=== PATIENT | female | born 1970 | race Two or more races ===

== ENCOUNTER 2017-01-06 02:47 | Emergency (ER) | payer SELFPAY ==
[2017-01-06] MEDS ORDERED: NORMAL SALINE 1000 ML 1,000 ML IV PRN (03:38)
[2017-01-06] MEDS ORDERED: GABAPENTIN 300 MG CAPSULE PO ONE (03:44)
[2017-01-06] MEDS ORDERED: MORPHINE SULFATE 10 MG/ML INJ IV ONE (04:17)
[2017-01-06 04:22] LABS: ABSOLUTE BASOPHILS # (AUTO) 0.1 10^3/uL (0.0-0.2); ABSOLUTE LYMPHOCYTES (AUTO) 2.4 10^3/uL (0.5-4.7); ABSOLUTE MONOCYTES (AUTO) 0.6 10^3/uL (0.1-1.4); ABSOLUTE NEUT (AUTO) 6.8 10^3/uL (1.7-8.2); BASOPHILS % (AUTO) 0.5 % (0-2); EOSINOPHILS % (AUTO) 0.4 % (0-6); HEMOGLOBIN 10.6 g/dL (12.0-15.5); HGB HCT DIFFERENCE -1.2; LYMPHOCYTES % (AUTO) 24.3 % (13-45); MEAN CORPUSCULAR HEMOGLOBIN 22.1 pg (27.0-33.4); MEAN CORPUSCULAR HGB CONC 32.2 g/dL (32.0-36.0); MEAN CORPUSCULAR VOLUME 69 fl (80-97); MONOCYTES % (AUTO) 6.1 % (3-13); RED BLOOD COUNT 4.81 10^6/uL (3.72-5.28); RED CELL DISTRIBUTION WIDTH 22.8 % (11.5-14.0); SEGMENTED NEUTROPHILS % (AUTO) 68.7 % (42-78); VENOUS BLOOD BASE EXCESS 1.2 mmol/L; VENOUS BLOOD PCO2 36.4 mmHg (35-63); VENOUS BLOOD PH 7.45 (7.30-7.42); WHITE BLOOD COUNT 9.9 10^3/uL (4.0-10.5)
[2017-01-06 04:36] LABS: ALANINE AMINOTRANSFERASE 29 U/L (9-52); ALBUMIN 3.1 g/dL (3.5-5.0); ALKALINE PHOSPHATASE 180 U/L (38-126); ANION GAP 9 (5-19); ASPARTATE AMINO TRANSFERASE 19 U/L (14-36); BILIRUBIN,DIRECT 0.5 mg/dL (0.0-0.4); BLOOD UREA NITROGEN 7 mg/dL (7-20); CARBON DIOXIDE 26 mmol/L (22-30); CHLORIDE 96 mmol/L (98-107); CREATININE RESULT 0.52 mg/dL (0.52-1.25); POTASSIUM 3.9 mmol/L (3.6-5.0); SODIUM 130.5 mmol/L (137-145); TOTAL PROTEIN 6.8 g/dL (6.3-8.2)
[2017-01-06 04:43] LABS: GLUCOSE 487 mg/dL (75-110)
--- NOTE | 2017-01-06 04:56 | ER Document Report ---
ED Blood Sugar Problem - General Chief Complaint: High Blood Sugar Stated Complaint: BLOOD SUGAR PROBLEM Time Seen by Provider: 01/06/17 03:38 Mode of Arrival: Ambulatory TRAVEL OUTSIDE OF THE [place] IN LAST 30 DAYS: No - HPI Patient complains to provider of: Bilateral leg pain, elevated blood sugar Onset: This afternoon Onset/Duration: Gradual Quality of pain: Achy Severity: Moderate Pain Level: 4 Similar symptoms previously: Yes Recently seen / treated by doctor: No Notes: Patient is a 46-year-old female presenting to the emergency room today complaining of elevated blood sugar and bilateral lower extremity pain consistent with diabetic neuropathy which she has experienced before, she denies any injury or trauma, no fever or chills, no increased urination or thirst, no vision changes, no chest pain or shortness of breath, patient reports that 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, and most recently when going through [employer] her medications were not and labeled bottles and were confiscated including her insulin and her gabapentin - Related Data Allergies/Adverse Reactions: Bee Allergy (Uncoded 01/06/17 03:18) bees Allergy (Uncoded 01/06/17 03:18) Past Medical History - General Information source: Patient - Social History Smoking Status: Never Smoker Family History: DM, Reviewed & Not Pertinent - Past Medical History Cardiac Medical History: Reports: Hx Hypertension Neurological Medical History: Denies: Hx Seizures Endocrine Medical History: Reports: Hx Diabetes Mellitus Type 2 Renal/ Medical History: Denies: Hx Peritoneal Dialysis GI Medical History: Reports: Hx Gastroesophageal Reflux Disease Musculoskeltal Medical History: Reports Hx Arthritis - gout Psychiatric Medical History: Reports: Hx Depression Past Surgical History: Reports: Hx Abdominal Surgery - Laproscopic Gastric Bypass, Hx Section - x 3. Denies: Hx Hysterectomy - Immunizations Hx Diphtheria, Pertussis, Tetanus Vaccination: No Review of Systems - Review of Systems Constitutional: No symptoms reported EENT: No symptoms reported Cardiovascular: No symptoms reported Respiratory: No symptoms reported Gastrointestinal: No symptoms reported Genitourinary: No symptoms reported Female Genitourinary: No symptoms reported Musculoskeletal: See HPI Skin: No symptoms reported Hematologic/Lymphatic: No symptoms reported Neurological/Psychological: No symptoms reported -: Yes All other systems reviewed and negative Physical Exam - Vital signs Vitals: Temp Pulse Resp BP Pulse Ox 98.6 F 109 H 18 139/89 H 94 01/06/17 03:13 01/06/17 03:13 01/06/17 03:13 01/06/17 03:13 01/06/17 03:13 Interpretation: Tachycardic - General General appearance: Alert Notes: Patient appears to be in pain, rocking on the bed and occasionally tapping or punching her legs - HEENT Head: Normocephalic, Atraumatic Eyes: Normal Pupils: PERRL - Respiratory Respiratory status: No respiratory distress Chest status: Nontender Breath sounds: Normal Chest palpation: Normal - Cardiovascular Rhythm: Regular Heart sounds: Normal auscultation Murmur: No - Abdominal Inspection: Normal Distension: No distension Bowel sounds: Normal Tenderness: Nontender Organomegaly: No organomegaly - Back Back: Normal, Nontender - Extremities General upper extremity: Normal inspection, Nontender, Normal color, Normal ROM , Normal temperature General lower extremity: Normal inspection, Nontender, Normal color, Normal ROM , Normal temperature, Normal weight bearing. No: Julia's sign - Neurological Neuro grossly intact: Yes Cognition: Normal Orientation: AAOx4 [place] Coma Scale Eye Opening: Spontaneous [place] Coma Scale Verbal: Oriented [place] Coma Scale Motor: Obeys Commands [place] Coma Scale Total: 15 Speech: Normal Motor strength normal: LUE, RUE, LLE, RLE Sensory: Normal - Psychological Associated symptoms: Normal affect, Normal mood - Skin Skin Temperature: Warm Skin Moisture: Dry Skin Color: Normal Course - Re-evaluation Re-evalutation: 01/06/17 05:14 Patient resting comfortably on the stretcher, reports feeling much better, symptoms are resolved, she was informed of her lab findings are consistent with hyperglycemia, symptoms are consistent with diabetic neuropathy, she was given a prescription for Levemir and gabapentin and advised to follow-up with her primary care provider in 2-3 days or return if symptoms worsen, patient acknowledges understanding and agreement with this plan - Vital Signs Vital signs: Temp Pulse Resp BP Pulse Ox 98.6 F 109 H 18 139/89 H 94 01/06/17 03:13 01/06/17 03:13 01/06/17 03:13 01/06/17 03:13 01/06/17 03:13 - Laboratory Result Diagrams: 01/06/17 04:13 01/06/17 04:13 Laboratory results interpreted by me: 01/06/17 01/06/1717 04:13 04:13 04:13 Hgb 10.6 L Hct 33.0 L MCV 69 L MCH 22.1 L RDW 22.8 H VBG pH 7.45 H Sodium 130.5 L Chloride 96 L Glucose 487 H* Direct Bilirubin 0.5 H Alkaline Phosphatase 180 H Albumin 3.1 L Discharge - Discharge Clinical Impression: Hyperglycemia Diabetic neuropathy Qualifiers: Diabetes mellitus type: type 2 Diabetes mellitus complication detail: diabetic polyneuropathy Qualified Code(s): E11.42 - Type 2 diabetes mellitus with diabetic polyneuropathy Condition: Stable Disposition: HOME, SELF-CARE Instructions: Hyperglycemia ([facility]), Neuropathy ([facility]) Additional Instructions: Follow up with your primary care provider in one to 2 days. Return to the emergency room immediately if symptoms worsen or any additional concerns. Prescriptions: Insulin Detemir [Levemir Insulin 300 Units/3 ml Insuln.pen] 1 unit SUBCUT QHS # 10 ml Gabapentin 600 mg PO TID #90 tablet
[2017-01-06 05:32] VITALS: BP 130/81
== END 2017-01-06 05:30 | disposition home or self-care (01) ==
LOC: EDBD 02:47 → ER 02:47
DX: E11.65 Type 2 diabetes mellitus with hyperglycemia (principal); E11.42 Type 2 diabetes mellitus with diabetic polyneuropathy; M79.604 Pain in right leg; M79.605 Pain in left leg
CPT/HCPCS: 99285; 96361; 96374; 36415; 82962; 83930; 85025; 80053; 82803; J2270; J7030

== ENCOUNTER 2017-02-09 08:32 | Emergency (ER) | payer SELFPAY ==
[2017-02-09 09:30] LABS: ABSOLUTE LYMPHOCYTES (AUTO) 1.6 10^3/uL (0.5-4.7); ABSOLUTE MONOCYTES (AUTO) 0.8 10^3/uL (0.1-1.4); BASOPHILS % (AUTO) 0.4 % (0-2); EOSINOPHILS % (AUTO) 0.1 % (0-6); HEMATOCRIT 32.3 % (36.0-47.0); HEMOGLOBIN 10.5 g/dL (12.0-15.5); HGB HCT DIFFERENCE -0.8; LYMPHOCYTES % (AUTO) 15.1 % (13-45); MEAN CORPUSCULAR HEMOGLOBIN 23.5 pg (27.0-33.4); MEAN CORPUSCULAR HGB CONC 32.6 g/dL (32.0-36.0); MEAN CORPUSCULAR VOLUME 72 fl (80-97); MONOCYTES % (AUTO) 7.6 % (3-13); RED BLOOD COUNT 4.49 10^6/uL (3.72-5.28); RED CELL DISTRIBUTION WIDTH 21.9 % (11.5-14.0); SEGMENTED NEUTROPHILS % (AUTO) 76.8 % (42-78); WHITE BLOOD COUNT 10.4 10^3/uL (4.0-10.5)
[2017-02-09 09:34] LABS: PROTHROMBIN TIME 13.8 SEC (11.4-15.4)
[2017-02-09 09:35] LABS: PARTIAL THROMBOPLASTIN TIME 28.2 SEC (23.5-35.8)
[2017-02-09 09:37] LABS: APPEARANCE,URINE SLIGHTLY-CLOUDY; BILIRUBIN,URINE NEGATIVE (NEGATIVE); GLUCOSE, URINE >=500 mg/dL (NEGATIVE); KETONES,URINE 80 mg/dL (NEGATIVE); LEUKOCYTE ESTERASE,URINE NEGATIVE (NEGATIVE); NITRITE,URINE NEGATIVE (NEGATIVE); PROTEIN,URINE 30 mg/dL (NEGATIVE); URINE SPECIFIC GRAVITY 1.023
[2017-02-09] MEDS ORDERED: ONDANSETRON HCL INJ/PF 4 MG/2 ML SDV IV ONE ×3 (09:38→14:13)
[2017-02-09] MEDS ORDERED: MORPHINE SULFATE 10 MG/ML INJ IV ONE ×3 (09:38→14:14)
--- NOTE | 2017-02-09 09:50 | ER Document Report ---
ED General - General Chief Complaint: Abdominal Pain Stated Complaint: ABDOMINAL PAIN Time Seen by Provider: 02/09/17 08:47 Mode of Arrival: Ambulatory Information source: Patient Notes: Patient presents to the emergency department with complaints of abdominal pain, nausea/vomiting and leg pain for the past week. Patient reports that she has had nausea and vomiting since Saturday she took an [id number] medication seemed to get better but then the vomiting returned. Patient reports her legs feel like she has needlesticks into them. Patient is constantly hitting her legs. History of diabetes gastric bypass pancreatitis. Denies diarrhea. Reports she has a boil on her buttocks that she would want looked at. Reports she has been soaking in Epsom salts for that. Denies fever. TRAVEL OUTSIDE OF THE [place] IN LAST 30 DAYS: No - HPI Onset: Other Onset/Duration: Persistent Quality of pain: Achy Severity: Severe Pain Level: 5 Associated symptoms: Nausea, Vomiting Exacerbated by: Denies Relieved by: Denies Similar symptoms previously: No Recently seen / treated by doctor: No - Related Data Allergies/Adverse Reactions: Bee Allergy (Uncoded 02/09/17 08:36) bees Allergy (Uncoded 02/09/17 08:36) Past Medical History - General Information source: Patient - Social History Smoking Status: Current Every Day Smoker Cigarette use (# per day): Yes - 1/2 ppd Frequency of alcohol use: None Drug Abuse: None Lives with: Family - [place] Family History: DM, Reviewed & Not Pertinent Patient has suicidal ideation: No Patient has homicidal ideation: No - Past Medical History Cardiac Medical History: Reports: Hx Hypertension Neurological Medical History: Denies: Hx Seizures Endocrine Medical History: Reports: Hx Diabetes Mellitus Type 2 Renal/ Medical History: Denies: Hx Peritoneal Dialysis GI Medical History: Reports: Hx Gastroesophageal Reflux Disease Musculoskeltal Medical History: Reports Hx Arthritis - gout Psychiatric Medical History: Reports: Hx Depression Past Surgical History: Reports: Hx Abdominal Surgery - Laproscopic Gastric Bypass, Hx Section - x 3, Hx Gastric Bypass Surgery. Denies: Hx Hysterectomy - Immunizations Hx Diphtheria, Pertussis, Tetanus Vaccination: No Review of Systems - Review of Systems Notes: Review HPI for review of systems., All other systems negative Physical Exam - Vital signs Vitals: Temp Pulse Resp BP Pulse Ox 98.8 F 126 H 20 137/83 H 100 02/09/17 08:36 10/21/17 08:36 02/09/17 08:36 02/09/17 08:36 02/09/17 08:36 - Notes Notes: PHYSICAL EXAMINATION: GENERAL: upset, punching herself in the legs HEAD: Atraumatic, normocephalic. EYES: Pupils equal round and reactive to light, extraocular movements intact, sclera anicteric, conjunctiva are normal. ENT: nares patent, oropharynx clear without exudates. Moist mucous membranes. NECK: Normal range of motion, supple without lymphadenopathy LUNGS: CTAB and equal. No wheezes rales or rhonchi. HEART: Regular rate and rhythm without murmurs ABDOMEN: Soft, reports generalized tenderness BACK: Reports bilateral CVA ttp EXTREMITIES: Normal range of motion, no pitting edema. No cyanosis. NEUROLOGICAL: Cranial nerves grossly intact. Normal sensory/motor exams. PSYCH: Normal mood, normal affect. SKIN: Warm, Dry, normal turgor, no rashes or lesions noted - Skin Skin Temperature: Warm Skin Moisture: Dry Skin Color: Normal Location of irregularity: Other - left buttock Irregularity with: Other - 1 cm opening covered by a bandaid, removed, no discharge, no induration, no warmth Course - Re-evaluation Re-evalutation: 02/09/17 12:42 pt reports pain is decreased, but will not allow me to palpate her abdomen due to pain. US with possible gallstones, CT ordered for further evaluation. Lipase 325 02/09/17 14:15 c/o pain, unable to palpate her abdomen without c/o pain, medication ordered, attempted to contact dr park surgeon who is surgeon admission discharge rn, no answer, I believe he is in surgery, will attempt later 02/09/17 15:13 ct extended gallbladder, sludge, dr park called, will be over to see patient 02/09/17 15:58 Dr. Park in to evaluate patient reports patient does not need surgery at this time Labs in determinant patient to be discharged home with antinausea medicine. Instructed on stool softener and importance of follow-up with primary care and surgical consult. Patient instructed on plan of care. Patient also instructed on Bactroban keeping her wound to her left buttocks clean with antibacterial soap and apply topical antibiotic. Patient verbalized understanding tall instructions. Pt was instructed on narcotics and constipation. She was requesting pain med to go, toradol ordered. 02/09/17 16:25 HR -- ST, pt reports history of ST, possibly due to weight, denies chest pain, no SOB, pt smiling no distress, verbalized understanding to all instructions. - Vital Signs Vital signs: Temp Pulse Resp BP Pulse Ox 98.8 F 130 H 18 139/95 H 97 02/09/17 16:18 02/09/17 16:18 02/09/17 16:18 02/09/17 16:18 02/09/17 16:18 - Laboratory Result Diagrams: 02/09/17 09:05 02/09/17 09:05 Laboratory results interpreted by me: 02/09/17 02/09/17 02/09/17 09:05 09:05 09:25 Hgb 10.5 L Hct 32.3 L MCV 72 L MCH 23.5 L RDW 21.9 H Sodium 134.6 L Chloride 95 L BUN 6 L Creatinine 0.45 L Glucose 388 H Total Bilirubin 1.4 H Direct Bilirubin 0.7 H AST 48 H Alkaline Phosphatase 225 H Total Protein 8.3 H Lipase 329.5 H Urine Protein 30 H Urine Glucose (UA) >=500 H Urine Ketones 80 H Urine Urobilinogen 2.0 H - Diagnostic Test Radiology reviewed: Image reviewed, Reports reviewed - EXAM DESCRIPTION: U/S ABDOMEN LIMITED W/O DOP COMPLETED DATE/TIME: 02/09/2017 11:27 am REASON FOR STUDY: ABD PAIN, N/V COMPARISON: Abdominal CT scan dated July 2006 TECHNIQUE: Dynamic and static grayscale images acquired of the abdomen and recorded on PACS. Additional selected color Doppler and spectral images recorded. LIMITATIONS: Study is limited due to overlying bowel gas and the patient's body habitus. FINDINGS: PANCREAS: The pancreas could not be visualized overlying bowel gas. LIVER: No masses. There is increased echogenicity in the liver consistent with fatty infiltration. LIVER VASCULATURE : Normal blood flow is identified in the portal vein. GALLBLADDER: There is some increased echogenicity within the gallbladder lumen most consistent with biliary sludge. No definite echogenic foci with shadowing to suggest gallstones are identified. Normal wall thickness. No pericholecystic fluid. ULTRASOUND- DETECTED OLIVEIRA'S SIGN: Negative. INTRAHEPATIC DUCTS AND COMMON DUCT: CBD and intrahepatic ducts normal caliber. No filling defects. INFERIOR VENA CAVA: Not visualized AORTA: Not visualize RIGHT KIDNEY: Normal size. Normal echogenicity. No solid or suspicious masses. No hydronephrosis. No calcifications. PERITONEAL AND RIGHT PLEURAL SPACE: No ascites or effusions. OTHER: No other significant findings. IMPRESSION: Limited study as noted above. There is some increased echogenicity in the gallbladder lumen most consistent biliary sludge. No definite gallstones are identified. Other findings as noted above - Consults dr park Time consulted: 15:12 Reason for consultation: 02/09/17 15:12 called for intractable abd pain Consulted provider: will come to ER Discharge - Discharge Clinical Impression: Leg pain, bilateral Abdominal pain Qualifiers: Abdominal location: generalized Qualified Code(s): R10.84 - Generalized abdominal pain Condition: Stable Disposition: HOME, SELF-CARE Instructions: Abdominal Pain ([facility]), Antinausea Medication ([facility]), Gallbladder Disease ([facility]), Gastroenterology, Intravenous (IV) Fluids ([facility]), Low-Fat Diet ( [facility]), Stool Softener ([facility]), Surgeon Additional Instructions: *You have been evaluated for abdominal pain, nausea *Take medication as prescribed *Take a stool softener *Follow up with a primary care provider within 3 days *Follow up with a culturist *Follow up with a surgeon within one week to evaluate your gallbladder *Return to ED for worsening condition, changes, needs *Return to ED if not better in 24 hours Prescriptions: Ondansetron [Zofran Odt 4 mg Tablet] 1 - 2 tab PO Q4H #10 tab.tri
[2017-02-09 09:53] LABS: ALANINE AMINOTRANSFERASE 26 U/L (9-52); ALBUMIN 3.7 g/dL (3.5-5.0); ALKALINE PHOSPHATASE 225 U/L (38-126); ANION GAP 14 (5-19); ASPARTATE AMINO TRANSFERASE 48 U/L (14-36); BILIRUBIN,DIRECT 0.7 mg/dL (0.0-0.4); BILIRUBIN,TOTAL 1.4 mg/dL (0.2-1.3); BLOOD UREA NITROGEN 6 mg/dL (7-20); CALCIUM 8.7 mg/dL (8.4-10.2); CARBON DIOXIDE 26 mmol/L (22-30); CHLORIDE 95 mmol/L (98-107); CREATININE RESULT 0.45 mg/dL (0.52-1.25); GLUCOSE 388 mg/dL (75-110); LIPASE 329.5 U/L (23-300); POTASSIUM 4.4 mmol/L (3.6-5.0); SODIUM 134.6 mmol/L (137-145); TOTAL PROTEIN 8.3 g/dL (6.3-8.2)
[2017-02-09 09:53] LABS: URINE BARBITURATES SCREEN NEGATIVE; URINE METHADONE SCREEN NEGATIVE; URINE OPIATES LOW NEGATIVE; URINE PHENCYCLIDINE SCREEN NEGATIVE
[2017-02-09 09:54] LABS: ALCOHOL < 10 mg/dL (NONE DETECTED)
[2017-02-09] MEDS ORDERED: NORMAL SALINE 1000 ML 1,000 ML IV ONE (10:16)
[2017-02-09] MEDS ORDERED: MUPIROCIN CALCIUM 2% CREAM 15 GM TP ONE (10:39)
--- NOTE | 2017-02-09 12:18 | RADIOLOGY REPORT (SQ) ---
EXAM DESCRIPTION: U/S ABDOMEN LIMITED W/O DOP COMPLETED DATE/TIME: 02/09/2017 11:27 am REASON FOR STUDY: ABD PAIN, N/V COMPARISON: Abdominal CT scan dated July 2006 TECHNIQUE: Dynamic and static grayscale images acquired of the abdomen and recorded on PACS. Additio nal selected color Doppler and spectral images recorded. LIMITATIONS: Study is limited due to overlying bowel gas and the patient's body habitus. FINDINGS: PANCREAS: The pancreas could not be visualized overlying bowel gas. LIVER: No masses. There is increased echogenicity in the liver consistent with fatty infiltration. LIVER VASCULATURE: Normal blood flow is identified in the portal vein. GALLBLADDER: There is some increased echogenicity within the gallbladder lumen most consistent with b iliary sludge. No definite echogenic foci with shadowing to suggest gallstones are identified. Sherry l wall thickness. No pericholecystic fluid. ULTRASOUND-DETECTED OLIVEIRA'S SIGN: Negative. INTRAHEPATIC DUCTS AND COMMON DUCT: CBD and intrahepatic ducts normal caliber. No filling defects. INFERIOR VENA CAVA: Not visualized AORTA: Not visualize RIGHT KIDNEY: Normal size. Normal echogenicity. No solid or suspicious masses. No hydronephrosis. No calcifications. PERITONEAL AND RIGHT PLEURAL SPACE: No ascites or effusions. OTHER: No other significant findings. IMPRESSION: Limited study as noted above. There is some increased echogenicity in the gallbladder l umen most consistent biliary sludge. No definite gallstones are identified. Other findings as noted above TECHNICAL DOCUMENTATION: JOB ID: [id number]- All Rights Reserved
--- NOTE | 2017-02-09 14:19 | RADIOLOGY REPORT (SQ) ---
EXAM DESCRIPTION: CT ABD/PELVIS NO ORAL OR IV COMPLETED DATE/TIME: 02/09/2017 12:55 pm REASON FOR STUDY: abd pain COMPARISON: July 2016 TECHNIQUE: CT scan of the abdomen and pelvis performed without intravenous or oral contrast. Images reviewed with lung, soft tissue, and bone windows. Reconstructed coronal and sagittal MPR images revi ewed. All images stored on PACS. All CT scanners at this facility use dose modulation, iterative reconstruction, and/or weight based d osing when appropriate to reduce radiation dose to as low as reasonably achievable (ALARA). [facility]: Dose Right [facility]: CareDose [facility]: Dose Right [facility]: Teradose 4D [facility]: Smart [employer] RADIATION DOSE: Up-to-date CT equipment and radiation dose reduction techniques were employed. CTDIv ol: 18.9 mGy. DLP: 982 mGy-cm.mGy. LIMITATIONS: None. FINDINGS: LOWER CHEST: No significant findings. No nodules or infiltrates. NON-CONTRASTED LIVER, SPLEEN, ADRENALS: Evaluation limited by lack of IV contrast. No identified sign ificant masses. There is diffuse heterogeneous density in the liver which may only represent areas o f fatty infiltration and fatty sparing however the possibility of an infiltrative process cannot be e xcluded. These changes are more extensive as compared to the previous study. PANCREAS: No masses. There is some minimal peripancreatic soft tissue stranding such that I cannot e xclude a component of pancreatitis. GALLBLADDER: The gallbladder appears distended and there is relative increased density within the gal lbladder lumen which may represent biliary sludge. Ultrasound may be of value for further evaluation RIGHT KIDNEY AND URETER: No suspicious masses. Assessment limited by lack of IV contrast. No signif icant calcifications. No hydronephrosis or hydroureter. LEFT KIDNEY AND URETER: No suspicious masses. Assessment limited by lack of IV contrast. No signifi cant calcifications. No hydronephrosis or hydroureter. AORTA AND RETROPERITONEUM: No aneurysm. No retroperitoneal masses or adenopathy. BOWEL AND PERITONEAL CAVITY: Postsurgical changes are identified in the left upper quadrant presumabl y related to a gastric bypass procedure. APPENDIX: Normal. PELVIS, BLADDER, AND ABDOMINAL WALL:No abnormal masses. No free fluid. Bladder normal. BONES: No significant findings. OTHER: No other significant finding. IMPRESSION: Diffuse heterogeneous density in the liver is noted above which may only be related to a reas of fatty infiltration and fatty sparing however the possibility of an infiltrative process canno t be excluded. The gallbladder appears distended and there is relative increased density within the gallbladder lumen which may represent biliary sludge. Ultrasound may be of value for further evaluat ion. There is some minimal peripancreatic soft tissue stranding such that I cannot exclude a compone nt of pancreatitis. Other findings as noted above COMMENT: Quality ID # [id number]: Final reports with documentation of one or more dose reduction techniques (e.g., Automated exposure control, adjustment of the mA and/or kV according to patient size, use of iterative reconstruction technique) TECHNICAL DOCUMENTATION: JOB ID: [id number] [employer]- All Rights Reserved
[2017-02-09] MEDS ORDERED: INSULIN REG, HUMAN 100 UNIT/ML 3 ML VIAL (PYX) IV ONE (14:41)
[2017-02-09] MEDS ORDERED: KETOROLAC TROMETHAMINE 60 MG/2 ML SDV IM ONE (16:18)
--- NOTE | 2017-02-09 16:18 | PDOC CONSULTATION ---
Consultation Consult Date: 02/09/17 Attending physician:: NENITA CHAPMAN Consult reason:: Abdominal pain for 1 week. History of Present Illness Admission Date/PCP: Consultation requested from Nenita Chapman History of Present Illness: BILL FERRER is a 46 year old female with a one-week history of nausea vomiting and abdominal pain. She states that she is intermittently able to eat and keep things down. Progress so that she sought attention in the emergency department today. She states she had a normal bowel movement yesterday. Prior to that she states she had diarrhea for the last several days. Past Medical History Cardiac Medical History: Reports: Hypertension Neurological Medical History: Denies: Seizures Endocrine Medical History: Reports: Diabetes Mellitus Type 2 GI Medical History: Reports: Gastroesophageal Reflux Disease Musculoskeltal Medical History: Reports: Arthritis - gout Psychiatric Medical History: Reports: Depression Past Surgical History Past Surgical History: Reports: Section - x 3, Gastric Bypass Surgery Denies: Hysterectomy Social History Lives with: Family - [place] Smoking Status: Current Every Day Smoker Frequency of Alcohol Use: Social Hx Recreational Drug Use: No Drugs: None Hx Prescription Drug Abuse: No Family History Family History: DM, Reviewed & Not Pertinent Parental Family History Reviewed: No Children Family History Reviewed: No Sibling(s) Family History Reviewed.: No Medication/Allergy Home Medications: Cefuroxime Axetil [Ceftin 250 mg Tablet] 1 tab PO BID #8 tablet 08/27/15 Lisinopril [Prinivil 10 mg Tablet] 10 mg PO Q12 #60 tablet 08/27/15 Metformin HCl 500 mg PO DAILY #30 tablet 08/27/15 Metoprolol Tartrate [Lopressor 25 mg Tablet] 25 mg PO Q12 #60 tablet 08/27/15 Gabapentin 300 mg PO TID #90 capsule 01/19/16 Hydrocodone/Acetaminophen [[place] 5-325 mg Tablet] 1 tab PO Q4HP PRN #7 tablet Promethazine HCl [Phenergan 25 mg Tablet] 1 tab PO Q4HP PRN #10 tablet 07/29/16 Ranitidine HCl [Zantac 150 mg Tablet] 150 mg PO BID #20 tablet 07/29/16 Cyclobenzaprine HCl [Flexeril 10 mg Tablet] 10 mg PO TIDP PRN #15 tab 10/25/16 Insulin Regular, Human [Humulin R (Reg) Insulin 100 unit/mL] 0 unit SUBCUT .SLD SCALE #10 ml 10/25/16 Gabapentin 600 mg PO TID #90 tablet 01/06/17 Insulin Detemir [Levemir Insulin 300 Units/3 ml Insuln.pen] 1 unit SUBCUT QHS # 10 ml 01/06/17 Ondansetron [Zofran Odt 4 mg Tablet] 1 - 2 tab PO Q4H #10 tab.rapdis 02/09/17 Allergies/Adverse Reactions: Bee Allergy (Uncoded 02/09/17 08:36) bees Allergy (Uncoded 02/09/17 08:36) Review of Systems Gastrointestinal: PRESENT: as per HPI Physical Exam Vital Signs: Temp Pulse Resp BP Pulse Ox 98.7 F 112 H 20 131/67 H 93 02/09/17 13:21 02/09/17 13:21 02/09/17 08:36 02/09/17 13:21 02/09/17 13:21 Intake & Output 02/08/17 02/09/17 02/10/17 06:59 06:59 06:59 Weight 95.708 kg General appearance: PRESENT: mild distress Head exam: PRESENT: atraumatic, normocephalic Eye exam: PRESENT: EOMI, PERRLA. ABSENT: scleral icterus Ear exam: PRESENT: normal external ear exam Mouth exam: PRESENT: moist Neck exam: PRESENT: full ROM Respiratory exam: PRESENT: clear to auscultation candice. ABSENT: rales, rhonchi, wheezes Cardiovascular exam: PRESENT: RRR Pulses: PRESENT: normal radial pulses GI/Abdominal exam: PRESENT: other - Placement of the stethoscope on the abdomen caused the patient to complain of pain. Bowel sounds were normal. Examination of the abdomen is limited due to the patient's complaint of pain. She does not appear to have peritonitis or peritoneal signs. I cannot detect rebound tenderness. Rectal exam: PRESENT: deferred Extremities exam: PRESENT: full ROM Musculoskeletal exam: PRESENT: full ROM Neurological exam: PRESENT: awake, oriented to person, oriented to place, oriented to time, oriented to situation Skin exam: PRESENT: normal color Results Laboratory Results: 02/09/17 09:05 02/09/17 09:05 02/09/17 02/09/17 02/09/17 09:05 09:05 09:05 WBC 10.4 RBC 4.49 Hgb 10.5 L Hct 32.3 L MCV 72 L MCH 23.5 L MCHC 32.6 RDW 21.9 H Plt Count 203 Seg Neutrophils % 76.8 Lymphocytes % 15.1 Monocytes % 7.6 Eosinophils % 0.1 Basophils % 0.4 Absolute Neutrophils 8.0 Absolute Lymphocytes 1.6 Absolute Monocytes 0.8 Absolute Eosinophils 0.0 Absolute Basophils 0.0 Sodium 134.6 L Potassium 4.4 Chloride 95 L Carbon Dioxide 26 Anion Gap 14 BUN 6 L Creatinine 0.45 L Est GFR ( Amer) > 60 Est GFR (Non-Af Amer) > 60 Glucose 388 H Calcium 8.7 Total Bilirubin 1.4 H AST 48 H ALT 26 Alkaline Phosphatase 225 H Total Protein 8.3 H Albumin 3.7 Lipase 329.5 H Serum HCG, Qual NEGATIVE Urine Color Urine Appearance Urine pH Ur Specific [place] Urine Protein Urine Glucose (UA) Urine Ketones Urine Blood Urine Nitrite Ur Leukocyte Esterase Urine WBC (Auto) Urine RBC (Auto) 02/09/17 09:25 WBC RBC Hgb Hct MCV MCH MCHC RDW Plt Count Seg Neutrophils % Lymphocytes % Monocytes % Eosinophils % Basophils % Absolute Neutrophils Absolute Lymphocytes Absolute Monocytes Absolute Eosinophils Absolute Basophils Sodium Potassium Chloride Carbon Dioxide Anion Gap BUN Creatinine Est GFR ( Amer) Est GFR (Non-Af Amer) Glucose Calcium Total Bilirubin AST ALT Alkaline Phosphatase Total Protein Albumin Lipase Serum HCG, Qual Urine Color YELLOW Urine Appearance SLIGHTLY-CLOUDY Urine pH 6.0 Ur Specific [place] 1.023 Urine Protein 30 H Urine Glucose (UA) >=500 H Urine Ketones 80 H Urine Blood NEGATIVE Urine Nitrite NEGATIVE Ur Leukocyte Esterase NEGATIVE Urine WBC (Auto) 3 Urine RBC (Auto) 1 Impressions: Abdomen Ultrasound 02/09/17 10:13 IMPRESSION: Limited study as noted above. There is some increased echogenicity in the gallbladder lumen most consistent biliary sludge. No definite gallstones are identified. Other findings as noted above Abdomen/Pelvis CT 02/09/17 12:34 IMPRESSION: Diffuse heterogeneous density in the liver is noted above which may only be related to areas of fatty infiltration and fatty sparing however the possibility of an infiltrative process cannot be excluded. The gallbladder appears distended and there is relative increased density within the gallbladder lumen which may represent biliary sludge. Ultrasound may be of value for further evaluation. There is some minimal peripancreatic soft tissue stranding such that I cannot exclude a component of pancreatitis. Other findings as noted above Status: Image reviewed by me - I reviewed the ultrasound of the abdomen and the CT scan of the abdomen. I agree with the radiology interpretation of both. On the CT scan of the abdomen there is stool throughout the entire colon. No evidence of small bowel obstruction or gastric outlet obstruction. Pancreas appears normal. Assessment & Plan - Diagnosis (1) Abdominal pain Qualifiers: Abdominal location: generalized Qualified Code(s): R10.84 - Generalized abdominal pain Is this a current diagnosis for this admission?: Yes - Plan Summary Plan Summary: I do not feel that this patient has a surgical abdomen. She has a large fatty liver. Her gallbladder is distended due to her as a vomiting over the past week. Is no evidence of gallstones on the ultrasound or the CT scan. The pancreas is normal. There is very slight stranding in the soft tissues around the pancreas. Stool throughout the colon indicating obstipation and possible colonic impaction. This patient's pain multifactorial. She has a very large liver with fatty infiltration which can be painful. She also has colonic dysfunction which can contribute to her pain. I would recommend pain control and a GI regimen.
[2017-02-09 16:23] VITALS: BP 139/95
== END 2017-02-09 16:34 | disposition home or self-care (01) ==
LOC: ER 08:32
DX: M79.604 Pain in right leg (principal); M79.605 Pain in left leg; R10.84 Generalized abdominal pain; R11.2 Nausea with vomiting, unspecified; L02.31 Cutaneous abscess of buttock; E11.9 Type 2 diabetes mellitus without complications; Z98.84 Bariatric surgery status; F17.210 Nicotine dependence, cigarettes, uncomplicated
CPT/HCPCS: 96376; 99285; 96372; 96361; 96374; 96375; 36415; 82962; 80307 ×2; 83690; 84703; 85025; 85610; 85730; 80053; 81001; 76705; 74176; J3490; J1885; J2270; J1815; J2405; J7030

== ENCOUNTER 2017-07-01 21:55 | Inpatient (IN) | payer SELFPAY ==
[2017-07-01] MEDS ORDERED: FENTANYL CITRATE INJ/PF 100 MCG/2 ML AMPUL IV ONE (22:16)
--- NOTE | 2017-07-01 22:26 | ER Document Report ---
ED General - General Chief Complaint: Breathing Difficulty Stated Complaint: DIFFICULTY BREATHING Cannot obtain history due to: Unstable vital signs Notes: Patient is a 46-year-old female who presents in moderate to severe respiratory distress with complaints of associated chest pain as well as upper abdominal pain. History is very limited secondary to the patient's condition at time of presentation. Patient reports that her symptoms started approximately 5 days ago and have been getting progressively worse since that time. Nothing has seemed to improve or worsen her symptoms. She denies any history of similar symptoms in the past. She denies any history of DVT or pulmonary embolus. No history of cardiac issues in the past. She does have a history of recurrent alcoholic pancreatitis but denies any alcohol use today. TRAVEL OUTSIDE OF THE [place] IN LAST 30 DAYS: No - Related Data Allergies/Adverse Reactions: Bee Allergy (Uncoded 02/23/17 21:02) bees Allergy (Uncoded 02/23/17 21:02) Past Medical History - General Information source: Patient - Social History Smoking Status: Never Smoker Frequency of alcohol use: Occasional Drug Abuse: None Lives with: Spouse/Significant other Family History: DM - Past Medical History Cardiac Medical History: Reports: Hx Hypertension Neurological Medical History: Denies: Hx Seizures Endocrine Medical History: Reports: Hx Diabetes Mellitus Type 2 Renal/ Medical History: Denies: Hx Peritoneal Dialysis GI Medical History: Reports: Hx Gastroesophageal Reflux Disease Musculoskeltal Medical History: Reports Hx Arthritis - gout Psychiatric Medical History: Reports: Hx Depression Past Surgical History: Reports: Hx Abdominal Surgery - Laproscopic Gastric Bypass, Hx Section - x 3, Hx Gastric Bypass Surgery. Denies: Hx Hysterectomy - Immunizations Hx Diphtheria, Pertussis, Tetanus Vaccination: No Review of Systems - Review of Systems Notes: Constitutional: Negative for fever. HENT: Negative for sore throat. Eyes: Negative for visual changes. Cardiovascular: Positive for chest pain. Respiratory: Positive for shortness of breath. Gastrointestinal: Positive for abdominal pain Genitourinary: Negative for dysuria. Musculoskeletal: Negative for back pain. Skin: Negative for rash. Neurological: Negative for headaches, weakness or numbness. 10 point ROS negative except as marked above and in HPI. Physical Exam - Vital signs Vitals: Resp Pulse Ox 50 H 92 07/01/17 22:12 07/01/17 22:12 Interpretation: Hypertensive, Tachycardic, Hypoxic, Tachypneic Notes: PHYSICAL EXAMINATION: GENERAL: Patient appears extremely unwell, uncomfortable, and in moderate respiratory distress HEAD: Atraumatic, normocephalic. EYES: Pupils equal round and reactive to light, extraocular movements intact, sclera anicteric, conjunctiva are normal. ENT: nares patent, oropharynx clear without exudates. Moderately dry mucous membranes. NECK: Normal range of motion, supple without lymphadenopathy LUNGS: Breath signs are diminished at the bases bilaterally more so on the right versus left. Patient is in moderate to severe respiratory distress with tachypnea initial respiratory rate between 45 and 50, retractions and inability to speak in a clear sentence HEART: Regular tachycardia without murmurs ABDOMEN: Soft, focal tenderness to the epigastrium, left upper quadrant and right upper quadrant. No lower abdominal tenderness. Normoactive bowel sounds. No guarding, no rebound. No masses appreciated. EXTREMITIES: Trace edema in the bilateral lower extremities. No cyanosis. NEUROLOGICAL: No focal neurological deficits. Moves all extremities spontaneously and on command. PSYCH: Anxious SKIN: Warm, Dry, normal turgor, no rashes or lesions noted. Course - Re-evaluation Re-evalutation: 07/01/17 22:26 Patient presents with with respiratory distress, hypoxia with initial saturation of 68% on room air, and a persistent tachycardia. Patient is extraordinarily anxious but does appear appropriate to the situation and she is profoundly ill at time of presentation. She has no history of similar symptoms in the past. She is somewhat of a poor historian secondary to her distress and anxiety. However, my primary concern based on the clinical history at time of presentation is either an acute pulmonary embolus, less likely to be an acute pneumothorax given bilateral breath sounds, possible new onset CHF. Bedside echocardiogram does not demonstrate any evidence of pericardial effusion or regional wall motion abnormality. Nothing to suggest an acute cardiac tamponade or pericardial effusion. Her EKG does not show signs of an IA and likewise this would be atypical given her clinical history. An acute pulmonary embolus is extremely worrisome given her tachycardia and the relatively acute onset of shortness of breath. She does have some trace bilateral lower extremity edema although she does not have rales or additional clinical history to suggest large volume pulmonary edema with new onset CHF and likewise her echocardiogram does not appear to suggest profound CHF. Patient is also complaining of generalized abdominal pain. Her abdominal exam shows most focal tenderness to her epigastrium and she does report a history of pancreatitis in the past. Will also send lipase to further evaluate. An additional diagnostic consideration could be ARDS in the setting of an acute pancreatitis. Will proceed immediately with a CTA of the chest, labs, venous blood gas, maintain the patient on continuous telemetry, provide for pain control as patient does report some associated generalized abdominal pain, and reassess. 07/01/17 23:01 Patient's blood pressure has become increasingly markedly elevated into the 220 systolic. Will also add on a CT of the abdomen as an aortic dissection could result in the presentation of all of her symptoms although I would not typically expect this to present with such severe hypoxemia. Awaiting results of CT imaging and will continue to reassess the patient frequently. 07/01/17 23:24 Patient's lactate is markedly elevated at 6.2. The entire clinical picture is difficult to piece together as the patient has many concerning signs and symptoms for a severe life-threatening picture but does not unify with one single diagnosis. While an aortic dissection is certainly consideration, hypoxia will be atypical. While PE could present with hypoxia, tachypnea, tachycardia, and respiratory distress should not be prompting lower abdominal pain and I would not expect severe hypertension. Patient's initial laboratories do not demonstrate any evidence of an acute pancreatitis to suggest that this could be the etiology of her upper abdominal pain with associated ARDS. The chest x-ray does show a possible multifocal pneumonia which could present with all of her symptoms with the exception of abdominal pain which would again be an atypical presentation of pneumonia. Moreover, her chest x-ray is relatively unimpressive to account for the degree of her vital sign abnormalities as well as her market lactate elevation. Will continue with small doses of fentanyl for pain control, withhold immediate aggressive IV fluids at this point given that she is severely hypertensive, and I am not yet certain of whether or not a congestive picture could be playing a role and likewise I would want to withhold fluids if it was an aortic dissection. Will continue to reassess the patient frequently, continue to provide analgesia, and await CT scan results. 07/02/17 00:05 I contacted the radiologist on-call Dr. Best and have reviewed the images. It appears the patient has a multifocal pneumonia with bilateral pleural effusion worse on the right versus the left. BNP is normal, given this in context with the echocardiogram performed at the bedside do not likely suspect that patient has acute pulmonary edema. Patient's blood pressure has spontaneously normalized and I believe some of her severe hypertension may have been pain mediated. The remainder of her CT images are otherwise unremarkable. Will begin aggressive IV hydration as patient's blood pressure is now in the 1 teens and she does have a marketed lactate elevation in the context of a pneumonia and does meet severe sepsis criteria. Will also add on azithromycin for atypical coverage on top of Zosyn which has already been administered based on the initial lactate elevation. Patient has also placed on BiPAP to assist with her work of breathing. Will continue to reassess regarding. 07/02/17 01:01 Patient has had marked improvement in her overall clinical appearance from his being placed on BiPAP and having IV fluids infused. She is receiving ongoing antibiotics. Pain control is also much improved. Her heart rate is down trended to 129 at time of my reassessment blood pressure within acceptable limits, current work of breathing on BiPAP is 24 breaths per minute, 98% on 35% FiO2. Will discuss with the hospitalist for admission. - Vital Signs Vital signs: Temp Pulse Resp BP Pulse Ox 98.3 F 28 H 118/62 96 07/01/17 22:29 07/02/17 01:31 07/02/17 01:31 07/02/17 01:31 - Laboratory Result Diagrams: 07/01/17 22:15 07/01/17 22:15 Laboratory results interpreted by me: 07/01/17 07/01/17 07/01/17 22:11 22:15 22:15 WBC Hgb Hct MCV MCH MCHC RDW Absolute Neutrophils VBG pH BUN 3 L Glucose 194 H POC Glucose 204 H Lactic Acid Calcium 8.2 L AST 57 H Alkaline Phosphatase 562 H NT-Pro-B Natriuret Pep 536 H Albumin 2.6 L Lipase 316.9 H 07/01/17 07/01/17 07/01/17 22:15 22:15 22:40 WBC 15.4 H Hgb 10.0 L Hct 33.3 L MCV 78 L MCH 23.3 L MCHC 30.1 L RDW 22.5 H Absolute Neutrophils 11.7 H VBG pH 7.44 H BUN Glucose POC Glucose Lactic Acid 6.2 H Calcium AST Alkaline Phosphatase NT-Pro-B Natriuret Pep Albumin Lipase - Diagnostic Test Radiology reviewed: Image reviewed, Reports reviewed Radiology results interpreted by me: 07/02/17 03:48 CTA chest: Large right pleural effusion, patchy infiltrates bilaterally - EKG Interpretation by Me Additional EKG results interpreted by me: 07/02/17 03:48 Sinus tachycardia. Rate 149. No ST elevations or depressions. QTC is 435. Critical Care Note - Critical Care Note Total time excluding time spent on procedures (mins): 45 Comments: Critical care time spent obtaining history from patient or surrogate, discussions with consultants, development of treatment plan with patient or surrogate, evaluation of patient's response to treatment, examination of patient , ordering and performing treatments and interventions, ordering and review of laboratory studies, re-evaluation of patient's condition, ordering and review of radiographic studies and review of old charts Discharge - Discharge Clinical Impression: Respiratory distress, Severe sepsis, Multifocal pneumonia, Pleural effusion Condition: Fair Disposition: ADMITTED INPATIENT Admitting Provider: Clairist Michael Severino Unit Admitted: ICU
--- NOTE | 2017-07-01 22:37 | RADIOLOGY REPORT (SQ) ---
EXAM DESCRIPTION: CHEST SINGLE VIEW COMPLETED DATE/TIME: 07/01/2017 10:28 pm REASON FOR STUDY: sob COMPARISON: 10/25/2016 EXAM PARAMETERS: NUMBER OF VIEWS: One view. TECHNIQUE: Single frontal radiographic view of the chest acquired. RADIATION DOSE: NA LIMITATIONS: None. FINDINGS: LUNGS AND PLEURA: Relatively low lung volumes are present. There is ill-defined opacifica tion behind the heart on the left. The right hemidiaphragm is elevated. There is limited infrahilar opacification on the right. MEDIASTINUM AND HILAR STRUCTURES: No masses. Contour normal. HEART AND VASCULAR STRUCTURES: Heart normal in size. Normal vasculature. BONES: No acute findings. HARDWARE: None in the chest. OTHER: No other significant finding. IMPRESSION: Elevated right hemidiaphragm. Possible multicentric lower lobe pneumonia. TECHNICAL DOCUMENTATION: JOB ID: [id number] [employer]- All Rights Reserved Reading location - IP/workstation name: [email or web address]
[2017-07-01 22:47] LABS: ABSOLUTE BASOPHILS # (AUTO) 0.1 10^3/uL (0.0-0.2); ABSOLUTE EOSINOPHILS # (AUTO) 0.1 10^3/uL (0.0-0.6); ABSOLUTE LYMPHOCYTES (AUTO) 2.6 10^3/uL (0.5-4.7); ABSOLUTE NEUT (AUTO) 11.7 10^3/uL (1.7-8.2); BASOPHILS % (AUTO) 0.5 % (0-2); EOSINOPHILS % (AUTO) 0.3 % (0-6); HEMATOCRIT 33.3 % (36.0-47.0); MEAN CORPUSCULAR HEMOGLOBIN 23.3 pg (27.0-33.4); MEAN CORPUSCULAR HGB CONC 30.1 g/dL (32.0-36.0); MEAN CORPUSCULAR VOLUME 78 fl (80-97); MONOCYTES % (AUTO) 6.6 % (3-13); PLATELET COUNT 338 10^3/uL (150-450); RED BLOOD COUNT 4.29 10^6/uL (3.72-5.28); RED CELL DISTRIBUTION WIDTH 22.5 % (11.5-14.0); SEGMENTED NEUTROPHILS % (AUTO) 75.6 % (42-78); TOTAL CELLS COUNTED % (AUTO) 100 %; WHITE BLOOD COUNT 15.4 10^3/uL (4.0-10.5)
[2017-07-01] MEDS ORDERED: FENTANYL CITRATE INJ/PF 100 MCG/2 ML AMPUL ONE (23:00)
[2017-07-01] MEDS ORDERED: LABETALOL HCL INJ 20 MG/4 ML DISP.SYRIN IV ONE ×2 (23:01→23:37)
[2017-07-01 23:14] LABS: ALANINE AMINOTRANSFERASE 25 U/L (9-52); ALBUMIN 2.6 g/dL (3.5-5.0); ALKALINE PHOSPHATASE 562 U/L (38-126); ANION GAP 13 (5-19); ASPARTATE AMINO TRANSFERASE 57 U/L (14-36); BILIRUBIN,DIRECT 0.2 mg/dL (0.0-0.4); BILIRUBIN,TOTAL 0.8 mg/dL (0.2-1.3); BLOOD UREA NITROGEN 3 mg/dL (7-20); CALCIUM 8.2 mg/dL (8.4-10.2); CARBON DIOXIDE 25 mmol/L (22-30); CHLORIDE 102 mmol/L (98-107); GLUCOSE 194 mg/dL (75-110); LIPASE 316.9 U/L (23-300); POTASSIUM 3.9 mmol/L (3.6-5.0); SODIUM 139.6 mmol/L (137-145); TOTAL PROTEIN 7.2 g/dL (6.3-8.2)
[2017-07-01] MEDS ORDERED: PIPERACILLIN/TAZOBACTAM 3.375 GM VIAL IV ONE (23:22)
[2017-07-01 23:23] LABS: VENOUS BLOOD BASE EXCESS 2.5 mmol/L; VENOUS BLOOD HCO3 26.8 mmol/L (20-32); VENOUS BLOOD PCO2 40.4 mmHg (35-63); VENOUS BLOOD PH 7.44 (7.30-7.42)
[2017-07-01 23:26] LABS: NT PRO BNP 536 pg/mL (<125)
[2017-07-01 23:29] LABS: TROPONIN I < 0.012 ng/mL
[2017-07-01] MEDS ORDERED: NORMAL SALINE 1000 ML 1,000 ML IV ONE (23:43)
[2017-07-02] MEDS ORDERED: AZITHROMYCIN 250 MG TABLET PO ONE (00:04)
[2017-07-02] MEDS ORDERED: NORMAL SALINE 1000 ML 1,000 ML IV ONE (00:05)
[2017-07-02] MEDS ORDERED: HYDROMORPHONE HCL INJ/PF 2 MG/ML AMPULE IV ONE (00:05)
[2017-07-02] MEDS ORDERED: ONDANSETRON HCL INJ/PF 4 MG/2 ML SDV IV ONE (00:05)
--- NOTE | 2017-07-02 00:12 | RADIOLOGY REPORT (SQ) ---
EXAM DESCRIPTION: CTA CHEST CLINICAL HISTORY: 46 years Female, sob COMPARISON: None. TECHNIQUE: 100 mL Isovue-370 IV contrast. Multiplanar reformat. This exam was performed according to our departmental dose-optimization program, which includes automated exposure control, adjustment of the mA and/or kV according to patient size and/or use of iterative reconstruction technique. FINDINGS: Small scattered airspace patchiness, small consolidation of the right lung base, mild mediastinal lymphadenopathy, moderate bilateral pleural effusions, right more than left, no evidence of pulmonary embolus, intact CTA appearance of the aorta, small fluid associated with the pancreatic body, severe hepatic steatosis, suture material associated with on the left paracentral abdomen, and 1 cm umbilical fat only hernia. No significant free fluid in the abdomen or pelvis. Inferior neck, axillae, airway, heart, vasculature, gallbladder, spleen, adrenals, renal system, gastrointestinal tract, pelvic organs, lymphatics, vasculature, and musculoskeleton appear otherwise unremarkable. IMPRESSION: 1. Mild multifocal pneumonia and/or pulmonary edema. Moderate bilateral pleural effusions. 2. Mild pancreatitis pattern. Critical results reporting: The results of the examination have been personally discussed with the referring health care provider, GI NAYLOR, immediately following interpretation of the examination on 07/01/2017 11:05 PM CDT.
[2017-07-02] MEDS ORDERED: LORAZEPAM INJ 2 MG/1 ML VIAL IV ONE (02:20)
[2017-07-02] MEDS ORDERED: ACETAMINOPHEN 325 MG TABLET PO PRN (02:20)
[2017-07-02] MEDS ORDERED: ALBUTEROL SULFATE 0.083% NEB 2.5 MG/3 ML AMPUL NEB PRN (02:20)
[2017-07-02] MEDS ORDERED: LORAZEPAM 0.5 MG TABLET PO PRN (02:28)
[2017-07-02] MEDS ORDERED: MAGNESIUM SULFATE/D5W 1 GM/100 ML RTUPB IV ONE (02:29)
[2017-07-02] MEDS ORDERED: FENTANYL CITRATE INJ/PF 100 MCG/2 ML AMPUL IV PRN ×2 (02:30→03:00)
[2017-07-02] MEDS ORDERED: VANCOMYCIN HCL 1,250 MG in DEXTROSE 5%-WATER 250 ML IV NR (02:30)
[2017-07-02] MEDS ORDERED: PIPERACILLIN/TAZOBACTAM 3.375 GM VIAL IV PRN (02:41)
[2017-07-02] MEDS ORDERED: VANCOMYCIN HCL INJ 1000 MG VIAL IV PRN (02:44)
[2017-07-02] MEDS ORDERED: VANCOMYCIN HCL 1,250 MG in DEXTROSE 5%-WATER 250 ML IV ONE (02:45)
[2017-07-02] MEDS ORDERED: PIPERACILLIN SODIUM/TAZOBACTAM 3.375 GM in NORMAL SALINE 100 ML IV SCH (03:00)
[2017-07-02] MEDS: METHYLPREDNISOLONE INJ 40 MG/1 ML SDV IV SCH (03:35)
[2017-07-02] MEDS: HYDROMORPHONE HCL INJ/PF 2 MG/ML AMPULE INJ PRN ×6 (03:36→22:58)
[2017-07-02] MEDS: NORMAL SALINE 1000 ML 1,000 ML IV PRN ×2 (03:36→23:30)
[2017-07-02] MEDS ORDERED: FUROSEMIDE INJ/PF 20 MG/2 ML SDV IV STA (05:17)
[2017-07-02] MEDS ORDERED: AZITHROMYCIN INJ 500 MG VIAL IV PRN (05:28)
[2017-07-02] MEDS ORDERED: GLUCAGON,HUMAN RECOMB 1 MG INJ IM PRN (06:03)
[2017-07-02] MEDS ORDERED: DEXTROSE 40% GEL 15 GM TUBE PO PRN ×2 (06:03)
[2017-07-02] MEDS ORDERED: DEXTROSE 50%-WATER 25 GM/50 ML DISP.SYRIN IV PRN ×2 (06:03)
[2017-07-02] MEDS: LANSOPRAZOLE 30 MG TAB.RAP.DR PO SCH (06:20)
[2017-07-02 06:21] LABS: HEMOGLOBIN 8.8 g/dL (12.0-15.5); MEAN CORPUSCULAR HEMOGLOBIN 23.5 pg (27.0-33.4); MEAN CORPUSCULAR HGB CONC 30.4 g/dL (32.0-36.0); MEAN CORPUSCULAR VOLUME 77 fl (80-97); PLATELET COUNT 277 10^3/uL (150-450); RED BLOOD COUNT 3.76 10^6/uL (3.72-5.28); RED CELL DISTRIBUTION WIDTH 22.6 % (11.5-14.0); WHITE BLOOD COUNT 13.5 10^3/uL (4.0-10.5)
--- NOTE | 2017-07-02 06:25 | PDOC H&P ---
History of Present Illness Admission Date/PCP: 07/02/17 01:22 Patient complains of: Worsening shortness of breath, abdominal and back pain today. History of Present Illness: BILL CAGLE is a 46 year old female with history of alcoholism, chronic alcohol pancreatitis/hepatitis and type 2 diabetes mellitus was admitted with above-mentioned complaints. She was seen at her doctor's office on 07/01/2017 and was told that she probably had "sinus drainage" and was given several prescriptions which the patient did not have a chance to fill. She denied any fever or chills but complained of a productive cough of greenish , thick sputum which has been getting clearer. She denied any sick contact. She is up-to-date with her flu vaccine. She said that her cough was getting worse and she was started wheezing with worsening shortness of breath. She was unable to lie down since she was having severe upper abdominal and back pain. She initially thought that it was due to her "pancreatitis". She was also having some back spasms and diarrhea for the last 2-3 weeks which she also attributed it to possibly having an acute exacerbation of her chronic pancreatitis. She denied any hematochezia or melena or any urinary symptoms but she said that she felt generally weak. In the ED, her temperature was 98.3, heart rate 157, respiratory rate 50, blood pressure 161/139 with oxygen saturation of 68% on room air (per ED physician which improved to 92% on 5 L nasal cannula). Her WBC was 15.4 and her hemoglobin was 10.0. Lactic acid was 6.2 and her troponin was negative. A chest x-ray was done which showed possible multicentric lower lobe pneumonia. She also had a CAT scan angiogram of the chest which showed mild multifocal pneumonia and/or pulmonary edema with moderate bilateral pleural effusions. She received 3.375 gm IV and she was placed on BiPAP. She also received 100 mcg IV fentanyl 1 and 1 mg IV Dilaudid 1 with no significant improvement in her symptoms. Past Medical History Medical History: Other - According to patient and as per previous records. Cardiac Medical History: Reports: Hypertension Neurological Medical History: Denies: Seizures Endocrine Medical History: Reports: Diabetes Mellitus Type 2 GI Medical History: Reports: Gastroesophageal Reflux Disease, Hepatitis, Other - alcohol pancreatitis. Musculoskeltal Medical History: Reports: Arthritis - gout Psychiatric Medical History: Reports: Depression Past Surgical History Past Surgical History: Reports: Section - x 3, Gastric Bypass Surgery Denies: Hysterectomy Social History Smoking Status: Current Every Day Smoker Cigarettes Packs Per Day: 0.5 - for the last 2 years Frequency of Alcohol Use: Occasional Hx Recreational Drug Use: No Drugs: None Hx Prescription Drug Abuse: No - Advance Directive Resuscitation Status: Full Code Family History Family History: DM Parental Family History Reviewed: Yes - Father: Unknown, Maternalpaternal grandparents:DM2, HTN. Children Family History Reviewed: No Sibling(s) Family History Reviewed.: Yes Medication/Allergy Home Medications: Bacitracin Zinc [Bacitracin Oint 15 gm] 1 applic TP BID #1 tube 02/18/17 Gabapentin [Neurontin] 600 mg PO TID #90 tablet 02/18/17 Insulin Detemir [Levemir Flextouch] 10 units SQ DAILY #1 insuln.pen 02/18/17 Levofloxacin [Levaquin 750 mg Tablet] 750 mg PO NOON #5 tablet 02/18/17 Oxycodone HCl [Oxy-Ir 5 mg Tablet] 10 mg PO Q6HP PRN #10 tablet 02/18/17 Cephalexin Monohydrate [Keflex 500 mg Capsule] 500 mg PO QID #28 capsule Ibuprofen [Motrin 600 mg Tablet] 600 mg PO Q8HP PRN #30 tablet 02/23/17 Allergies/Adverse Reactions: Bee Allergy (Uncoded 02/23/17 21:02) bees Allergy (Uncoded 02/23/17 21:02) Review of Systems ROS unobtainable: Other - Pertinent positives and negatives as detailed in HPI. Physical Exam Vital Signs: Temp Pulse Resp BP Pulse Ox 98.3 F 28 H 118/62 96 07/01/17 22:29 07/02/17 01:31 07/02/17 01:31 07/02/17 01:31 General appearance: PRESENT: mild distress, well-developed, well-nourished Head exam: PRESENT: atraumatic, normocephalic Eye exam: PRESENT: conjunctiva pink, PERRLA. ABSENT: scleral icterus Mouth exam: PRESENT: moist Neck exam: PRESENT: full ROM. ABSENT: JVD Respiratory exam: PRESENT: decreased breath sounds - markedly decreased., rhonchi, wheezes. ABSENT: rales Cardiovascular exam: PRESENT: +S1, +S2, tachycardia Pulses: PRESENT: normal dorsalis pedis pul GI/Abdominal exam: PRESENT: normal bowel sounds, soft. ABSENT: distended, rebound, rigid, tenderness Rectal exam: PRESENT: deferred Extremities exam: ABSENT: pedal edema Musculoskeletal exam: PRESENT: other - Able to move all 4 extremities. Neurological exam: PRESENT: alert, altered, awake, oriented to person, oriented to place. ABSENT: motor sensory deficit - no babinski or clonus. Gait was not assessed. Results Laboratory Results: CBC: WBC 15.4, hemoglobin 10.0, hematocrit 33.3, MCV 78, RDW 22.5, platelets 338. VBG: PH 7.44, PCO2 40.4, bicarb 26.8. CMP: Sodium 139.6, potassium 3.9, chloride 102, bicarb 25, anion gap 13, BUN 3, creatinine 0.52, glucose 194, lactic acid 6.2, calcium 8.2, AST 57, ALT 25, lipase 316.9. Troponin 1 negative, proBNP 536. UA: pending. EKG Comments: 12-Lead EKG, sinus rhythm, ventricular rate 150, [place] 0, T-wave inversion in leads III, poor R-wave propagation. Compared to a previous twelve-lead EKG done on 02/14/2017, sinus rhythm, ventricular rate 120, axis 0, T-wave inversion in lead III, no other acute changes. Impressions: Chest X-Ray 07/01/17 22:15 IMPRESSION: Elevated right hemidiaphragm. Possible multicentric lower lobe pneumonia. Assessment & Plan - Diagnosis (1) Sepsis Qualifiers: Sepsis type: sepsis due to unspecified organism Qualified Code(s): A41.9 - Sepsis, unspecified organism Is this a current diagnosis for this admission?: Yes Plan: Given tachycardia and leukocytosis, secondary to possibly multifocal pneumonia. CXR and CTA chest reviewed. UA pending. Will start Rocephin and zithromax for community-acquired pneumonia and follow up blood cultures and repeat lactic acid. (2) Multifocal pneumonia Is this a current diagnosis for this admission?: Yes Plan: and/or pulmonary edema per CAT scan angiogram report. Will continue management as above. Will also give 20 mg IV Lasix 1 and schedule her for a right thoracentesis. Of note, the patient has history of alcoholism with acute pancreatitis and hepatitis. The fluid could be ascitic. Will check fluid LDH, protein, WBC and culture. (3) Bilateral pleural effusion Is this a current diagnosis for this admission?: Yes Plan: Possibly due to ascitic fluid. Continue to cycle cardiac enzymes and check an echocardiogram. We will follow-up pleural fluid labs. (4) Hypertensive urgency Is this a current diagnosis for this admission?: Yes Plan: Her blood pressure was up to 223/206 which eventually improved without intervention. IV labetalol ordered in the ED was not given. Will continue to monitor for now and treat underlying cause. (5) Acute on chronic pancreatitis Is this a current diagnosis for this admission?: Yes Plan: possible. CTA chest reviewed. The patient mentioned that she still drinks alcohol sometimes. We will continue supportive care for now. Will hold IV fluids given her bilateral pleural effusion and difficulty breathing. (6) Type 2 diabetes mellitus Qualifiers: Diabetes mellitus exterminator termite insulin use: with exterminator termite use Diabetes mellitus complication status: with unspecified complications Qualified Code(s) : E11.8 - Type 2 diabetes mellitus with unspecified complications; Z79.4 - long term care administrator (current) use of insulin; Z79.4 - long term care administrator (current) use of insulin; Z79.4 - penitentiary (current) use of insulin; Z79.4 - long term care administrator (current) use of insulin Is this a current diagnosis for this admission?: No Plan: Will resume Levemir 10 units nightly in addition to NovoLog sliding scale. - Time Time Spent: Greater than 70 Minutes Anticipated discharge: Home - Inpatient Certification Based on my medical assessment, after consideration of the patient's comorbidities, presenting symptoms, or acuity I expect that the services needed warrant INPATIENT care.: Yes I certify that my determination is in accordance with my understanding of Medicare's requirements for reasonable and necessary INPATIENT services [42 CFR 412.3e].: Yes
[2017-07-02 06:36] LABS: ANION GAP 10 (5-19); BLOOD UREA NITROGEN 4 mg/dL (7-20); CALCIUM 7.3 mg/dL (8.4-10.2); CARBON DIOXIDE 22 mmol/L (22-30); CHLORIDE 102 mmol/L (98-107); GLUCOSE 339 mg/dL (75-110); POTASSIUM 4.2 mmol/L (3.6-5.0); SODIUM 134.1 mmol/L (137-145)
--- NOTE | 2017-07-02 07:28 | EKG REPORT ---
SEVERITY:- BORDERLINE ECG - SINUS TACHYCARDIA BORDERLINE T ABNORMALITIES, INFERIOR LEADS : Confirmed by: Del Claudio MD 02-Jul-2017 07:27:32
[2017-07-02 08:17] LABS: APPEARANCE,URINE CLEAR; BILIRUBIN,URINE NEGATIVE (NEGATIVE); COLOR,URINE YELLOW; GLUCOSE, URINE NEGATIVE (NEGATIVE); KETONES,URINE NEGATIVE (NEGATIVE); LEUKOCYTE ESTERASE,URINE NEGATIVE (NEGATIVE); NITRITE,URINE NEGATIVE (NEGATIVE); PROTEIN,URINE NEGATIVE (NEGATIVE); URINE SPECIFIC GRAVITY 1.046
[2017-07-02 09:05] LABS: INTERNATIONAL RATION (INR) 1.13; PROTHROMBIN TIME 15.3 SEC (11.4-15.4)
[2017-07-02 09:06] LABS: PARTIAL THROMBOPLASTIN TIME 35.5 SEC (23.5-35.8)
[2017-07-02] MEDS ORDERED: CEFTRIAXONE SODIUM 1,000 MG in NORMAL SALINE 100 ML IV SCH (10:00)
[2017-07-02] MEDS ORDERED: CEFTRIAXONE 1 GM/D5W RTU 1 GM/50 ML RTUPB IV SCH (10:00)
--- NOTE | 2017-07-02 10:34 | Progress Note ---
Provider Note Provider Note: Patient seen and examined in the ER today. She was just admitted overnight. She claims to be feeling somewhat better. There are no new issues. Patient was examined and computer records reviewed. We will follow-up with her labs and other tests as ordered.
--- NOTE | 2017-07-02 11:01 | XCELERA REPORT ---
[address] [address] Transthoracic Echocardiogram Report Name: BILL CAGLE Age: 46 yrs Gender: Female : 1970 Patient Status: Inpatient Patient Location: [place] [address]^A Study Date: 07/02/2017 10:07 AM Height: 61 in Weight: 198 lb BSA: 1.9 m2 Procedure: A complete two-dimensional transthoracic echocardiogram was performed (2D, M-mode, spectral and color flow Doppler). The study was technically adequate with some images being suboptimal in quality. Reason For Study: chest pain Ordering Physician: YOLIS LOZADA Performed By: Caryn Manzano Interpretation Summary The left ventricular ejection fraction is normal. There is normal left ventricular wall thickness. Doppler measurements suggest impaired left ventricular relaxation, which is associated with grade I/IV or mild diastolic dysfunction The left ventricle is grossly normal size. No regional wall motion abnormalities noted. Borderline right ventricular enlargement. The right ventricular systolic function is normal. The right atrium is normal in size The left atrial size is normal. There is a trace amount of mitral regurgitation There is no mitral valve stenosis. No aortic regurgitation is present. There is no aortic valve stenosis There is a mild amount of tricuspid regurgitation There is mild pulmonary hypertension by echo Right ventricular systolic pressure is estimated to be elevated at 30- 40mmHg. The aortic root is not well visualized but is probably normal size. The inferior vena cava was not visualized There is no pericardial effusion. MMode/2D Measurements & Calculations RVDd: 3.0 cm LVIDd: 4.6 cm FS: 48.1 % Ao root diam: 2.2 cm IVSd: 0.75 cm LVIDs: 2.4 cm EDV(Teich): 97.7 ml LVPWd: 0.73 cm ESV(Teich): 20.0 ml Ao root area: 3.9 cm2 EF(Teich): 79.5 % LA dimension: 3.4 cm Doppler Measurements & Calculations MV E max abdiel: MV P1/2t max abdiel: Ao V2 max: LV V1 max P.1 cm/sec 107.6 cm/sec 184.6 cm/sec 6.8 mmHg MV A max abdiel: MV P1/2t: 55.2 msec Ao max PG: LV V1 max: 92.8 cm/sec 13.6 mmHg 130.3 cm/sec MV E/A: 1.2 MVA(P1/2t): 4.0 cm2 MV dec slope: 571.3 cm/sec2 MV dec time: 0.19 sec PA V2 max: TR max abdiel: 108.1 cm/sec 290.5 cm/sec PA max PG: TR max P.8 mmHg 4.7 mmHg Left Ventricle The left ventricle is grossly normal size. There is normal left ventricular wall thickness. The left ventricular ejection fraction is normal. Doppler measurements suggest impaired left ventricular relaxation, which is associated with grade I/IV or mild diastolic dysfunction. No regional wall motion abnormalities noted. Right Ventricle Borderline right ventricular enlargement. There is normal right ventricular wall thickness. The right ventricular systolic function is normal. Atria The right atrium is normal in size. The left atrial size is normal. Interarterial septum not well visualized and not well dopplered. Cannot comment on ASD/PFO presence. Mitral Valve The mitral valve is grossly normal. There is no mitral valve stenosis. There is a trace amount of mitral regurgitation. Aortic Valve The aortic valve is grossly normal. There is no aortic valve stenosis. No aortic regurgitation is present. Tricuspid Valve The tricuspid valve is not well visualized, but is grossly normal. There is no tricuspid stenosis. There is a mild amount of tricuspid regurgitation. There is mild pulmonary hypertension by echo. Right ventricular systolic pressure is estimated to be elevated at 30-40mmHg. Pulmonic Valve The pulmonic valve is not well visualized. Great Vessels The aortic root is not well visualized but is probably normal size. The inferior vena cava was not visualized. Effusions There is no pericardial effusion. : YOLIS LOZADA > Gabriela Devi
--- NOTE | 2017-07-02 12:21 | RADIOLOGY REPORT (SQ) ---
EXAM DESCRIPTION: CHEST SINGLE VIEW COMPLETED DATE/TIME: 07/02/2017 11:43 am REASON FOR STUDY: S/P RT THORACENTESIS COMPARISON: 07/01/2017. EXAM PARAMETERS: NUMBER OF VIEWS: One view. TECHNIQUE: Single frontal radiographic view of the chest acquired. RADIATION DOSE: NA LIMITATIONS: None. FINDINGS: LUNGS AND PLEURA: Decrease in the right pleural effusion following thoracentesis. No pneu mothorax. MEDIASTINUM AND HILAR STRUCTURES: No masses. Contour normal. HEART AND VASCULAR STRUCTURES: Heart normal in size. Normal vasculature. BONES: No acute findings. HARDWARE: None in the chest. OTHER: No other significant finding. IMPRESSION: NO PNEUMOTHORAX FOLLOWING RIGHT-SIDED THORACENTESIS. TECHNICAL DOCUMENTATION: JOB ID: [id number] [employer]- All Rights Reserved Reading location - IP/workstation name: [email or web address]
[2017-07-02] MEDS: INSULIN LISPRO 100 UNIT/ML 3 ML VIAL SUBCUT PRN (12:32)
[2017-07-02] MEDS: TIZANIDINE HCL 4 MG TABLET PO PRN (12:54)
[2017-07-02 13:14] LABS: FLUID APPEARANCE HAZY; FLUID COLOR YELLOW; FLUID TYPE PLEURAL; FLUID VISCOSITY SLIGHTLY VISCOUS
[2017-07-02] MEDS: AZITHROMYCIN 500 MG in DEXTROSE 5%-WATER 250 ML IV SCH (13:49)
--- NOTE | 2017-07-02 14:06 | RADIOLOGY REPORT (SQ) ---
EXAM DESCRIPTION: CHEST SINGLE VIEW COMPLETED DATE/TIME: 07/02/2017 1:27 pm REASON FOR STUDY: 2 HOUR S/P RT THORACENTESIS COMPARISON: 07/02/2017 at 1123 hours. EXAM PARAMETERS: NUMBER OF VIEWS: One view. TECHNIQUE: Single frontal radiographic view of the chest acquired. RADIATION DOSE: NA LIMITATIONS: None. FINDINGS: LUNGS AND PLEURA: No pneumothorax on the right side 2 hours post thoracentesis. Stable fa int densities in the left base. MEDIASTINUM AND HILAR STRUCTURES: No masses. Contour normal. HEART AND VASCULAR STRUCTURES: Heart normal in size. Normal vasculature. BONES: No acute findings. HARDWARE: None in the chest. OTHER: No other significant finding. IMPRESSION: NO PNEUMOTHORAX 2 HOURS POST THORACENTESIS. TECHNICAL DOCUMENTATION: JOB ID: [id number] [employer]- All Rights Reserved Reading location - IP/workstation name: [email or web address]
--- NOTE | 2017-07-02 14:07 | RADIOLOGY REPORT (SQ) ---
EXAM DESCRIPTION: U/S THORACENTESIS WITH IMAGING COMPLETED DATE/TIME: 07/02/2017 11:38 am REASON FOR STUDY: right pleural effusion COMPARISON: None. LIMITATIONS: None. PROCEDURE: Procedure, risks, benefit, and alternative explained to patient who then gave written con sent. The posterior right chest wall was marked using ultrasound guidance. A time-out was called fo r correct marking verification. Chest prepped and draped using sterile technique. Local anesthesia a chieved using 5 ml of 1% lidocaine injection. A 6fr Safe-T- Centesis set was introduced into the rig ht pleural space. Fluid was aspirated. The catheter was removed and the entry site was covered with sterile bandage. No immediate complications noted. Images acquired during the procedure were stored on PACS. FINDINGS: ENTRY SITE: Posterior right chest. FLUID VOLUME: 850 mL. FLUID ANALYSIS: Straw-colored clear fluid. OTHER: Fluid sent to the lab for testing. IMPRESSION: SUCCESSFUL THORACENTESIS USING ULTRASOUND GUIDANCE. COMMENT: Patient medication list reviewed: Yes- Quality ID# [id number]:Eligible professional attests to doc umenting in the medical record they obtained, updated, or reviewed the patient's current medications. Quality ID #[id number]: Final reports for procedures using fluoroscopy that document radiation exposure abilio ayse, or exposure time and number of fluorographic images (if radiation exposure indices are not avail able) TECHNICAL DOCUMENTATION: JOB ID: [id number] [employer]- All Rights Reserved Reading location - IP/workstation name: [email or web address]
[2017-07-02] MEDS: ALBUMIN HUMAN 50 ML IV SCH ×4 (16:06→21:00)
--- NOTE | 2017-07-02 17:50 | RADIOLOGY REPORT (SQ) ---
EXAM DESCRIPTION: CHEST SINGLE VIEW COMPLETED DATE/TIME: 07/02/2017 5:19 pm REASON FOR STUDY: increasing shortness of breath COMPARISON: AP chest 07/02/2017, 07/01/2017 CT angio chest 07/01/2017 EXAM PARAMETERS: NUMBER OF VIEWS: One view. TECHNIQUE: Single frontal radiographic view of the chest acquired. RADIATION DOSE: NA LIMITATIONS: None. FINDINGS: LUNGS AND PLEURA: There is patchy bilateral lower lobe airspace disease edema versus pneum onia. This is more prominent in the left retrocardiac region compared to previous films. No gross pleural effusion or pneumothorax. MEDIASTINUM AND HILAR STRUCTURES: No masses. Contour normal. HEART AND VASCULAR STRUCTURES: Stable mild cardiomegaly. Normal vasculature. BONES: No acute findings. HARDWARE: None in the chest. OTHER: No other significant finding. IMPRESSION: Increased bibasilar airspace disease left greater than right compared to previous study TECHNICAL DOCUMENTATION: JOB ID: [id number] [employer]- All Rights Reserved Reading location - IP/workstation name: [email or web address]
--- NOTE | 2017-07-02 18:08 | Progress Note ---
Provider Note Provider Note: Patient was noted to be hypotensive after her thoracentesis earlier on today. I had seen her pre-procedure and patient had been hemodynamically stable. Received 500 mL of normal saline with no improvement in her blood pressure. Because the patient does have a history of cirrhosis of the liver and although it 50 mL of fluid was removed during thoracentesis I opted to treat with albumin to help oncotic pressure. Blood pressure did respond somewhat with a systolic blood pressure currently in 90 however she remains hypotensive. Did reevaluate her and that she was awake and alert and denied any chest pain and really did seem to be somewhat unchanged from [place] although the nurses I did complain that she was feeling dizzy. A repeat chest x-ray has been ordered to rule out pneumothorax. She did have one postprocedure which revealed no evidence of pneumothorax. At this time patient will be sent to intensive care unit for further monitoring and possible vasopressors for hypotension if needed. She is being treated with broad-spectrum antibiotics and she has received Zosyn and currently on ceftriaxone and Zithromax.
[2017-07-02] MEDS: PROMETHAZINE HCL INJ 25 MG/1 ML VIAL IV PRN (20:30)
[2017-07-03] MEDS: INSULIN DETEMIR 100 UNIT/ML 3 ML PEN SUBCUT SCH ×2 (00:50→22:06)
[2017-07-03] MEDS: TIZANIDINE HCL 4 MG TABLET PO PRN (00:50)
[2017-07-03] MEDS: PROMETHAZINE HCL INJ 25 MG/1 ML VIAL IV PRN (00:50)
[2017-07-03] MEDS: INSULIN LISPRO 100 UNIT/ML 3 ML VIAL SUBCUT PRN ×2 (00:50→22:06)
[2017-07-03] MEDS: HYDROMORPHONE HCL INJ/PF 2 MG/ML AMPULE INJ PRN ×3 (02:20→08:04)
[2017-07-03] MEDS: LANSOPRAZOLE 30 MG TAB.RAP.DR PO SCH (05:19)
[2017-07-03] MEDS: METHYLPREDNISOLONE INJ 40 MG/1 ML SDV IV SCH ×3 (05:26→18:30)
[2017-07-03 06:52] LABS: HEMATOCRIT 24.1 % (36.0-47.0); MEAN CORPUSCULAR HEMOGLOBIN 23.9 pg (27.0-33.4); MEAN CORPUSCULAR HGB CONC 30.7 g/dL (32.0-36.0); MEAN CORPUSCULAR VOLUME 78 fl (80-97); PLATELET COUNT 224 10^3/uL (150-450); RED BLOOD COUNT 3.11 10^6/uL (3.72-5.28); RED CELL DISTRIBUTION WIDTH 23.2 % (11.5-14.0); WHITE BLOOD COUNT 14.9 10^3/uL (4.0-10.5)
[2017-07-03 06:54] LABS: HEMOGLOBIN 7.4 g/dL (12.0-15.5)
[2017-07-03 06:58] LABS: ANION GAP 8 (5-19); BLOOD UREA NITROGEN 5 mg/dL (7-20); CALCIUM 7.7 mg/dL (8.4-10.2); CARBON DIOXIDE 23 mmol/L (22-30); CHLORIDE 107 mmol/L (98-107); GLUCOSE 166 mg/dL (75-110); POTASSIUM 4.1 mmol/L (3.6-5.0); SODIUM 137.7 mmol/L (137-145)
[2017-07-03] MEDS ORDERED: CEFTRIAXONE 1 GM/D5W RTU 1 GM/50 ML RTUPB IV SCH (10:00)
[2017-07-03] MEDS: CEFTRIAXONE SODIUM 1,000 MG in NORMAL SALINE 100 ML IV SCH (10:43)
[2017-07-03] MEDS: AZITHROMYCIN 500 MG in DEXTROSE 5%-WATER 250 ML IV SCH (10:43)
[2017-07-03] MEDS ORDERED: LORATADINE/PSEUDOEPHEDRINE SUL 10-240 MG TAB.SR.24H PO ONE (14:00)
--- NOTE | 2017-07-03 14:05 | PDOC PROGRESS REPORT ---
Subjective Progress Note for:: 07/03/17 Subjective:: She looks and feels better. She still complaining of some pain and requesting analgesia. She also is still itching and scratching her nose but denies any dizziness chest pain nausea vomiting. Reason For Visit: MULTIFOCAL PNEUMONIA Physical Exam Vital Signs: Temp Pulse Resp BP Pulse Ox 98.0 F 79 16 99/56 L 95 07/03/17 10:00 07/03/17 10:08 07/03/17 10:08 07/03/17 10:04 07/03/17 10:04 Intake & Output 07/02/17 07/03/17 07/04/17 06:59 06:59 06:59 Intake Total 468 Output Total 400 Balance 68 Weight 94.9 kg General appearance: PRESENT: no acute distress Head exam: PRESENT: atraumatic Eye exam: PRESENT: conjunctival injection Neck exam: ABSENT: carotid bruit, JVD, lymphadenopathy, thyromegaly Respiratory exam: PRESENT: clear to auscultation candice, unlabored. ABSENT: rales , rhonchi, wheezes Cardiovascular exam: PRESENT: RRR. ABSENT: diastolic murmur, rubs, systolic murmur Pulses: PRESENT: normal dorsalis pedis pul GI/Abdominal exam: PRESENT: normal bowel sounds, soft, tenderness - vague and generalized. ABSENT: distended, guarding, mass, organolmegaly, rebound Rectal exam: PRESENT: deferred Extremities exam: PRESENT: full ROM. ABSENT: calf tenderness, clubbing, pedal edema Musculoskeletal exam: PRESENT: ambulatory Neurological exam: PRESENT: alert, awake, oriented to person, oriented to place , oriented to time, oriented to situation, CN II-XII grossly intact. ABSENT: motor sensory deficit Psychiatric exam: PRESENT: appropriate affect, normal mood. ABSENT: homicidal ideation, suicidal ideation Results Laboratory Results: 07/03/17 06:20 07/03/17 06:20 07/02/17 07/03/17 07/03/17 11:09 06:20 06:20 WBC 14.9 H RBC 3.11 L Hgb 7.4 L Hct 24.1 L MCV 78 L MCH 23.9 L MCHC 30.7 L RDW 23.2 H Plt Count 224 Sodium 137.7 Potassium 4.1 Chloride 107 Carbon Dioxide 23 Anion Gap 8 BUN 5 L Creatinine 0.50 L Est GFR ( Amer) > 60 Est GFR (Non-Af Amer) > 60 Glucose 166 H Calcium 7.7 L Magnesium 2.1 Fluid Type PLEURAL Fluid Source Fluid Color YELLOW Fluid Appearance HAZY Fluid Viscosity SLIGHTLY VISCOUS Fluid WBC 868 Fluid RBC 301 07/03/17 06:20 WBC RBC Hgb Hct MCV MCH MCHC RDW Plt Count Sodium Potassium Chloride Carbon Dioxide Anion Gap BUN Creatinine Est GFR ( Amer) Est GFR (Non-Af Amer) Glucose Calcium Magnesium Cancelled Fluid Type Fluid Source Fluid Color Fluid Appearance Fluid Viscosity Fluid WBC Fluid RBC 07/02/17 02:29 NT-Pro-B Natriuret Pep 649 H Impressions: Chest/Abdomen CTA 07/01/17 23:00 IMPRESSION: 1. Mild multifocal pneumonia and/or pulmonary edema. Moderate bilateral pleural effusions. 2. Mild pancreatitis pattern. Critical results reporting: The results of the examination have been personally discussed with the referring health care provider, GI NAYLOR, immediately following interpretation of the examination on 07/01/2017 11:05 PM CDT. Pelvis CTA 07/01/17 23:00 IMPRESSION: 1. Mild multifocal pneumonia and/or pulmonary edema. Moderate bilateral pleural effusions. 2. Mild pancreatitis pattern. Critical results reporting: The results of the examination have been personally discussed with the referring health care provider, GI NAYLOR, immediately following interpretation of the examination on 07/01/2017 11:05 PM CDT. Thoracentesis Ultrasound 07/02/17 00:00 IMPRESSION: SUCCESSFUL THORACENTESIS USING ULTRASOUND GUIDANCE. Chest X-Ray 07/02/17 13:20 IMPRESSION: NO PNEUMOTHORAX 2 HOURS POST THORACENTESIS. Assessment & Plan - Diagnosis (1) Hypotension Is this a current diagnosis for this admission?: Yes Plan: Size etiology still unclear but he may have something to do with the thoracentesis performed yesterday. Her blood pressure is still low but her mean arterial pressure is acceptable. Also asymptomatic. (2) Multifocal pneumonia Is this a current diagnosis for this admission?: Yes Plan: Currently on Zithromax and ceftriaxone. Will continue with same (3) Pleural effusion Is this a current diagnosis for this admission?: Yes Plan: Possibly parapneumonic. She did have thoracentesis done yesterday and cultures are currently pending (4) Type 2 diabetes mellitus Qualifiers: Diabetes mellitus assisted insulin use: with intermediate manager use Diabetes mellitus complication status: with unspecified complications Qualified Code(s) : E11.8 - Type 2 diabetes mellitus with unspecified complications; Z79.4 - terminal computer operator (current) use of insulin; Z79.4 - snf (current) use of insulin; Z79.4 - terminal computer operator (current) use of insulin; Z79.4 - terminal computer operator (current) use of insulin Is this a current diagnosis for this admission?: Yes - Time Time Spent with patient: Less than 15 minutes Medications reviewed and adjusted accordingly: Yes Anticipated discharge: Home Within: within 72 hours - Inpatient Certification Based on my medical assessment, after consideration of the patient's comorbidities, presenting symptoms, or acuity I expect that the services needed warrant INPATIENT care.: Yes I certify that my determination is in accordance with my understanding of Medicare's requirements for reasonable and necessary INPATIENT services [42 CFR 412.3e].: Yes Medical Necessity: Need for IV Antibiotics, Risk of Complication if Not Cared For in Hospital
[2017-07-03] MEDS ORDERED: CROMOLYN SODIUM NASAL SPRAY (5.2 MG/SPRAY) 26 ML NASL ONE (14:30)
[2017-07-03] MEDS: OXYCODONE-ACETAMINOPHEN 5-325 MG TABLET PO PRN ×2 (15:45→18:31)
[2017-07-03] MEDS ORDERED: OXYCODONE-ACETAMINOPHEN 5-325 MG TABLET ONE (18:28)
[2017-07-03] MEDS ORDERED: OXYCODONE-ACETAMINOPHEN 5-325 MG TABLET PO ONE (18:30)
[2017-07-03] MEDS: NORMAL SALINE 1000 ML 1,000 ML IV PRN (18:31)
[2017-07-04] MEDS: OXYCODONE-ACETAMINOPHEN 5-325 MG TABLET PO PRN ×4 (00:21→23:36)
[2017-07-04] MEDS: METHYLPREDNISOLONE INJ 40 MG/1 ML SDV IV SCH ×2 (01:11→09:47)
[2017-07-04] MEDS: TIZANIDINE HCL 4 MG TABLET PO PRN ×2 (02:58→18:44)
[2017-07-04] MEDS: GABAPENTIN 300 MG CAPSULE PO SCH ×3 (06:15→22:59)
[2017-07-04] MEDS: LANSOPRAZOLE 30 MG TAB.RAP.DR PO SCH (06:16)
[2017-07-04] MEDS: INSULIN LISPRO 100 UNIT/ML 3 ML VIAL SUBCUT PRN ×4 (06:42→22:59)
[2017-07-04 06:44] LABS: ABSOLUTE RETICS # 0.127 10^6/uL (0.028-0.122); HEMATOCRIT 25.5 % (36.0-47.0); HEMOGLOBIN 7.7 g/dL (12.0-15.5); MEAN CORPUSCULAR HEMOGLOBIN 23.8 pg (27.0-33.4); MEAN CORPUSCULAR HGB CONC 30.2 g/dL (32.0-36.0); MEAN CORPUSCULAR VOLUME 79 fl (80-97); PLATELET COUNT 242 10^3/uL (150-450); RED BLOOD COUNT 3.24 10^6/uL (3.72-5.28); RED CELL DISTRIBUTION WIDTH 23.5 % (11.5-14.0); RETICULOCYTE COUNT (AUTO) 3.92 % (0.66-2.85); WHITE BLOOD COUNT 17.4 10^3/uL (4.0-10.5)
[2017-07-04 06:45] LABS: ALANINE AMINOTRANSFERASE 26 U/L (9-52); ALBUMIN 2.7 g/dL (3.5-5.0); ALKALINE PHOSPHATASE 321 U/L (38-126); ANION GAP 12 (5-19); ASPARTATE AMINO TRANSFERASE 37 U/L (14-36); BILIRUBIN,DIRECT 0.3 mg/dL (0.0-0.4); BILIRUBIN,TOTAL 0.4 mg/dL (0.2-1.3); BLOOD UREA NITROGEN 6 mg/dL (7-20); CALCIUM 8.2 mg/dL (8.4-10.2); CARBON DIOXIDE 23 mmol/L (22-30); CHLORIDE 101 mmol/L (98-107); GLUCOSE 382 mg/dL (75-110); IRON(TIBC) 13.5 ug/dL (37-170); POTASSIUM 4.4 mmol/L (3.6-5.0); TOTAL PROTEIN 6.4 g/dL (6.3-8.2)
[2017-07-04 07:49] LABS: FOLATE 6.52 ng/mL (>2.76)
--- NOTE | 2017-07-04 08:11 | RADIOLOGY REPORT (SQ) ---
EXAM DESCRIPTION: CHEST PA/LAT COMPLETED DATE/TIME: 07/04/2017 7:55 am REASON FOR STUDY: Pleural effusion COMPARISON: 07/02/2017. EXAM PARAMETERS: NUMBER OF VIEWS: two views TECHNIQUE: Digital Frontal and Lateral radiographic views of the chest acquired. RADIATION DOSE: NA LIMITATIONS: none FINDINGS: LUNGS AND PLEURA: Faint basilar densities unchanged. Bilateral pleural effusions. MEDIASTINUM AND HILAR STRUCTURES: No masses or contour abnormalities. HEART AND VASCULAR STRUCTURES: Heart normal size. No evidence for failure. BONES: No acute findings. HARDWARE: None in the chest. OTHER: No other significant finding. IMPRESSION: NO CHANGE IN APPEARANCE OF THE CHEST. TECHNICAL DOCUMENTATION: JOB ID: [id number] All Rights Reserved Reading location - IP/workstation name: [email or web address]
[2017-07-04] MEDS: LORATADINE/PSEUDOEPHEDRINE SUL 10-240 MG TAB.SR.24H PO SCH (09:52)
[2017-07-04] MEDS: CROMOLYN SODIUM NASAL SPRAY (5.2 MG/SPRAY) 26 ML NASL SCH (09:55)
[2017-07-04] MEDS: CEFTRIAXONE SODIUM 1,000 MG in NORMAL SALINE 100 ML IV SCH (09:57)
[2017-07-04] MEDS: AZITHROMYCIN 500 MG in DEXTROSE 5%-WATER 250 ML IV SCH (10:53)
[2017-07-04] MEDS: ALPRAZOLAM 0.5 MG TABLET PO PRN (11:47)
[2017-07-04] MEDS: DICYCLOMINE HCL 20 MG TABLET PO PRN (11:49)
[2017-07-04] MEDS ORDERED: FUROSEMIDE INJ/PF 40 MG/4 ML SDV IV ONE (12:00)
--- NOTE | 2017-07-04 16:46 | PDOC PROGRESS REPORT ---
Subjective Progress Note for:: 07/04/17 Subjective:: She looks and feels better. She still has multiple complaints but says that her breathing is better. She is complaining of abdominal pain also but the coughing and itching and scratching is much better. There is no dizziness, nausea vomiting. Reason For Visit: MULTIFOCAL PNEUMONIA Physical Exam Vital Signs: Temp Pulse Resp BP Pulse Ox 97.4 F 85 18 126/77 H 94 07/04/17 15:07 07/04/17 16:00 07/04/17 16:00 07/04/17 15:07 07/04/17 16:00 Intake & Output 07/03/17 07/04/17 07/05/17 06:59 06:59 06:59 Intake Total 468 702 180 Output Total 400 250 Balance 68 702 -70 Weight 94.9 kg General appearance: PRESENT: no acute distress Head exam: PRESENT: atraumatic Eye exam: PRESENT: conjunctiva pink, EOMI, PERRLA. ABSENT: scleral icterus Ear exam: PRESENT: normal external ear exam Respiratory exam: PRESENT: clear to auscultation candice. ABSENT: rales, rhonchi, wheezes Cardiovascular exam: PRESENT: RRR. ABSENT: diastolic murmur, rubs, systolic murmur Pulses: PRESENT: normal dorsalis pedis pul GI/Abdominal exam: PRESENT: soft, tenderness. ABSENT: distended, rebound Rectal exam: PRESENT: deferred Extremities exam: PRESENT: +1 edema Musculoskeletal exam: PRESENT: ambulatory, full ROM Neurological exam: PRESENT: alert, awake, oriented to person, oriented to place , oriented to time, oriented to situation Psychiatric exam: PRESENT: appropriate affect, normal mood. ABSENT: homicidal ideation, suicidal ideation Results Laboratory Results: 07/04/17 05:34 07/04/17 05:34 07/04/17 07/04/17 05:34 05:34 WBC 17.4 H RBC 3.24 L Hgb 7.7 L Hct 25.5 L MCV 79 L MCH 23.8 L MCHC 30.2 L RDW 23.5 H Plt Count 242 Retic Count (auto) 3.92 H Absolute Retic 0.127 H Sodium 136.0 L Potassium 4.4 Chloride 101 Carbon Dioxide 23 Anion Gap 12 BUN 6 L Creatinine 0.47 L Est GFR ( Amer) > 60 Est GFR (Non-Af Amer) > 60 Glucose 382 H Calcium 8.2 L Iron 13.5 L TIBC 227 L % Saturation 6 Ferritin 52.80 Total Bilirubin 0.4 AST 37 H ALT 26 Alkaline Phosphatase 321 H Total Protein 6.4 Albumin 2.7 L Vitamin B12 > 1000.0 H Folate 6.52 07/02/17 02:29 NT-Pro-B Natriuret Pep 649 H Impressions: Chest/Abdomen CTA 07/01/17 23:00 IMPRESSION: 1. Mild multifocal pneumonia and/or pulmonary edema. Moderate bilateral pleural effusions. 2. Mild pancreatitis pattern. Critical results reporting: The results of the examination have been personally discussed with the referring health care provider, GI NAYLOR, immediately following interpretation of the examination on 07/01/2017 11:05 PM CDT. Pelvis CTA 07/01/17 23:00 IMPRESSION: 1. Mild multifocal pneumonia and/or pulmonary edema. Moderate bilateral pleural effusions. 2. Mild pancreatitis pattern. Critical results reporting: The results of the examination have been personally discussed with the referring health care provider, GI NAYLOR, immediately following interpretation of the examination on 07/01/2017 11:05 PM CDT. Thoracentesis Ultrasound 07/02/17 00:00 IMPRESSION: SUCCESSFUL THORACENTESIS USING ULTRASOUND GUIDANCE. Chest X-Ray 07/04/17 00:00 IMPRESSION: NO CHANGE IN APPEARANCE OF THE CHEST. Assessment & Plan - Diagnosis (1) Multifocal pneumonia Is this a current diagnosis for this admission?: Yes Plan: Currently on Zithromax and ceftriaxone. Continue with same (2) Pleural effusion Is this a current diagnosis for this admission?: Yes Plan: Possibly parapneumonic. S/p thoracentesis. repeat CXR shows minimal changes (3) Type 2 diabetes mellitus Qualifiers: Diabetes mellitus termite exterminator insulin use: with termite exterminator use Diabetes mellitus complication status: with unspecified complications Qualified Code(s) : E11.8 - Type 2 diabetes mellitus with unspecified complications; Z79.4 - shelter (current) use of insulin; Z79.4 - manager long term care (current) use of insulin; Z79.4 - shelter (current) use of insulin; Z79.4 - shelter (current) use of insulin Is this a current diagnosis for this admission?: Yes Plan: Patient is somehat non compliant with her diet, she may be sneaking some food and sabotaging her Blood sugar. Will continue and adjust Levemir and continue SSI (4) Hypotension Is this a current diagnosis for this admission?: Yes Plan: Resolved (5) Anemia Qualifiers: Anemia type: iron deficiency Iron deficiency anemia type: unspecified iron deficiency Qualified Code(s): D50.9 - Iron deficiency anemia, unspecified Is this a current diagnosis for this admission?: Yes Plan: Will give Iron infusion tomorrow when patient more stable She needs to follow up with GI as outpatient - Time Time Spent with patient: 15-24 minutes Medications reviewed and adjusted accordingly: Yes Anticipated discharge: Home Within: within 72 hours - Inpatient Certification Based on my medical assessment, after consideration of the patient's comorbidities, presenting symptoms, or acuity I expect that the services needed warrant INPATIENT care.: Yes Medical Necessity: Need Close Monitoring Due to Risk of Patient Decompensation, Need for IV Antibiotics
[2017-07-04] MEDS: PREDNISONE 20 MG TABLET PO SCH (17:15)
[2017-07-04] MEDS ORDERED: INSULIN LISPRO 100 UNIT/ML 3 ML VIAL SUBCUT ONE (18:45)
[2017-07-04] MEDS: INSULIN DETEMIR 100 UNIT/ML 3 ML PEN SUBCUT SCH (22:59)
[2017-07-05] MEDS: TEMAZEPAM 15 MG CAPSULE PO PRN (00:49)
[2017-07-05] MEDS: GABAPENTIN 300 MG CAPSULE PO SCH ×3 (05:30→21:52)
[2017-07-05] MEDS: LANSOPRAZOLE 30 MG TAB.RAP.DR PO SCH (05:30)
[2017-07-05 05:57] LABS: HEMATOCRIT 26.2 % (36.0-47.0); MEAN CORPUSCULAR HEMOGLOBIN 24.2 pg (27.0-33.4); MEAN CORPUSCULAR HGB CONC 30.8 g/dL (32.0-36.0); MEAN CORPUSCULAR VOLUME 79 fl (80-97); PLATELET COUNT 257 10^3/uL (150-450); RED BLOOD COUNT 3.33 10^6/uL (3.72-5.28); RED CELL DISTRIBUTION WIDTH 23.6 % (11.5-14.0); WHITE BLOOD COUNT 18.1 10^3/uL (4.0-10.5)
[2017-07-05] MEDS: OXYCODONE-ACETAMINOPHEN 5-325 MG TABLET PO PRN ×2 (08:18→20:38)
[2017-07-05] MEDS: IPRATROPIUM/ALBUTEROL 0.5-2.5 MG/3 ML AMPUL NEB PRN (09:45)
--- NOTE | 2017-07-05 10:09 | Physician Advisory Note ---
Physician Advisor ProgressNote .: Pursuant to the plan for Segundo Edwards, I have reviewed the medical record for this patient. Physician Advisor Statement: Please consider documenting, if you agree: 1. "Acute Hypoxemic Respiratory Failure due to , evidenced by increased work of breathing & severe hypoxemia in ED" 2. "possible sepsis, present on admission, due to PNA, evidenced by " ( & differentiate which findings were due to sepsis as opposed to PNA/AcREsp FAilure) - or else state "possible sepsis was ruled out" 3. protein-calorie malnutrition [state mild, mod, or severe] with BMI 39.5, very low BUN & Cr, ____[?wt loss, ?appetite loss, ]" [if possible, give specifics on intake, wt loss, loss of SQ fat & muscle mass, diminished hand director child development center strength, & clinical importance such as (A) nutritional assessment ordered, (B) modified diet or supplements ordered, (C) additional labs ordered, (D) prolonged wound healing time, (E) delayed infxn clearance] 4. "Acute hyponatremia, suspect due to " 5. "Chronic Fe defic anemia, suspect due to chronic blood loss from GI source [ or ]" - or nutritional? Thanks! CK
[2017-07-05] MEDS: PREDNISONE 20 MG TABLET PO SCH ×2 (10:34→18:36)
[2017-07-05] MEDS: AZITHROMYCIN 500 MG in DEXTROSE 5%-WATER 250 ML IV SCH (10:40)
[2017-07-05] MEDS: CROMOLYN SODIUM NASAL SPRAY (5.2 MG/SPRAY) 26 ML NASL SCH (10:46)
[2017-07-05] MEDS: LORATADINE/PSEUDOEPHEDRINE SUL 10-240 MG TAB.SR.24H PO SCH (11:27)
[2017-07-05] MEDS: TIZANIDINE HCL 4 MG TABLET PO PRN ×2 (11:28→21:52)
[2017-07-05] MEDS: PROMETHAZINE HCL INJ 25 MG/1 ML VIAL IV PRN (11:49)
[2017-07-05] MEDS: CEFTRIAXONE SODIUM 1,000 MG in NORMAL SALINE 100 ML IV SCH (11:57)
[2017-07-05] MEDS: INSULIN LISPRO 100 UNIT/ML 3 ML VIAL SUBCUT PRN ×2 (13:24→21:52)
--- NOTE | 2017-07-05 19:21 | PDOC PROGRESS REPORT ---
Subjective Progress Note for:: 07/05/17 Subjective:: She looks and feels better. She still has multiple complaints but says that her breathing is better. She is c/o swelling and pain There is no dizziness, nausea vomiting. Reason For Visit: MULTIFOCAL PNEUMONIA Physical Exam Vital Signs: Temp Pulse Resp BP Pulse Ox 98.0 F 87 19 117/76 98 07/05/17 15:25 07/05/17 15:25 07/05/17 15:25 07/05/17 15:25 07/05/17 15:25 Intake & Output 07/04/17 07/05/17 07/06/17 06:59 06:59 06:59 Intake Total 702 790 558 Output Total 250 Balance 702 540 558 General appearance: PRESENT: no acute distress, cooperative Head exam: PRESENT: atraumatic Ear exam: PRESENT: bleeding Neck exam: ABSENT: carotid bruit, JVD, lymphadenopathy, thyromegaly Respiratory exam: PRESENT: crackles, rales - bilateral basal Cardiovascular exam: PRESENT: RRR. ABSENT: diastolic murmur, rubs, systolic murmur GI/Abdominal exam: PRESENT: normal bowel sounds, soft, tenderness - vague generaliked Rectal exam: PRESENT: deferred Extremities exam: PRESENT: +1 edema Musculoskeletal exam: PRESENT: ambulatory Neurological exam: PRESENT: alert, awake, oriented to person, oriented to place , oriented to time, oriented to situation, CN II-XII grossly intact. ABSENT: motor sensory deficit Skin exam: PRESENT: dry, intact, warm. ABSENT: cyanosis, rash Results Laboratory Results: 07/05/17 04:53 07/04/17 05:34 07/04/17 07/05/17 05:34 04:53 WBC 18.1 H RBC 3.33 L Hgb 8.0 L Hct 26.2 L MCV 79 L MCH 24.2 L MCHC 30.8 L RDW 23.6 H Plt Count 257 Transferrin 146 L 07/02/17 11:09 Pleural Fluid - Right Pleural Effusion Gram Stain - Final 07/02/17 11:09 Pleural Fluid - Right Pleural Effusion Body Fluid Culture - Final NO AEROBIC OR ANAEROBIC ORGANISMS RECOVERED 07/02/17 02:29 NT-Pro-B Natriuret Pep 649 H Impressions: Chest/Abdomen CTA 07/01/17 23:00 IMPRESSION: 1. Mild multifocal pneumonia and/or pulmonary edema. Moderate bilateral pleural effusions. 2. Mild pancreatitis pattern. Critical results reporting: The results of the examination have been personally discussed with the referring health care provider, GI NAYLOR, immediately following interpretation of the examination on 07/01/2017 11:05 PM CDT. Pelvis CTA 07/01/17 23:00 IMPRESSION: 1. Mild multifocal pneumonia and/or pulmonary edema. Moderate bilateral pleural effusions. 2. Mild pancreatitis pattern. Critical results reporting: The results of the examination have been personally discussed with the referring health care provider, GI NAYLOR, immediately following interpretation of the examination on 07/01/2017 11:05 PM CDT. Thoracentesis Ultrasound 07/02/17 00:00 IMPRESSION: SUCCESSFUL THORACENTESIS USING ULTRASOUND GUIDANCE. Chest X-Ray 07/04/17 00:00 IMPRESSION: NO CHANGE IN APPEARANCE OF THE CHEST. Assessment & Plan - Diagnosis (1) Multifocal pneumonia Is this a current diagnosis for this admission?: Yes Plan: Currently on Zithromax and ceftriaxone Day 3. Continue with same (2) Pleural effusion Is this a current diagnosis for this admission?: Yes Plan: Likely parapneumonic. S/p thoracentesis. repeat CXR shows minimal changes (3) Type 2 diabetes mellitus Qualifiers: Diabetes mellitus extermination supervisor insulin use: with extermination supervisor use Diabetes mellitus complication status: with unspecified complications Qualified Code(s) : E11.8 - Type 2 diabetes mellitus with unspecified complications; Z79.4 - senior living (current) use of insulin; Z79.4 - senior living (current) use of insulin; Z79.4 - senior living (current) use of insulin; Z79.4 - senior living (current) use of insulin Is this a current diagnosis for this admission?: Yes Plan: Patient is somewhat non compliant with her diet, I have encouraged her to be compliant with her management Will continue and adjust Levemir and continue SSI (4) Hypotension Is this a current diagnosis for this admission?: Yes (5) Anemia Qualifiers: Anemia type: iron deficiency Iron deficiency anemia type: unspecified iron deficiency Qualified Code(s): D50.9 - Iron deficiency anemia, unspecified Is this a current diagnosis for this admission?: Yes Plan: Chronic, possibly nutritional Will give Iron infusion tomorrow She needs to follow up with GI as outpatient (7) Protein-calorie malnutrition, mild Is this a current diagnosis for this admission?: Yes (8) Sepsis Qualifiers: Sepsis type: sepsis due to unspecified organism Qualified Code(s): A41.9 - Sepsis, unspecified organism Is this a current diagnosis for this admission?: Yes Plan: Likely secondary to PNA - Time Time Spent with patient: 15-24 minutes Medications reviewed and adjusted accordingly: Yes Anticipated discharge: Home Within: within 72 hours - Inpatient Certification Based on my medical assessment, after consideration of the patient's comorbidities, presenting symptoms, or acuity I expect that the services needed warrant INPATIENT care.: Yes Medical Necessity: Need for IV Antibiotics
[2017-07-05] MEDS: SIMETHICONE 80 MG TAB.CHEW PO PRN (20:38)
[2017-07-05] MEDS: INSULIN DETEMIR 100 UNIT/ML 3 ML PEN SUBCUT SCH (21:51)
[2017-07-06] MEDS: TEMAZEPAM 15 MG CAPSULE PO PRN (02:05)
[2017-07-06] MEDS: OXYCODONE-ACETAMINOPHEN 5-325 MG TABLET PO PRN ×4 (02:05→22:51)
[2017-07-06] MEDS: GABAPENTIN 300 MG CAPSULE PO SCH ×3 (05:28→22:26)
[2017-07-06] MEDS: LANSOPRAZOLE 30 MG TAB.RAP.DR PO SCH (05:28)
[2017-07-06 06:08] LABS: ABSOLUTE LYMPHOCYTES (AUTO) 2.2 10^3/uL (0.5-4.7); ABSOLUTE MONOCYTES (AUTO) 1.1 10^3/uL (0.1-1.4); ABSOLUTE NEUT (AUTO) 13.1 10^3/uL (1.7-8.2); BASOPHILS % (AUTO) 0.1 % (0-2); EOSINOPHILS % (AUTO) 0.1 % (0-6); HEMATOCRIT 26.6 % (36.0-47.0); HEMOGLOBIN 8.2 g/dL (12.0-15.5); LYMPHOCYTES % (AUTO) 13.4 % (13-45); MEAN CORPUSCULAR HGB CONC 30.8 g/dL (32.0-36.0); MEAN CORPUSCULAR VOLUME 78 fl (80-97); MONOCYTES % (AUTO) 6.6 % (3-13); PLATELET COUNT 281 10^3/uL (150-450); RED BLOOD COUNT 3.42 10^6/uL (3.72-5.28); RED CELL DISTRIBUTION WIDTH 24.1 % (11.5-14.0); SEGMENTED NEUTROPHILS % (AUTO) 79.8 % (42-78); TOTAL CELLS COUNTED % (AUTO) 100 %; WHITE BLOOD COUNT 16.4 10^3/uL (4.0-10.5)
[2017-07-06 06:30] LABS: ALANINE AMINOTRANSFERASE 28 U/L (9-52); ALBUMIN 2.4 g/dL (3.5-5.0); ALKALINE PHOSPHATASE 255 U/L (38-126); ANION GAP 10 (5-19); ASPARTATE AMINO TRANSFERASE 32 U/L (14-36); BILIRUBIN,DIRECT 0.2 mg/dL (0.0-0.4); BILIRUBIN,TOTAL 0.3 mg/dL (0.2-1.3); BLOOD UREA NITROGEN 9 mg/dL (7-20); CALCIUM 8.3 mg/dL (8.4-10.2); CARBON DIOXIDE 25 mmol/L (22-30); CHLORIDE 103 mmol/L (98-107); GLUCOSE 236 mg/dL (75-110); POTASSIUM 4.3 mmol/L (3.6-5.0); SODIUM 137.5 mmol/L (137-145)
[2017-07-06 06:31] LABS: ANISOCYTOSIS 3+; PLATELET COMMENT ADEQUATE; POLYCHROMASIA 1+
[2017-07-06] MEDS ORDERED: AZITHROMYCIN 250 MG TABLET PO SCH (10:00)
[2017-07-06] MEDS ORDERED: IRON SUCROSE COMPLEX INJ/PF 100 MG/5 ML SDV IV SCH (10:00)
[2017-07-06] MEDS: IPRATROPIUM/ALBUTEROL 0.5-2.5 MG/3 ML AMPUL NEB PRN (10:09)
[2017-07-06] MEDS: CROMOLYN SODIUM NASAL SPRAY (5.2 MG/SPRAY) 26 ML NASL SCH (10:22)
[2017-07-06] MEDS: LORATADINE/PSEUDOEPHEDRINE SUL 10-240 MG TAB.SR.24H PO SCH (10:23)
[2017-07-06] MEDS: CEFTRIAXONE SODIUM 1,000 MG in NORMAL SALINE 100 ML IV SCH (10:24)
[2017-07-06] MEDS: PREDNISONE 20 MG TABLET PO SCH (10:24)
[2017-07-06] MEDS: LIDOCAINE 5% (700 MG) TRANSDERMAL ADH..PATCH TP SCH (10:25)
[2017-07-06] MEDS: TIZANIDINE HCL 4 MG TABLET PO PRN (12:21)
[2017-07-06] MEDS: INSULIN LISPRO 100 UNIT/ML 3 ML VIAL SUBCUT PRN ×3 (12:21→22:26)
[2017-07-06] MEDS ORDERED: FUROSEMIDE 40 MG TABLET PO ONE (16:23)
--- NOTE | 2017-07-06 16:36 | PDOC PROGRESS REPORT ---
Subjective Progress Note for:: 07/06/17 Subjective:: She looks and feels better. She still has multiple complaints but says that her breathing is better. She is c/o swelling and pain Reason For Visit: MULTIFOCAL PNEUMONIA Physical Exam Vital Signs: Temp Pulse Resp BP Pulse Ox 98.3 F 83 20 133/67 H 90 L 07/06/17 12:00 07/06/17 12:00 07/06/17 12:00 07/06/17 12:00 07/06/17 12:00 Intake & Output 07/05/17 07/06/17 07/07/17 06:59 06:59 06:59 Intake Total 790 1148 Output Total 250 Balance 540 1148 General appearance: PRESENT: no acute distress Head exam: PRESENT: atraumatic Eye exam: PRESENT: conjunctiva pink, EOMI, PERRLA. ABSENT: scleral icterus Neck exam: ABSENT: carotid bruit, JVD, lymphadenopathy, thyromegaly Respiratory exam: PRESENT: clear to auscultation candice. ABSENT: rales, rhonchi, wheezes Cardiovascular exam: PRESENT: RRR. ABSENT: diastolic murmur, rubs, systolic murmur Pulses: PRESENT: normal dorsalis pedis pul GI/Abdominal exam: PRESENT: normal bowel sounds, soft. ABSENT: distended, guarding, mass, organolmegaly, rebound, tenderness Rectal exam: PRESENT: deferred Extremities exam: ABSENT: calf tenderness Neurological exam: PRESENT: alert, awake, oriented to person, oriented to time, oriented to situation Psychiatric exam: PRESENT: appropriate affect, normal mood. ABSENT: homicidal ideation, suicidal ideation Skin exam: PRESENT: dry, intact, warm. ABSENT: cyanosis, rash Results Laboratory Results: 07/06/17 05:44 07/06/17 05:44 07/06/17 07/06/17 05:44 05:44 WBC 16.4 H RBC 3.42 L Hgb 8.2 L Hct 26.6 L MCV 78 L MCH 24.0 L MCHC 30.8 L RDW 24.1 H Plt Count 281 Seg Neutrophils % 79.8 H Lymphocytes % 13.4 Monocytes % 6.6 Eosinophils % 0.1 Basophils % 0.1 Absolute Neutrophils 13.1 H Absolute Lymphocytes 2.2 Absolute Monocytes 1.1 Absolute Eosinophils 0.0 Absolute Basophils 0.0 Sodium 137.5 Potassium 4.3 Chloride 103 Carbon Dioxide 25 Anion Gap 10 BUN 9 Creatinine 0.58 Est GFR ( Amer) > 60 Est GFR (Non-Af Amer) > 60 Glucose 236 H Calcium 8.3 L Total Bilirubin 0.3 AST 32 ALT 28 Alkaline Phosphatase 255 H Total Protein 6.0 L Albumin 2.4 L 07/02/17 02:29 NT-Pro-B Natriuret Pep 649 H Impressions: Chest/Abdomen CTA 07/01/17 23:00 IMPRESSION: 1. Mild multifocal pneumonia and/or pulmonary edema. Moderate bilateral pleural effusions. 2. Mild pancreatitis pattern. Critical results reporting: The results of the examination have been personally discussed with the referring health care provider, GI NAYLOR, immediately following interpretation of the examination on 07/01/2017 11:05 PM CDT. Pelvis CTA 07/01/17 23:00 IMPRESSION: 1. Mild multifocal pneumonia and/or pulmonary edema. Moderate bilateral pleural effusions. 2. Mild pancreatitis pattern. Critical results reporting: The results of the examination have been personally discussed with the referring health care provider, GI NAYLOR, immediately following interpretation of the examination on 07/01/2017 11:05 PM CDT. Thoracentesis Ultrasound 07/02/17 00:00 IMPRESSION: SUCCESSFUL THORACENTESIS USING ULTRASOUND GUIDANCE. Chest X-Ray 07/04/17 00:00 IMPRESSION: NO CHANGE IN APPEARANCE OF THE CHEST. Assessment & Plan - Diagnosis (1) Multifocal pneumonia Is this a current diagnosis for this admission?: Yes Plan: Currently on Zithromax and ceftriaxone Day 4. Continue with same (2) Pleural effusion Is this a current diagnosis for this admission?: Yes Plan: Likely parapneumonic. S/p thoracentesis. repeat CXR shows minimal changes Pleural fluid is likely benign (3) Type 2 diabetes mellitus Qualifiers: Diabetes mellitus nursing home insulin use: with nursing home use Diabetes mellitus complication status: with unspecified complications Qualified Code(s) : E11.8 - Type 2 diabetes mellitus with unspecified complications; Z79.4 - joint terminal attack controller (current) use of insulin; Z79.4 - alf (current) use of insulin; Z79.4 - joint terminal attack controller (current) use of insulin; Z79.4 - joint terminal attack controller (current) use of insulin Is this a current diagnosis for this admission?: Yes Plan: Patient is somewhat non compliant with her diet, Will continue and adjust Levemir and continue SSI (4) Hypotension Is this a current diagnosis for this admission?: Yes Plan: Resolved (5) Anemia Qualifiers: Anemia type: iron deficiency Iron deficiency anemia type: unspecified iron deficiency Qualified Code(s): D50.9 - Iron deficiency anemia, unspecified Is this a current diagnosis for this admission?: Yes Plan: Chronic, possibly nutritional She received iron sucrose IV She needs to follow up with GI as outpatient as she may need follow-up studies (6) Acute respiratory failure Qualifiers: Respiratory failure complication: hypoxia Is this a current diagnosis for this admission?: Yes Plan: Secondary to pneumonia which has since resolved and he has been off oxygen (7) Protein-calorie malnutrition, mild Is this a current diagnosis for this admission?: Yes Plan: Encourage nutrition and supplements (8) Sepsis Qualifiers: Sepsis type: sepsis due to unspecified organism Qualified Code(s): A41.9 - Sepsis, unspecified organism Is this a current diagnosis for this admission?: Yes Plan: Likely secondary to PNA , present on admission, with tachycardia, hypotension, hypoxia, leukocytosis and bilateral pneumonia. Sepsis has resolved - Time Time Spent with patient: 15-24 minutes Medications reviewed and adjusted accordingly: Yes Anticipated discharge: Home Within: within 72 hours
[2017-07-06] MEDS: PROMETHAZINE HCL INJ 25 MG/1 ML VIAL IV PRN (17:13)
[2017-07-06] MEDS: DICYCLOMINE HCL 20 MG TABLET PO PRN (20:22)
[2017-07-06] MEDS: INSULIN DETEMIR 100 UNIT/ML 3 ML PEN SUBCUT SCH (22:26)
[2017-07-07] MEDS: TEMAZEPAM 15 MG CAPSULE PO PRN ×2 (00:46→23:14)
[2017-07-07] MEDS: GABAPENTIN 300 MG CAPSULE PO SCH ×3 (06:30→21:01)
[2017-07-07] MEDS: LANSOPRAZOLE 30 MG TAB.RAP.DR PO SCH (06:30)
[2017-07-07] MEDS: OXYCODONE-ACETAMINOPHEN 5-325 MG TABLET PO PRN ×3 (08:28→21:01)
[2017-07-07] MEDS: ENOXAPARIN SODIUM INJ 40 MG/0.4 ML DISP.SYRIN SUBCUT SCH (09:46)
[2017-07-07] MEDS: LIDOCAINE 5% (700 MG) TRANSDERMAL ADH..PATCH TP SCH (09:47)
[2017-07-07] MEDS: CROMOLYN SODIUM NASAL SPRAY (5.2 MG/SPRAY) 26 ML NASL SCH (09:47)
[2017-07-07] MEDS: PREDNISONE 20 MG TABLET PO SCH (09:47)
[2017-07-07] MEDS: LORATADINE/PSEUDOEPHEDRINE SUL 10-240 MG TAB.SR.24H PO SCH (09:47)
[2017-07-07] MEDS: CEFPODOXIME 200 MG TABLET PO SCH ×2 (10:21→21:01)
[2017-07-07] MEDS: IPRATROPIUM/ALBUTEROL 0.5-2.5 MG/3 ML AMPUL NEB PRN (11:42)
--- NOTE | 2017-07-07 14:15 | PDOC PROGRESS REPORT ---
Subjective Progress Note for:: 07/07/17 Subjective:: She looks and feels better. She still has multiple complaints but says that her breathing is better. Reason For Visit: MULTIFOCAL PNEUMONIA Physical Exam Vital Signs: Temp Pulse Resp BP Pulse Ox 98.9 F 111 H 16 94/50 L 98 07/07/17 08:00 07/07/17 11:42 07/07/17 11:42 07/07/17 08:00 07/07/17 11:42 Intake & Output 07/06/17 07/07/17 07/08/17 06:59 06:59 06:59 Intake Total 1148 1780 Balance 1148 1780 General appearance: PRESENT: no acute distress, cooperative Head exam: PRESENT: atraumatic Ear exam: PRESENT: normal external ear exam Neck exam: ABSENT: carotid bruit, JVD, lymphadenopathy, thyromegaly Respiratory exam: PRESENT: decreased breath sounds, unlabored. ABSENT: rales, rhonchi, tachypnea, wheezes Cardiovascular exam: PRESENT: RRR. ABSENT: diastolic murmur, rubs, systolic murmur GI/Abdominal exam: PRESENT: normal bowel sounds, soft. ABSENT: distended, guarding, mass, organolmegaly, rebound, tenderness Rectal exam: PRESENT: deferred Extremities exam: PRESENT: full ROM, +2 edema. ABSENT: calf tenderness, clubbing, pedal edema Neurological exam: PRESENT: alert, awake, oriented to place Results Laboratory Results: 07/06/17 05:44 07/06/17 05:44 07/02/17 02:29 NT-Pro-B Natriuret Pep 649 H Impressions: Chest/Abdomen CTA 07/01/17 23:00 IMPRESSION: 1. Mild multifocal pneumonia and/or pulmonary edema. Moderate bilateral pleural effusions. 2. Mild pancreatitis pattern. Critical results reporting: The results of the examination have been personally discussed with the referring health care provider, GI NAYLOR, immediately following interpretation of the examination on 07/01/2017 11:05 PM CDT. Pelvis CTA 07/01/17 23:00 IMPRESSION: 1. Mild multifocal pneumonia and/or pulmonary edema. Moderate bilateral pleural effusions. 2. Mild pancreatitis pattern. Critical results reporting: The results of the examination have been personally discussed with the referring health care provider, GI NAYLOR, immediately following interpretation of the examination on 07/01/2017 11:05 PM CDT. Thoracentesis Ultrasound 07/02/17 00:00 IMPRESSION: SUCCESSFUL THORACENTESIS USING ULTRASOUND GUIDANCE. Chest X-Ray 07/04/17 00:00 IMPRESSION: NO CHANGE IN APPEARANCE OF THE CHEST. Assessment & Plan - Diagnosis (1) Type 2 diabetes mellitus Qualifiers: Diabetes mellitus watermaster insulin use: with watermaster use Diabetes mellitus complication status: with unspecified complications Qualified Code(s) : E11.8 - Type 2 diabetes mellitus with unspecified complications; Z79.4 - [facility] (current) use of insulin; Z79.4 - buttermilk drier operator (current) use of insulin; Z79.4 - [facility] (current) use of insulin; Z79.4 - [facility] (current) use of insulin Is this a current diagnosis for this admission?: Yes Plan: Patient is somewhat non compliant with her diet, Will continue and adjust Levemir and continue SSI (2) Multifocal pneumonia Is this a current diagnosis for this admission?: Yes Plan: Switched to Vantin Will follow up in am (3) Pleural effusion Is this a current diagnosis for this admission?: Yes Plan: Likely parapneumonic. S/p thoracentesis. repeat CXR shows minimal changes Pleural fluid is benign (4) Hypotension Is this a current diagnosis for this admission?: Yes Plan: Resolved (5) Anemia Qualifiers: Anemia type: iron deficiency Iron deficiency anemia type: unspecified iron deficiency Qualified Code(s): D50.9 - Iron deficiency anemia, unspecified Is this a current diagnosis for this admission?: Yes Plan: Chronic, possibly nutritional She received iron sucrose IV She needs to follow up with GI as outpatient as she may need follow-up studies including endoscopy. Will start on Iron pills (6) Acute respiratory failure Qualifiers: Respiratory failure complication: hypoxia Qualified Code(s): J96.01 - Acute respiratory failure with hypoxia Is this a current diagnosis for this admission?: Yes Plan: Secondary to pneumonia which has since resolved (7) Protein-calorie malnutrition, mild Is this a current diagnosis for this admission?: Yes Plan: Encourage nutrition and supplements (8) Sepsis Qualifiers: Sepsis type: sepsis due to unspecified organism Qualified Code(s): A41.9 - Sepsis, unspecified organism Is this a current diagnosis for this admission?: Yes Plan: Likely secondary to PNA , present on admission, with tachycardia, hypotension, hypoxia, leukocytosis and bilateral pneumonia. Sepsis has resolved - Time Time Spent with patient: 15-24 minutes Medications reviewed and adjusted accordingly: Yes Anticipated discharge: Home Within: within 72 hours - Inpatient Certification Based on my medical assessment, after consideration of the patient's comorbidities, presenting symptoms, or acuity I expect that the services needed warrant INPATIENT care.: Yes Medical Necessity: Need Close Monitoring Due to Risk of Patient Decompensation, Risk of Complication if Not Cared For in Hospital
[2017-07-07] MEDS ORDERED: CYCLOBENZAPRINE HCL 10 MG TABLET PO PRN (14:16)
[2017-07-07] MEDS: INSULIN LISPRO 100 UNIT/ML 3 ML VIAL SUBCUT PRN (17:18)
[2017-07-07] MEDS: FERROUS SULFATE 325 MG TABLET PO SCH (17:18)
[2017-07-07] MEDS: TIZANIDINE HCL 4 MG TABLET PO PRN (19:40)
[2017-07-07] MEDS: INSULIN DETEMIR 100 UNIT/ML 3 ML PEN SUBCUT SCH (20:52)
[2017-07-08] MEDS: LANSOPRAZOLE 30 MG TAB.RAP.DR PO SCH (05:22)
[2017-07-08] MEDS: GABAPENTIN 300 MG CAPSULE PO SCH ×3 (05:22→23:06)
[2017-07-08 05:37] LABS: ABSOLUTE EOSINOPHILS # (AUTO) 0.2 10^3/uL (0.0-0.6); ABSOLUTE LYMPHOCYTES (AUTO) 3.6 10^3/uL (0.5-4.7); ABSOLUTE MONOCYTES (AUTO) 1.1 10^3/uL (0.1-1.4); ABSOLUTE NEUT (AUTO) 13.3 10^3/uL (1.7-8.2); BASOPHILS % (AUTO) 0.2 % (0-2); EOSINOPHILS % (AUTO) 1.1 % (0-6); HEMATOCRIT 27.9 % (36.0-47.0); HEMOGLOBIN 8.6 g/dL (12.0-15.5); LYMPHOCYTES % (AUTO) 19.6 % (13-45); MEAN CORPUSCULAR HEMOGLOBIN 24.2 pg (27.0-33.4); MEAN CORPUSCULAR HGB CONC 30.7 g/dL (32.0-36.0); MEAN CORPUSCULAR VOLUME 79 fl (80-97); MONOCYTES % (AUTO) 6.1 % (3-13); PLATELET COUNT 329 10^3/uL (150-450); RED BLOOD COUNT 3.54 10^6/uL (3.72-5.28); TOTAL CELLS COUNTED % (AUTO) 100 %; WHITE BLOOD COUNT 18.3 10^3/uL (4.0-10.5)
[2017-07-08 05:53] LABS: ALANINE AMINOTRANSFERASE 38 U/L (9-52); ALBUMIN 2.2 g/dL (3.5-5.0); ALKALINE PHOSPHATASE 250 U/L (38-126); ANION GAP 8 (5-19); ASPARTATE AMINO TRANSFERASE 34 U/L (14-36); BILIRUBIN,DIRECT 0.4 mg/dL (0.0-0.4); BILIRUBIN,TOTAL 0.4 mg/dL (0.2-1.3); BLOOD UREA NITROGEN 6 mg/dL (7-20); CALCIUM 8.1 mg/dL (8.4-10.2); CARBON DIOXIDE 25 mmol/L (22-30); CHLORIDE 106 mmol/L (98-107); GLUCOSE 159 mg/dL (75-110); POTASSIUM 3.9 mmol/L (3.6-5.0); TOTAL PROTEIN 5.6 g/dL (6.3-8.2)
[2017-07-08 06:09] LABS: TOXIC GRANULATION SLIGHT
[2017-07-08 06:10] LABS: ANISOCYTOSIS 3+; PLATELET COMMENT ADEQUATE; PLATELET GIANT PRESENT; PLATELET LARGE PRESENT; POIKILOCYTOSIS SLIGHT; SCHISTOCYTES 1+
[2017-07-08] MEDS: INSULIN LISPRO 100 UNIT/ML 3 ML VIAL SUBCUT PRN ×2 (08:24→17:41)
[2017-07-08] MEDS: FERROUS SULFATE 325 MG TABLET PO SCH ×2 (08:24→17:38)
[2017-07-08] MEDS: SIMETHICONE 80 MG TAB.CHEW PO PRN (08:52)
[2017-07-08] MEDS: TIZANIDINE HCL 4 MG TABLET PO PRN ×2 (08:53→20:57)
[2017-07-08] MEDS: CEFPODOXIME 200 MG TABLET PO SCH (10:18)
[2017-07-08] MEDS: LIDOCAINE 5% (700 MG) TRANSDERMAL ADH..PATCH TP SCH (10:18)
[2017-07-08] MEDS: PREDNISONE 20 MG TABLET PO SCH (10:18)
[2017-07-08] MEDS: ENOXAPARIN SODIUM INJ 40 MG/0.4 ML DISP.SYRIN SUBCUT SCH (10:23)
[2017-07-08] MEDS: CROMOLYN SODIUM NASAL SPRAY (5.2 MG/SPRAY) 26 ML NASL SCH (10:52)
[2017-07-08] MEDS: LORATADINE/PSEUDOEPHEDRINE SUL 10-240 MG TAB.SR.24H PO SCH (10:52)
[2017-07-08] MEDS ORDERED: PREDNISONE 20 MG TABLET PO SCH (11:38)
[2017-07-08] MEDS: IPRATROPIUM/ALBUTEROL 0.5-2.5 MG/3 ML AMPUL NEB PRN (12:44)
--- NOTE | 2017-07-08 15:15 | RADIOLOGY REPORT (SQ) ---
EXAM DESCRIPTION: CHEST PA/LAT COMPLETED DATE/TIME: 07/08/2017 3:01 pm REASON FOR STUDY: Follow up pleural effusion, PNA COMPARISON: None. EXAM PARAMETERS: NUMBER OF VIEWS: two views TECHNIQUE: Digital Frontal and Lateral radiographic views of the chest acquired. RADIATION DOSE: NA LIMITATIONS: none FINDINGS: LUNGS AND PLEURA: Interval slight to mild worsening in the appearance of the lungs. The right hemidiaphragm is elevated more so than on the prior study. Increased parenchymal density in th e bilateral mid-lower lung zones may be on the basis of infiltrates. Slight blunting of the right co stophrenic angle suggests small right pleural effusion. No pneumothorax. MEDIASTINUM AND HILAR STRUCTURES: No masses or contour abnormalities. HEART AND VASCULAR STRUCTURES: Cardiac margins are partially obscured by the pleuroparenchymal smith es. BONES: No acute findings. HARDWARE: None in the chest. OTHER: No other significant finding. IMPRESSION: 1 Since the previous examination dated 07/04/2017, interval slight to mild worsening in t he appearance of the lungs with bilateral patchy parenchymal densities in the mid-lower lung zones, m ay represent infiltrates. Slight blunting of the right costophrenic angle suggests small pleural eff usion. Elevation of the right hemidiaphragm. TECHNICAL DOCUMENTATION: JOB ID: [id number] [employer]- All Rights Reserved Reading location - IP/workstation name: [email or web address]
[2017-07-08] MEDS: OXYCODONE-ACETAMINOPHEN 5-325 MG TABLET PO PRN (15:24)
--- NOTE | 2017-07-08 15:40 | PDOC PROGRESS REPORT ---
Subjective Progress Note for:: 07/08/17 Subjective:: She looks and feels better. She still has multiple complaints but says that her breathing is better. Reason For Visit: MULTIFOCAL PNEUMONIA Physical Exam Vital Signs: Temp Pulse Resp BP Pulse Ox 98.3 F 107 H 20 99/54 L 93 07/08/17 12:00 07/08/17 12:44 07/08/17 12:44 07/08/17 12:00 07/08/17 12:44 Intake & Output 07/07/17 07/08/17 07/09/17 06:59 06:59 06:59 Intake Total 1780 1310 1122 Balance 1780 1310 1122 General appearance: PRESENT: no acute distress Head exam: PRESENT: atraumatic Eye exam: PRESENT: conjunctiva pink, EOMI, PERRLA. ABSENT: scleral icterus Respiratory exam: PRESENT: clear to auscultation candice. ABSENT: rales, rhonchi, wheezes Cardiovascular exam: PRESENT: RRR. ABSENT: diastolic murmur, rubs, systolic murmur GI/Abdominal exam: PRESENT: tenderness - mild vague generalized Rectal exam: PRESENT: deferred Musculoskeletal exam: PRESENT: ambulatory Neurological exam: PRESENT: alert, awake, oriented to person, oriented to place , oriented to time, oriented to situation, CN II-XII grossly intact. ABSENT: motor sensory deficit Psychiatric exam: PRESENT: appropriate affect Results Laboratory Results: 07/08/17 04:56 07/08/17 04:56 07/08/17 07/08/17 07/08/17 04:56 04:56 04:56 WBC 18.3 H RBC 3.54 L Hgb 8.6 L Hct 27.9 L MCV 79 L MCH 24.2 L MCHC 30.7 L RDW 25.0 H Plt Count 329 Seg Neutrophils % 73.0 Lymphocytes % 19.6 Monocytes % 6.1 Eosinophils % 1.1 Basophils % 0.2 Absolute Neutrophils 13.3 H Absolute Lymphocytes 3.6 Absolute Monocytes 1.1 Absolute Eosinophils 0.2 Absolute Basophils 0.0 Sodium 139.0 Potassium 3.9 Chloride 106 Carbon Dioxide 25 Anion Gap 8 BUN 6 L Creatinine 0.58 Est GFR ( Amer) > 60 Est GFR (Non-Af Amer) > 60 Glucose 159 H Calcium 8.1 L Total Bilirubin 0.4 AST 34 ALT 38 Alkaline Phosphatase 250 H Total Protein 5.6 L Albumin 2.2 L Lipase 669.6 H 07/02/17 02:29 NT-Pro-B Natriuret Pep 649 H Impressions: Chest/Abdomen CTA 07/01/17 23:00 IMPRESSION: 1. Mild multifocal pneumonia and/or pulmonary edema. Moderate bilateral pleural effusions. 2. Mild pancreatitis pattern. Critical results reporting: The results of the examination have been personally discussed with the referring health care provider, GI NAYLOR, immediately following interpretation of the examination on 07/01/2017 11:05 PM CDT. Pelvis CTA 07/01/17 23:00 IMPRESSION: 1. Mild multifocal pneumonia and/or pulmonary edema. Moderate bilateral pleural effusions. 2. Mild pancreatitis pattern. Critical results reporting: The results of the examination have been personally discussed with the referring health care provider, GI NAYLOR, immediately following interpretation of the examination on 07/01/2017 11:05 PM CDT. Thoracentesis Ultrasound 07/02/17 00:00 IMPRESSION: SUCCESSFUL THORACENTESIS USING ULTRASOUND GUIDANCE. Chest X-Ray 07/08/17 00:00 IMPRESSION: 1 Since the previous examination dated 07/04/2017, interval slight to mild worsening in the appearance of the lungs with bilateral patchy parenchymal densities in the mid-lower lung zones, may represent infiltrates. Slight blunting of the right costophrenic angle suggests small pleural effusion. Elevation of the right hemidiaphragm. Assessment & Plan - Diagnosis (1) Type 2 diabetes mellitus Qualifiers: Diabetes mellitus middle or intermediate school principal insulin use: with nursing home use Diabetes mellitus complication status: with unspecified complications Qualified Code(s) : E11.8 - Type 2 diabetes mellitus with unspecified complications; Z79.4 - watermelon inspector (current) use of insulin; Z79.4 - watermelon inspector (current) use of insulin; Z79.4 - long-term (current) use of insulin; Z79.4 - watermelon inspector (current) use of insulin Is this a current diagnosis for this admission?: Yes Plan: Will continue and adjust Levemir and continue SSI (2) Multifocal pneumonia Is this a current diagnosis for this admission?: Yes Plan: Follow up CXR, change to IV antibiotics, her wbc increased though this could also be due to steroids which was started few days ago. (3) Pleural effusion Is this a current diagnosis for this admission?: Yes Plan: Likely parapneumonic. S/p thoracentesis. repeat CXR shows minimal changes Pleural fluid is benign culture however she did have elevated WBC consistent with a parapneumonic effusion. Patient will be switched to IV cefepime once she has a vascular access in place (4) Hypotension Is this a current diagnosis for this admission?: Yes Plan: Resolved (5) Anemia Qualifiers: Anemia type: iron deficiency Iron deficiency anemia type: unspecified iron deficiency Qualified Code(s): D50.9 - Iron deficiency anemia, unspecified Is this a current diagnosis for this admission?: Yes Plan: Chronic, possibly nutritional She received iron sucrose IV She needs to follow up with GI as outpatient as she may need follow-up studies including endoscopy. Started on Iron pills (6) Acute respiratory failure Qualifiers: Respiratory failure complication: hypoxia Qualified Code(s): J96.01 - Acute respiratory failure with hypoxia Is this a current diagnosis for this admission?: Yes Plan: Secondary to pneumonia. Her oxygen requirement increased again today and so she will be placed back on oxygen. Patient has been advised not to wander around and to stay in her room (7) Protein-calorie malnutrition, mild Is this a current diagnosis for this admission?: Yes (8) Sepsis Qualifiers: Sepsis type: sepsis due to unspecified organism Qualified Code(s): A41.9 - Sepsis, unspecified organism Is this a current diagnosis for this admission?: Yes Plan: Likely secondary to PNA , present on admission, with tachycardia, hypotension, hypoxia, leukocytosis and bilateral pneumonia. - Time Time Spent with patient: 15-24 minutes Smoking Cessation Education: 3 to 10 minutes Medications reviewed and adjusted accordingly: Yes Anticipated discharge: Home Within: within 72 hours
--- NOTE | 2017-07-08 22:42 | RADIOLOGY REPORT (SQ) ---
EXAM DESCRIPTION: U/S ABDOMEN COMPLETE W/O DOP COMPLETED DATE/TIME: 07/08/2017 10:20 pm REASON FOR STUDY: Abdominal pain, pancreatitis COMPARISON: 02/09/2017 TECHNIQUE: Dynamic and static grayscale images acquired of the abdomen and recorded on PACS. Sebastiano emelina selected color Doppler and spectral images recorded. LIMITATIONS: The study is limited by bowel gas, body habitus, and the patient's coughing PE FINDINGS: PANCREAS: Pancreas is not well seen. LIVER: 15 cm. Normal echotexture. LIVER VASCULATURE: Not seen GALLBLADDER: No stones. Normal wall thickness. No pericholecystic fluid. ULTRASOUND-DETECTED LA'S SIGN: Positive. INTRAHEPATIC DUCTS AND COMMON DUCT: Not seen INFERIOR VENA CAVA: Not seen AORTA: Not seen RIGHT KIDNEY: Normal size, 10 cm. Normal echogenicity. No solid or suspicious masses. No hydro nephrosis. No calcifications. LEFT KIDNEY: Normal size, 11 cm. Normal echogenicity. No solid or suspicious masses. No hydron ephrosis. No calcifications. SPLEEN: Normal size, 10.1 cm. No masses. PERITONEAL AND PLEURAL SPACES: No ascites or effusions. OTHER: No other significant finding. IMPRESSION: Limited study. There was a positive sonographic La sign. TECHNICAL DOCUMENTATION: JOB ID: [id number] [employer]- All Rights Reserved Reading location - IP/workstation name: [email or web address]
[2017-07-08 22:48] LABS: APPEARANCE,URINE CLEAR; BILIRUBIN,URINE NEGATIVE (NEGATIVE); COLOR,URINE YELLOW; GLUCOSE, URINE NEGATIVE (NEGATIVE); KETONES,URINE NEGATIVE (NEGATIVE); LEUKOCYTE ESTERASE,URINE NEGATIVE (NEGATIVE); NITRITE,URINE NEGATIVE (NEGATIVE); PROTEIN,URINE NEGATIVE (NEGATIVE); URINE SPECIFIC GRAVITY 1.012; UROBILINOGEN,URINE NEGATIVE mg/dL (<2.0)
[2017-07-08] MEDS: CEFEPIME 2 GM/D5W RTU 2 GM/50 ML RTUPB IV SCH (23:05)
[2017-07-08] MEDS: INSULIN DETEMIR 100 UNIT/ML 3 ML PEN SUBCUT SCH (23:08)
[2017-07-09] MEDS: OXYCODONE-ACETAMINOPHEN 5-325 MG TABLET PO PRN ×4 (00:06→23:28)
[2017-07-09] MEDS: TEMAZEPAM 15 MG CAPSULE PO PRN ×2 (00:06→23:58)
[2017-07-09] MEDS: LANSOPRAZOLE 30 MG TAB.RAP.DR PO SCH (05:26)
[2017-07-09] MEDS: GABAPENTIN 300 MG CAPSULE PO SCH ×3 (05:26→22:52)
[2017-07-09 06:48] LABS: ABSOLUTE BASOPHILS # (AUTO) 0.2 10^3/uL (0.0-0.2); ABSOLUTE EOSINOPHILS # (AUTO) 0.2 10^3/uL (0.0-0.6); ABSOLUTE LYMPHOCYTES (AUTO) 3.7 10^3/uL (0.5-4.7); ABSOLUTE MONOCYTES (AUTO) 1.4 10^3/uL (0.1-1.4); ABSOLUTE NEUT (AUTO) 13.2 10^3/uL (1.7-8.2); BASOPHILS % (AUTO) 1.1 % (0-2); EOSINOPHILS % (AUTO) 0.9 % (0-6); HEMATOCRIT 30.8 % (36.0-47.0); HEMOGLOBIN 9.4 g/dL (12.0-15.5); LYMPHOCYTES % (AUTO) 19.9 % (13-45); MEAN CORPUSCULAR HEMOGLOBIN 24.2 pg (27.0-33.4); MEAN CORPUSCULAR HGB CONC 30.7 g/dL (32.0-36.0); MEAN CORPUSCULAR VOLUME 79 fl (80-97); MONOCYTES % (AUTO) 7.6 % (3-13); PLATELET COUNT 300 10^3/uL (150-450); RED BLOOD COUNT 3.91 10^6/uL (3.72-5.28); RED CELL DISTRIBUTION WIDTH 25.8 % (11.5-14.0); SEGMENTED NEUTROPHILS % (AUTO) 70.5 % (42-78); TOTAL CELLS COUNTED % (AUTO) 100 %; WHITE BLOOD COUNT 18.8 10^3/uL (4.0-10.5)
[2017-07-09 06:52] LABS: ANION GAP 7 (5-19); BLOOD UREA NITROGEN 6 mg/dL (7-20); CALCIUM 8.3 mg/dL (8.4-10.2); CARBON DIOXIDE 25 mmol/L (22-30); CHLORIDE 108 mmol/L (98-107); GLUCOSE 102 mg/dL (75-110); LIPASE 879.1 U/L (23-300); POTASSIUM 3.6 mmol/L (3.6-5.0); SODIUM 139.9 mmol/L (137-145)
[2017-07-09 07:25] LABS: ANISOCYTOSIS 3+; HYPOCHROMASIA 1+; PLATELET CLUMPS PRESENT; POLYCHROMASIA 1+; ROULEAUX SLIGHT; TOXIC GRANULATION SLIGHT; TOXIC VACUOLATION PRESENT
[2017-07-09] MEDS ORDERED: PREDNISONE 10 MG TABLET PO SCH (10:00)
[2017-07-09] MEDS: IPRATROPIUM/ALBUTEROL 0.5-2.5 MG/3 ML AMPUL NEB PRN (13:16)
[2017-07-09] MEDS: FERROUS SULFATE 325 MG TABLET PO SCH ×2 (13:24→17:28)
[2017-07-09] MEDS: LIDOCAINE 5% (700 MG) TRANSDERMAL ADH..PATCH TP SCH (13:25)
[2017-07-09] MEDS: LORATADINE/PSEUDOEPHEDRINE SUL 10-240 MG TAB.SR.24H PO SCH (13:25)
[2017-07-09] MEDS: CEFEPIME 2 GM/D5W RTU 2 GM/50 ML RTUPB IV SCH ×2 (13:26→22:52)
[2017-07-09] MEDS: CROMOLYN SODIUM NASAL SPRAY (5.2 MG/SPRAY) 26 ML NASL SCH (13:26)
[2017-07-09] MEDS: ENOXAPARIN SODIUM INJ 40 MG/0.4 ML DISP.SYRIN SUBCUT SCH (13:26)
--- NOTE | 2017-07-09 13:29 | RADIOLOGY REPORT (SQ) ---
EXAM DESCRIPTION: NM HIDA SCAN WITH CCK COMPLETED DATE/TIME: 07/09/2017 1:08 pm REASON FOR STUDY: Abdominal pain, positive sono COMPARISON: Abdominal ultrasound dated 07/08/2017 RADIONUCLIDE AND DOSE: DOSAGE RADIONUCLIDE: 5.21 millicuries Tc99m Mebrofenin. DOSAGE CCK: 1.9 micrograms. DOSAGE MORPHINE: Not required. The route of agent administration: Intravenous TECHNIQUE: Serial imaging right upper quadrant up to 60 minutes following injection of radionuclide. CCK injected after gallbladder visualized. LIMITATIONS: None. FINDINGS: LIVER: Normal visualization without areas of photopenia. INTRAHEPATIC BILE DUCTS: Normal size and no delay in visualization. COMMON BILE DUCT: Normal without dilatation. GALLBLADDER: Normal visualization. Calculated ejection fraction of 75%. Normal range is greater th an 35%. PHYSICAL RESPONSE: Patients presenting complaint were reproduced. OTHER: No other significant finding. IMPRESSION: NORMAL STUDY WITHOUT CYSTIC OR COMMON DUCT OBSTRUCTION. NORMAL GALLBLADDER EJECTION FRA CTION. NO EVIDENCE FOR BILIARY DYSKINESIS. TECHNICAL DOCUMENTATION: JOB ID: [id number] [employer]- All Rights Reserved Reading location - IP/workstation name: [email or web address]
--- NOTE | 2017-07-09 15:00 | PDOC CONSULTATION ---
Consultation Consult Date: 07/09/17 Consult reason:: Abdominal pain History of Present Illness Admission Date/PCP: 07/02/17 01:22 Patient complains of: Abdominal pain History of Present Illness: the patient is a 46 y/o female, s/p RYGB years ago, hx of ETOH abuse, acute on chronic pancreatitis, now admitted for abdominal pain, found to have a RLL pneumonia. I have been consulted to evaluate this pain abdominal pain, dwescribed as diffuse, radiated to the back, and unrelenting. The patient reports several episodes of acute pancreatitis, last alcohol drinking occurred in May 2017, she reports the abuse of Percocet to control her abdominal pain. Past Medical History Cardiac Medical History: Reports: Hypertension Neurological Medical History: Denies: Seizures Endocrine Medical History: Reports: Diabetes Mellitus Type 2 GI Medical History: Reports: Gastroesophageal Reflux Disease, Hepatitis, Other - alcohol pancreatitis. Musculoskeltal Medical History: Reports: Arthritis - gout Psychiatric Medical History: Reports: Depression Past Surgical History Past Surgical History: Reports: Section - x 3, Gastric Bypass Surgery Denies: Hysterectomy Social History Lives with: Spouse/Significant other Smoking Status: Current Every Day Smoker Cigarettes Packs Per Day: 1 Number of Years Smokin Last Time Smoked: 07/02/2016 Frequency of Alcohol Use: Occasional Hx Recreational Drug Use: No Drugs: None Hx Prescription Drug Abuse: No - Advance Directive Resuscitation Status: Full Code Family History Family History: DM Parental Family History Reviewed: No Children Family History Reviewed: No Sibling(s) Family History Reviewed.: No Medication/Allergy Home Medications: Aspirin [Aspirin EC] 81 mg PO DAILY 07/02/17 Ergocalciferol (Vitamin D2) [Vitamin D] 400 unit PO DAILY 07/02/17 Gabapentin [Neurontin] 600 mg PO Q8H 07/02/17 Hydroxyzine HCl [Atarax 25 mg Tablet] 25 mg PO QHS 07/02/17 Insulin Detemir [Levemir Flextouch] 10 unit SQ QHS 07/02/17 Lisinopril [Prinivil 10 mg Tablet] 10 mg PO DAILY 07/02/17 Multivit with Minerals No.55 [Centrum Flavor Burst Adult] 1 tab PO DAILY Allergies/Adverse Reactions: Bee Allergy (Uncoded 02/23/17 21:02) bees Allergy (Uncoded 02/23/17 21:02) Physical Exam Vital Signs: Temp Pulse Resp BP Pulse Ox 98.5 F 77 14 134/84 H 98 07/09/17 07:46 07/09/17 13:16 07/09/17 13:16 07/09/17 07:46 07/09/17 07:46 Intake & Output 07/08/17 07/09/17 07/10/17 06:59 06:59 06:59 Intake Total 1310 1672 Balance 1310 1672 General appearance: PRESENT: mild distress Head exam: PRESENT: atraumatic Neck exam: PRESENT: full ROM Respiratory exam: PRESENT: rhonchi, wheezes Cardiovascular exam: PRESENT: RRR GI/Abdominal exam: PRESENT: hypoactive bowel sounds, tenderness - diffuse, other - obese Musculoskeletal exam: PRESENT: full ROM Neurological exam: PRESENT: alert, altered, awake Results Laboratory Results: 07/09/17 06:10 07/09/17 06:10 07/08/17 07/08/17 07/09/17 22:19 22:19 06:10 WBC 18.8 H RBC 3.91 Hgb 9.4 L Hct 30.8 L MCV 79 L MCH 24.2 L MCHC 30.7 L RDW 25.8 H Plt Count 300 Seg Neutrophils % 70.5 Lymphocytes % 19.9 Monocytes % 7.6 Eosinophils % 0.9 Basophils % 1.1 Absolute Neutrophils 13.2 H Absolute Lymphocytes 3.7 Absolute Monocytes 1.4 Absolute Eosinophils 0.2 Absolute Basophils 0.2 Sodium Potassium Chloride Carbon Dioxide Anion Gap BUN Creatinine Est GFR ( Amer) Est GFR (Non-Af Amer) Glucose Calcium Lipase Urine Color YELLOW Urine Appearance CLEAR Urine pH 6.0 Ur Specific [place] 1.012 Urine Protein NEGATIVE Urine Glucose (UA) NEGATIVE Urine Ketones NEGATIVE Urine Blood MODERATE H Urine Nitrite NEGATIVE Ur Leukocyte Esterase NEGATIVE Urine WBC (Auto) 0 Urine RBC (Auto) 1 Stool Occult Blood NEGATIVE 07/09/17 06:10 WBC RBC Hgb Hct MCV MCH MCHC RDW Plt Count Seg Neutrophils % Lymphocytes % Monocytes % Eosinophils % Basophils % Absolute Neutrophils Absolute Lymphocytes Absolute Monocytes Absolute Eosinophils Absolute Basophils Sodium 139.9 Potassium 3.6 Chloride 108 H Carbon Dioxide 25 Anion Gap 7 BUN 6 L Creatinine 0.52 Est GFR ( Amer) > 60 Est GFR (Non-Af Amer) > 60 Glucose 102 Calcium 8.3 L Lipase 879.1 H Urine Color Urine Appearance Urine pH Ur Specific [place] Urine Protein Urine Glucose (UA) Urine Ketones Urine Blood Urine Nitrite Ur Leukocyte Esterase Urine WBC (Auto) Urine RBC (Auto) Stool Occult Blood 07/02/17 02:29 NT-Pro-B Natriuret Pep 649 H Impressions: Chest/Abdomen CTA 07/01/17 23:00 IMPRESSION: 1. Mild multifocal pneumonia and/or pulmonary edema. Moderate bilateral pleural effusions. 2. Mild pancreatitis pattern. Critical results reporting: The results of the examination have been personally discussed with the referring health care provider, GI NAYLOR, immediately following interpretation of the examination on 07/01/2017 11:05 PM CDT. Pelvis CTA 07/01/17 23:00 IMPRESSION: 1. Mild multifocal pneumonia and/or pulmonary edema. Moderate bilateral pleural effusions. 2. Mild pancreatitis pattern. Critical results reporting: The results of the examination have been personally discussed with the referring health care provider, GI NAYLOR, immediately following interpretation of the examination on 07/01/2017 11:05 PM CDT. Thoracentesis Ultrasound 07/02/17 00:00 IMPRESSION: SUCCESSFUL THORACENTESIS USING ULTRASOUND GUIDANCE. Abdomen Ultrasound 07/08/17 00:00 IMPRESSION: Limited study. There was a positive sonographic La sign. Chest X-Ray 07/08/17 00:00 IMPRESSION: 1 Since the previous examination dated 07/04/2017, interval slight to mild worsening in the appearance of the lungs with bilateral patchy parenchymal densities in the mid-lower lung zones, may represent infiltrates. Slight blunting of the right costophrenic angle suggests small pleural effusion. Elevation of the right hemidiaphragm. Hepatobiliary Scan Nuclear Medicine 07/09/17 00:00 IMPRESSION: NORMAL STUDY WITHOUT CYSTIC OR COMMON DUCT OBSTRUCTION. NORMAL GALLBLADDER EJECTION FRACTION. NO EVIDENCE FOR BILIARY DYSKINESIS. Assessment & Plan - Diagnosis (1) Acute on chronic pancreatitis Is this a current diagnosis for this admission?: Yes - Plan Summary Plan Summary: A/ Patient s/p RYGB with marginal results as she gains and loses weight on a circadian fashion Hx of multiple substance abuse: nicotine, alcohol, codeine hx of multiple episodes of acute on chronic pancreatitis secondary to alcohol abuse CT scan A/P significant for RLL pneumonia Large fatty liver Inflammatory changes of pancreas with small amount of fluid surrounding the organ P/ no acute surgical condition identified requiring intervention recommend absolute abstinence from alcohol, joining the AA, low fat diet No narcotics; Use Tylenol instead for pain control Psychiatry consult for drug addiction might definitively help. I will sign off, please call me with questions
[2017-07-09] MEDS: TIZANIDINE HCL 4 MG TABLET PO PRN (17:28)
--- NOTE | 2017-07-09 17:32 | PDOC PROGRESS REPORT ---
Subjective Progress Note for:: 07/09/17 Subjective:: Patient admitted with difficulty breathing and shortness of breath. She was found to be hypotensive on initial presentation and ended up being monitored in the ICU as she was also some status post thoracentesis. She had right-sided pleural effusion and had about 850 mL of pleural fluid removed. His really has turned out to be relatively benign with about a 50 of WBCs but sterile with no growth. Patient has had intermittent complaints of difficulty breathing as well as hypoxemia. Follow-up chest x-ray showed minimal changes. She is still complaining of abdominal pain and patient is pretty sensitive to exam basically complaining of pain whenever you touch. It appears that she did have pancreatitis with elevated lipase and placed back on nothing by mouth. Sonogram was done which suggested positive La's sign and so a HIDA scan has been done which shows no evidence of acute cholecystitis. She also has been seen by general surgery with no interventions been planned. Patient still has leukocytosis although she had been on some steroids but have been tapering the dose. Clinically she does not appear to be w worse than on admission the patient is pretty anxious. There is a history of alcohol abuse although she says she does not drink anymore and she has had prior history of pancreatitis. She does have a fatty liver on CT scan but no evidence of cirrhosis of the liver Reason For Visit: MULTIFOCAL PNEUMONIA Physical Exam Vital Signs: Temp Pulse Resp BP Pulse Ox 98.5 F 77 14 134/84 H 98 07/09/17 07:46 07/09/17 13:16 07/09/17 13:16 07/09/17 07:46 07/09/17 07:46 Intake & Output 07/08/17 07/09/17 07/10/17 06:59 06:59 06:59 Intake Total 1310 1672 0 Balance 1310 1672 0 General appearance: PRESENT: no acute distress, obese, well-developed Head exam: PRESENT: atraumatic Eye exam: PRESENT: PERRLA Ear exam: PRESENT: normal external ear exam Neck exam: ABSENT: carotid bruit, JVD, lymphadenopathy, thyromegaly Respiratory exam: PRESENT: decreased breath sounds - Right side, rales, rhonchi Cardiovascular exam: PRESENT: RRR. ABSENT: diastolic murmur, rubs, systolic murmur Pulses: PRESENT: normal dorsalis pedis pul GI/Abdominal exam: PRESENT: tenderness - Vague generalized. ABSENT: ascites, diminished bowel sounds, distended, La's sign Rectal exam: PRESENT: deferred Extremities exam: PRESENT: full ROM. ABSENT: calf tenderness, clubbing, pedal edema Musculoskeletal exam: PRESENT: ambulatory Neurological exam: PRESENT: alert, awake, oriented to person, oriented to place , oriented to time, oriented to situation Psychiatric exam: PRESENT: agitated, appropriate affect Skin exam: PRESENT: dry, intact, warm. ABSENT: cyanosis, rash Results Laboratory Results: 07/09/17 06:10 07/09/17 06:10 07/08/17 07/08/17 07/09/17 22:19 22:19 06:10 WBC 18.8 H RBC 3.91 Hgb 9.4 L Hct 30.8 L MCV 79 L MCH 24.2 L MCHC 30.7 L RDW 25.8 H Plt Count 300 Seg Neutrophils % 70.5 Lymphocytes % 19.9 Monocytes % 7.6 Eosinophils % 0.9 Basophils % 1.1 Absolute Neutrophils 13.2 H Absolute Lymphocytes 3.7 Absolute Monocytes 1.4 Absolute Eosinophils 0.2 Absolute Basophils 0.2 Sodium Potassium Chloride Carbon Dioxide Anion Gap BUN Creatinine Est GFR ( Amer) Est GFR (Non-Af Amer) Glucose Calcium Lipase Urine Color YELLOW Urine Appearance CLEAR Urine pH 6.0 Ur Specific [place] 1.012 Urine Protein NEGATIVE Urine Glucose (UA) NEGATIVE Urine Ketones NEGATIVE Urine Blood MODERATE H Urine Nitrite NEGATIVE Ur Leukocyte Esterase NEGATIVE Urine WBC (Auto) 0 Urine RBC (Auto) 1 Stool Occult Blood NEGATIVE 07/09/17 06:10 WBC RBC Hgb Hct MCV MCH MCHC RDW Plt Count Seg Neutrophils % Lymphocytes % Monocytes % Eosinophils % Basophils % Absolute Neutrophils Absolute Lymphocytes Absolute Monocytes Absolute Eosinophils Absolute Basophils Sodium 139.9 Potassium 3.6 Chloride 108 H Carbon Dioxide 25 Anion Gap 7 BUN 6 L Creatinine 0.52 Est GFR ( Amer) > 60 Est GFR (Non-Af Amer) > 60 Glucose 102 Calcium 8.3 L Lipase 879.1 H Urine Color Urine Appearance Urine pH Ur Specific [place] Urine Protein Urine Glucose (UA) Urine Ketones Urine Blood Urine Nitrite Ur Leukocyte Esterase Urine WBC (Auto) Urine RBC (Auto) Stool Occult Blood 07/02/17 02:29 NT-Pro-B Natriuret Pep 649 H Impressions: Chest/Abdomen CTA 07/01/17 23:00 IMPRESSION: 1. Mild multifocal pneumonia and/or pulmonary edema. Moderate bilateral pleural effusions. 2. Mild pancreatitis pattern. Critical results reporting: The results of the examination have been personally discussed with the referring health care provider, GI NAYLOR, immediately following interpretation of the examination on 07/01/2017 11:05 PM CDT. Pelvis CTA 07/01/17 23:00 IMPRESSION: 1. Mild multifocal pneumonia and/or pulmonary edema. Moderate bilateral pleural effusions. 2. Mild pancreatitis pattern. Critical results reporting: The results of the examination have been personally discussed with the referring health care provider, GI NAYLOR, immediately following interpretation of the examination on 07/01/2017 11:05 PM CDT. Thoracentesis Ultrasound 07/02/17 00:00 IMPRESSION: SUCCESSFUL THORACENTESIS USING ULTRASOUND GUIDANCE. Abdomen Ultrasound 07/08/17 00:00 IMPRESSION: Limited study. There was a positive sonographic La sign. Chest X-Ray 07/08/17 00:00 IMPRESSION: 1 Since the previous examination dated 07/04/2017, interval slight to mild worsening in the appearance of the lungs with bilateral patchy parenchymal densities in the mid-lower lung zones, may represent infiltrates. Slight blunting of the right costophrenic angle suggests small pleural effusion. Elevation of the right hemidiaphragm. Hepatobiliary Scan Nuclear Medicine 07/09/17 00:00 IMPRESSION: NORMAL STUDY WITHOUT CYSTIC OR COMMON DUCT OBSTRUCTION. NORMAL GALLBLADDER EJECTION FRACTION. NO EVIDENCE FOR BILIARY DYSKINESIS. Assessment & Plan - Diagnosis (1) Multifocal pneumonia Is this a current diagnosis for this admission?: Yes Plan: Follow up CXR, Cont Cefepime, her wbc increased though this could also be due to steroids which was started few days ago. 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 S/p thoracentesis. repeat CXR shows minimal changes Pleural fluid is benign culture however she did have elevated WBC consistent with a parapneumonic effusion. (4) Hypotension Is this a current diagnosis for this admission?: Yes Plan: Resolved (5) Anemia Qualifiers: Anemia type: iron deficiency Iron deficiency anemia type: unspecified iron deficiency Qualified Code(s): D50.9 - Iron deficiency anemia, unspecified Is this a current diagnosis for this admission?: Yes Plan: Chronic, possibly nutritional She received iron sucrose IV She needs to follow up with GI[facility] as outpatient as she may need follow-up studies including endoscopy. Started on Iron pills (6) Acute respiratory failure Qualifiers: Respiratory failure complication: hypoxia Qualified Code(s): J96.01 - Acute respiratory failure with hypoxia Is this a current diagnosis for this admission?: Yes Plan: Secondary to pneumonia. Her oxygen requirement increased again today and so she will be placed back on oxygen. Patient has been advised not to wander around and to stay in her room . Follow-up chest x-ray as needed (7) Protein-calorie malnutrition, mild Is this a current diagnosis for this admission?: Yes Plan: Encourage nutrition and supplements patient does have underlying liver disease and this closed account for her PCM (8) Sepsis Qualifiers: Sepsis type: sepsis due to unspecified organism Qualified Code(s): A41.9 - Sepsis, unspecified organism Is this a current diagnosis for this admission?: Yes Plan: Likely secondary to PNA , present on admission, with tachycardia, hypotension, hypoxia, leukocytosis and bilateral pneumonia. - Time Time Spent with patient: 15-24 minutes Smoking Cessation Education: 3 to 10 minutes Medications reviewed and adjusted accordingly: Yes Anticipated discharge: Home Within: within 72 hours - Inpatient Certification Based on my medical assessment, after consideration of the patient's comorbidities, presenting symptoms, or acuity I expect that the services needed warrant INPATIENT care.: Yes Medical Necessity: Need for IV Antibiotics
[2017-07-09] MEDS: INSULIN DETEMIR 100 UNIT/ML 3 ML PEN SUBCUT SCH (22:52)
[2017-07-10] MEDS: GABAPENTIN 300 MG CAPSULE PO SCH ×3 (05:14→22:55)
[2017-07-10] MEDS: TIZANIDINE HCL 4 MG TABLET PO PRN (05:14)
[2017-07-10] MEDS: LANSOPRAZOLE 30 MG TAB.RAP.DR PO SCH (05:14)
[2017-07-10 05:44] LABS: ABSOLUTE BASOPHILS # (AUTO) 0.1 10^3/uL (0.0-0.2); ABSOLUTE EOSINOPHILS # (AUTO) 0.2 10^3/uL (0.0-0.6); ABSOLUTE LYMPHOCYTES (AUTO) 3.3 10^3/uL (0.5-4.7); ABSOLUTE MONOCYTES (AUTO) 1.4 10^3/uL (0.1-1.4); BASOPHILS % (AUTO) 0.4 % (0-2); EOSINOPHILS % (AUTO) 1.2 % (0-6); HEMATOCRIT 29.6 % (36.0-47.0); HEMOGLOBIN 9.1 g/dL (12.0-15.5); LYMPHOCYTES % (AUTO) 22.2 % (13-45); MEAN CORPUSCULAR HEMOGLOBIN 24.2 pg (27.0-33.4); MEAN CORPUSCULAR HGB CONC 30.6 g/dL (32.0-36.0); MEAN CORPUSCULAR VOLUME 79 fl (80-97); MONOCYTES % (AUTO) 9.2 % (3-13); PLATELET COUNT 424 10^3/uL (150-450); RED BLOOD COUNT 3.75 10^6/uL (3.72-5.28); RED CELL DISTRIBUTION WIDTH 26.9 % (11.5-14.0); TOTAL CELLS COUNTED % (AUTO) 100 %; WHITE BLOOD COUNT 14.9 10^3/uL (4.0-10.5)
[2017-07-10 06:05] LABS: ANION GAP 8 (5-19); BLOOD UREA NITROGEN 8 mg/dL (7-20); CALCIUM 8.3 mg/dL (8.4-10.2); CARBON DIOXIDE 25 mmol/L (22-30); CHLORIDE 108 mmol/L (98-107); GLUCOSE 122 mg/dL (75-110); LIPASE 882.1 U/L (23-300); POTASSIUM 3.8 mmol/L (3.6-5.0); SODIUM 140.7 mmol/L (137-145)
[2017-07-10 06:29] LABS: ANISOCYTOSIS 3+; HYPOCHROMASIA 1+; OVALOCYTES 1+; PLATELET COMMENT ADEQUATE; PLATELET LARGE PRESENT; POLYCHROMASIA SLIGHT; TARGET CELLS 1+; TOXIC VACUOLATION PRESENT
[2017-07-10] MEDS ORDERED: FENTANYL CITRATE INJ/PF 100 MCG/2 ML AMPUL IV PRN (09:16)
[2017-07-10] MEDS ORDERED: FUROSEMIDE INJ/PF 20 MG/2 ML SDV IV SCH (10:00)
[2017-07-10] MEDS: FERROUS SULFATE 325 MG TABLET PO SCH ×2 (10:31→19:02)
[2017-07-10] MEDS: CEFEPIME 2 GM/D5W RTU 2 GM/50 ML RTUPB IV SCH ×2 (10:32→23:19)
[2017-07-10] MEDS: CROMOLYN SODIUM NASAL SPRAY (5.2 MG/SPRAY) 26 ML NASL SCH (10:33)
[2017-07-10] MEDS: ENOXAPARIN SODIUM INJ 40 MG/0.4 ML DISP.SYRIN SUBCUT SCH (10:34)
[2017-07-10] MEDS: LIDOCAINE 5% (700 MG) TRANSDERMAL ADH..PATCH TP SCH (10:39)
[2017-07-10] MEDS: LORATADINE/PSEUDOEPHEDRINE SUL 10-240 MG TAB.SR.24H PO SCH (10:39)
[2017-07-10] MEDS: SIMETHICONE 80 MG TAB.CHEW PO PRN (10:40)
[2017-07-10] MEDS: TIZANIDINE HCL 4 MG TABLET PO SCH ×3 (10:40→19:02)
[2017-07-10] MEDS: OXYCODONE-ACETAMINOPHEN 5-325 MG TABLET PO PRN (10:41)
[2017-07-10] MEDS: FENOFIBRATE NANOCRYSTALLIZED 145 MG TABLET PO SCH (12:03)
--- NOTE | 2017-07-10 12:24 | PDOC PROGRESS REPORT ---
Subjective Progress Note for:: 07/10/17 Subjective:: Patient complains of back pain. She states that his pain feels better when she gets the pain medication and muscle relaxer. Patient also complains of having swelling of her legs and body. She states that she has been trying to ambulate but gets short of breath. Patient relates that she made some contacts about going for alcohol counseling. She comes from [facility] and she was raised in an alcohol environment. Her parents on a hotel and was not unusual to start drinking early in the morning without being considered abnormal. Review of systems All organ systems evaluated and negative except as in subjective All laboratories and significant diagnostics have been reviewed Reason For Visit: MULTIFOCAL PNEUMONIA Physical Exam Vital Signs: Temp Pulse Resp BP Pulse Ox 98.1 F 98 17 91/74 L 92 07/09/17 23:12 07/09/17 23:12 07/09/17 23:12 07/09/17 23:12 07/09/17 23:12 Intake & Output 07/09/17 07/10/17 07/11/17 06:59 06:59 06:59 Intake Total 1672 360 Balance 1672 360 General appearance: PRESENT: cooperative, obese Head exam: PRESENT: atraumatic, normocephalic Eye exam: PRESENT: conjunctiva pink, EOMI, PERRLA Ear exam: PRESENT: normal external ear exam Mouth exam: PRESENT: moist Neck exam: PRESENT: full ROM. ABSENT: JVD, lymphadenopathy, tenderness Respiratory exam: PRESENT: clear to auscultation candice, decreased breath sounds Cardiovascular exam: PRESENT: RRR. ABSENT: diastolic murmur, systolic murmur Vascular exam: PRESENT: normal capillary refill GI/Abdominal exam: PRESENT: normal bowel sounds, soft, tenderness Extremities exam: PRESENT: full ROM, other - Pitting edema extending to her upper back Musculoskeletal exam: PRESENT: ambulatory Neurological exam: PRESENT: alert, awake, oriented to person, oriented to place , oriented to time, CN II-XII grossly intact Psychiatric exam: PRESENT: appropriate affect, normal mood Skin exam: PRESENT: intact, normal color Results Laboratory Results: 07/10/17 05:09 07/10/17 05:09 07/10/17 07/10/17 05:09 05:09 WBC 14.9 H RBC 3.75 Hgb 9.1 L Hct 29.6 L MCV 79 L MCH 24.2 L MCHC 30.6 L RDW 26.9 H Plt Count 424 Seg Neutrophils % 67.0 Lymphocytes % 22.2 Monocytes % 9.2 Eosinophils % 1.2 Basophils % 0.4 Absolute Neutrophils 10.0 H Absolute Lymphocytes 3.3 Absolute Monocytes 1.4 Absolute Eosinophils 0.2 Absolute Basophils 0.1 Sodium 140.7 Potassium 3.8 Chloride 108 H Carbon Dioxide 25 Anion Gap 8 BUN 8 Creatinine 0.54 Est GFR ( Amer) > 60 Est GFR (Non-Af Amer) > 60 Glucose 122 H Calcium 8.3 L Magnesium 2.3 Lipase 882.1 H 07/02/17 02:29 NT-Pro-B Natriuret Pep 649 H Impressions: Chest/Abdomen CTA 07/01/17 23:00 IMPRESSION: 1. Mild multifocal pneumonia and/or pulmonary edema. Moderate bilateral pleural effusions. 2. Mild pancreatitis pattern. Critical results reporting: The results of the examination have been personally discussed with the referring health care provider, GI NAYLOR, immediately following interpretation of the examination on 07/01/2017 11:05 PM CDT. Pelvis CTA 07/01/17 23:00 IMPRESSION: 1. Mild multifocal pneumonia and/or pulmonary edema. Moderate bilateral pleural effusions. 2. Mild pancreatitis pattern. Critical results reporting: The results of the examination have been personally discussed with the referring health care provider, GI NAYLOR, immediately following interpretation of the examination on 07/01/2017 11:05 PM CDT. Thoracentesis Ultrasound 07/02/17 00:00 IMPRESSION: SUCCESSFUL THORACENTESIS USING ULTRASOUND GUIDANCE. Abdomen Ultrasound 07/08/17 00:00 IMPRESSION: Limited study. There was a positive sonographic La sign. Chest X-Ray 07/08/17 00:00 IMPRESSION: 1 Since the previous examination dated 07/04/2017, interval slight to mild worsening in the appearance of the lungs with bilateral patchy parenchymal densities in the mid-lower lung zones, may represent infiltrates. Slight blunting of the right costophrenic angle suggests small pleural effusion. Elevation of the right hemidiaphragm. Hepatobiliary Scan Nuclear Medicine 07/09/17 00:00 IMPRESSION: NORMAL STUDY WITHOUT CYSTIC OR COMMON DUCT OBSTRUCTION. NORMAL GALLBLADDER EJECTION FRACTION. NO EVIDENCE FOR BILIARY DYSKINESIS. Assessment & Plan - Diagnosis (1) Acute on chronic pancreatitis Is this a current diagnosis for this admission?: Yes Plan: Patient has been made aware about the dangers of drinking alcohol. The patient will be allowed to drink tea and to take medications orally (2) Acute respiratory failure Qualifiers: Respiratory failure complication: hypoxia Qualified Code(s): J96.01 - Acute respiratory failure with hypoxia Is this a current diagnosis for this admission?: Yes Plan: Patient still requiring oxygen supplementation and will try to wean off as tolerated (3) Bilateral pleural effusion Is this a current diagnosis for this admission?: Yes Plan: Could be due to pancreatitis versus parapneumonic (4) Multifocal pneumonia Is this a current diagnosis for this admission?: Yes Plan: Continue present management (5) Protein-calorie malnutrition, mild Is this a current diagnosis for this admission?: Yes Plan: Patient had been seen by dietary and will follow through recommendations once she is out of n.p.o. 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 Continue present management (8) Alcohol dependency Qualifiers: Substance use status: unspecified alcohol-induced disorder Qualified Code(s ): F10.29 - Alcohol dependence with unspecified alcohol-induced disorder Is this a current diagnosis for this admission?: Yes Plan: Is aware about the need to quit and is motivated (9) Pulmonary hypertension Is this a current diagnosis for this admission?: Yes Plan: Patient suffers from sleep apnea. For now will address the issue by placing her on IV steroids (10) Anasarca Is this a current diagnosis for this admission?: Yes Plan: Due to right-sided problems. Will place on Lasix IV and follow-up response - Time Time Spent with patient: 15-24 minutes Medications reviewed and adjusted accordingly: Yes Anticipated discharge: Home Within: within 72 hours - Inpatient Certification Based on my medical assessment, after consideration of the patient's comorbidities, presenting symptoms, or acuity I expect that the services needed warrant INPATIENT care.: Yes I certify that my determination is in accordance with my understanding of Medicare's requirements for reasonable and necessary INPATIENT services [42 CFR 412.3e].: Yes Medical Necessity: Need Close Monitoring Due to Risk of Patient Decompensation
[2017-07-10] MEDS: ALPRAZOLAM 0.5 MG TABLET PO PRN (19:03)
[2017-07-10] MEDS ORDERED: TORSEMIDE 20 MG TABLET PO ONE (19:30)
[2017-07-10] MEDS: INSULIN DETEMIR 100 UNIT/ML 3 ML PEN SUBCUT SCH (22:55)
[2017-07-11] MEDS: OXYCODONE-ACETAMINOPHEN 5-325 MG TABLET PO PRN ×4 (00:05→22:04)
[2017-07-11] MEDS: TEMAZEPAM 15 MG CAPSULE PO PRN (00:05)
[2017-07-11] MEDS: GABAPENTIN 300 MG CAPSULE PO SCH ×3 (05:38→21:55)
[2017-07-11] MEDS: LANSOPRAZOLE 30 MG TAB.RAP.DR PO SCH (05:38)
[2017-07-11 07:01] LABS: HEMOGLOBIN 10.5 g/dL (12.0-15.5); MEAN CORPUSCULAR HEMOGLOBIN 24.4 pg (27.0-33.4); MEAN CORPUSCULAR HGB CONC 30.9 g/dL (32.0-36.0); MEAN CORPUSCULAR VOLUME 79 fl (80-97); PLATELET COUNT 377 10^3/uL (150-450); RED BLOOD COUNT 4.31 10^6/uL (3.72-5.28); RED CELL DISTRIBUTION WIDTH 27.3 % (11.5-14.0); WHITE BLOOD COUNT 13.6 10^3/uL (4.0-10.5)
[2017-07-11 07:02] LABS: ALANINE AMINOTRANSFERASE 35 U/L (9-52); ALBUMIN 2.9 g/dL (3.5-5.0); ALKALINE PHOSPHATASE 344 U/L (38-126); ANION GAP 10 (5-19); ASPARTATE AMINO TRANSFERASE 42 U/L (14-36); BILIRUBIN,DIRECT 0.5 mg/dL (0.0-0.4); BILIRUBIN,TOTAL 0.7 mg/dL (0.2-1.3); BLOOD UREA NITROGEN 8 mg/dL (7-20); CALCIUM 8.5 mg/dL (8.4-10.2); CARBON DIOXIDE 31 mmol/L (22-30); CHLORIDE 103 mmol/L (98-107); GLUCOSE 129 mg/dL (75-110); POTASSIUM 3.2 mmol/L (3.6-5.0); SODIUM 143.9 mmol/L (137-145); TOTAL PROTEIN 7.1 g/dL (6.3-8.2); TRIGLYCERIDES 117 mg/dL (<150)
[2017-07-11 07:52] LABS: ABSOLUTE LYMPHOCYTES# (MANUAL) 3.1 10^3/uL (0.5-4.7); ABSOLUTE MONOCYTES # (MANUAL) 0.7 10^3/uL (0.1-1.4); ABSOLUTE NEUTROPHILS# (MANUAL) 9.5 10^3/uL (1.7-8.2); ANISOCYTOSIS 3+; BASOPHILS % (MANUAL) 0 % (0-2); EOSINOPHILS % (MANUAL) 2 % (0-6); HYPOCHROMASIA 1+; LYMPHOCYTES % (MANUAL) 23 % (13-45); MONOCYTES % (MANUAL) 5 % (3-13); OVALOCYTES 1+; PLATELET COMMENT ADEQUATE; POIKILOCYTOSIS 1+; POLYCHROMASIA 2+; SCHISTOCYTES 1+; SEGMENTED NEUTROPHILS % (MAN) 70 % (42-78); TOTAL CELLS COUNTED 100; TOXIC GRANULATION 1+
[2017-07-11] MEDS ORDERED: NICOTINE 14 MG/24 HR PATCH.TD24 TD PRN (08:35)
[2017-07-11] MEDS: IPRATROPIUM/ALBUTEROL 0.5-2.5 MG/3 ML AMPUL NEB PRN (09:40)
[2017-07-11] MEDS: FERROUS SULFATE 325 MG TABLET PO SCH ×2 (10:35→18:05)
[2017-07-11] MEDS: FENOFIBRATE NANOCRYSTALLIZED 145 MG TABLET PO SCH (10:35)
[2017-07-11] MEDS: POTASSIUM CHLORIDE 10 MEQ TABLET.SA PO SCH ×2 (10:35→18:04)
[2017-07-11] MEDS: METOPROLOL SUCCINATE 50 MG TAB.SR.24H PO SCH (10:35)
[2017-07-11] MEDS: LISINOPRIL 10 MG TABLET PO SCH (10:35)
[2017-07-11] MEDS: TIZANIDINE HCL 4 MG TABLET PO SCH ×3 (10:36→18:05)
[2017-07-11] MEDS: LORATADINE/PSEUDOEPHEDRINE SUL 10-240 MG TAB.SR.24H PO SCH (10:36)
[2017-07-11] MEDS: TORSEMIDE 20 MG TABLET PO SCH ×2 (10:36→18:05)
[2017-07-11] MEDS: CROMOLYN SODIUM NASAL SPRAY (5.2 MG/SPRAY) 26 ML NASL SCH (10:36)
[2017-07-11] MEDS: LIDOCAINE 5% (700 MG) TRANSDERMAL ADH..PATCH TP SCH (10:37)
[2017-07-11] MEDS: ENOXAPARIN SODIUM INJ 40 MG/0.4 ML DISP.SYRIN SUBCUT SCH (10:37)
--- NOTE | 2017-07-11 11:19 | PDOC PROGRESS REPORT ---
Subjective Progress Note for:: 07/11/17 Subjective:: Patient relates the swelling is getting better. Nurse reports that patient had been going downstairs to smoke. Patient states that she picked up the habit of smoking after her divorce 2 years ago. She does have a history of sleep apnea however after going through gastric bypass she did not need any further intervention. She gain her weight back with her pregnancies. Patient relates that she still having back pain however muscle relaxer really works. Review of system All organ systems evaluated and negative except as in subjective All significant laboratories and diagnostics have been reviewed Reason For Visit: MULTIFOCAL PNEUMONIA Physical Exam Vital Signs: Temp Pulse Resp BP Pulse Ox 98.0 F 121 H 16 123/80 95 07/10/17 23:22 07/10/17 23:22 07/10/17 23:22 07/10/17 23:22 07/10/17 23:22 Intake & Output 07/10/17 07/11/17 07/12/17 06:59 06:59 06:59 Intake Total 360 480 Output Total 650 Balance 360 -170 General appearance: PRESENT: no acute distress, cooperative, obese Head exam: PRESENT: atraumatic, normocephalic Eye exam: PRESENT: conjunctiva pink, EOMI, PERRLA Ear exam: PRESENT: normal external ear exam Mouth exam: PRESENT: moist Neck exam: PRESENT: full ROM. ABSENT: JVD, lymphadenopathy, tenderness Respiratory exam: PRESENT: crackles Cardiovascular exam: PRESENT: RRR. ABSENT: diastolic murmur, systolic murmur Vascular exam: PRESENT: normal capillary refill GI/Abdominal exam: PRESENT: normal bowel sounds, soft, tenderness Extremities exam: PRESENT: full ROM, +2 edema Musculoskeletal exam: PRESENT: ambulatory Neurological exam: PRESENT: alert, awake, oriented to person, oriented to place , oriented to time, oriented to situation, CN II-XII grossly intact Psychiatric exam: PRESENT: appropriate affect, normal mood Skin exam: PRESENT: petechiae Results Laboratory Results: 07/11/17 06:33 07/11/17 06:33 07/10/17 07/11/17 07/11/17 05:09 06:33 06:33 WBC 13.6 H RBC 4.31 Hgb 10.5 L Hct 34.0 L MCV 79 L MCH 24.4 L MCHC 30.9 L RDW 27.3 H Plt Count 377 Seg Neutrophils % Not Reportable Lymphocytes % Not Reportable Monocytes % Not Reportable Eosinophils % Not Reportable Basophils % Not Reportable Absolute Neutrophils Not Reportable Absolute Lymphocytes Not Reportable Absolute Monocytes Not Reportable Absolute Eosinophils Not Reportable Absolute Basophils Not Reportable Sodium 143.9 Potassium 3.2 L Chloride 103 Carbon Dioxide 31 H Anion Gap 10 BUN 8 Creatinine 0.62 Est GFR ( Amer) > 60 Est GFR (Non-Af Amer) > 60 Glucose 129 H Calcium 8.5 Magnesium 2.0 Total Bilirubin 0.7 AST 42 H ALT 35 Alkaline Phosphatase 344 H Total Protein 7.1 Albumin 2.9 L Triglycerides 104 117 07/11/17 06:33 WBC RBC Hgb Hct MCV MCH MCHC RDW Plt Count Seg Neutrophils % Lymphocytes % Monocytes % Eosinophils % Basophils % Absolute Neutrophils Absolute Lymphocytes Absolute Monocytes Absolute Eosinophils Absolute Basophils Sodium Potassium Chloride Carbon Dioxide Anion Gap BUN Creatinine Est GFR ( Amer) Est GFR (Non-Af Amer) Glucose Calcium Magnesium Total Bilirubin AST ALT Alkaline Phosphatase Total Protein Albumin Triglycerides Cancelled 07/02/17 02:29 NT-Pro-B Natriuret Pep 649 H Impressions: Chest/Abdomen CTA 07/01/17 23:00 IMPRESSION: 1. Mild multifocal pneumonia and/or pulmonary edema. Moderate bilateral pleural effusions. 2. Mild pancreatitis pattern. Critical results reporting: The results of the examination have been personally discussed with the referring health care provider, GI NAYLOR, immediately following interpretation of the examination on 07/01/2017 11:05 PM CDT. Pelvis CTA 07/01/17 23:00 IMPRESSION: 1. Mild multifocal pneumonia and/or pulmonary edema. Moderate bilateral pleural effusions. 2. Mild pancreatitis pattern. Critical results reporting: The results of the examination have been personally discussed with the referring health care provider, GI NAYLOR, immediately following interpretation of the examination on 07/01/2017 11:05 PM CDT. Thoracentesis Ultrasound 07/02/17 00:00 IMPRESSION: SUCCESSFUL THORACENTESIS USING ULTRASOUND GUIDANCE. Abdomen Ultrasound 07/08/17 00:00 IMPRESSION: Limited study. There was a positive sonographic La sign. Chest X-Ray 07/08/17 00:00 IMPRESSION: 1 Since the previous examination dated 07/04/2017, interval slight to mild worsening in the appearance of the lungs with bilateral patchy parenchymal densities in the mid-lower lung zones, may represent infiltrates. Slight blunting of the right costophrenic angle suggests small pleural effusion. Elevation of the right hemidiaphragm. Hepatobiliary Scan Nuclear Medicine 07/09/17 00:00 IMPRESSION: NORMAL STUDY WITHOUT CYSTIC OR COMMON DUCT OBSTRUCTION. NORMAL GALLBLADDER EJECTION FRACTION. NO EVIDENCE FOR BILIARY DYSKINESIS. Assessment & Plan - Diagnosis (1) Acute on chronic pancreatitis Is this a current diagnosis for this admission?: Yes Plan: Lipase trending down. Will have you avoid opioid. Patient to be started on a diabetic diet. My understanding is that patient's boyfriend had been bringing pizza, etc.. and order fluid (2) Acute respiratory failure Qualifiers: Respiratory failure complication: hypoxia Qualified Code(s): J96.01 - Acute respiratory failure with hypoxia Is this a current diagnosis for this admission?: Yes Plan: Saturating well at room air (3) Bilateral pleural effusion Is this a current diagnosis for this admission?: Yes Plan: Will continue diuresis and will follow up with his chest x-ray for resolution (4) Multifocal pneumonia Is this a current diagnosis for this admission?: Yes Plan: Discontinue cefepime and placed on Levaquin. (5) Protein-calorie malnutrition, mild Is this a current diagnosis for this admission?: Yes Plan: Will proceed with dietitian's recommendation (6) Severe sepsis Is this a current diagnosis for this admission?: Yes Plan: Resolved (7) Type 2 diabetes mellitus Qualifiers: Diabetes mellitus termite inspector insulin use: with detention use Diabetes mellitus complication status: with unspecified complications Qualified Code(s) : E11.8 - Type 2 diabetes mellitus with unspecified complications; Z79.4 - ferry terminal agent (current) use of insulin; Z79.4 - ferry terminal agent (current) use of insulin; Z79.4 - [facility] (current) use of insulin; Z79.4 - ferry terminal agent (current) use of insulin Is this a current diagnosis for this admission?: Yes Plan: Uncontrolled. Continue present management (8) Alcohol dependency Qualifiers: Substance use status: unspecified alcohol-induced disorder Qualified Code(s ): F10.29 - Alcohol dependence with unspecified alcohol-induced disorder Is this a current diagnosis for this admission?: Yes Plan: Is aware about the need to quit and appears motivated (9) Pulmonary hypertension Is this a current diagnosis for this admission?: Yes Plan: Patient suffers from sleep apnea. To schedule for patient to get a sleep study once she is discharged. Will continue oral Demadex and follow-up response to aggressive diuresis. Patient having poor IV access (10) Anasarca Is this a current diagnosis for this admission?: Yes Plan: Due to right-sided problems. Continue aggressive oral diuresis due to poor IV access (11) Tobacco abuse Is this a current diagnosis for this admission?: Yes Plan: To place patient on nicotine patch. Patient has been educated about the toxic effects of nicotine (12) Anemia Qualifiers: Anemia type: iron deficiency Iron deficiency anemia type: unspecified iron deficiency Qualified Code(s): D50.9 - Iron deficiency anemia, unspecified Is this a current diagnosis for this admission?: Yes Plan: To trend (13) Obesity Qualifiers: Obesity type: with alveolar hypoventilation Serious obesity comorbidity presence: with serious comorbidity Body mass index: BMI 39.0-39.9 Is this a current diagnosis for this admission?: Yes Plan: Patient has been educated about losing weight since may prove diabetes and sleep apnea - Time Time Spent with patient: 15-24 minutes Medications reviewed and adjusted accordingly: Yes Anticipated discharge: Home Within: within 48 hours - Inpatient Certification Based on my medical assessment, after consideration of the patient's comorbidities, presenting symptoms, or acuity I expect that the services needed warrant INPATIENT care.: Yes I certify that my determination is in accordance with my understanding of Medicare's requirements for reasonable and necessary INPATIENT services [42 CFR 412.3e].: Yes Medical Necessity: Need Close Monitoring Due to Risk of Patient Decompensation
[2017-07-11] MEDS ORDERED: LEVOFLOXACIN 750 MG TABLET PO SCH (14:00)
[2017-07-11] MEDS: INSULIN DETEMIR 100 UNIT/ML 3 ML PEN SUBCUT SCH (21:56)
[2017-07-11 22:03] LABS: APPEARANCE,URINE SLIGHTLY-CLOUDY; BILIRUBIN,URINE NEGATIVE (NEGATIVE); COLOR,URINE STRAW; GLUCOSE, URINE NEGATIVE (NEGATIVE); KETONES,URINE NEGATIVE (NEGATIVE); LEUKOCYTE ESTERASE,URINE MODERATE (NEGATIVE); NITRITE,URINE NEGATIVE (NEGATIVE); PROTEIN,URINE NEGATIVE (NEGATIVE); URINE SPECIFIC GRAVITY 1.004; UROBILINOGEN,URINE NEGATIVE mg/dL (<2.0)
[2017-07-12 05:19] LABS: ABSOLUTE BASOPHILS # (AUTO) 0.1 10^3/uL (0.0-0.2); ABSOLUTE EOSINOPHILS # (AUTO) 0.1 10^3/uL (0.0-0.6); ABSOLUTE LYMPHOCYTES (AUTO) 3.1 10^3/uL (0.5-4.7); ABSOLUTE MONOCYTES (AUTO) 1.1 10^3/uL (0.1-1.4); ABSOLUTE NEUT (AUTO) 8.6 10^3/uL (1.7-8.2); BASOPHILS % (AUTO) 0.6 % (0-2); EOSINOPHILS % (AUTO) 0.9 % (0-6); HEMATOCRIT 32.1 % (36.0-47.0); HEMOGLOBIN 9.9 g/dL (12.0-15.5); LYMPHOCYTES % (AUTO) 24.1 % (13-45); MEAN CORPUSCULAR HEMOGLOBIN 24.5 pg (27.0-33.4); MEAN CORPUSCULAR HGB CONC 30.9 g/dL (32.0-36.0); MEAN CORPUSCULAR VOLUME 80 fl (80-97); MONOCYTES % (AUTO) 8.3 % (3-13); PLATELET COUNT 342 10^3/uL (150-450); RED BLOOD COUNT 4.04 10^6/uL (3.72-5.28); RED CELL DISTRIBUTION WIDTH 26.5 % (11.5-14.0); SEGMENTED NEUTROPHILS % (AUTO) 66.1 % (42-78); TOTAL CELLS COUNTED % (AUTO) 100 %; WHITE BLOOD COUNT 13.1 10^3/uL (4.0-10.5)
[2017-07-12 05:33] LABS: ANION GAP 11 (5-19); BLOOD UREA NITROGEN 7 mg/dL (7-20); CALCIUM 8.5 mg/dL (8.4-10.2); CARBON DIOXIDE 33 mmol/L (22-30); CHLORIDE 96 mmol/L (98-107); GLUCOSE 117 mg/dL (75-110); LIPASE 444.5 U/L (23-300); SODIUM 139.6 mmol/L (137-145)
[2017-07-12 05:42] LABS: POTASSIUM 4.1 mmol/L (3.6-5.0)
[2017-07-12 05:46] LABS: ANISOCYTOSIS 3+; HYPOCHROMASIA 1+; OVALOCYTES SLIGHT; PLATELET CLUMPS PRESENT; PLATELET COMMENT ADEQUATE; POIKILOCYTOSIS SLIGHT; POLYCHROMASIA 1+; TARGET CELLS 1+; TOXIC GRANULATION SLIGHT
[2017-07-12] MEDS: GABAPENTIN 300 MG CAPSULE PO SCH (06:12)
[2017-07-12] MEDS: LANSOPRAZOLE 30 MG TAB.RAP.DR PO SCH (06:12)
[2017-07-12] MEDS: OXYCODONE-ACETAMINOPHEN 5-325 MG TABLET PO PRN (07:55)
--- NOTE | 2017-07-12 08:26 | RADIOLOGY REPORT (SQ) ---
EXAM DESCRIPTION: CHEST PA/LAT COMPLETED DATE/TIME: 07/12/2017 7:40 am REASON FOR STUDY: follow up pleural effusions COMPARISON: Chest films 07/08/2017, 07/04/2017, 07/01/2017 CT chest 07/01/2017 EXAM PARAMETERS: NUMBER OF VIEWS: two views TECHNIQUE: Digital Frontal and Lateral radiographic views of the chest acquired. RADIATION DOSE: NA LIMITATIONS: none FINDINGS: LUNGS AND PLEURA: Trace bilateral effusions, smaller than on 07/04/2017. Minimal bibasilar air space disease, less prominent than on 07/04/2017. No pneumothorax. MEDIASTINUM AND HILAR STRUCTURES: No masses or contour abnormalities. HEART AND VASCULAR STRUCTURES: Heart normal size. No evidence for failure. BONES: No acute findings. HARDWARE: None in the chest. OTHER: No other significant finding. IMPRESSION: Continued improvement in the chest TECHNICAL DOCUMENTATION: JOB ID: [id number] [employer]- All Rights Reserved Reading location - IP/workstation name: [email or web address]
[2017-07-12] MEDS: FERROUS SULFATE 325 MG TABLET PO SCH (09:00)
[2017-07-12] MEDS: CROMOLYN SODIUM NASAL SPRAY (5.2 MG/SPRAY) 26 ML NASL SCH (09:43)
[2017-07-12] MEDS: ENOXAPARIN SODIUM INJ 40 MG/0.4 ML DISP.SYRIN SUBCUT SCH (09:44)
[2017-07-12] MEDS: FENOFIBRATE NANOCRYSTALLIZED 145 MG TABLET PO SCH (09:45)
[2017-07-12] MEDS: LIDOCAINE 5% (700 MG) TRANSDERMAL ADH..PATCH TP SCH (09:45)
[2017-07-12] MEDS: LISINOPRIL 10 MG TABLET PO SCH (09:46)
[2017-07-12] MEDS: METOPROLOL SUCCINATE 50 MG TAB.SR.24H PO SCH (09:47)
[2017-07-12] MEDS: LORATADINE/PSEUDOEPHEDRINE SUL 10-240 MG TAB.SR.24H PO SCH (09:47)
[2017-07-12] MEDS: POTASSIUM CHLORIDE 10 MEQ TABLET.SA PO SCH (09:47)
[2017-07-12] MEDS: TIZANIDINE HCL 4 MG TABLET PO SCH (09:48)
[2017-07-12] MEDS: TORSEMIDE 20 MG TABLET PO SCH (09:49)
[2017-07-12 11:52] VITALS: BP 104/68
--- NOTE | 2017-07-12 18:28 | PDOC DISCHARGE SUMMARY ---
General - Admit/Disc Date/PCP Admission Date/Primary Care Provider: 07/02/17 01:22 Discharge Date: 07/12/17 - Discharge Diagnosis (1) Multifocal pneumonia Is this a current diagnosis for this admission?: Yes (2) Severe sepsis Is this a current diagnosis for this admission?: Yes (3) Acute respiratory failure Is this a current diagnosis for this admission?: Yes (4) Acute on chronic pancreatitis Is this a current diagnosis for this admission?: Yes (5) Bilateral pleural effusion Is this a current diagnosis for this admission?: Yes (6) Protein-calorie malnutrition, mild Is this a current diagnosis for this admission?: Yes (7) Type 2 diabetes mellitus Is this a current diagnosis for this admission?: Yes (8) Alcohol dependency Is this a current diagnosis for this admission?: Yes (9) Pulmonary hypertension Is this a current diagnosis for this admission?: Yes (10) Anasarca Is this a current diagnosis for this admission?: Yes (11) Tobacco abuse Is this a current diagnosis for this admission?: Yes (12) Anemia Is this a current diagnosis for this admission?: Yes (13) Obesity Is this a current diagnosis for this admission?: Yes (14) Hypokalemia Is this a current diagnosis for this admission?: Yes (15) Fatty liver disease, nonalcoholic Is this a current diagnosis for this admission?: Yes (16) HTN (hypertension) Is this a current diagnosis for this admission?: Yes (17) Hypertensive urgency Is this a current diagnosis for this admission?: Yes - Additional Information Resuscitation Status: Full Code Discharge Diet: Diabetic Discharge Activity: Activity As Tolerated Prescriptions: Amox Tr/Potassium Clavulanate [Augmentin 875-125 mg Tablet] 1 tab PO BID #20 tablet Ferrous Sulfate [Feosol 325 mg Tablet] 325 mg PO BIDPCBS #60 tablet Insulin Detemir [Levemir Insulin 100 units/mL] 14 unit SUBCUT QHS #2 insuln.pen Levofloxacin [Levaquin 750 mg Tablet] 750 mg PO DAILY@1400 #10 tablet Lidocaine [Lidoderm 5% (700 mg) Transdermal Patch] 1 patch TP DAILY #30 adh..patch Metformin HCl 500 mg PO TID #90 tablet Metoprolol Succinate [Toprol Xl 50 mg Tab.sr] 50 mg PO DAILY #30 tab.sr.24h Pantoprazole Sodium [Protonix] 40 mg PO DAILY #30 tablet.dr Potassium Chloride [Klor-Con 10 Meq Tablet.sa] 20 meq PO DAILY #30 tablet.sa Tizanidine HCl [Zanaflex 4 mg Tablet] 4 mg PO TID #60 tablet Torsemide [Demadex 20 mg Tablet] 20 mg PO BID #60 tablet Home Medications: Aspirin [Aspirin EC] 81 mg PO DAILY 07/02/17 Ergocalciferol (Vitamin D2) [Vitamin D] 400 unit PO DAILY 07/02/17 Gabapentin [Neurontin] 600 mg PO Q8H 07/02/17 Hydroxyzine HCl [Atarax 25 mg Tablet] 25 mg PO QHS 07/02/17 Lisinopril [Prinivil 10 mg Tablet] 10 mg PO DAILY 07/02/17 Multivit with Minerals No.55 [Centrum Flavor Burst Adult] 1 tab PO DAILY Amox Tr/Potassium Clavulanate [Augmentin 875-125 mg Tablet] 1 tab PO BID #20 tablet 07/12/17 Ferrous Sulfate [Feosol 325 mg Tablet] 325 mg PO BIDPCBS #60 tablet 07/12/17 Insulin Detemir [Levemir Insulin 100 units/mL] 14 unit SUBCUT QHS #2 insuln.pen 07/12/17 Levofloxacin [Levaquin 750 mg Tablet] 750 mg PO DAILY@1400 #10 tablet 07/12/17 Lidocaine [Lidoderm 5% (700 mg) Transdermal Patch] 1 patch TP DAILY #30 adh..patch 07/12/17 Metformin HCl 500 mg PO TID #90 tablet 07/12/17 Metoprolol Succinate [Toprol Xl 50 mg Tab.sr] 50 mg PO DAILY #30 tab.sr.24h Pantoprazole Sodium [Protonix] 40 mg PO DAILY #30 tablet. 07/12/17 Potassium Chloride [Klor-Con 10 Meq Tablet.sa] 20 meq PO DAILY #30 tablet.sa Tizanidine HCl [Zanaflex 4 mg Tablet] 4 mg PO TID #60 tablet 07/12/17 Torsemide [Demadex 20 mg Tablet] 20 mg PO BID #60 tablet 07/12/17 History of Present Illness History of Present Illness: BILL CAGLE is a 46 year old female with history of alcoholism, chronic alcohol pancreatitis/hepatitis and type 2 diabetes mellitus presented complaining of shortness of breath and back pain. She was seen at her doctor's office on 07/01/2017 and was told that she probably had "sinus drainage" and was given several prescriptions which the patient did not have a chance to fill. She denied any fever or chills but complained of a productive cough of greenish , thick sputum which has been getting clearer. She denied any sick contact. She is up-to-date with her flu vaccine. She said that her cough was getting worse and she was started wheezing with worsening shortness of breath. She was unable to lie down since she was having severe upper abdominal and back pain. She initially thought that it was due to her "pancreatitis". She was also having some back spasms and diarrhea for the last 2-3 weeks which she also attributed it to possibly having an acute exacerbation of her chronic pancreatitis. She denied any hematochezia or melena or any urinary symptoms but she said that she felt generally weak. In the ED, her temperature was 98.3, heart rate 157, respiratory rate 50, blood pressure 161/139 with oxygen saturation of 68% on room air (per ED physician which improved to 92% on 5 L nasal cannula). Her WBC was 15.4 and her hemoglobin was 10.0. Lactic acid was 6.2 and her troponin was negative. A chest x-ray was done which showed possible multicentric lower lobe pneumonia. She also had a CAT scan angiogram of the chest which showed mild multifocal pneumonia and/or pulmonary edema with moderate bilateral pleural effusions. She received 3.375 gm IV and she was placed on BiPAP. She also received 100 mcg IV fentanyl 1 and 1 mg IV Dilaudid 1 with no significant improvement in her symptom. .Patient was admitted under the hospitalist service Hospital Course Hospital Course: She was found to be hypertensive on initial presentation and ended up being monitored in the ICU. She had right-sided pleural effusion. Patient underwent thoracentesis and had about 850 mL of pleural fluid removed. Posteriorly she became hypotensive. It turned out to be relatively benign with about a 50 of WBCs but sterile with no growth. Patient was treated with IV antibiotic and she was transitioned to oral. Follow-up chest x-ray showed significant improvement of multifocal pneumonia and bilateral pleural effusions. Patient complained of shortness of breath and bilateral leg swelling. Echocardiogram shows signs of pulmonary hypertension. Patient was placed on oral diuresis since we lost IV access with further improvement of swelling. She has a history of sleep apnea but is currently not using a CPAP. We made an appointment for her to follow-up with Dr. Devi for sleep study since possibly pulmonay hypertension may relate to sleep apnea. Patient required oxygen supplementation on admission but by the time of discharge she was saturating 96-97% on room air. Is my impression that the treatment of pneumonia as well as fluid overload significantly improved oxygenation. Patient kept complaining of abdominal pain and lipase obtained was elevated. Patient was transiently placed on nothing by mouth. Sonogram was done which suggested positive La's sign and so a HIDA scan was obtained and showed no evidence of acute cholecystitis. She was seen by general surgery. It was Dr Cabello's impression that pain related to pancreatitis. Interestingly despite patient had been advised as to be on nothing by mouth her boyfriend would bring food to her. Also patient had been advised as to quit smoking and was placed on a nicotine patch but would go outside to smoke. Patient has been strongly encouraged as to quit drinking alcohol. At the present time diagnostics obtained failed to demonstrate cirrhosis. This patient will be better served to be follow-up by GI service as outpatient to possibly elucidate if patient may be suffering from RAMSAY. All electrolyte abnormalities were replaced prior to discharge. Diabetes is uncontrolled. A1c was 10.6. We increased Lantus and also added metformin to her outpatient regimen. Another area of concern is that patient appeared to have some opioid dependency. Arrangements had been made for patient to follow- up with mental health since she has some other comorbid conditions such as depression, alcohol dependency as well as opioid dependency that may zhanna further evaluation and treatment. Patient appears to be motivated. Patient does not have a PCP. We tried to make an appointment with a local physician but at the time of discharge they were requesting for patient to contact them because there were some concerns regarding her insurance. Therefore, it may limit her follow-up after being discharged. Nevertheless, patient remained stable and improved and prompted to discharge. Physical Exam Vital Signs: Temp Pulse Resp BP Pulse Ox 98.7 F 86 14 125/95 H 94 07/12/17 10:50 07/12/17 10:50 07/12/17 10:50 07/12/17 10:50 07/12/17 10:50 Intake & Output 07/11/17 07/12/17 07/13/17 06:59 06:59 06:59 Intake Total 480 1837 Output Total 650 1900 Balance -170 -63 General appearance: PRESENT: cooperative, obese Head exam: PRESENT: atraumatic, normocephalic Eye exam: PRESENT: conjunctiva pink, EOMI, PERRLA Ear exam: PRESENT: normal external ear exam Neck exam: PRESENT: full ROM. ABSENT: JVD, lymphadenopathy, tenderness Respiratory exam: PRESENT: clear to auscultation candice Cardiovascular exam: PRESENT: RRR. ABSENT: diastolic murmur, systolic murmur Vascular exam: PRESENT: normal capillary refill GI/Abdominal exam: PRESENT: normal bowel sounds, soft. ABSENT: tenderness Extremities exam: PRESENT: full ROM, +2 edema Musculoskeletal exam: PRESENT: ambulatory Neurological exam: PRESENT: alert, awake, oriented to person, oriented to place , oriented to time, oriented to situation, CN II-XII grossly intact Psychiatric exam: PRESENT: appropriate affect, normal mood Skin exam: PRESENT: intact, normal color Results Laboratory Results: 07/12/17 04:58 07/12/17 04:58 07/11/17 07/12/17 07/12/17 21:20 04:58 04:58 WBC 13.1 H RBC 4.04 Hgb 9.9 L Hct 32.1 L MCV 80 MCH 24.5 L MCHC 30.9 L RDW 26.5 H Plt Count 342 Seg Neutrophils % 66.1 Lymphocytes % 24.1 Monocytes % 8.3 Eosinophils % 0.9 Basophils % 0.6 Absolute Neutrophils 8.6 H Absolute Lymphocytes 3.1 Absolute Monocytes 1.1 Absolute Eosinophils 0.1 Absolute Basophils 0.1 Sodium 139.6 Potassium 4.1 Chloride 96 L Carbon Dioxide 33 H Anion Gap 11 BUN 7 Creatinine 0.71 Est GFR ( Amer) > 60 Est GFR (Non-Af Amer) > 60 Glucose 117 H Calcium 8.5 Magnesium 1.7 Lipase 444.5 H Urine Color STRAW Urine Appearance SLIGHTLY-CLOUDY Urine pH 6.0 Ur Specific Lawrence 1.004 Urine Protein NEGATIVE Urine Glucose (UA) NEGATIVE Urine Ketones NEGATIVE Urine Blood NEGATIVE Urine Nitrite NEGATIVE Ur Leukocyte Esterase MODERATE H Urine WBC (Auto) 3 Urine RBC (Auto) 2 07/02/17 02:29 NT-Pro-B Natriuret Pep 649 H Impressions: Chest/Abdomen CTA 07/01/17 23:00 IMPRESSION: 1. Mild multifocal pneumonia and/or pulmonary edema. Moderate bilateral pleural effusions. 2. Mild pancreatitis pattern. Critical results reporting: The results of the examination have been personally discussed with the referring health care provider, GI NAYLOR, immediately following interpretation of the examination on 07/01/2017 11:05 PM CDT. Pelvis CTA 07/01/17 23:00 IMPRESSION: 1. Mild multifocal pneumonia and/or pulmonary edema. Moderate bilateral pleural effusions. 2. Mild pancreatitis pattern. Critical results reporting: The results of the examination have been personally discussed with the referring health care provider, GI NAYLOR, immediately following interpretation of the examination on 07/01/2017 11:05 PM CDT. Thoracentesis Ultrasound 07/02/17 00:00 IMPRESSION: SUCCESSFUL THORACENTESIS USING ULTRASOUND GUIDANCE. Abdomen Ultrasound 07/08/17 00:00 IMPRESSION: Limited study. There was a positive sonographic La sign. Hepatobiliary Scan Nuclear Medicine 07/09/17 00:00 IMPRESSION: NORMAL STUDY WITHOUT CYSTIC OR COMMON DUCT OBSTRUCTION. NORMAL GALLBLADDER EJECTION FRACTION. NO EVIDENCE FOR BILIARY DYSKINESIS. Chest X-Ray 07/12/17 00:00 IMPRESSION: Continued improvement in the chest Qualifiers - * PATEINT BEING DISCHARGED WITH ANY OF THE FOLLOWING DIAGNOSIS?: No
== END 2017-07-12 15:31 | disposition home or self-care (01) | DRG 871 ==
LOC: ER 21:55 → EH 07-02 01:22 → ICU 07-03 03:53 → 4S 07-03 14:30
PROVIDERS: ADMIT Internal Medicine Geriatric Medicine; ATTEND Internal Medicine Geriatric Medicine
PROC: 0W993ZX Drainage of Right Pleural Cavity, Percutaneous Approach, Diagnostic (ICD-10-PCS; principal; 2017-07-02)
PROC: 5A09457 Assistance with Respiratory Ventilation, 24-96 Consecutive Hours, Continuous Positive Airway Pressure (ICD-10-PCS; 2017-07-02)
DX: A41.9 Sepsis, unspecified organism (principal); J18.9 Pneumonia, unspecified organism; J96.01 Acute respiratory failure with hypoxia; J91.8 Pleural effusion in other conditions classified elsewhere; K85.20 Alcohol induced acute pancreatitis without necrosis or infection; I27.20 Pulmonary hypertension, unspecified; E44.1 Mild protein-calorie malnutrition; E11.65 Type 2 diabetes mellitus with hyperglycemia; K86.0 Alcohol-induced chronic pancreatitis; I95.81 Postprocedural hypotension; K70.10 Alcoholic hepatitis without ascites; R65.20 Severe sepsis without septic shock; E87.6 Hypokalemia; E66.9 Obesity, unspecified; I16.0 Hypertensive urgency; D64.9 Anemia, unspecified; F10.20 Alcohol dependence, uncomplicated; I10 Essential (primary) hypertension; K21.9 Gastro-esophageal reflux disease without esophagitis; M10.9 Gout, unspecified; F32.9 Major depressive disorder, single episode, unspecified; F17.210 Nicotine dependence, cigarettes, uncomplicated; D50.9 Iron deficiency anemia, unspecified; Z68.39 Body mass index [BMI] 39.0-39.9, adult; G47.30 Sleep apnea, unspecified; M54.9 Dorsalgia, unspecified; I87.2 Venous insufficiency (chronic) (peripheral); R60.1 Generalized edema; K76.0 Fatty (change of) liver, not elsewhere classified; Z79.899 Other long term (current) drug therapy; Z98.84 Bariatric surgery status; Z79.84 Long term (current) use of oral hypoglycemic drugs; Z79.82 Long term (current) use of aspirin; Z91.030 Bee allergy status; Z83.3 Family history of diabetes mellitus; Z79.4 Long term (current) use of insulin; Z82.49 Family history of ischemic heart disease and other diseases of the circulatory system
CPT/HCPCS: 32555; 36415; 71045; 71046; 71275; 72191; 74175; 76700; 78227; 80048; 80053; 80076; 81001; 82272; 82607; 82728; 82746; 82803; 82962; 83540; 83550; 83605; 83615; 83690; 83735; 83880; 84466; 84478; 84484; 84703; 85025; 85027; 85045; 85610; 85730; 87070; 87075; 87205; 88305; 89050; 93005; 93010; 93306; 94640; 94660; 94799; 96361; 96365; 96375; 96376; 99291; A9537; J0456; J0692; J0696; J1170; J1650; J1815; J1940; J2060; J2405; J2543; J2550; J2805; J2920; J3010; J3370; J3475; J3490; J7030; J7060; J7512; J7620; P9047; Q9969

== ENCOUNTER 2017-07-18 10:10 | Inpatient (IN) | payer SELFPAY ==
[2017-07-18] MEDS ORDERED: NORMAL SALINE 1000 ML 1,000 ML IV ONE (10:38)
--- NOTE | 2017-07-18 10:39 | ER Document Report ---
ED Medical Screen (RME) - General Chief Complaint: Medical Complaint Stated Complaint: POSSIBLE REACTION TO MEDICATION Time Seen by Provider: 07/18/17 10:35 Notes: Patient was recently discharged from the hospital about 5 days ago for pleural effusion. Had pleurocentesis done. Was discharged on several antibiotics/ medications. Thinks that she got her medications mixed up. She was given a muscle relaxant. states that when she takes a muscle relaxant she is really much knocked out for 12 hours. Patient went to work this morning and fell asleep at her desk. It is extremely groggy. Is awake and alert at this time and answering questions appropriately. Triage vitals noted she was extremely hypotensive. Otherwise patient denies any complaints at this time. TRAVEL OUTSIDE OF THE [place] IN LAST 30 DAYS: No - HPI Onset: Just prior to arrival - Related Data Allergies/Adverse Reactions: Bee Allergy (Uncoded 07/18/17 10:11) bees Allergy (Uncoded 07/18/17 10:11) Past Medical History - General Information source: Patient, [facility] Records - Social History Frequency of alcohol use: None Drug Abuse: None Lives with: Family, Spouse/Significant other Family history: Reviewed & Not Pertinent - Past Medical History Cardiac Medical History: Reports: Hx Hypertension Neurological Medical History: Denies: Hx Seizures Endocrine Medical History: Reports: Hx Diabetes Mellitus Type 2 Renal/ Medical History: Denies: Hx Peritoneal Dialysis GI Medical History: Reports: Hx Gastroesophageal Reflux Disease, Hx Hepatitis Musculoskeltal Medical History: Reports Hx Arthritis - gout Psychiatric Medical History: Reports: Hx Depression Infectious Medical History: Reports: Hx Hepatitis Past Surgical History: Reports: Hx Abdominal Surgery - Laproscopic Gastric Bypass, Hx Section - x 3, Hx Gastric Bypass Surgery. Denies: Hx Hysterectomy - Immunizations Hx Diphtheria, Pertussis, Tetanus Vaccination: No History of Influenza Vaccine for 01/2017 - 06/2017 Season: Yes Influenza Administration Date for 01/2017 - 06/2017 Season: 01/20/17 Review of Systems - Review of Systems Constitutional: Malaise, Weakness. denies: Chills, Diaphoresis, Fever EENT: denies: Ear pain, Nose pain, Throat swelling Cardiovascular: Heart racing, Dizziness, Lightheaded, Edema. denies: Chest pain , Palpitations Respiratory: denies: Cough, Hurts to breathe, Short of breath, Sputum, Wheezing Gastrointestinal: denies: Abdominal pain, Diarrhea, Nausea, Vomiting Genitourinary: denies: Burning, Dysuria, Discharge Musculoskeletal: Leg swelling, Ankle swelling. denies: Back pain, Joint pain, Muscle pain Skin: denies: Dryness, Lesions, Lumps, Rash Hematologic/Lymphatic: Easy bleeding, Easy bruising. denies: Blood clots Neurological/Psychological: denies: Confusion, Weakness, Numbness Physical Exam - Vital signs Vitals: Temp Pulse Resp BP Pulse Ox 98.5 F 97 22 H 66/46 L 94 07/18/17 10:17 07/18/17 10:17 07/18/17 10:07/18/17 10:07/18/17 10:17 Interpretation: Hypotensive, Tachycardic - Notes Notes: General: Alert no acute distress HEENT: Atraumatic, normocephalic, pupils equal round react to light and accommodation, extraocular muscles are intact, nose is non tender, posterior pharynx is without erythema or exudate. Tongue is unremarkable Heart: Heart with tachycardic rate and rhythm, no murmurs, no rubs, no clicks Lungs: Left lung clear. Right lung with diminished breath sounds and crackles Abdomen: Abdomen is soft, nontender, nondistended, normal bowel sounds Neuro: cranial nerves II through XII intact, reflexes intact, sensation intact, Extremities:Moving all extremities. Equal strength bilaterally in the upper lower extremities. No significant deformity. Mild edema noted bilateral lower extremities Skin: No lesions. Skin intact Psych: Normal insight. Normal judgment Course - Re-evaluation Re-evalutation: 07/18/17 11:21 Chest x-ray reviewed. Appears to have large pleural effusion on the right Chest X-Ray 07/18/17 10:36 IMPRESSION: INCREASING AIRSPACE DISEASE IN THE RIGHT LUNG BASE WITH PLEURAL EFFUSION. - Vital Signs Vital signs: Temp Pulse Resp BP Pulse Ox 98.5 F 97 22 H 90/68 L 94 07/18/17 10:07/18/17 10:17 07/18/17 10:07/18/17 10:28 07/18/17 10:17
--- NOTE | 2017-07-18 11:12 | RADIOLOGY REPORT (SQ) ---
EXAM DESCRIPTION: CHEST PA/LAT COMPLETED DATE/TIME: 07/18/2017 11:00 am REASON FOR STUDY: sob COMPARISON: 07/12/2017. EXAM PARAMETERS: NUMBER OF VIEWS: two views TECHNIQUE: Digital Frontal and Lateral radiographic views of the chest acquired. RADIATION DOSE: NA LIMITATIONS: none FINDINGS: LUNGS AND PLEURA: Increasing airspace disease in the right lung base with pleural effusion . Left lung relatively clear. MEDIASTINUM AND HILAR STRUCTURES: No masses or contour abnormalities. HEART AND VASCULAR STRUCTURES: Heart normal size. No evidence for failure. BONES: No acute findings. HARDWARE: None in the chest. OTHER: No other significant finding. IMPRESSION: INCREASING AIRSPACE DISEASE IN THE RIGHT LUNG BASE WITH PLEURAL EFFUSION. TECHNICAL DOCUMENTATION: JOB ID: [id number] [employer]- All Rights Reserved Reading location - IP/workstation name: [email or web address]
[2017-07-18] MEDS ORDERED: NORMAL SALINE 1000 ML 1,000 ML IV PRN (11:42)
[2017-07-18 11:51] LABS: ABSOLUTE BASOPHILS # (AUTO) 0.1 10^3/uL (0.0-0.2); ABSOLUTE EOSINOPHILS # (AUTO) 0.1 10^3/uL (0.0-0.6); ABSOLUTE LYMPHOCYTES (AUTO) 2.9 10^3/uL (0.5-4.7); ABSOLUTE NEUT (AUTO) 9.7 10^3/uL (1.7-8.2); BASOPHILS % (AUTO) 0.6 % (0-2); HEMOGLOBIN 10.3 g/dL (12.0-15.5); LYMPHOCYTES % (AUTO) 20.9 % (13-45); MEAN CORPUSCULAR HGB CONC 31.2 g/dL (32.0-36.0); MEAN CORPUSCULAR VOLUME 80 fl (80-97); PLATELET COUNT 261 10^3/uL (150-450); RED BLOOD COUNT 4.11 10^6/uL (3.72-5.28); RED CELL DISTRIBUTION WIDTH 25.6 % (11.5-14.0); SEGMENTED NEUTROPHILS % (AUTO) 70.5 % (42-78); TOTAL CELLS COUNTED % (AUTO) 100 %; WHITE BLOOD COUNT 13.7 10^3/uL (4.0-10.5)
--- NOTE | 2017-07-18 11:56 | ER Document Report ---
ED General - General Chief Complaint: Medical Complaint Stated Complaint: POSSIBLE REACTION TO MEDICATION Time Seen by Provider: 07/18/17 10:35 Mode of Arrival: Ambulatory TRAVEL OUTSIDE OF THE [place] IN LAST 30 DAYS: No - HPI Notes: 46-year-old female with a past medical history of multifocal pneumonia, sepsis, chronic affected pancreatitis, bilateral pleural effusion, type 2 diabetes who is insulin-dependent, RAMSAY, alcohol dependency presents today with complaints of feeling groggy, worsening SOB, hypotension and grogginess because she states she took her Flexeril this morning is been taking her Lasix. Patient states she is also feeling short of breath. Patient was recently admitted to [facility] multifocal pneumonia, bilateral pleural effusions with paracentesis was performed. She was discharged with outpatient antibiotics. Reports chest pain since she was discharged on the June 21 being admitted for bilateral pleural effusions as well as pneumonia on July 01, 2017. Along with worsening shortness of breath. Denies any trauma. Reports she has been taking her medications as directed. Denies fevers, chills, chest pain,palpitations, nausea, vomiting, diarrhea, hematuria,blurred vision, double vision, loss of vision, speech changes, LH, dizziness, syncope, headaches, wheezing, ST, URI, neck pain, weakness, bowel or bladder dysfunction, saddle anesthesia, numbness or tingling in bilateral upper or lower extremities equally, muscle paralysis, weakness in bilateral upper or lower extremities equally or rash. Denies IV drug use. - Related Data Allergies/Adverse Reactions: Bee Allergy (Uncoded 07/18/17 10:11) bees Allergy (Uncoded 07/18/17 10:11) Past Medical History - General Information source: Patient, [facility] Records - Social History Smoking Status: Current Every Day Smoker Frequency of alcohol use: None Drug Abuse: None Lives with: Family, Spouse/Significant other Family History: DM Patient has suicidal ideation: No Patient has homicidal ideation: No - Past Medical History Cardiac Medical History: Reports: Hx Hypertension Neurological Medical History: Denies: Hx Seizures Endocrine Medical History: Reports: Hx Diabetes Mellitus Type 2 Renal/ Medical History: Denies: Hx Peritoneal Dialysis GI Medical History: Reports: Hx Gastroesophageal Reflux Disease, Hx Hepatitis Musculoskeltal Medical History: Reports Hx Arthritis - gout Psychiatric Medical History: Reports: Hx Depression Infectious Medical History: Reports: Hx Hepatitis Past Surgical History: Reports: Hx Abdominal Surgery - Laproscopic Gastric Bypass, Hx Section - x 3, Hx Gastric Bypass Surgery. Denies: Hx Hysterectomy - Immunizations Hx Diphtheria, Pertussis, Tetanus Vaccination: No Review of Systems - Review of Systems Notes: REVIEW OF SYSTEMS: CONSTITUTIONAL : Denies fever, chills, or sweats. Denies recent illness. EENT: Denies eye, ear, throat, or mouth pain or symptoms. Denies nasal or sinus congestion or discharge. Denies throat, tongue, or mouth swelling or difficulty swallowing. CARDIOVASCULAR: Reports chest pain. Denies palpitations or racing or irregular heart beat. Denies ankle edema. RESPIRATORY: Denies cough, cold, or chest congestion. Reports dyspnea and shortness of breath. Denies difficulty breathing, or wheezing. GASTROINTESTINAL: Reports abdominal pain. Denies abdominal distention. Denies nausea, vomiting, or diarrhea. Denies blood in vomitus, stools, or per rectum. Denies black, tarry stools. Denies constipation. GENITOURINARY: Denies difficulty urinating, painful urination, burning, frequency, blood in urine, or discharge. FEMALE GENITOURINARY: Denies vaginal bleeding, heavy or abnormal periods, irregular periods. Denies vaginal discharge or odor. MUSCULOSKELETAL: Denies back or neck pain or stiffness. Denies joint pain or swelling. SKIN: Denies rash, lesions or sores. HEMATOLOGIC : Denies easy bruising or bleeding. LYMPHATIC: Denies swollen, enlarged glands. NEUROLOGICAL: Denies confusion or altered mental status. Denies passing out or loss of consciousness. Denies dizziness or lightheadedness. Denies headache. Denies weakness or paralysis or loss of use of either side. Denies problems with gait or speech. Denies sensory loss, numbness, or tingling. Denies seizures. PSYCHIATRIC: Denies anxiety or stress. Denies depression, suicidal ideation, or homicidal ideation. ALL OTHER SYSTEMS REVIEWED AND NEGATIVE. PHYSICAL EXAMINATION: GENERAL: Well-appearing, well-nourished and in no acute distress. HEAD: Atraumatic, normocephalic. EYES: Pupils equal round and reactive to light, extraocular movements intact, conjunctiva are normal. ENT: Nares patent, oropharynx clear without exudates. Moist mucous membranes. NECK: Normal range of motion, supple without lymphadenopathy LUNGS: Breath sounds clear to auscultation bilaterally and equal. No wheezes rales or rhonchi. No BS heard in bilateral right and left lower lobes. HEART: Regular rate and rhythm without murmurs ABDOMEN: Soft, generalized tenderness in all quadrants, nondistended abdomen. No guarding, no rebound. No masses appreciated. no cva tenderness bilaterally. Female : deferred Musculoskeletal: Normal range of motion, no pitting or edema. No cyanosis. NEUROLOGICAL: Cranial nerves grossly intact. Normal speech, normal gait. Normal sensory, motor exams PSYCH: Normal mood, normal affect. SKIN: Warm, Dry, normal turgor, no rashes or lesions noted. Noted bilateral pedal edema, no pitting edema. Distal pulses +2 in bilateral lower extremities equally. Dictation was performed using [employer] voice recognition software Physical Exam - Vital signs Vitals: Temp Pulse Resp BP Pulse Ox 98.5 F 97 22 H 66/46 L 94 07/18/17 10:17 07/18/17 10:17 07/18/17 10:17 07/18/17 10:17 07/18/17 10:17 Course - Re-evaluation Re-evalutation: 07/18/17 11:49 45-year-old female who is afebrile with a manual blood pressure of 90/60 presents to the emergency room with complaints of grogginess, dyspnea and shortness of breath has become progressively worse over the last few days. Patient states she took a Flexeril this morning instead of Lasix which caused her to be drowsy, but reports that shortness of breath has been a continuous problem since she has been discharged. Patient is taking both Augmentin and levofloxacin orally for her pneumonia patient states she does not have follow- up with her primary care provider until July. Patient is not in any respiratory distress. Patient was just recently discharged from the hospital approximately 5 days ago for having multifocal pneumonia, bilateral pleural effusion, which patient received a paracentesis patient seen on July 01 and admitted until 07/12/17. On reevaluation, patient is feeling better after IV fluids. Patient has a leukocytosis of 13.7, which is elevated from when she was discharged on the of 13.1. Creatinine today is 1.37 which is elevated from when she was discharged on 324, creatinine was 0.7 will at that time. She denies having a history of acute renal failure. Lactic is 2.7. Cardiac enzymes are unremarkable. BNP is 271, lipase is 391, which is down from when she was discharged. No electrolyte abnormalities noted. She is not on any oxygen. EKG was negative for STEMI. Chest x-ray shows that patient has a right pleural effusion, which is larger from when she was discharged on July 12 chest x-ray. Patient denies any pain at this time. Patient is not tachycardic, respiratory rate is 18. Consulted with Dr. Gamaliel Delatorre, hospitalist, regarding pertinent laboratory, diagnostic and clinical findings. Patient has a worsening leukocytosis with acute renal failure, worsening right pleural effusion with transient hypovolemia, pt admitted to stepdown ICU for further evaluation under the care of Dr. Gamaliel Delatorre. Renal ultrasound pending. - Vital Signs Vital signs: Temp Pulse Resp BP Pulse Ox 98.5 F 97 40 H 109/70 85 L 07/18/17 10:17 07/18/17 10:17 07/18/17 16:05 07/18/17 15:08 07/18/17 15:08 - Laboratory Result Diagrams: 07/18/17 11:31 07/18/17 11:31 Laboratory results interpreted by me: 07/18/17 07/18/17 07/18/17 11:31 11:31 11:31 WBC 13.7 H Hgb 10.3 L Hct 33.0 L MCH 25.0 L MCHC 31.2 L RDW 25.6 H Absolute Neutrophils 9.7 H Creatinine 1.37 H Est GFR ( Amer) 51 L Est GFR (Non-Af Amer) 42 L Lactic Acid Calcium 8.3 L Alkaline Phosphatase 243 H NT-Pro-B Natriuret Pep 271 H Albumin 2.5 L Lipase 07/18/17 07/18/17 11:31 11:31 WBC Hgb Hct MCH MCHC RDW Absolute Neutrophils Creatinine Est GFR ( Amer) Est GFR (Non-Af Amer) Lactic Acid 3.8 H Calcium Alkaline Phosphatase NT-Pro-B Natriuret Pep Albumin Lipase 391.4 H Discharge - Discharge Clinical Impression: Pleural effusion, Hypovolemia, Leukocytosis Acute renal failure (ARF) Qualifiers: Acute renal failure type: unspecified Qualified Code(s): N17.9 - Acute kidney failure, unspecified Condition: Good Disposition: ADMITTED INPATIENT Admitting Provider: Hospitalist - Dr. Gamaliel Dleatorre Unit Admitted: [facility]
[2017-07-18 12:14] LABS: ALANINE AMINOTRANSFERASE 17 U/L (9-52); ALBUMIN 2.5 g/dL (3.5-5.0); ALKALINE PHOSPHATASE 243 U/L (38-126); ANION GAP 11 (5-19); ASPARTATE AMINO TRANSFERASE 25 U/L (14-36); BILIRUBIN,DIRECT 0.2 mg/dL (0.0-0.4); BILIRUBIN,TOTAL 0.4 mg/dL (0.2-1.3); BLOOD UREA NITROGEN 19 mg/dL (7-20); CALCIUM 8.3 mg/dL (8.4-10.2); CARBON DIOXIDE 26 mmol/L (22-30); CHLORIDE 100 mmol/L (98-107); GLUCOSE 85 mg/dL (75-110); POTASSIUM 4.4 mmol/L (3.6-5.0); SODIUM 137.2 mmol/L (137-145); TOTAL PROTEIN 6.3 g/dL (6.3-8.2)
[2017-07-18 12:19] LABS: ANISOCYTOSIS 3+; PLATELET COMMENT ADEQUATE; POIKILOCYTOSIS SLIGHT; TEAR DROP CELLS SLIGHT
[2017-07-18 12:20] LABS: NT PRO BNP 271 pg/mL (<125)
[2017-07-18 12:21] LABS: TROPONIN I < 0.012 ng/mL
[2017-07-18] MEDS ORDERED: CEFEPIME 2 GM/D5W RTU 2 GM/50 ML RTUPB IV ONE (14:18)
[2017-07-18] MEDS ORDERED: LEVOFLOXACIN 750 MG/D5W RTU 750 MG/150 ML RTUPB IV ONE (14:18)
[2017-07-18] MEDS ORDERED: MORPHINE SULFATE 10 MG/ML INJ IV ONE (14:38)
[2017-07-18] MEDS ORDERED: PIPERACILLIN/TAZOBACTAM 3.375 GM VIAL IV SCH (15:30)
[2017-07-18] MEDS ORDERED: ACETAMINOPHEN 325 MG TABLET PO PRN (15:41)
[2017-07-18] MEDS ORDERED: DEXTROSE 50%-WATER 25 GM/50 ML DISP.SYRIN IV PRN ×2 (15:44)
[2017-07-18] MEDS ORDERED: GLUCAGON,HUMAN RECOMB 1 MG INJ IM PRN (15:44)
[2017-07-18] MEDS ORDERED: DEXTROSE 40% GEL 15 GM TUBE PO PRN ×2 (15:44)
[2017-07-18 15:53] LABS: VENOUS BLOOD BASE EXCESS 2.4 mmol/L; VENOUS BLOOD HCO3 28.2 mmol/L (20-32); VENOUS BLOOD PCO2 48.9 mmHg (35-63); VENOUS BLOOD PH 7.38 (7.30-7.42)
--- NOTE | 2017-07-18 16:14 | RADIOLOGY REPORT (SQ) ---
EXAM DESCRIPTION: U/S RETROPERITON (RENAL/AORTA) COMPLETED DATE/TIME: 07/18/2017 4:08 pm REASON FOR STUDY: elevated Cr, new onset COMPARISON: None. TECHNIQUE: Dynamic and static grayscale images acquired of the kidneys and bladder and recorded on P ACS. Additional selected color Doppler and spectral images recorded. LIMITATIONS: None. FINDINGS: RIGHT KIDNEY: Normal size. Normal echogenicity. No solid or suspicious masses. No hydronep hrosis. No calcifications. LEFT KIDNEY: Normal size. Normal echogenicity. No solid or suspicious masses. No hydronephrosis. No calcifications. BLADDER: No masses. OTHER FINDINGS: No other significant finding. IMPRESSION: NORMAL RENAL AND BLADDER ULTRASOUND. TECHNICAL DOCUMENTATION: JOB ID: [id number] [employer]- All Rights Reserved Reading location - IP/workstation name: [email or web address]
[2017-07-18] MEDS ORDERED: VANCOMYCIN HCL 1,250 MG in DEXTROSE 5%-WATER 250 ML IV SCH (17:00)
[2017-07-18] MEDS ORDERED: PIPERACILLIN SODIUM/TAZOBACTAM 3.375 GM in NORMAL SALINE 100 ML IV SCH (18:00)
--- NOTE | 2017-07-18 18:55 | PDOC H&P ---
History of Present Illness Admission Date/PCP: 07/18/17 14:13 [facility] Patient complains of: altered metation and weakness at work History of Present Illness: BILL CAGLE is a 46 year old female with PMH of DM type 2, chronic pancreatitis, RAMSAY, neuropathy, hx of gastric bypass, and HTN. Patient was recently admitted and discharged with sepsis, multifocal pneumonia and bilateral pleural effusions. She continued to take Augmentin and Levaquin after discharge, but unfortunately describes progressive weakness and SOB. Coughing with blood tinged sputum described. Complains of diarrhea. Denies fever/chills, nausea or vomiting. She describes falling asleep at work after taking Flexiril. Labs are demonstrating sepsis with an elevated WBC, lactic acid, soft BP receiving fluid support, and CXR consistent with right sided PNA and pleural effusion. Patient appears oriented but groggy. She complains of back pain. Patient has an TAMARA. BP was 99/67 in the ED. Admitted to the hospitalist service for treatment of Sepsis secondary to unresolved PNA. Past Medical History Cardiac Medical History: Reports: Hypertension Neurological Medical History: Denies: Seizures Endocrine Medical History: Reports: Diabetes Mellitus Type 2 GI Medical History: Reports: Gastroesophageal Reflux Disease, Hepatitis Musculoskeltal Medical History: Reports: Arthritis - gout Psychiatric Medical History: Reports: Depression Past Surgical History Past Surgical History: Reports: Section - x 3, Gastric Bypass Surgery Denies: Hysterectomy Social History Information Source: Patient Lives with: Family, Spouse/Significant other Smoking Status: Current Every Day Smoker Cigarettes Packs Per Day: 0.5 Number of Years Smokin Last Time Smoked: 07/18/17 Frequency of Alcohol Use: Occasional Hx Recreational Drug Use: No Drugs: None Hx Prescription Drug Abuse: No - Advance Directive Resuscitation Status: Full Code Family History Family History: DM Parental Family History Reviewed: Yes Children Family History Reviewed: No Sibling(s) Family History Reviewed.: Yes Medication/Allergy Home Medications: Aspirin [Adult Low Dose Aspirin EC] 81 mg PO DAILY 07/18/17 Ergocalciferol (Vitamin D2) [Vitamin D] 400 unit PO DAILY 07/18/17 Gabapentin [Neurontin] 600 mg PO Q8 07/18/17 Hydroxyzine HCl [Atarax 25 mg Tablet] 25 mg PO QHS 07/18/17 Insulin Detemir [Levemir Flextouch] 10 units SQ QHS 07/18/17 Lisinopril [Zestril] 10 mg PO DAILY 07/18/17 Multivit with Minerals No.55 [Centrum Flavor Burst Adult] 1 tab PO DAILY Allergies/Adverse Reactions: Bee Allergy (Uncoded 07/18/17 10:11) bees Allergy (Uncoded 07/18/17 10:11) Review of Systems Constitutional: PRESENT: fatigue, weakness. ABSENT: chills, fever(s) Eyes: PRESENT: as per HPI. ABSENT: visual disturbances Ears: PRESENT: as per HPI. ABSENT: hearing changes Nose, Mouth, and Throat: ABSENT: as per HPI, mouth pain Cardiovascular: ABSENT: chest pain, orthropnea Respiratory: PRESENT: cough, dyspnea. ABSENT: as per HPI Gastrointestinal: PRESENT: abdominal pain. ABSENT: nausea, vomiting Musculoskeletal: ABSENT: deformity, joint swelling Integumentary: ABSENT: lesions, pruritus Neurological: ABSENT: frequent falls, numbness Psychiatric: ABSENT: anxiety, depression Endocrine: ABSENT: flushing, polydipsia Hematologic/Lymphatic: ABSENT: as per HPI, easy bruising Physical Exam Vital Signs: Temp Pulse Resp BP Pulse Ox 99.2 F 116 H 16 109/66 89 L 07/18/17 17:34 07/18/17 17:34 07/18/17 17:34 07/18/17 17:34 07/18/17 17:34 Intake & Output 07/17/17 07/18/17 07/19/17 06:59 06:59 06:59 Weight 85.8 kg General appearance: PRESENT: no acute distress, cooperative, morbidly obese Head exam: PRESENT: atraumatic, normocephalic Eye exam: PRESENT: EOMI, PERRLA Ear exam: PRESENT: normal external ear exam. ABSENT: bleeding Mouth exam: PRESENT: moist, neck supple. ABSENT: dry mucosa Respiratory exam: PRESENT: crackles, rales. ABSENT: accessory muscle use, rhonchi, wheezes Cardiovascular exam: PRESENT: RRR, +S1, +S2 Pulses: PRESENT: normal radial pulses, normal dorsalis pedis pul Vascular exam: PRESENT: normal capillary refill. ABSENT: pallor GI/Abdominal exam: PRESENT: soft, tenderness. ABSENT: ascites, distended, guarding, rigid Extremities exam: ABSENT: calf tenderness, joint swelling Musculoskeletal exam: PRESENT: ambulatory, full ROM Neurological exam: PRESENT: awake, oriented to person, oriented to place, oriented to time Psychiatric exam: ABSENT: agitated, anxious Focused psych exam: ABSENT: catatonic, paranoid Skin exam: ABSENT: abrasion, cyanosis Results Laboratory Results: 07/18/17 07/18/17 15:35 16:17 VBG pH 7.38 VBG pCO2 48.9 VBG HCO3 28.2 VBG Base Excess 2.4 Lactic Acid 3.1 H Impressions: Chest X-Ray 07/18/17 10:36 IMPRESSION: INCREASING AIRSPACE DISEASE IN THE RIGHT LUNG BASE WITH PLEURAL EFFUSION. Renal Ultrasound 07/18/17 13:44 IMPRESSION: NORMAL RENAL AND BLADDER ULTRASOUND. Assessment & Plan - Diagnosis (1) Severe sepsis Is this a current diagnosis for this admission?: Yes Plan: Elevated lactate and soft BP in ED received IV NS boluses, will continue IVF support, admit to [facility] mentating well. cover with HCAP coverage given her recent admission. limit sedating medications given poor IV access, asking surgery to place a central line on patient for antibiotics and IVF support. (2) Pneumonia Is this a current diagnosis for this admission?: Yes Plan: No culture positive growth on her last hospitalization. blood cultures x2, sputum culture Will start HCAP coverage: Vancomycin/Levaquin/Zosyn (3) Chronic pancreatitis Is this a current diagnosis for this admission?: Yes Plan: Will give access to IVF and prn pain medications. patient has pain on abdominal exam. Describes pain with meal times. denies any current nausea or vomiting. Describes a prior heavy drinking habit of 1 bottle of wine/day. 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 (5) Alcohol dependency Qualifiers: Substance use status: unspecified alcohol-induced disorder Qualified Code(s ): F10.29 - Alcohol dependence with unspecified alcohol-induced disorder Is this a current diagnosis for this admission?: Yes Plan: Alcohol hx with chronic pancreatitis. denies recent alcohol. will cover with Multivitamin/folate/thiamine (6) Loose stools Is this a current diagnosis for this admission?: Yes Plan: monitor, starting Bacid. if significant, will check C Diff. (7) Tobacco abuse Is this a current diagnosis for this admission?: Yes Plan: will give nicotine patch counseled on quitting smoking.
[2017-07-18] MEDS ORDERED: LIDOCAINE 0.5% INJ-PF (5 MG/ML) 50 ML SDV ONE (19:23)
[2017-07-18 19:41] LABS: APPEARANCE,URINE CLEAR; BILIRUBIN,URINE NEGATIVE (NEGATIVE); COLOR,URINE STRAW; GLUCOSE, URINE NEGATIVE (NEGATIVE); KETONES,URINE NEGATIVE (NEGATIVE); URINE SPECIFIC GRAVITY 1.017
[2017-07-18 19:42] LABS: LEUKOCYTE ESTERASE,URINE NEGATIVE (NEGATIVE); NITRITE,URINE NEGATIVE (NEGATIVE); PROTEIN,URINE NEGATIVE (NEGATIVE); UROBILINOGEN,URINE NEGATIVE mg/dL (<2.0)
[2017-07-18] MEDS ORDERED: FOLIC ACID 1 MG TABLET PO ONE (20:00)
[2017-07-18] MEDS ORDERED: THIAMINE HCL 100 MG TABLET PO ONE (20:00)
[2017-07-18] MEDS ORDERED: LACTOBACILLUS ACIDOPHILUS 250 MG TAB PO ONE (20:00)
[2017-07-18] MEDS ORDERED: NICOTINE 14 MG/24 HR PATCH.TD24 TD ONE (20:00)
[2017-07-18] MEDS: ALBUTEROL SULFATE 0.083% NEB 2.5 MG/3 ML AMPUL NEB PRN (20:23)
[2017-07-18] MEDS: MORPHINE SULFATE 10 MG/ML INJ IV PRN (20:33)
--- NOTE | 2017-07-18 20:59 | OPERATIVE REPORT E ---
Operative Report NAME: BILL CAGLE : 1970 AGE: 46Y DATE OF SURGERY: 07/18/2017 ROOM: 315 PREOPERATIVE DIAGNOSIS: POOR VEINS FOR IV ACCESS. POSTOPERATIVE DIAGNOSIS: POOR VEINS FOR IV ACCESS. OPERATION: Placement of right internal jugular vein central line under ultrasound guidance. SURGEON: JOSE ANGEL DOLAN M.D. ANESTHESIA: Local. INDICATIONS FOR PROCEDURE: This is a 46-year-old female who needed IV antibiotics and has practically no peripheral veins for IV access. DESCRIPTION OF PROCEDURE: Patient was placed in slight Trendelenburg position and the right neck prepped and draped in the usual sterile fashion. With the use of ultrasound, the right internal jugular vein was then identified. Local anesthesia infiltrated along the path of the internal jugular vein and the vein subsequently punctured and a guidewire passed through the needle towards the area of superior vena cava. The needle was removed and the insertion site dilated and a triple lumen catheter was then inserted through the guidewire up to a distance of about 14 cm. The guidewire was removed and all the 3 ports aspirated blood easily and instilled saline easily. Next, the catheter was then anchored to the skin with 3-0 silk. A Biopatch was placed at the insertion site and a transparent sterile dressing was placed over the Biopatch and catheter. A chest x-ray will be obtained for placement. The patient tolerated the procedure well. DICTATING PHYSICIAN: JOSE ANGEL DOLAN M.D. [id number] PHY#: [id number] 2019 ID: [id number] JOB#: [id number] ACCT: [id number] cc:JOSE ANGEL DOLAN M.D. >
--- NOTE | 2017-07-18 21:48 | RADIOLOGY REPORT (SQ) ---
EXAM DESCRIPTION: CHEST SINGLE VIEW COMPLETED DATE/TIME: 07/18/2017 9:20 pm REASON FOR STUDY: triple lumen placement COMPARISON: 07/18/2017 earlier. FINDINGS: AP portable upright single-view chest timed approximately 2106 hours. No time stamp on th e film. Right IJ line in place, tip approximately to the cavoatrial junction. No pneumothorax. Slight further worsening of right basilar opacity with minimally increased apical capping pleural flu id. IMPRESSION: Central line looks grossly appropriately positioned. No pneumothorax evident. TECHNICAL DOCUMENTATION: JOB ID: [id number] Reading location - IP/workstation name: [email or web address]
[2017-07-18] MEDS: PIPERACILLIN SODIUM/TAZOBACTAM 3.375 GM in NORMAL SALINE 100 ML IV SCH (22:40)
[2017-07-18] MEDS: INSULIN LISPRO 100 UNIT/ML 3 ML VIAL SUBCUT PRN (22:41)
[2017-07-18] MEDS: GABAPENTIN 300 MG CAPSULE PO SCH (22:41)
[2017-07-18] MEDS: INSULIN DETEMIR 100 UNIT/ML 3 ML PEN SUBCUT SCH (22:41)
[2017-07-18] MEDS ORDERED: TRAZODONE HCL 50 MG TABLET PO ONE (23:00)
[2017-07-18] MEDS: VANCOMYCIN HCL 1,250 MG in DEXTROSE 5%-WATER 250 ML IV SCH (23:01)
[2017-07-19] MEDS: MORPHINE SULFATE 10 MG/ML INJ IV PRN ×3 (00:50→20:57)
[2017-07-19] MEDS: PIPERACILLIN SODIUM/TAZOBACTAM 3.375 GM in NORMAL SALINE 100 ML IV SCH ×4 (03:55→20:37)
[2017-07-19] MEDS: NORMAL SALINE 1000 ML 1,000 ML IV PRN ×2 (03:59→11:43)
[2017-07-19] MEDS ORDERED: NORMAL SALINE 1000 ML 1,000 ML IV PRN ×2 (04:30→12:31)
[2017-07-19 04:38] LABS: HEMATOCRIT 26.9 % (36.0-47.0); HEMOGLOBIN 8.4 g/dL (12.0-15.5); MEAN CORPUSCULAR HEMOGLOBIN 25.3 pg (27.0-33.4); MEAN CORPUSCULAR HGB CONC 31.3 g/dL (32.0-36.0); MEAN CORPUSCULAR VOLUME 81 fl (80-97); PLATELET COUNT 196 10^3/uL (150-450); RED BLOOD COUNT 3.32 10^6/uL (3.72-5.28); RED CELL DISTRIBUTION WIDTH 25.8 % (11.5-14.0); WHITE BLOOD COUNT 10.4 10^3/uL (4.0-10.5)
[2017-07-19 04:43] LABS: ANION GAP 7 (5-19); BLOOD UREA NITROGEN 16 mg/dL (7-20); CALCIUM 7.5 mg/dL (8.4-10.2); CARBON DIOXIDE 28 mmol/L (22-30); CHLORIDE 103 mmol/L (98-107); GLUCOSE 171 mg/dL (75-110); POTASSIUM 4.1 mmol/L (3.6-5.0); SODIUM 138.1 mmol/L (137-145)
[2017-07-19] MEDS: GABAPENTIN 300 MG CAPSULE PO SCH ×3 (05:34→21:52)
[2017-07-19] MEDS: NORMAL SALINE INJ/PF 0.9% 10 ML SDV IV SCH ×3 (05:55→21:52)
[2017-07-19] MEDS: NICOTINE 14 MG/24 HR PATCH.TD24 TD SCH (09:38)
[2017-07-19] MEDS: INSULIN LISPRO 100 UNIT/ML 3 ML VIAL SUBCUT PRN ×2 (09:38→11:49)
[2017-07-19] MEDS: LEVOFLOXACIN 750 MG/D5W RTU 750 MG/150 ML RTUPB IV SCH (09:39)
[2017-07-19] MEDS: ASPIRIN 81 MG TABLET, ENT COATED PO SCH (09:40)
[2017-07-19] MEDS: LACTOBACILLUS ACIDOPHILUS 250 MG TAB PO SCH ×2 (09:40→17:00)
[2017-07-19] MEDS: FOLIC ACID 1 MG TABLET PO SCH (09:40)
[2017-07-19] MEDS: MULTIVITAMIN TABLET PO SCH (09:41)
[2017-07-19] MEDS: THIAMINE HCL 100 MG TABLET PO SCH (09:41)
[2017-07-19] MEDS ORDERED: [UNRECOGNIZED DRUG - OTHER] PO SCH (10:00)
[2017-07-19] MEDS ORDERED: VANCOMYCIN HCL INJ 1000 MG VIAL IV SCH (10:00)
--- NOTE | 2017-07-19 14:22 | RADIOLOGY REPORT (SQ) ---
EXAM DESCRIPTION: CHEST SINGLE VIEW COMPLETED DATE/TIME: 07/19/2017 1:21 pm REASON FOR STUDY: effusion, pna COMPARISON: 07/18/2017 EXAM PARAMETERS: NUMBER OF VIEWS: One view. TECHNIQUE: Single frontal radiographic view of the chest acquired. RADIATION DOSE: NA LIMITATIONS: None. FINDINGS: LUNGS AND PLEURA: There is large right pleural effusion. There is some retrocardiac opaci fication on the left. There appears to be at least a small left pleural effusion. MEDIASTINUM AND HILAR STRUCTURES: No masses. Contour normal. HEART AND VASCULAR STRUCTURES: Cardiomegaly. No josafat failure. BONES: No acute findings. HARDWARE: A right internal jugular catheter has its tip in the superior vena cava. OTHER: No other significant finding. IMPRESSION: Large right pleural effusion. Cannot exclude left lower lobe pneumonia. Small left ple ural effusion. Cardiomegaly. TECHNICAL DOCUMENTATION: JOB ID: [id number] [employer] All Rights Reserved Reading location - IP/workstation name: [email or web address]
[2017-07-19] MEDS: KETOROLAC TROMETHAMINE INJ/PF 30 MG/1 ML SDV IV PRN (16:59)
[2017-07-19] MEDS: LIPASE/PROTEASE/AMYLASE 1 CAP CAPSULE.DR PO SCH (17:00)
--- NOTE | 2017-07-19 21:04 | PDOC PROGRESS REPORT ---
Subjective Progress Note for:: 07/19/17 Subjective:: 46-year-old with right lower lobe pneumonia. Improving leukocytosis. Patient describes improving right flank pain today on exam. Continue IV fluid support given patient's soft blood pressures on chart today. Patient clinically appears like she is improving gradually. Patient does appear fatigued however overall. Reason For Visit: RIGHT LOWER LOBE PNA Physical Exam Vital Signs: Temp Pulse Resp BP Pulse Ox 98.3 F 103 H 16 96/56 L 95 07/19/17 19:08 07/19/17 19:08 07/19/17 19:08 07/19/17 19:08 07/19/17 19:08 Intake & Output 07/18/17 07/19/17 07/20/17 06:59 06:59 06:59 Intake Total 2205 1531 Output Total 400 Balance 2205 1131 Weight 86.2 kg General appearance: PRESENT: no acute distress, cooperative, morbidly obese Head exam: PRESENT: atraumatic, normocephalic Eye exam: PRESENT: EOMI, PERRLA Mouth exam: PRESENT: moist, neck supple Neck exam: PRESENT: full ROM. ABSENT: carotid bruit, JVD Respiratory exam: PRESENT: decreased breath sounds - On the right lower lobe greater than left lower lobe. ABSENT: accessory muscle use, crackles, rales, rhonchi, stridor, wheezes Cardiovascular exam: PRESENT: RRR, +S1, +S2 Pulses: PRESENT: normal radial pulses, normal dorsalis pedis pul Vascular exam: PRESENT: normal capillary refill. ABSENT: pallor GI/Abdominal exam: PRESENT: normal bowel sounds. ABSENT: ascites, diminished bowel sounds, mass Rectal exam: ABSENT: mass Extremities exam: ABSENT: calf tenderness, joint swelling Musculoskeletal exam: PRESENT: full ROM. ABSENT: ambulatory Neurological exam: PRESENT: alert, oriented to person, oriented to place, oriented to time, oriented to situation, CN II-XII grossly intact Psychiatric exam: ABSENT: agitated, anxious, manic Focused psych exam: ABSENT: delusional, paranoid Skin exam: ABSENT: abrasion, cyanosis, dry Results Laboratory Results: 07/19/17 04:10 07/19/17 04:10 07/19/17 07/19/17 04:10 04:10 WBC 10.4 RBC 3.32 L Hgb 8.4 L Hct 26.9 L MCV 81 MCH 25.3 L MCHC 31.3 L RDW 25.8 H Plt Count 196 Sodium 138.1 Potassium 4.1 Chloride 103 Carbon Dioxide 28 Anion Gap 7 BUN 16 Creatinine 0.89 Est GFR ( Amer) > 60 Est GFR (Non-Af Amer) > 60 Glucose 171 H Calcium 7.5 L Magnesium 1.8 Impressions: Renal Ultrasound 07/18/17 13:44 IMPRESSION: NORMAL RENAL AND BLADDER ULTRASOUND. Chest X-Ray 07/19/17 00:00 IMPRESSION: Large right pleural effusion. Cannot exclude left lower lobe pneumonia. Small left pleural effusion. Cardiomegaly. Assessment & Plan - Time Time Spent with patient: 15-24 minutes - Inpatient Certification Based on my medical assessment, after consideration of the patient's comorbidities, presenting symptoms, or acuity I expect that the services needed warrant INPATIENT care.: Yes Medical Necessity: Need for IV Antibiotics, Risk of Complication if Not Cared For in Hospital - Plan Summary Plan Summary: (1) Severe sepsis Is this a current diagnosis for this admission?: Yes Plan: Continue HCAP Coverage, due to her recent admission. Central line was placed yesterday. Continue IV fluid support. Soft blood pressure noted today after pain medication. (2) Pneumonia Is this a current diagnosis for this admission?: Yes Plan: No culture positive growth on her last hospitalization. blood cultures x2, sputum culture with no growth at present. Continue HCAP coverage: Vancomycin/Levaquin/Zosyn Patient mentating well. (3) Chronic pancreatitis Is this a current diagnosis for this admission?: Yes Plan: Will give access to IVF and prn pain medications. patient has pain on abdominal exam. Describes pain with meal times. Will start patient on Creon with her meals, ascribes loose greasy stools since her chronic pancreatitis diagnosis. Describes a prior heavy drinking habit of 1 bottle of wine/day. (4) Type 2 diabetes mellitus Qualifiers: Diabetes mellitus cook 3 pastry insulin use: with cook 3 pastry use Diabetes mellitus complication status: with unspecified complications Qualified Code(s) : E11.8 - Type 2 diabetes mellitus with unspecified complications; Z79.4 - skilled nursing (current) use of insulin; Z79.4 - manager video games (current) use of insulin; Z79.4 - skilled nursing (current) use of insulin; Z79.4 - manager video games (current) use of insulin Is this a current diagnosis for this admission?: Yes Plan: Continue home medications, and start SSI ACHS diabetic diet. (5) Alcohol dependency Qualifiers: Substance use status: unspecified alcohol-induced disorder Qualified Code(s ): F10.29 - Alcohol dependence with unspecified alcohol-induced disorder Is this a current diagnosis for this admission?: Yes Plan: Alcohol hx with chronic pancreatitis. denies recent alcohol. Continue multivitamin/folate/thiamine (6) Loose stools Is this a current diagnosis for this admission?: Yes Plan: monitor, starting Bacid. if significant, will check C Diff. (7) Tobacco abuse Is this a current diagnosis for this admission?: Yes Plan: will give nicotine patch counseled on quitting smoking.
[2017-07-19] MEDS: INSULIN DETEMIR 100 UNIT/ML 3 ML PEN SUBCUT SCH (21:52)
[2017-07-19] MEDS: VANCOMYCIN HCL 1,250 MG in DEXTROSE 5%-WATER 250 ML IV SCH (21:53)
[2017-07-20] MEDS: KETOROLAC TROMETHAMINE INJ/PF 30 MG/1 ML SDV IV PRN (00:31)
[2017-07-20] MEDS: MORPHINE SULFATE 10 MG/ML INJ IV PRN ×5 (00:59→20:35)
[2017-07-20] MEDS: PIPERACILLIN SODIUM/TAZOBACTAM 3.375 GM in NORMAL SALINE 100 ML IV SCH ×4 (02:15→20:34)
[2017-07-20 05:17] LABS: HEMATOCRIT 25.6 % (36.0-47.0); MEAN CORPUSCULAR HEMOGLOBIN 25.4 pg (27.0-33.4); MEAN CORPUSCULAR HGB CONC 31.2 g/dL (32.0-36.0); MEAN CORPUSCULAR VOLUME 82 fl (80-97); PLATELET COUNT 195 10^3/uL (150-450); RED BLOOD COUNT 3.14 10^6/uL (3.72-5.28); RED CELL DISTRIBUTION WIDTH 25.3 % (11.5-14.0); WHITE BLOOD COUNT 10.2 10^3/uL (4.0-10.5)
[2017-07-20] MEDS: GABAPENTIN 300 MG CAPSULE PO SCH ×3 (05:20→21:37)
[2017-07-20] MEDS: NORMAL SALINE INJ/PF 0.9% 10 ML SDV IV SCH ×3 (05:20→21:38)
[2017-07-20 05:56] LABS: BLOOD UREA NITROGEN 12 mg/dL (7-20); CALCIUM 7.9 mg/dL (8.4-10.2); GLUCOSE 126 mg/dL (75-110); PHOSPHORUS 3.8 mg/dL (2.5-4.5); POTASSIUM 4.6 mmol/L (3.6-5.0)
[2017-07-20 06:02] LABS: ANION GAP 5 (5-19); CARBON DIOXIDE 27 mmol/L (22-30); CHLORIDE 107 mmol/L (98-107); SODIUM 138.6 mmol/L (137-145)
[2017-07-20] MEDS: LIPASE/PROTEASE/AMYLASE 1 CAP CAPSULE.DR PO SCH ×2 (07:47→15:43)
[2017-07-20] MEDS: ASPIRIN 81 MG TABLET, ENT COATED PO SCH (09:13)
[2017-07-20] MEDS: MULTIVITAMIN TABLET PO SCH (09:22)
[2017-07-20] MEDS: THIAMINE HCL 100 MG TABLET PO SCH (09:23)
[2017-07-20] MEDS: FOLIC ACID 1 MG TABLET PO SCH (09:23)
[2017-07-20] MEDS: LEVOFLOXACIN 750 MG/D5W RTU 750 MG/150 ML RTUPB IV SCH (09:23)
[2017-07-20] MEDS: LACTOBACILLUS ACIDOPHILUS 250 MG TAB PO SCH ×2 (09:23→17:03)
[2017-07-20 09:56] LABS: PROTHROMBIN TIME 16.2 SEC (11.4-15.4)
[2017-07-20 09:57] LABS: INTERNATIONAL RATION (INR) 1.22; PARTIAL THROMBOPLASTIN TIME 34.9 SEC (23.5-35.8)
[2017-07-20 10:04] LABS: TOTAL PROTEIN 4.8 g/dL (6.3-8.2)
[2017-07-20] MEDS ORDERED: LIDOCAINE 1% INJ-PF (10 MG/ML) 30 ML SDV ONE (11:47)
--- NOTE | 2017-07-20 12:30 | RADIOLOGY REPORT (SQ) ---
EXAM DESCRIPTION: U/S THORACENTESIS WITH IMAGING COMPLETED DATE/TIME: 07/20/2017 12:14 pm REASON FOR STUDY: large right pleural effusion COMPARISON: None. LIMITATIONS: None. PROCEDURE: Procedure, risks, benefit, and alternative explained to patient who then gave written con sent. The posterior right chest wall was marked using ultrasound guidance. A time-out was called fo r correct marking verification. Chest prepped and draped using sterile technique. Local anesthesia a chieved using 8 ml of 1% lidocaine injection. A 6 fr Safe-T- Centesis set was introduced into the [facility] pleural space. Fluid was aspirated. The catheter was removed and the entry site was covered wit h sterile bandage. No immediate complications noted. Images acquired during the procedure were stored on PACS. FINDINGS: ENTRY SITE: Right posterior chest wall FLUID VOLUME: 1,000 FLUID ANALYSIS: Aubree OTHER: Fluid sent to the lab for testing. IMPRESSION: SUCCESSFUL THORACENTESIS USING ULTRASOUND GUIDANCE. COMMENT: Patient medication list reviewed: Yes- Quality ID# [id number]:Eligible professional attests to doc umenting in the medical record they obtained, updated, or reviewed the patient's current medications. Quality ID #[id number]: Final reports for procedures using fluoroscopy that document radiation exposure abilio ayse, or exposure time and number of fluorographic images (if radiation exposure indices are not avail able) TECHNICAL DOCUMENTATION: JOB ID: [id number] [employer]- All Rights Reserved Reading location - IP/workstation name: [email or web address]
--- NOTE | 2017-07-20 12:40 | RADIOLOGY REPORT (SQ) ---
EXAM DESCRIPTION: CHEST SINGLE VIEW COMPLETED DATE/TIME: 07/20/2017 12:28 pm REASON FOR STUDY: S/P RT THORACENTESIS COMPARISON: 07/18/2017 EXAM PARAMETERS: NUMBER OF VIEWS: One view. TECHNIQUE: Single frontal radiographic view of the chest acquired. RADIATION DOSE: NA LIMITATIONS: None. FINDINGS: LUNGS AND PLEURA: Improved aeration of the lungs with decrease in the right effusion. Sma ll left effusion. No pneumothorax. MEDIASTINUM AND HILAR STRUCTURES: No masses. Contour normal. HEART AND VASCULAR STRUCTURES: Heart enlarged without overt failure. BONES: No acute findings. HARDWARE: Venous access catheter. Tip is at the right atrium. OTHER: No other significant finding. IMPRESSION: Improved aeration with decrease in the right effusion. New venous access catheter tip at the level of the right atrium. No pneumothorax. TECHNICAL DOCUMENTATION: JOB ID: [id number] [employer]- All Rights Reserved Reading location - IP/workstation name: [email or web address]
[2017-07-20 14:16] LABS: FLUID APPEARANCE HAZY; FLUID COLOR AMBER; FLUID SOURCE LUNG; FLUID TYPE PLEURAL; FLUID VISCOSITY SLIGHTLY VISCOUS
[2017-07-20] MEDS: ALBUTEROL SULFATE 0.083% NEB 2.5 MG/3 ML AMPUL NEB PRN (14:30)
--- NOTE | 2017-07-20 14:54 | RADIOLOGY REPORT (SQ) ---
EXAM DESCRIPTION: CHEST SINGLE VIEW COMPLETED DATE/TIME: 07/20/2017 2:30 pm REASON FOR STUDY: 2 HOURS S/P RT THORACENTESIS COMPARISON: 07/20/2017. EXAM PARAMETERS: NUMBER OF VIEWS: One view. TECHNIQUE: Single frontal radiographic view of the chest acquired. RADIATION DOSE: NA LIMITATIONS: None. FINDINGS: LUNGS AND PLEURA: No pneumothorax. Bilateral pleural thickening or effusions. Bibasilar atelectasis. MEDIASTINUM AND HILAR STRUCTURES: No masses. Contour normal. HEART AND VASCULAR STRUCTURES: The heart is normal with normal pulmonary vasculature. BONES: No acute findings. HARDWARE: None in the chest. OTHER: Right IJ line overlying caval atrial junction. IMPRESSION: Bibasilar atelectasis and pleural thickening or effusions. No significant change. TECHNICAL DOCUMENTATION: JOB ID: [id number] 2010 [employer]- All Rights Reserved Reading location - IP/workstation name: [email or web address]
[2017-07-20] MEDS: NICOTINE 14 MG/24 HR PATCH.TD24 TD SCH (17:04)
--- NOTE | 2017-07-20 19:25 | PDOC PROGRESS REPORT ---
Subjective Progress Note for:: 07/20/17 Subjective:: She had 1 L removed with thoracentesis, ultrasound-guided today. Hematuria exam is improved. Still has diminished right lower lung sounds. Now on room air with good O2 saturation. Continue IV antibiotics for pneumonia treatment. Awaiting workup on thoracentesis fluid. She was recently hospitalized for treatment of a pneumonia and received a thoracentesis at that time as well with 850 cc removed and a benign workup of the pleural fluid. Given patient's abdominal pain picture and her known history of pancreatitis, a lipase level was checked and not found to be significantly elevated. Patient however has a history of chronic pancreatitis. Given her abdominal pain will check a CT abdomen pelvis for any signs of necrotic pancreatitis or inflammation. Reason For Visit: RIGHT LOWER LOBE PNA Physical Exam Vital Signs: Temp Pulse Resp BP Pulse Ox 98.6 F 100 18 135/72 H 90 L 07/20/17 15:33 07/20/17 15:33 07/20/17 15:33 07/20/17 15:33 07/20/17 15:33 Intake & Output 07/19/17 07/20/17 07/21/17 06:59 06:59 06:59 Intake Total 2205 2893 966 Output Total 400 0 Balance 2205 2493 966 Weight 86.2 kg 85.6 kg General appearance: PRESENT: no acute distress, cooperative, morbidly obese Head exam: PRESENT: atraumatic, normocephalic Eye exam: PRESENT: EOMI, PERRLA Mouth exam: PRESENT: moist, neck supple Neck exam: PRESENT: full ROM. ABSENT: carotid bruit, JVD Respiratory exam: PRESENT: decreased breath sounds with crackles - On the right lower lung. ABSENT: accessory muscle use, rhonchi, stridor, wheezes Cardiovascular exam: PRESENT: RRR, +S1, +S2 Pulses: PRESENT: normal radial pulses, normal dorsalis pedis pul Vascular exam: PRESENT: normal capillary refill. ABSENT: pallor GI/Abdominal exam: PRESENT: normal bowel sounds. ABSENT: ascites, diminished bowel sounds, mass Extremities exam: ABSENT: calf tenderness, joint swelling Musculoskeletal exam: PRESENT: full ROM. ABSENT: ambulatory Neurological exam: PRESENT: alert, oriented to person, oriented to place, oriented to time, oriented to situation, CN II-XII grossly intact Psychiatric exam: ABSENT: agitated, anxious, manic Focused psych exam: ABSENT: delusional, paranoid Skin exam: ABSENT: abrasion, cyanosis, dry Results Laboratory Results: 07/20/17 04:30 07/20/17 04:30 07/20/17 07/20/17 07/20/17 04:30 04:30 09:30 WBC 10.2 RBC 3.14 L Hgb 8.0 L Hct 25.6 L MCV 82 MCH 25.4 L MCHC 31.2 L RDW 25.3 H Plt Count 195 Sodium 138.6 Potassium 4.6 Chloride 107 Carbon Dioxide 27 Anion Gap 5 BUN 12 Creatinine 0.91 Est GFR ( Amer) > 60 Est GFR (Non-Af Amer) > 60 Glucose 126 H Calcium 7.9 L Phosphorus 3.8 Total Protein 4.8 L Albumin 2.0 L Fluid Type Fluid Source Fluid Color Fluid Appearance Fluid Viscosity Fluid WBC Fluid RBC 07/20/17 12:05 WBC RBC Hgb Hct MCV MCH MCHC RDW Plt Count Sodium Potassium Chloride Carbon Dioxide Anion Gap BUN Creatinine Est GFR ( Amer) Est GFR (Non-Af Amer) Glucose Calcium Phosphorus Total Protein Albumin Fluid Type PLEURAL Fluid Source LUNG Fluid Color MAURA Fluid Appearance HAZY Fluid Viscosity SLIGHTLY VISCOUS Fluid WBC 595 Fluid RBC 2395 Impressions: Renal Ultrasound 07/18/17 13:44 IMPRESSION: NORMAL RENAL AND BLADDER ULTRASOUND. Chest X-Ray 07/20/17 00:00 IMPRESSION: Bibasilar atelectasis and pleural thickening or effusions. No significant change. Thoracentesis Ultrasound 07/20/17 08:46 IMPRESSION: SUCCESSFUL THORACENTESIS USING ULTRASOUND GUIDANCE. Assessment & Plan - Time Time Spent with patient: 15-24 minutes - Inpatient Certification Based on my medical assessment, after consideration of the patient's comorbidities, presenting symptoms, or acuity I expect that the services needed warrant INPATIENT care.: Yes Medical Necessity: Need for IV Antibiotics, Risk of Complication if Not Cared For in Hospital - Plan Summary Plan Summary: (1) Severe sepsis Is this a current diagnosis for this admission?: Yes Plan: Continue HCAP Coverage, due to her recent admission. central line in place. BP improving. (2) Pneumonia Is this a current diagnosis for this admission?: Yes Plan: No culture positive growth on her last hospitalization. blood cultures x2, sputum culture with no growth at present. Continue HCAP coverage: Vancomycin/Levaquin/Zosyn (3) Chronic pancreatitis Is this a current diagnosis for this admission?: Yes Plan: Abdominal pain improving. Describes pain with meal times. Gave IVF, now weaning off, check CT for active pancreatitis, Lipase w/o significant elevation. greasy stooling improved today on Creon. check CT Abd w/ contrast for evaluation of pancreas, rule out active necrosis/ significant inflammation Describes a prior heavy drinking habit of 1 bottle of wine/day. 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 (5) Alcohol dependency Qualifiers: Substance use status: unspecified alcohol-induced disorder Qualified Code(s ): F10.29 - Alcohol dependence with unspecified alcohol-induced disorder Is this a current diagnosis for this admission?: Yes Plan: Alcohol hx with chronic pancreatitis. denies recent alcohol. Continue multivitamin/folate/thiamine (6) Loose stools Is this a current diagnosis for this admission?: Yes Plan: on Bacid. if significant, will check C Diff. (7) Tobacco abuse Is this a current diagnosis for this admission?: Yes Plan: on nicotine patch counseled on quitting smoking. (8) Anemia no clinical signs of bleeding. check iron/folate/B12/ferritin monitor, if Hgb < 7, consider 2 u PRBC transfusion.
--- NOTE | 2017-07-20 20:37 | RADIOLOGY REPORT (SQ) ---
EXAM DESCRIPTION: CT ABD/PELVIS WITH IV ONLY COMPLETED DATE/TIME: 07/20/2017 7:16 pm REASON FOR STUDY: abdominal pain COMPARISON: 09/23/2015 TECHNIQUE: CT scan of the abdomen and pelvis performed using helical scanning technique with dynamic intravenous contrast injection. No oral contrast. Images reviewed with lung, soft tissue, and bone windows. Reconstructed coronal and sagittal MPR images reviewed. Delayed images for evaluation of the urinary system also acquired. All images stored on PACS. All CT scanners at this facility use dose modulation, iterative reconstruction, and/or weight based d osing when appropriate to reduce radiation dose to as low as reasonably achievable (ALARA). [facility]: Dose Right [facility]: CareDose [facility]: Dose Right [facility]: Teradose 4D [facility]: Ahandyhand CONTRAST TYPE AND DOSE: contrast/concentration: Isovue 370.00 mg/ml; Total Contrast Delivered: 92.0 ml; Total Saline Delivered: 70.1 ml RENAL FUNCTION: BUN 12; creatinine 0.91 RADIATION DOSE: CT Rad equipment meets quality standard of care and radiation dose reduction techniq ues were employed. CTDIvol: 17.8 - 20.6 mGy. DLP: 3006 mGy-cm.. LIMITATIONS: None. FINDINGS: LOWER CHEST: Bilateral pleural effusions are present. This results in compressive atelect asis of the dependent lungs. Superimposed infectious etiology is not excluded. LIVER: Normal size, demonstrating heterogeneous attenuation without focal mass. SPLEEN: Normal size. No focal lesions. PANCREAS: No masses. No significant calcifications. No adjacent inflammation or peripancreatic fluid collections. Pancreatic duct not dilated. GALLBLADDER: Largely decompressed, noting a somewhat hyperemic appearing wall. No identified stones by CT criteria. No inflammatory changes to suggest cholecystitis. ADRENAL GLANDS: No significant masses or asymmetry. RIGHT KIDNEY AND URETER: No solid masses. No significant calcifications. No hydronephrosis or hyd roureter. LEFT KIDNEY AND URETER: No solid masses. No significant calcifications. No hydronephrosis or hydr oureter. AORTA AND VESSELS: No aneurysm. No dissection. Renal arteries, SMA, celiac without stenosis. RETROPERITONEUM: No retroperitoneal adenopathy, hemorrhage or masses. BOWEL AND PERITONEAL CAVITY: Trace mesenteric fat stranding seen in the region of the duodenum and pa ncreas is of uncertain etiology or significance. Gastric bypass surgical changes are present. There is no evidence of anastomotic leak. APPENDIX: Normal. PELVIS: No mass. No free fluid. Normal bladder. ABDOMINAL WALL: No masses. No hernias. BONES: No significant or acute findings. OTHER: No other significant finding. IMPRESSION: 1. Heterogeneous attenuation of the liver is nonspecific. Differential considerations include acute versus chronic hepatitis, a somewhat atypical appearance of hepatic steatosis, or other infiltrative process. 2. Central mesenteric fat stranding in the region of the christa hepatis, duodenum, and pancreas may b e related to above liver findings versus a developing pancreatitis TECHNICAL DOCUMENTATION: JOB ID: [id number] Quality ID # [id number]: Final reports with documentation of one or more dose reduction techniques (e.g., Au tomated exposure control, adjustment of the mA and/or kV according to patient size, use of iterative reconstruction technique) 2010 [employer]- All Rights Reserved Reading location - IP/workstation name: [email or web address]
[2017-07-20] MEDS: VANCOMYCIN HCL 1,250 MG in DEXTROSE 5%-WATER 250 ML IV SCH (21:37)
[2017-07-21] MEDS: MORPHINE SULFATE 10 MG/ML INJ IV PRN ×5 (01:03→20:29)
[2017-07-21] MEDS: INSULIN DETEMIR 100 UNIT/ML 3 ML PEN SUBCUT SCH (01:04)
[2017-07-21] MEDS: PIPERACILLIN SODIUM/TAZOBACTAM 3.375 GM in NORMAL SALINE 100 ML IV SCH ×4 (03:15→20:28)
[2017-07-21] MEDS: GABAPENTIN 300 MG CAPSULE PO SCH ×3 (06:08→21:31)
[2017-07-21] MEDS: NORMAL SALINE INJ/PF 0.9% 10 ML SDV IV SCH ×3 (06:09→21:31)
[2017-07-21 07:14] LABS: HEMATOCRIT 27.5 % (36.0-47.0); HEMOGLOBIN 8.4 g/dL (12.0-15.5); MEAN CORPUSCULAR HEMOGLOBIN 25.4 pg (27.0-33.4); MEAN CORPUSCULAR HGB CONC 30.5 g/dL (32.0-36.0); MEAN CORPUSCULAR VOLUME 83 fl (80-97); PLATELET COUNT 230 10^3/uL (150-450); RED BLOOD COUNT 3.32 10^6/uL (3.72-5.28); RED CELL DISTRIBUTION WIDTH 25.1 % (11.5-14.0); WHITE BLOOD COUNT 9.8 10^3/uL (4.0-10.5)
[2017-07-21 07:32] LABS: ANION GAP 5 (5-19); BLOOD UREA NITROGEN 7 mg/dL (7-20); CALCIUM 8.2 mg/dL (8.4-10.2); CARBON DIOXIDE 26 mmol/L (22-30); CHLORIDE 107 mmol/L (98-107); GLUCOSE 119 mg/dL (75-110); IRON 45.7 ug/dL (37-170); PHOSPHORUS 3.1 mg/dL (2.5-4.5); POTASSIUM 4.5 mmol/L (3.6-5.0); SODIUM 138.2 mmol/L (137-145)
[2017-07-21] MEDS: LIPASE/PROTEASE/AMYLASE 1 CAP CAPSULE.DR PO SCH ×2 (08:05→16:14)
[2017-07-21] MEDS: FOLIC ACID 1 MG TABLET PO SCH (09:24)
[2017-07-21] MEDS: LEVOFLOXACIN 750 MG/D5W RTU 750 MG/150 ML RTUPB IV SCH (09:24)
[2017-07-21] MEDS: MULTIVITAMIN TABLET PO SCH (09:24)
[2017-07-21] MEDS: THIAMINE HCL 100 MG TABLET PO SCH (09:25)
[2017-07-21] MEDS: LACTOBACILLUS ACIDOPHILUS 250 MG TAB PO SCH ×2 (09:25→17:25)
[2017-07-21] MEDS: ASPIRIN 81 MG TABLET, ENT COATED PO SCH (09:25)
[2017-07-21] MEDS: VANCOMYCIN HCL 1,000 MG in DEXTROSE 5%-WATER 250 ML IV SCH (10:57)
[2017-07-21] MEDS ORDERED: LORAZEPAM 0.5 MG TABLET PO PRN (13:18)
--- NOTE | 2017-07-21 13:41 | PDOC PROGRESS REPORT ---
Subjective Progress Note for:: 07/21/17 Subjective:: Doing better today, particularly improved is breathing following thoracentesis. Still not at baseline however thinks is better. Abdominal improved compared to yesterday. Admits to increased back pain today and was using up to 12 tylenols at home daily. More anxiety/stress due to current illness and care of children. PO intake has been OK. Ambulatory. Reason For Visit: RIGHT LOWER LOBE PNA Physical Exam Vital Signs: Temp Pulse Resp BP Pulse Ox 98.4 F 99 18 135/67 H 97 07/21/17 11:21 07/21/17 11:21 07/21/17 11:21 07/21/17 11:21 07/21/17 11:21 Intake & Output 07/20/17 07/21/17 07/22/17 06:59 06:59 06:59 Intake Total 2893 2066 473 Output Total 400 600 300 Balance 2493 1466 173 Weight 85.6 kg 87.6 kg General appearance: PRESENT: no acute distress, obese, other - Pleasant Mouth exam: PRESENT: moist Respiratory exam: PRESENT: decreased breath sounds - At lung bases, unlabored. ABSENT: tachypnea Cardiovascular exam: PRESENT: +S1, +S2, other. ABSENT: tachycardia GI/Abdominal exam: PRESENT: soft. ABSENT: tenderness Neurological exam: PRESENT: alert, awake, CN II-XII grossly intact, aphasic Psychiatric exam: PRESENT: anxious - At times, normal mood Results Laboratory Results: 07/21/17 06:20 07/21/17 06:20 07/20/17 07/21/17 07/21/17 12:05 06:20 06:20 WBC 9.8 RBC 3.32 L Hgb 8.4 L Hct 27.5 L MCV 83 MCH 25.4 L MCHC 30.5 L RDW 25.1 H Plt Count 230 Sodium 138.2 Potassium 4.5 Chloride 107 Carbon Dioxide 26 Anion Gap 5 BUN 7 Creatinine 0.76 Est GFR ( Amer) > 60 Est GFR (Non-Af Amer) > 60 Glucose 119 H Calcium 8.2 L Phosphorus 3.1 Iron 45.7 Ferritin 35.00 Albumin 2.0 L Vitamin B12 > 1000.0 H Folate 15.10 Fluid Type PLEURAL Fluid Source LUNG Fluid Color MAURA Fluid Appearance HAZY Fluid Viscosity SLIGHTLY VISCOUS Fluid WBC 595 Fluid RBC 2395 Impressions: Renal Ultrasound 07/18/17 13:44 IMPRESSION: NORMAL RENAL AND BLADDER ULTRASOUND. Abdomen/Pelvis CT 07/20/17 00:00 IMPRESSION: 1. Heterogeneous attenuation of the liver is nonspecific. Differential considerations include acute versus chronic hepatitis, a somewhat atypical appearance of hepatic steatosis, or other infiltrative process. 2. Central mesenteric fat stranding in the region of the christa hepatis, duodenum, and pancreas may be related to above liver findings versus a developing pancreatitis Chest X-Ray 07/20/17 00:00 IMPRESSION: Bibasilar atelectasis and pleural thickening or effusions. No significant change. Thoracentesis Ultrasound 07/20/17 08:46 IMPRESSION: SUCCESSFUL THORACENTESIS USING ULTRASOUND GUIDANCE. Assessment & Plan - Diagnosis (1) Pneumonia Is this a current diagnosis for this admission?: Yes Plan: Treatment for HCAP, improving - blood cultures x2, sputum culture with no growth to date - Continue current IV antibiotic regimen (Vancomycin/Levaquin/Zosyn) for 1 additional day --> transition to PO on 07/22 - Respiratory status improved, wean down O2 as tolerated (2) Chronic pancreatitis Is this a current diagnosis for this admission?: Yes Plan: History of pancreatitis due to EtOH use, denies chronic pancreatitis - Noted to have increased abdominal pain on 07/20, CT AP showed central meseteric fat stranding which may be consistent with early sign of pancreatitis - Continue IVF and pain control PRN; if pain returns would suggest NPO and full bowel rest - Continue Creon - Congratulated from refraining from EtOH use (3) Pleural effusion Is this a current diagnosis for this admission?: Yes Plan: S/P 1L fluid removal via US guided thoracentesis with improvement in respiratory exam and symptoms. Interstingly this is the 2nd thora for patient in the past month. Per report, pleural fluid analysis was negative for malignancy and reported as "benign". - Will follow up pleural fluid results, LDH and cytology pending - Most likely due to PNA - Per patient does not have cardiac history, would consider TTE to assess for cardiac etiology if not improvement/recurrent. (4) Anasarca Is this a current diagnosis for this admission?: Yes Plan: Albumin 2 which is extremely low for a 46 year old female however likely chronic and multifactorial. Need to determine underlying etiology. Should be trended following resolution of acute illness - Time Time Spent with patient: 15-24 minutes Anticipated discharge: Home Within: within 24 hours, within 48 hours
[2017-07-21] MEDS: NICOTINE 14 MG/24 HR PATCH.TD24 TD SCH (14:07)
[2017-07-21] MEDS ORDERED: TRAZODONE HCL 50 MG TABLET PO ONE (14:30)
[2017-07-22] MEDS: VANCOMYCIN HCL 1,000 MG in DEXTROSE 5%-WATER 250 ML IV SCH ×2 (00:20→10:15)
[2017-07-22] MEDS: INSULIN DETEMIR 100 UNIT/ML 3 ML PEN SUBCUT SCH ×2 (00:21→21:36)
[2017-07-22] MEDS: OXYCODONE-ACETAMINOPHEN 5-325 MG TABLET PO PRN ×4 (00:21→21:49)
[2017-07-22] MEDS: PIPERACILLIN SODIUM/TAZOBACTAM 3.375 GM in NORMAL SALINE 100 ML IV SCH ×2 (04:37→08:17)
[2017-07-22] MEDS: GABAPENTIN 300 MG CAPSULE PO SCH ×3 (05:34→21:34)
[2017-07-22] MEDS: NORMAL SALINE INJ/PF 0.9% 10 ML SDV IV SCH ×3 (05:35→21:34)
[2017-07-22] MEDS: LIPASE/PROTEASE/AMYLASE 1 CAP CAPSULE.DR PO SCH ×2 (07:45→16:04)
[2017-07-22] MEDS: NICOTINE 14 MG/24 HR PATCH.TD24 TD SCH (10:14)
[2017-07-22] MEDS: THIAMINE HCL 100 MG TABLET PO SCH (10:14)
[2017-07-22] MEDS: MULTIVITAMIN TABLET PO SCH (10:14)
[2017-07-22] MEDS: ASPIRIN 81 MG TABLET, ENT COATED PO SCH (10:14)
[2017-07-22] MEDS: LACTOBACILLUS ACIDOPHILUS 250 MG TAB PO SCH ×2 (10:14→17:19)
[2017-07-22] MEDS: FOLIC ACID 1 MG TABLET PO SCH (10:14)
[2017-07-22] MEDS: LEVOFLOXACIN 750 MG/D5W RTU 750 MG/150 ML RTUPB IV SCH (10:15)
[2017-07-22] MEDS ORDERED: FUROSEMIDE INJ/PF 40 MG/4 ML SDV IV SCH (12:45)
[2017-07-22] MEDS ORDERED: FUROSEMIDE INJ/PF 100 MG/10 ML SDV IV ONE (13:15)
[2017-07-22] MEDS: AMITRIPTYLINE HCL 25 MG TABLET PO SCH (17:20)
--- NOTE | 2017-07-22 18:32 | PDOC PROGRESS REPORT ---
Subjective Progress Note for:: 07/22/17 Subjective:: Patient refers that feels better however her legs are swollen. She states that she had been doing well after she was recently discharged. She brought all the medications that were prescribed to her. Review of system All organ systems evaluated and negative except as in subjective All significant laboratories and diagnostics have been reviewed Reason For Visit: RIGHT LOWER LOBE PNA Physical Exam Vital Signs: Temp Pulse Resp BP Pulse Ox 98.9 F 85 16 97/82 L 95 07/22/17 15:15 07/22/17 15:15 07/22/17 15:15 07/22/17 15:15 07/22/17 15:15 Intake & Output 07/21/17 07/22/17 07/23/17 06:59 06:59 06:59 Intake Total 2066 2805 1100 Output Total 600 300 Balance 1466 2505 1100 Weight 87.6 kg 98.1 kg General appearance: PRESENT: cooperative, morbidly obese Head exam: PRESENT: atraumatic, normocephalic Eye exam: PRESENT: conjunctiva pink, EOMI, PERRLA Ear exam: PRESENT: normal external ear exam Neck exam: PRESENT: full ROM. ABSENT: JVD, lymphadenopathy, tenderness Respiratory exam: PRESENT: decreased breath sounds - Movement of air is decreased right-sided. Cardiovascular exam: PRESENT: RRR. ABSENT: diastolic murmur, systolic murmur Vascular exam: PRESENT: normal capillary refill GI/Abdominal exam: PRESENT: normal bowel sounds, soft. ABSENT: tenderness Extremities exam: PRESENT: full ROM, other - 3+ pitting edema Musculoskeletal exam: PRESENT: ambulatory Neurological exam: PRESENT: alert, awake, oriented to person, oriented to place , oriented to time, oriented to situation, CN II-XII grossly intact Psychiatric exam: PRESENT: appropriate affect, normal mood Skin exam: PRESENT: intact, normal color Results Laboratory Results: 07/21/17 06:20 07/21/17 06:20 07/20/17 07/20/17 12:05 12:05 Fluid Total Protein 3.3 Fluid LDH 393 Impressions: Renal Ultrasound 07/18/17 13:44 IMPRESSION: NORMAL RENAL AND BLADDER ULTRASOUND. Abdomen/Pelvis CT 07/20/17 00:00 IMPRESSION: 1. Heterogeneous attenuation of the liver is nonspecific. Differential considerations include acute versus chronic hepatitis, a somewhat atypical appearance of hepatic steatosis, or other infiltrative process. 2. Central mesenteric fat stranding in the region of the christa hepatis, duodenum, and pancreas may be related to above liver findings versus a developing pancreatitis Chest X-Ray 07/20/17 00:00 IMPRESSION: Bibasilar atelectasis and pleural thickening or effusions. No significant change. Thoracentesis Ultrasound 07/20/17 08:46 IMPRESSION: SUCCESSFUL THORACENTESIS USING ULTRASOUND GUIDANCE. Assessment & Plan - Diagnosis (1) Acute renal failure (ARF) Qualifiers: Acute renal failure type: unspecified Qualified Code(s): N17.9 - Acute kidney failure, unspecified Is this a current diagnosis for this admission?: Yes Plan: Improved (2) Chronic pancreatitis Is this a current diagnosis for this admission?: Yes Plan: Improved (3) Pleural effusion Is this a current diagnosis for this admission?: Yes Plan: Will discontinue antibiotic since transudative. I am still concerned about the possibility of cirrhosis and dealing with hepatopulmonary syndrome. 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 Repeat chest x-ray - Time Time Spent with patient: 15-24 minutes Anticipated discharge: Home Within: within 72 hours - Inpatient Certification Based on my medical assessment, after consideration of the patient's comorbidities, presenting symptoms, or acuity I expect that the services needed warrant INPATIENT care.: Yes I certify that my determination is in accordance with my understanding of Medicare's requirements for reasonable and necessary INPATIENT services [42 CFR 412.3e].: Yes Medical Necessity: Need Close Monitoring Due to Risk of Patient Decompensation, Need For Continuous Telemetry Monitoring
--- NOTE | 2017-07-22 18:47 | RADIOLOGY REPORT (SQ) ---
EXAM DESCRIPTION: CHEST 2 VIEWS COMPLETED DATE/TIME: 07/22/2017 6:36 pm REASON FOR STUDY: follow up pleural effusions COMPARISON: 07/20/2017 EXAM PARAMETERS: NUMBER OF VIEWS: two views TECHNIQUE: Digital Frontal and Lateral radiographic views of the chest acquired. RADIATION DOSE: NA LIMITATIONS: none FINDINGS: LUNGS AND PLEURA: Marked increase in the right pleural effusion. MEDIASTINUM AND HILAR STRUCTURES: No masses or contour abnormalities. HEART AND VASCULAR STRUCTURES: Heart size is borderline. There is no josafat CHF. BONES: No acute findings. HARDWARE: Catheter remains in place on the right. OTHER: No other significant finding. IMPRESSION: Increasing right pleural effusion. Cardiomegaly without josafat CHF. TECHNICAL DOCUMENTATION: JOB ID: [id number] [employer]- All Rights Reserved Reading location - IP/workstation name: [email or web address]
[2017-07-22] MEDS: FUROSEMIDE INJ/PF 100 MG/10 ML SDV IV SCH (21:35)
[2017-07-22] MEDS ORDERED: TRAZODONE HCL 50 MG TABLET PO SCH (22:00)
[2017-07-23] MEDS: NORMAL SALINE INJ/PF 0.9% 10 ML SDV IV SCH ×3 (05:26→21:11)
[2017-07-23] MEDS: GABAPENTIN 300 MG CAPSULE PO SCH ×3 (05:26→21:11)
[2017-07-23] MEDS: OXYCODONE-ACETAMINOPHEN 5-325 MG TABLET PO PRN ×3 (05:28→23:49)
[2017-07-23] MEDS: LIPASE/PROTEASE/AMYLASE 1 CAP CAPSULE.DR PO SCH ×2 (08:43→17:00)
[2017-07-23] MEDS: LISINOPRIL 10 MG TABLET PO SCH (10:27)
[2017-07-23] MEDS: ASPIRIN 81 MG TABLET, ENT COATED PO SCH (10:27)
[2017-07-23] MEDS: FOLIC ACID 1 MG TABLET PO SCH (10:27)
[2017-07-23] MEDS: LACTOBACILLUS ACIDOPHILUS 250 MG TAB PO SCH ×2 (10:27→17:00)
[2017-07-23] MEDS: NICOTINE 14 MG/24 HR PATCH.TD24 TD SCH (10:28)
[2017-07-23] MEDS: MULTIVITAMIN TABLET PO SCH (10:28)
[2017-07-23] MEDS: THIAMINE HCL 100 MG TABLET PO SCH (10:28)
[2017-07-23] MEDS: FUROSEMIDE INJ/PF 100 MG/10 ML SDV IV SCH ×2 (10:30→21:11)
--- NOTE | 2017-07-23 10:31 | RADIOLOGY REPORT (SQ) ---
EXAM DESCRIPTION: MRI ABDOMEN WITHOUT COMPLETED DATE/TIME: 07/22/2017 7:32 pm REASON FOR STUDY: eval for cirrhosis COMPARISON: CT abdomen pelvis 07/20/2017 Abdominal ultrasound 07/08/2017 CT chest 07/01/2017, CTA abdomen and pelvis 07/01/2017 TECHNIQUE: Non contrasted MRA of the abdomen was performed, including axial and coronal T2, axial an d coronal star, axial T1 in and out of phase images. LIMITATIONS: None. FINDINGS: GALLBLADDER: No stones INTRAHEPATIC DUCTS: Nondilated. EXTRAHEPATIC DUCTS: Find PANCREAS: Generally homogeneous, no gross mass or significant signal alteration. No surrounding infl ammatory changes or fluid. Pancreatic duct is normal. LIVER: Diffusely enlarged, 24 cm in greatest length. There is profound fatty infiltration throughou t the liver parenchyma most pronounced in the right lobe liver. This correlates with diffuse decreas ed attenuation throughout the liver on CT exams 07/20/2017. There is flow signal in the main portal v ein and hepatic vein and splenic vein. No focal liver masses. SPLEEN: Not enlarged. No masses. KIDNEYS: Normal size. No hydronephrosis or cysts or masses. ADRENALS: No significant abnormality. GI TRACT: Patient is post gastric bypass with a small fundal pouch. Small hiatal hernia. VESSELS: No evidence of aneurysm. Grossly appropriate flow voids in the major vascular structures. LUNG BASES: Moderate right, small left pleural effusion. OTHER: At the bottom edge of the field of view, a 2.2 cm cyst is present in the left ovary. IMPRESSION: Hepatomegaly with profound diffuse fatty infiltration of the liver Moderate right, small left pleural effusions TECHNICAL DOCUMENTATION: JOB ID: [id number] [employer]- All Rights Reserved Reading location - IP/workstation name: [email or web address]
[2017-07-23 14:10] LABS: INTERNATIONAL RATION (INR) 1.07; PROTHROMBIN TIME 14.6 SEC (11.4-15.4)
[2017-07-23] MEDS: AMITRIPTYLINE HCL 25 MG TABLET PO SCH (17:00)
[2017-07-23] MEDS: ALBUTEROL SULFATE 0.083% NEB 2.5 MG/3 ML AMPUL NEB PRN (17:11)
[2017-07-23] MEDS: INSULIN DETEMIR 100 UNIT/ML 3 ML PEN SUBCUT SCH (23:42)
--- NOTE | 2017-07-24 03:09 | PDOC PROGRESS REPORT ---
Subjective Progress Note for:: 07/23/17 Subjective:: Patient refers that her legs are still swollen denies shortness of breath Review of system All organ systems evaluated and negative except as in subjective All significant laboratories and diagnostics have been reviewed Reason For Visit: RIGHT LOWER LOBE PNA Physical Exam Vital Signs: Temp Pulse Resp BP Pulse Ox 98.4 F 70 16 98/50 L 95 07/23/17 03:33 07/23/17 03:33 07/23/17 03:33 07/23/17 03:33 07/23/17 03:33 Intake & Output 07/21/17 07/22/17 07/23/17 06:59 06:59 06:59 Intake Total 2066 2805 2202 Output Total 600 300 Balance 1466 2505 2202 Weight 87.6 kg 98.1 kg 96.6 kg General appearance: PRESENT: cooperative, morbidly obese Head exam: PRESENT: atraumatic, normocephalic Eye exam: PRESENT: conjunctiva pink, EOMI, PERRLA Mouth exam: PRESENT: moist Neck exam: PRESENT: full ROM. ABSENT: JVD, lymphadenopathy, tenderness Respiratory exam: PRESENT: decreased breath sounds - right sided Cardiovascular exam: PRESENT: RRR, systolic murmur. ABSENT: diastolic murmur Vascular exam: PRESENT: normal capillary refill GI/Abdominal exam: PRESENT: normal bowel sounds, soft. ABSENT: tenderness Extremities exam: PRESENT: full ROM Musculoskeletal exam: PRESENT: ambulatory - 3+ pitting edema Neurological exam: PRESENT: alert, awake, oriented to person, oriented to place , oriented to time, oriented to situation, CN II-XII grossly intact Psychiatric exam: PRESENT: appropriate affect, normal mood Skin exam: PRESENT: intact, normal color Results Laboratory Results: 07/21/17 06:20 07/21/17 06:20 07/20/17 07/20/17 12:05 12:05 Fluid Total Protein 3.3 Fluid LDH 393 Impressions: Renal Ultrasound 07/18/17 13:44 IMPRESSION: NORMAL RENAL AND BLADDER ULTRASOUND. Abdomen/Pelvis CT 07/20/17 00:00 IMPRESSION: 1. Heterogeneous attenuation of the liver is nonspecific. Differential considerations include acute versus chronic hepatitis, a somewhat atypical appearance of hepatic steatosis, or other infiltrative process. 2. Central mesenteric fat stranding in the region of the christa hepatis, duodenum, and pancreas may be related to above liver findings versus a developing pancreatitis Thoracentesis Ultrasound 07/20/17 08:46 IMPRESSION: SUCCESSFUL THORACENTESIS USING ULTRASOUND GUIDANCE. Chest X-Ray 07/22/17 00:00 IMPRESSION: Increasing right pleural effusion. Cardiomegaly without josafat CHF. Assessment & Plan - Diagnosis (1) Acute renal failure (ARF) Qualifiers: Acute renal failure type: unspecified Qualified Code(s): N17.9 - Acute kidney failure, unspecified Is this a current diagnosis for this admission?: Yes Plan: Improved (2) Chronic pancreatitis Is this a current diagnosis for this admission?: Yes Plan: Improved (3) Pleural effusion Is this a current diagnosis for this admission?: Yes Plan: Recurrent. Other another thoracentesis. MRI of abdomen noted. Will discuss with GI at tertiary center since may have to do with gastric bypass procedure (4) Acute respiratory failure Qualifiers: Respiratory failure complication: hypoxia Qualified Code(s): J96.01 - Acute respiratory failure with hypoxia Is this a current diagnosis for this admission?: Yes Plan: Improved (5) Anemia Qualifiers: Anemia type: iron deficiency Iron deficiency anemia type: unspecified iron deficiency Qualified Code(s): D50.9 - Iron deficiency anemia, unspecified Is this a current diagnosis for this admission?: Yes Plan: Stable (6) Diabetes mellitus Qualifiers: Diabetes mellitus type: type 2 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: with senior living 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 Diabetes mellitus complication status: with unspecified complications Qualified Code(s): E11.8 - Type 2 diabetes mellitus with unspecified complications; Z79.4 - [facility] (current) use of insulin; Z79.4 - intermodal customer service (current) use of insulin; Z79.4 - intermodal customer service (current) use of insulin; Z79.4 - [facility] (current) use of insulin Is this a current diagnosis for this admission?: Yes Plan: Continue current management (7) Pulmonary hypertension Is this a current diagnosis for this admission?: Yes Plan: Continue lasix IV - Time Time Spent with patient: 15-24 minutes Medications reviewed and adjusted accordingly: Yes Anticipated discharge: Home Within: within 48 hours - Inpatient Certification Based on my medical assessment, after consideration of the patient's comorbidities, presenting symptoms, or acuity I expect that the services needed warrant INPATIENT care.: Yes I certify that my determination is in accordance with my understanding of Medicare's requirements for reasonable and necessary INPATIENT services [42 CFR 412.3e].: Yes Medical Necessity: Need Close Monitoring Due to Risk of Patient Decompensation, Need For Continuous Telemetry Monitoring
[2017-07-24 03:40] LABS: ABSOLUTE BASOPHILS # (AUTO) 0.1 10^3/uL (0.0-0.2); ABSOLUTE EOSINOPHILS # (AUTO) 0.1 10^3/uL (0.0-0.6); ABSOLUTE LYMPHOCYTES (AUTO) 2.1 10^3/uL (0.5-4.7); ABSOLUTE MONOCYTES (AUTO) 0.8 10^3/uL (0.1-1.4); ABSOLUTE NEUT (AUTO) 7.2 10^3/uL (1.7-8.2); BASOPHILS % (AUTO) 0.8 % (0-2); EOSINOPHILS % (AUTO) 1.1 % (0-6); HEMATOCRIT 26.4 % (36.0-47.0); HEMOGLOBIN 8.4 g/dL (12.0-15.5); LYMPHOCYTES % (AUTO) 20.2 % (13-45); MEAN CORPUSCULAR HEMOGLOBIN 25.8 pg (27.0-33.4); MEAN CORPUSCULAR HGB CONC 31.9 g/dL (32.0-36.0); MEAN CORPUSCULAR VOLUME 81 fl (80-97); MONOCYTES % (AUTO) 7.9 % (3-13); PLATELET COUNT 307 10^3/uL (150-450); RED BLOOD COUNT 3.25 10^6/uL (3.72-5.28); RED CELL DISTRIBUTION WIDTH 24.7 % (11.5-14.0); TOTAL CELLS COUNTED % (AUTO) 100 %; WHITE BLOOD COUNT 10.2 10^3/uL (4.0-10.5)
[2017-07-24 03:50] LABS: ALANINE AMINOTRANSFERASE 27 U/L (9-52); ALKALINE PHOSPHATASE 230 U/L (38-126); ASPARTATE AMINO TRANSFERASE 36 U/L (14-36); BILIRUBIN,DIRECT 0.1 mg/dL (0.0-0.4); BILIRUBIN,TOTAL 0.2 mg/dL (0.2-1.3); BLOOD UREA NITROGEN 6 mg/dL (7-20); CALCIUM 8.2 mg/dL (8.4-10.2); GLUCOSE 86 mg/dL (75-110); POTASSIUM 3.9 mmol/L (3.6-5.0); TOTAL PROTEIN 5.3 g/dL (6.3-8.2)
[2017-07-24 03:56] LABS: CARBON DIOXIDE 29 mmol/L (22-30)
[2017-07-24 04:01] LABS: POLYCHROMASIA SLIGHT
[2017-07-24 04:02] LABS: ANISOCYTOSIS 3+; HYPOCHROMASIA 1+; PLATELET COMMENT ADEQUATE; POIKILOCYTOSIS SLIGHT; STOMATOCYTES SLIGHT; TARGET CELLS SLIGHT
[2017-07-24 04:05] LABS: ANION GAP 6 (5-19); CHLORIDE 106 mmol/L (98-107); SODIUM 140.8 mmol/L (137-145)
[2017-07-24] MEDS: NORMAL SALINE INJ/PF 0.9% 10 ML SDV IV SCH ×3 (05:18→21:53)
[2017-07-24] MEDS: GABAPENTIN 300 MG CAPSULE PO SCH ×3 (05:18→21:53)
[2017-07-24] MEDS: LIPASE/PROTEASE/AMYLASE 1 CAP CAPSULE.DR PO SCH ×2 (07:42→18:18)
[2017-07-24] MEDS: ASPIRIN 81 MG TABLET, ENT COATED PO SCH (09:11)
[2017-07-24] MEDS: LACTOBACILLUS ACIDOPHILUS 250 MG TAB PO SCH ×2 (09:16→18:17)
[2017-07-24] MEDS: FUROSEMIDE INJ/PF 100 MG/10 ML SDV IV SCH (09:17)
[2017-07-24] MEDS: THIAMINE HCL 100 MG TABLET PO SCH (09:17)
[2017-07-24] MEDS: LISINOPRIL 10 MG TABLET PO SCH (09:17)
[2017-07-24] MEDS: FOLIC ACID 1 MG TABLET PO SCH (09:17)
[2017-07-24] MEDS: MULTIVITAMIN TABLET PO SCH (09:17)
[2017-07-24] MEDS: NICOTINE 14 MG/24 HR PATCH.TD24 TD SCH (09:17)
[2017-07-24] MEDS: ONDANSETRON HCL INJ/PF 4 MG/2 ML SDV IV PRN ×2 (09:22→18:44)
[2017-07-24] MEDS: OXYCODONE-ACETAMINOPHEN 5-325 MG TABLET PO PRN ×2 (11:13→18:22)
[2017-07-24] MEDS ORDERED: LIDOCAINE 1% INJ-PF (10 MG/ML) 30 ML SDV ONE (13:31)
[2017-07-24] MEDS ORDERED: NORMAL SALINE 1000 ML 1,000 ML IV ONE (15:00)
--- NOTE | 2017-07-24 17:39 | PDOC PROGRESS REPORT ---
Subjective Progress Note for:: 07/24/17 Subjective:: Patient refers that the swelling of her legs is better. Denies shortness of breath Review of system All organ systems evaluated and negative except as in subjective All significant laboratories and diagnostics have been reviewed Reason For Visit: RIGHT LOWER LOBE PNA Physical Exam Vital Signs: Temp Pulse Resp BP Pulse Ox 98.4 F 97 21 H 120/65 96 07/24/17 16:04 07/24/17 16:04 07/24/17 16:04 07/24/17 16:04 07/24/17 16:04 Intake & Output 07/23/17 07/24/17 07/25/17 06:59 06:59 06:59 Intake Total 2202 1764 100 Balance 2202 1764 100 Weight 96.6 kg 96.5 kg General appearance: PRESENT: cooperative, obese Head exam: PRESENT: atraumatic, normocephalic Eye exam: PRESENT: conjunctiva pink, EOMI, PERRLA Ear exam: PRESENT: normal external ear exam Mouth exam: PRESENT: moist Neck exam: PRESENT: full ROM. ABSENT: JVD, lymphadenopathy, tenderness Respiratory exam: PRESENT: decreased breath sounds - Decreased breath sounds right-sided. Left side clear to auscultation Cardiovascular exam: PRESENT: RRR. ABSENT: diastolic murmur, systolic murmur GI/Abdominal exam: PRESENT: normal bowel sounds, soft. ABSENT: tenderness Extremities exam: PRESENT: full ROM, +2 edema Musculoskeletal exam: PRESENT: ambulatory Neurological exam: PRESENT: alert, awake, oriented to person, oriented to place , oriented to time, oriented to situation, CN II-XII grossly intact Psychiatric exam: PRESENT: appropriate affect, normal mood Skin exam: PRESENT: normal color Results Laboratory Results: 07/24/17 03:20 07/24/17 03:20 07/24/17 07/24/17 03:20 03:20 WBC 10.2 RBC 3.25 L Hgb 8.4 L Hct 26.4 L MCV 81 MCH 25.8 L MCHC 31.9 L RDW 24.7 H Plt Count 307 Seg Neutrophils % 70.0 Lymphocytes % 20.2 Monocytes % 7.9 Eosinophils % 1.1 Basophils % 0.8 Absolute Neutrophils 7.2 Absolute Lymphocytes 2.1 Absolute Monocytes 0.8 Absolute Eosinophils 0.1 Absolute Basophils 0.1 Sodium 140.8 Potassium 3.9 Chloride 106 Carbon Dioxide 29 Anion Gap 6 BUN 6 L Creatinine 0.61 Est GFR ( Amer) > 60 Est GFR (Non-Af Amer) > 60 Glucose 86 Calcium 8.2 L Total Bilirubin 0.2 AST 36 ALT 27 Alkaline Phosphatase 230 H Total Protein 5.3 L Albumin 2.0 L 07/20/17 12:05 Pleural Fluid - Right Pleural Effusion Gram Stain - Final 07/20/17 12:05 Pleural Fluid - Right Pleural Effusion Body Fluid Culture - Final NO AEROBIC OR ANAEROBIC ORGANISMS RECOVERED 07/18/17 16:17 Blood Blood Culture - Final NO GROWTH IN 5 DAYS 07/18/17 15:35 Blood Blood Culture - Final NO GROWTH IN 5 DAYS Impressions: Renal Ultrasound 07/18/17 13:44 IMPRESSION: NORMAL RENAL AND BLADDER ULTRASOUND. Abdomen/Pelvis CT 07/20/17 00:00 IMPRESSION: 1. Heterogeneous attenuation of the liver is nonspecific. Differential considerations include acute versus chronic hepatitis, a somewhat atypical appearance of hepatic steatosis, or other infiltrative process. 2. Central mesenteric fat stranding in the region of the christa hepatis, duodenum, and pancreas may be related to above liver findings versus a developing pancreatitis Abdomen MRI 07/22/17 00:00 IMPRESSION: Hepatomegaly with profound diffuse fatty infiltration of the liver Moderate right, small left pleural effusions Chest X-Ray 07/22/17 00:00 IMPRESSION: Increasing right pleural effusion. Cardiomegaly without josafat CHF. Assessment & Plan - Diagnosis (1) Acute renal failure (ARF) Qualifiers: Acute renal failure type: unspecified Qualified Code(s): N17.9 - Acute kidney failure, unspecified Is this a current diagnosis for this admission?: Yes Plan: Resolved (2) Chronic pancreatitis Is this a current diagnosis for this admission?: Yes Plan: Improved (3) Pleural effusion Is this a current diagnosis for this admission?: Yes Plan: Recurrent. Thoracentesis aborted because of low blood pressure. Order 1 L normal saline and will hold off diuretic. Concern that these pleural effusion may relate to her old gastric bypass. Will have to follow-up with executive admin for further input (4) Acute respiratory failure Qualifiers: Respiratory failure complication: hypoxia Qualified Code(s): J96.01 - Acute respiratory failure with hypoxia Is this a current diagnosis for this admission?: Yes Plan: Improved (5) Anemia Qualifiers: Anemia type: iron deficiency Iron deficiency anemia type: unspecified iron deficiency Qualified Code(s): D50.9 - Iron deficiency anemia, unspecified Is this a current diagnosis for this admission?: Yes Plan: Stable (6) Diabetes mellitus Qualifiers: Diabetes mellitus type: type 2 Diabetes mellitus longterm insulin use: with buttermaker continuous churn use Diabetes mellitus complication status: with unspecified complications Qualified Code(s): E11.8 - Type 2 diabetes mellitus with unspecified complications; Z79.4 - longterm (current) use of insulin; Z79.4 - longterm (current) use of insulin; Z79.4 - buttermaker continuous churn (current) use of insulin; Z79.4 - buttermaker continuous churn (current) use of insulin Is this a current diagnosis for this admission?: Yes Plan: Continue current management (7) Pulmonary hypertension Is this a current diagnosis for this admission?: Yes Plan: Discontinue Lasix due to hypotension (8) Fatty liver disease, nonalcoholic Is this a current diagnosis for this admission?: Yes Plan: Likely related due to all gastric bypass - Time Time Spent with patient: 15-24 minutes Medications reviewed and adjusted accordingly: Yes Anticipated discharge: Home Within: within 48 hours - Inpatient Certification Based on my medical assessment, after consideration of the patient's comorbidities, presenting symptoms, or acuity I expect that the services needed warrant INPATIENT care.: Yes I certify that my determination is in accordance with my understanding of Medicare's requirements for reasonable and necessary INPATIENT services [42 CFR 412.3e].: Yes Medical Necessity: Need Close Monitoring Due to Risk of Patient Decompensation, Need For Continuous Telemetry Monitoring
[2017-07-24] MEDS: AMITRIPTYLINE HCL 25 MG TABLET PO SCH (18:17)
[2017-07-24] MEDS: INSULIN DETEMIR 100 UNIT/ML 3 ML PEN SUBCUT SCH (21:54)
[2017-07-25] MEDS: OXYCODONE-ACETAMINOPHEN 5-325 MG TABLET PO PRN ×3 (02:07→17:57)
[2017-07-25 04:14] LABS: ABSOLUTE BASOPHILS # (AUTO) 0.1 10^3/uL (0.0-0.2); ABSOLUTE EOSINOPHILS # (AUTO) 0.2 10^3/uL (0.0-0.6); ABSOLUTE LYMPHOCYTES (AUTO) 2.1 10^3/uL (0.5-4.7); ABSOLUTE MONOCYTES (AUTO) 0.7 10^3/uL (0.1-1.4); ABSOLUTE NEUT (AUTO) 6.4 10^3/uL (1.7-8.2); BASOPHILS % (AUTO) 0.7 % (0-2); EOSINOPHILS % (AUTO) 2.1 % (0-6); HEMATOCRIT 30.2 % (36.0-47.0); HEMOGLOBIN 9.6 g/dL (12.0-15.5); LYMPHOCYTES % (AUTO) 21.8 % (13-45); MEAN CORPUSCULAR HGB CONC 31.8 g/dL (32.0-36.0); MEAN CORPUSCULAR VOLUME 82 fl (80-97); MONOCYTES % (AUTO) 7.7 % (3-13); PLATELET COUNT 357 10^3/uL (150-450); RED CELL DISTRIBUTION WIDTH 24.9 % (11.5-14.0); SEGMENTED NEUTROPHILS % (AUTO) 67.7 % (42-78); TOTAL CELLS COUNTED % (AUTO) 100 %; WHITE BLOOD COUNT 9.4 10^3/uL (4.0-10.5)
[2017-07-25 04:26] LABS: ANION GAP 7 (5-19); BLOOD UREA NITROGEN 5 mg/dL (7-20); CALCIUM 8.3 mg/dL (8.4-10.2); CARBON DIOXIDE 27 mmol/L (22-30); CHLORIDE 106 mmol/L (98-107); GLUCOSE 92 mg/dL (75-110); POTASSIUM 3.5 mmol/L (3.6-5.0); SODIUM 140.2 mmol/L (137-145)
[2017-07-25 04:41] LABS: ANISOCYTOSIS 3+; POIKILOCYTOSIS 1+
[2017-07-25 04:42] LABS: POLYCHROMASIA SLIGHT; SCHISTOCYTES SLIGHT; STOMATOCYTES 1+; TARGET CELLS SLIGHT
[2017-07-25 04:43] LABS: PLATELET CLUMPS PRESENT; PLATELET COMMENT ADEQUATE; PLATELET GIANT PRESENT; PLATELET LARGE PRESENT
[2017-07-25] MEDS: GABAPENTIN 300 MG CAPSULE PO SCH ×3 (05:16→21:46)
[2017-07-25] MEDS: NORMAL SALINE INJ/PF 0.9% 10 ML SDV IV SCH ×3 (05:17→21:46)
[2017-07-25] MEDS: LIPASE/PROTEASE/AMYLASE 1 CAP CAPSULE.DR PO SCH ×2 (07:43→15:35)
[2017-07-25] MEDS: LISINOPRIL 10 MG TABLET PO SCH (09:21)
[2017-07-25] MEDS: ASPIRIN 81 MG TABLET, ENT COATED PO SCH (09:21)
[2017-07-25] MEDS: FOLIC ACID 1 MG TABLET PO SCH (10:11)
[2017-07-25] MEDS: THIAMINE HCL 100 MG TABLET PO SCH (10:11)
[2017-07-25] MEDS: MULTIVITAMIN TABLET PO SCH (10:11)
[2017-07-25] MEDS: LACTOBACILLUS ACIDOPHILUS 250 MG TAB PO SCH ×2 (10:11→17:58)
[2017-07-25] MEDS: ONDANSETRON HCL INJ/PF 4 MG/2 ML SDV IV PRN (10:12)
[2017-07-25] MEDS: NICOTINE 14 MG/24 HR PATCH.TD24 TD SCH (10:14)
[2017-07-25] MEDS ORDERED: LIDOCAINE 1% INJ-PF (10 MG/ML) 30 ML SDV ONE (13:50)
--- NOTE | 2017-07-25 15:50 | RADIOLOGY REPORT (SQ) ---
EXAM DESCRIPTION: U/S THORACENTESIS WITH IMAGING COMPLETED DATE/TIME: 07/25/2017 2:31 pm REASON FOR STUDY: right pleural effusion COMPARISON: Chest film 07/22/2017, 07/20/2017 Thoracentesis 07/20/2017 LIMITATIONS: None. PROCEDURE: Procedure, risks, benefit, and alternative explained to patient who then gave written con sent. The posterior right chest wall was marked using ultrasound guidance. A time-out was called fo r correct marking verification. Chest prepped and draped using sterile technique. Local anesthesia a chieved using 7 ml of 1% lidocaine injection. A 6fr Safe-T- Centesis set was introduced into the pos terior right pleural space. Fluid was aspirated. The catheter was removed and the entry site was co celestina with sterile bandage. No immediate complications noted. Fluid was sent for testing as per the ordering physician Images acquired during the procedure were stored on PACS. FINDINGS: ENTRY SITE: Posterior right chest FLUID VOLUME: 1400 mL of serosanguineous fluid FLUID ANALYSIS: Yes, sent for testing as per the attending physician OTHER: No pneumothorax on post procedure chest x-ray dictated separately. IMPRESSION: SUCCESSFUL RIGHT DIAGNOSTIC AND THERAPEUTIC THORACENTESIS USING ULTRASOUND GUIDANCE. COMMENT: Patient medication list reviewed: Yes- Quality ID# [id number]:Eligible professional attests to doc umenting in the medical record they obtained, updated, or reviewed the patient's current medications. Quality ID #[id number]: Final reports for procedures using fluoroscopy that document radiation exposure abilio ayse, or exposure time and number of fluorographic images (if radiation exposure indices are not avail able) TECHNICAL DOCUMENTATION: JOB ID: [id number] [employer]- All Rights Reserved Reading location - IP/workstation name: [email or web address]
[2017-07-25 16:14] LABS: FLUID TYPE PLEURAL
[2017-07-25 16:19] LABS: FLUID COLOR RED; FLUID VISCOSITY LIQUID
[2017-07-25 16:24] LABS: FLUID APPEARANCE CLOUDY
--- NOTE | 2017-07-25 17:12 | RADIOLOGY REPORT (SQ) ---
EXAM DESCRIPTION: CHEST SINGLE VIEW COMPLETED DATE/TIME: 07/25/2017 2:45 pm REASON FOR STUDY: S/P RT THORACENTESIS COMPARISON: 07/22/2017 EXAM PARAMETERS: NUMBER OF VIEWS: One view. TECHNIQUE: Single frontal radiographic view of the chest acquired. RADIATION DOSE: NA LIMITATIONS: None. FINDINGS: LUNGS AND PLEURA: No pneumothorax. Significant decrease in pleural effusion. Likely righ t lower lobe atelectasis. MEDIASTINUM AND HILAR STRUCTURES: No masses. Contour normal. HEART AND VASCULAR STRUCTURES: Heart normal in size. Normal vasculature. BONES: No acute findings. HARDWARE: Right internal jugular catheter with the tip in the superior vena cava. OTHER: No other significant finding. IMPRESSION: No pneumothorax. Decreased pleural effusion. Likely right lower lobe atelectasis. TECHNICAL DOCUMENTATION: JOB ID: [id number] [employer]- All Rights Reserved Reading location - IP/workstation name: [email or web address]
--- NOTE | 2017-07-25 17:28 | RADIOLOGY REPORT (SQ) ---
EXAM DESCRIPTION: CHEST SINGLE VIEW COMPLETED DATE/TIME: 07/25/2017 4:56 pm REASON FOR STUDY: 2 HOURS S/P RT THORACENTESIS COMPARISON: Thoracentesis earlier today EXAM PARAMETERS: NUMBER OF VIEWS: One view. TECHNIQUE: Single frontal radiographic view of the chest acquired. RADIATION DOSE: NA LIMITATIONS: None. FINDINGS: LUNGS AND PLEURA: No pneumothorax 2 hours post right thoracentesis. There is trace residu al right pleural effusion and bandlike atelectasis in the right lung base. Left lung well inflated and clear no left pleural effusion or pneumothorax. MEDIASTINUM AND HILAR STRUCTURES: No masses. Contour normal. HEART AND VASCULAR STRUCTURES: Stable cardiomegaly BONES: No acute findings. HARDWARE: Right jugular central line tip superior vena cava OTHER: No other significant finding. IMPRESSION: No pneumothorax 2 hours post right thoracentesis. Persistent airspace disease in the right lung base atelectasis versus pneumonia TECHNICAL DOCUMENTATION: JOB ID: [id number] [employer]- All Rights Reserved Reading location - IP/workstation name: [facility]
[2017-07-25] MEDS: AMITRIPTYLINE HCL 25 MG TABLET PO SCH (17:58)
[2017-07-25] MEDS ORDERED: POTASSIUM CHLORIDE 10 MEQ TABLET.SA PO ONE (18:42)
--- NOTE | 2017-07-25 18:56 | PDOC PROGRESS REPORT ---
Subjective Progress Note for:: 07/25/17 Subjective:: Patient refers that her breathing is better after thoracentesis. Talked about consultation over the phone with gastroenterology at [facility], Dr. David. He recommends for her to follow-up with the GI as there is a possibility of a hydrothorax. He advised against placing tip in her lung since she will be more propensity to get infection. At the present time [facility] is not accepting patients on transfer. Therefore, agreed with patient to make an appointment for her to follow-up with Dr David. If she was to get worse she had to go to [facility] ER. Review of system All organ systems evaluated and negative except as in subjective All significant laboratories and diagnostics have been reviewed Reason For Visit: RIGHT LOWER LOBE PNA Physical Exam Vital Signs: Temp Pulse Resp BP Pulse Ox 98.6 F 124 H 26 H 114/68 92 07/25/17 07:21 07/25/17 07:21 07/25/17 07:21 07/25/17 07:21 07/25/17 07:21 Intake & Output 07/24/17 07/25/17 07/26/17 06:59 06:59 06:59 Intake Total 1764 436 Output Total 0 Balance 1764 436 Weight 96.5 kg 96.4 kg General appearance: PRESENT: cooperative, morbidly obese Head exam: PRESENT: atraumatic, normocephalic Eye exam: PRESENT: conjunctiva pink, EOMI, PERRLA Mouth exam: PRESENT: moist Neck exam: PRESENT: full ROM. ABSENT: JVD, lymphadenopathy, tenderness Respiratory exam: PRESENT: clear to auscultation candice Cardiovascular exam: PRESENT: RRR. ABSENT: diastolic murmur, systolic murmur GI/Abdominal exam: PRESENT: normal bowel sounds, soft. ABSENT: tenderness Extremities exam: PRESENT: full ROM, +2 edema Musculoskeletal exam: PRESENT: ambulatory Neurological exam: PRESENT: alert, awake, oriented to person, oriented to place , oriented to time, oriented to situation, CN II-XII grossly intact Psychiatric exam: PRESENT: appropriate affect, normal mood Skin exam: PRESENT: intact, normal color Results Laboratory Results: 07/25/17 04:00 07/25/17 04:00 07/25/17 07/25/17 04:00 04:00 WBC 9.4 RBC 3.70 L Hgb 9.6 L Hct 30.2 L MCV 82 MCH 26.0 L MCHC 31.8 L RDW 24.9 H Plt Count 357 Seg Neutrophils % 67.7 Lymphocytes % 21.8 Monocytes % 7.7 Eosinophils % 2.1 Basophils % 0.7 Absolute Neutrophils 6.4 Absolute Lymphocytes 2.1 Absolute Monocytes 0.7 Absolute Eosinophils 0.2 Absolute Basophils 0.1 Sodium 140.2 Potassium 3.5 L Chloride 106 Carbon Dioxide 27 Anion Gap 7 BUN 5 L Creatinine 0.69 Est GFR ( Amer) > 60 Est GFR (Non-Af Amer) > 60 Glucose 92 Calcium 8.3 L Magnesium 1.6 07/20/17 12:05 Pleural Fluid - Right Pleural Effusion Gram Stain - Final 07/20/17 12:05 Pleural Fluid - Right Pleural Effusion Body Fluid Culture - Final NO AEROBIC OR ANAEROBIC ORGANISMS RECOVERED Impressions: Renal Ultrasound 07/18/17 13:44 IMPRESSION: NORMAL RENAL AND BLADDER ULTRASOUND. Abdomen/Pelvis CT 07/20/17 00:00 IMPRESSION: 1. Heterogeneous attenuation of the liver is nonspecific. Differential considerations include acute versus chronic hepatitis, a somewhat atypical appearance of hepatic steatosis, or other infiltrative process. 2. Central mesenteric fat stranding in the region of the christa hepatis, duodenum, and pancreas may be related to above liver findings versus a developing pancreatitis Abdomen MRI 07/22/17 00:00 IMPRESSION: Hepatomegaly with profound diffuse fatty infiltration of the liver Moderate right, small left pleural effusions Chest X-Ray 07/22/17 00:00 IMPRESSION: Increasing right pleural effusion. Cardiomegaly without josafat CHF. Assessment & Plan - Diagnosis (1) Acute renal failure (ARF) Qualifiers: Acute renal failure type: unspecified Qualified Code(s): N17.9 - Acute kidney failure, unspecified Is this a current diagnosis for this admission?: Yes Plan: Resolved (2) Chronic pancreatitis Qualifiers: Pancreatitis type: alcohol induced Qualified Code(s): K86.0 - Alcohol- induced chronic pancreatitis Is this a current diagnosis for this admission?: Yes Plan: Improved (3) Pleural effusion Is this a current diagnosis for this admission?: Yes Plan: Recurrent. Will make appointment for patient to follow-up with cad librarian over violent. Will continue diuretic to avoid reaccumulation (4) Acute respiratory failure Qualifiers: Respiratory failure complication: hypoxia Qualified Code(s): J96.01 - Acute respiratory failure with hypoxia Is this a current diagnosis for this admission?: Yes Plan: Resolved (5) Anemia Qualifiers: Anemia type: iron deficiency Iron deficiency anemia type: unspecified iron deficiency Qualified Code(s): D50.9 - Iron deficiency anemia, unspecified Is this a current diagnosis for this admission?: Yes Plan: Stable (6) Diabetes mellitus Qualifiers: Diabetes mellitus type: type 2 Diabetes mellitus alf insulin use: 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 Diabetes mellitus complication status: with unspecified complications Qualified Code(s): E11.8 - Type 2 diabetes mellitus with unspecified complications; 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; 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; 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; 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 Is this a current diagnosis for this admission?: Yes Plan: Continue current management (7) Pulmonary hypertension Is this a current diagnosis for this admission?: Yes Plan: Restart oral diuretic (8) Fatty liver disease, nonalcoholic Is this a current diagnosis for this admission?: Yes Plan: Likely related due to all gastric bypass (9) Hypokalemia Is this a current diagnosis for this admission?: Yes Plan: Replace oral and trend - Time Time Spent with patient: 25-34 minutes Medications reviewed and adjusted accordingly: Yes Anticipated discharge: Home Within: within 24 hours - Inpatient Certification Based on my medical assessment, after consideration of the patient's comorbidities, presenting symptoms, or acuity I expect that the services needed warrant INPATIENT care.: Yes I certify that my determination is in accordance with my understanding of Medicare's requirements for reasonable and necessary INPATIENT services [42 CFR 412.3e].: Yes Medical Necessity: Need Close Monitoring Due to Risk of Patient Decompensation
[2017-07-25] MEDS: INSULIN DETEMIR 100 UNIT/ML 3 ML PEN SUBCUT SCH (21:44)
[2017-07-26] MEDS: OXYCODONE-ACETAMINOPHEN 5-325 MG TABLET PO PRN ×2 (00:25→07:56)
[2017-07-26 05:34] LABS: ALANINE AMINOTRANSFERASE 31 U/L (9-52); ALBUMIN 1.8 g/dL (3.5-5.0); ALKALINE PHOSPHATASE 185 U/L (38-126); ASPARTATE AMINO TRANSFERASE 26 U/L (14-36); BILIRUBIN,DIRECT 0.1 mg/dL (0.0-0.4); BILIRUBIN,TOTAL 0.1 mg/dL (0.2-1.3); BLOOD UREA NITROGEN 6 mg/dL (7-20); CALCIUM 7.8 mg/dL (8.4-10.2); GLUCOSE 97 mg/dL (75-110); TOTAL PROTEIN 4.7 g/dL (6.3-8.2)
[2017-07-26] MEDS: GABAPENTIN 300 MG CAPSULE PO SCH (05:35)
[2017-07-26] MEDS: NORMAL SALINE INJ/PF 0.9% 10 ML SDV IV SCH (05:35)
[2017-07-26 05:39] LABS: CARBON DIOXIDE 28 mmol/L (22-30); CHLORIDE 108 mmol/L (98-107)
[2017-07-26 05:51] LABS: ANION GAP 3 (5-19); POTASSIUM 4.5 mmol/L (3.6-5.0)
[2017-07-26] MEDS: LIPASE/PROTEASE/AMYLASE 1 CAP CAPSULE.DR PO SCH (07:56)
[2017-07-26] MEDS ORDERED: TORSEMIDE 20 MG TABLET PO SCH (10:00)
[2017-07-26] MEDS ORDERED: POTASSIUM CHLORIDE 20 MEQ/15 ML UDCUP PO SCH (10:00)
[2017-07-26] MEDS: ASPIRIN 81 MG TABLET, ENT COATED PO SCH (11:04)
[2017-07-26] MEDS: MULTIVITAMIN TABLET PO SCH (11:04)
[2017-07-26] MEDS: THIAMINE HCL 100 MG TABLET PO SCH (11:04)
[2017-07-26] MEDS: LISINOPRIL 10 MG TABLET PO SCH (11:07)
[2017-07-26] MEDS: FOLIC ACID 1 MG TABLET PO SCH (11:07)
[2017-07-26] MEDS: LACTOBACILLUS ACIDOPHILUS 250 MG TAB PO SCH (11:07)
[2017-07-26] MEDS: NICOTINE 14 MG/24 HR PATCH.TD24 TD SCH (11:08)
[2017-07-26 11:55] VITALS: BP 131/63
[2017-07-27 13:55] LABS: GLUCOSE BODY FLUID 93 mg/dL (.); LDH BODY FLUID 378 IU/L (.)
--- NOTE | 2017-07-28 17:58 | PDOC DISCHARGE SUMMARY ---
General - Admit/Disc Date/PCP Admission Date/Primary Care Provider: 07/18/17 14:13 [facility] Discharge Date: 07/26/17 - Discharge Diagnosis (1) Acute respiratory failure Is this a current diagnosis for this admission?: Yes (2) Pleural effusion Is this a current diagnosis for this admission?: Yes (3) Acute renal failure (ARF) Is this a current diagnosis for this admission?: Yes (4) Chronic pancreatitis Is this a current diagnosis for this admission?: Yes (5) Anemia Is this a current diagnosis for this admission?: Yes (6) Diabetes mellitus Is this a current diagnosis for this admission?: Yes (7) Pulmonary hypertension Is this a current diagnosis for this admission?: Yes (8) Fatty liver disease, nonalcoholic Is this a current diagnosis for this admission?: Yes (9) Hypokalemia Is this a current diagnosis for this admission?: Yes (10) Tobacco abuse Is this a current diagnosis for this admission?: Yes (11) Non-compliance Is this a current diagnosis for this admission?: Yes (12) Sepsis Is this a current diagnosis for this admission?: No (13) Lactic acidosis Is this a current diagnosis for this admission?: Yes (14) PNA (pneumonia) Is this a current diagnosis for this admission?: No - Additional Information Resuscitation Status: Full Code Discharge Diet: Diabetic Discharge Activity: Activity As Tolerated Prescriptions: Potassium Chloride [Kaon-Cl 20 Meq/15 ml Udcup] 20 meq PO DAILY #30 [facility] Home Medications: Aspirin [Adult Low Dose Aspirin EC] 81 mg PO DAILY 07/18/17 Ergocalciferol (Vitamin D2) [Vitamin D] 400 unit PO DAILY 07/18/17 Gabapentin [Neurontin] 600 mg PO Q8 07/18/17 Hydroxyzine HCl [Atarax 25 mg Tablet] 25 mg PO QHS 07/18/17 Insulin Detemir [Levemir Flextouch] 10 units SQ QHS 07/18/17 Lisinopril [Zestril] 10 mg PO DAILY 07/18/17 Multivit with Minerals No.55 [Centrum Flavor Burst Adult] 1 tab PO DAILY Amitriptyline HCl 25 mg PO QPM 07/22/17 Folic Acid [Folvite 1 mg Tablet] 1 mg PO DAILY tablet 07/26/17 Potassium Chloride [Kaon-Cl 20 Meq/15 ml Udcup] 20 meq PO DAILY #30 [facility] Thiamine HCl [Thiamine 100 mg Tablet] 100 mg PO DAILY tablet 07/26/17 Torsemide [Demadex 20 mg Tablet] 20 mg PO DAILY tablet 07/26/17 History of Present Illness History of Present Illness: BILL CAGLE is a 47 year old female with a past medical history of DM type 2 , chronic pancreatitis, RAMSAY, neuropathy, hx of gastric bypass, and HTN. Patient was recently admitted and discharged with sepsis, multifocal pneumonia and bilateral pleural effusions. She continued to take Augmentin and Levaquin after discharge, but unfortunately describes progressive weakness and SOB. Also had been coughing up blood tinged sputum which was a complaint present on her previous hospitalization. Complained of diarrhea. Denied fever/chills, nausea or vomiting. She described falling asleep at work after taking Flexiril. Labs were concerning of sepsis with an elevated WBC, lactic acid, soft BP receiving fluid support, and CXR consistent with right sided PNA and pleural effusion. Patient was admitted to the hospitalist service for treatment of sepsis secondary to unresolved PNA Hospital Course Hospital Course: Primary concern when patient presented that was that she was having shortness of breath and right-sided pain. She denied any fever, chills. She stated that after she was discharged she was doing well except on the day that she presented as she was somewhat groggy. Initially there was a concern about the possibility of septic process since she presented with mildly decreased blood pressure, lactic acidosis and leukocytosis. Patient was placed on triple IV antibiotic therapy to go over pneumonia. She underwent a thoracentesis on July 20 obtaining 1000 mL's. Fluid proved to be a transudate. Cultures obtained were negative. Pneumonic process was ruled out. Triple antibiotic IV therapy was discontinued. Acute renal failure was secondary to dehydration since patient had been discharged on diuretics and she does have a very strong right-sided component which may take a toll in her blood pressure. Renal functions improved with hydration and were monitored closely since she was started back on diuretics but to a lower dose. Lactic acidosis was due to use of metformin and was elevated in the setting of dehydration. Follow-up chest x-ray showed reaccumulation of right-sided pleural effusion. Since concerned there reaccumulation of the pleural fluid may relate to an old gastric bypass surgery and possibly dealing with hepatopulmonary syndrome or something along that line, contacted Dr. David, gastroenterology in [place]. He was concerned about the possibility of a hydrothorax. He advised that under no circumstances this patient was to get tip as she may be prone to get infections. Patient respiratory status improved after thoracentesis which yielded on this occasion 1400 mL's of serosanguineous fluid. Patient was made aware that fluid coul reaccumulate again. She was advised that if any shortness of breath, increase pain or fever and if her condition allowed for her to go to [place] ER. We made an appointment with Dr David. The contact and service clerks supervisor found out that this patient had an appointment a year ago but did not show up. Patient claimed not to remember about such appointment. While hospitalized this patient would go to smoke despite having been educated in this regard. Patient also had been advised about the use of opioids which had been discouraged on her previous hospitalization and now by different providers. We opted to discharge patient as she was stable. However, she did not want to leave the facility without a prescription for pain medication. Finally she left as no prescription was given to her. Recommend that if patient returns back to emergency room under similar circumstances she will be better served in a tertiary center with multispecialty support such as rug layer, pulmonary and cardiothoracic. Physical Exam Vital Signs: Temp Pulse Resp BP Pulse Ox 98.4 F 84 18 109/59 L 90 L 07/26/17 07:19 07/26/17 07:19 07/26/17 07:19 07/26/17 07:19 07/26/17 07:19 Intake & Output 07/25/17 07/26/17 07/27/17 06:59 06:59 06:59 Intake Total 436 1674 Output Total 0 Balance 436 1674 Weight 96.4 kg 98 kg Results Laboratory Results: 07/25/17 04:00 07/26/17 04:00 07/25/17 07/26/17 15:05 04:00 Sodium 139.0 Potassium 4.5 D Chloride 108 H Carbon Dioxide 28 Anion Gap 3 L BUN 6 L Creatinine 0.66 Est GFR ( Amer) > 60 Est GFR (Non-Af Amer) > 60 Glucose 97 Calcium 7.8 L Magnesium 1.9 Total Bilirubin 0.1 L AST 26 ALT 31 Alkaline Phosphatase 185 H Total Protein 4.7 L Albumin 1.8 L Fluid Type PLEURAL Fluid Source Fluid Color RED Fluid Appearance CLOUDY Fluid Viscosity LIQUID Fluid WBC 150 Fluid RBC 10141 Impressions: Renal Ultrasound 07/18/17 13:44 IMPRESSION: NORMAL RENAL AND BLADDER ULTRASOUND. Abdomen/Pelvis CT 07/20/17 00:00 IMPRESSION: 1. Heterogeneous attenuation of the liver is nonspecific. Differential considerations include acute versus chronic hepatitis, a somewhat atypical appearance of hepatic steatosis, or other infiltrative process. 2. Central mesenteric fat stranding in the region of the christa hepatis, duodenum, and pancreas may be related to above liver findings versus a developing pancreatitis Abdomen MRI 07/22/17 00:00 IMPRESSION: Hepatomegaly with profound diffuse fatty infiltration of the liver Moderate right, small left pleural effusions Chest X-Ray 07/25/17 00:00 IMPRESSION: No pneumothorax 2 hours post right thoracentesis. Persistent airspace disease in the right lung base atelectasis versus pneumonia Thoracentesis Ultrasound 07/25/17 12:11 IMPRESSION: SUCCESSFUL RIGHT DIAGNOSTIC AND THERAPEUTIC THORACENTESIS USING ULTRASOUND GUIDANCE. Qualifiers - * PATEINT BEING DISCHARGED WITH ANY OF THE FOLLOWING DIAGNOSIS?: No Plan Discharge Plan: Discharge home with follow-up with PCP and Dr. David Time Spent: Less than 30 Minutes
== END 2017-07-26 13:12 | disposition home or self-care (01) | DRG 871 ==
LOC: ER 10:10 → EH 14:13 → 3W 17:14
PROVIDERS: ADMIT Internal Medicine; ATTEND Internal Medicine
PROC: 3E0F73Z Introduction of Anti-inflammatory into Respiratory Tract, Via Natural or Artificial Opening (ICD-10-PCS; principal; 2017-07-18)
PROC: 02HV33Z Insertion of Infusion Device into Superior Vena Cava, Percutaneous Approach (ICD-10-PCS; 2017-07-18)
PROC: B548ZZA Ultrasonography of Superior Vena Cava, Guidance (ICD-10-PCS; 2017-07-18)
PROC: 0W9930Z Drainage of Right Pleural Cavity with Drainage Device, Percutaneous Approach (ICD-10-PCS; 2017-07-20)
DX: A41.9 Sepsis, unspecified organism (principal); J18.9 Pneumonia, unspecified organism; J96.01 Acute respiratory failure with hypoxia; J91.8 Pleural effusion in other conditions classified elsewhere; K86.1 Other chronic pancreatitis; E87.2 Acidosis; F10.29 Alcohol dependence with unspecified alcohol-induced disorder; R65.20 Severe sepsis without septic shock; D50.9 Iron deficiency anemia, unspecified; E11.40 Type 2 diabetes mellitus with diabetic neuropathy, unspecified; I27.20 Pulmonary hypertension, unspecified; K76.0 Fatty (change of) liver, not elsewhere classified; E87.6 Hypokalemia; K75.81 Nonalcoholic steatohepatitis (NASH); I10 Essential (primary) hypertension; E86.0 Dehydration; F17.210 Nicotine dependence, cigarettes, uncomplicated; K21.9 Gastro-esophageal reflux disease without esophagitis; M10.9 Gout, unspecified; F32.9 Major depressive disorder, single episode, unspecified; Z91.19 Patient's noncompliance with other medical treatment and regimen; Z98.84 Bariatric surgery status; Z79.82 Long term (current) use of aspirin; Z79.4 Long term (current) use of insulin; Z79.899 Other long term (current) drug therapy; Z91.030 Bee allergy status; Z83.3 Family history of diabetes mellitus
CPT/HCPCS: 32555; 36415; 71045; 71046; 74177; 74181; 76770; 80048; 80053; 80069; 80307; 81001; 82378; 82607; 82728; 82746; 82803; 82945; 82962; 83540; 83605; 83615; 83690; 83735; 83880; 84155; 84157; 84484; 85025; 85027; 85610; 85730; 87040; 87070; 87075; 87205; 89050; 94640; 96360; 99285; C1751; J0692; J1642; J1815; J1885; J1940; J1956; J2270; J2405; J2543; J3370; J3490; J7030; J7060

== ENCOUNTER 2017-12-25 14:28 | Emergency (ER) | payer SELFPAY ==
[2017-12-25] MEDS ORDERED: RINGERS SOLUTION,LACTATED 1,000 ML IV ONE (14:45)
[2017-12-25] MEDS ORDERED: LORAZEPAM INJ 2 MG/1 ML VIAL IV ONE (14:47)
[2017-12-25] MEDS ORDERED: MORPHINE SULFATE 10 MG/ML INJ IV ONE (14:47)
--- NOTE | 2017-12-25 14:50 | ER Document Report ---
ED General - General Chief Complaint: Abdominal Pain Stated Complaint: ABDOMEN PAIN Time Seen by Provider: 12/25/17 14:41 TRAVEL OUTSIDE OF THE [place] IN LAST 30 DAYS: No - HPI Notes: 47-year-old female with a history of diabetes, alcoholic pancreatitis, pneumonia presents with severe diffuse abdominal pain for the past week. Pain worsened today. She is unable to eat. She reports vomiting and diarrhea for the past day. Denies blood in the vomit or stools. No fever. She states she has not had alcohol since April. She was recently admitted for pneumonia. She has had a pancreatic pseudocyst in the past. She also reports severe pain from neuropathy in both legs and continuously beats on her legs with her fists stating that this makes it feel better. She pushes my hand away with it attempt to examine her abdomen. She was reportedly "passing out" multiple times in triage. She arrives to the room hyperventilating - Related Data Allergies/Adverse Reactions: Bee Allergy (Uncoded 12/25/17 14:30) bees Allergy (Uncoded 12/25/17 14:30) Past Medical History - Social History Smoking Status: Unknown if Ever Smoked Family History: Reviewed & Not Pertinent, DM - Past Medical History Cardiac Medical History: Reports: Hx Hypertension Neurological Medical History: Denies: Hx Seizures Endocrine Medical History: Reports: Hx Diabetes Mellitus Type 2 Renal/ Medical History: Denies: Hx Peritoneal Dialysis GI Medical History: Reports: Hx Gastroesophageal Reflux Disease, Hx Hepatitis Musculoskeletal Medical History: Reports Hx Arthritis - gout Psychiatric Medical History: Reports: Hx Depression Infectious Medical History: Reports: Hx Hepatitis Past Surgical History: Reports: Hx Abdominal Surgery - Laproscopic Gastric Bypass, Hx Section - x 3, Hx Gastric Bypass Surgery. Denies: Hx Hysterectomy - Immunizations Hx Diphtheria, Pertussis, Tetanus Vaccination: No Review of Systems - Review of Systems Notes: Constitutional: Negative for fever. HENT: Negative for sore throat. Eyes: Negative for visual changes. Cardiovascular: Negative for chest pain. Respiratory: Negative for shortness of breath. Gastrointestinal: Positive for abdominal pain, vomiting or diarrhea. Genitourinary: Negative for dysuria. Musculoskeletal: Negative for back pain. Positive for neuropathic leg pains Skin: Negative for rash. Neurological: Negative for headaches, weakness or numbness. 10 point ROS negative except as marked above and in HPI. Physical Exam - Vital signs Vitals: Resp BP Pulse Ox 20 149/85 H 98 12/25/17 15:02 12/25/17 15:02 12/25/17 15:02 - Notes Notes: PHYSICAL EXAMINATION: GENERAL: Anxious, tearful, hyperventilating HEAD: Atraumatic, normocephalic. EYES: Pupils equal round and reactive to light, extraocular movements intact, conjunctiva are normal. ENT: nares patent, oropharynx clear without exudates. Moist mucous membranes. NECK: Normal range of motion, supple without lymphadenopathy LUNGS: Breath sounds clear to auscultation bilaterally and equal. No wheezes rales or rhonchi. HEART: Regular rhythm, no chest wall tenderness, tachycardia ABDOMEN: Soft, diffuse tenderness, hypoactive bowel sounds. No masses appreciated. EXTREMITIES: Normal range of motion, no pitting or edema. No cyanosis. NEUROLOGICAL: Cranial nerves grossly intact. Normal speech, normal gait. Normal sensory and motor exams. PSYCH: Anxious SKIN: Warm, Dry, normal turgor, no rashes or lesions noted. Course - Re-evaluation Re-evalutation: 12/25/17 18:27 Potassium replaced. Patient feeling much better. She is eating and drinking. Lipase only minimally elevated. Chest x-ray clear. Benign abdomen after treated with pain medications. Did not believe she requires further imaging at this time. Given strict return precautions. At this time will discharge with return precautions and follow-up recommendations. Verbal discharge instructions given a the bedside and opportunity for questions given. Medication warnings reviewed. Patient is in agreement with this plan and has verbalized understanding of return precautions and the need for primary care follow-up in the next 24-72 hours. Voice dictation software was used. Chart was reviewed, but errors may exist. - Vital Signs Vital signs: Temp Pulse Resp BP Pulse Ox 18 131/93 H 97 12/25/17 16:01 12/25/17 16:01 12/25/17 16:01 - Laboratory Result Diagrams: 12/25/17 15:00 12/25/17 15:00 Laboratory results interpreted by me: 12/25/17 12/25/17 12/25/17 15:00 15:00 16:52 RDW 18.2 H Sodium 136.5 L Potassium 3.0 L* BUN 3 L Glucose 350 H Direct Bilirubin 0.5 H AST 93 H Alkaline Phosphatase 334 H Total Protein 8.3 H Lipase 487.9 H Urine Protein 100 H Urine Glucose (UA) >=500 H Discharge - Discharge Clinical Impression: Anxiety attack Abdominal pain Qualifiers: Abdominal location: generalized Qualified Code(s): R10.84 - Generalized abdominal pain Condition: Stable Disposition: HOME, SELF-CARE Instructions: Abdominal Pain ([facility]) Additional Instructions: Push fluids. Elmo diet. Return for worsening or concerning symptoms. Prescriptions: Ondansetron [Zofran Odt 4 mg Tablet] 1 - 2 tab PO Q4H PRN #15 tab.rapdis PRN Reason: For Nausea/Vomiting Referrals: [facility] [NO LOCAL MD] - Follow up in 3-5 days
[2017-12-25 15:11] LABS: ABSOLUTE BASOPHILS # (AUTO) 0.1 10^3/uL (0.0-0.2); ABSOLUTE EOSINOPHILS # (AUTO) 0.1 10^3/uL (0.0-0.6); ABSOLUTE LYMPHOCYTES (AUTO) 2.7 10^3/uL (0.5-4.7); ABSOLUTE MONOCYTES (AUTO) 0.6 10^3/uL (0.1-1.4); BASOPHILS % (AUTO) 0.6 % (0-2); EOSINOPHILS % (AUTO) 0.6 % (0-6); HEMATOCRIT 45.4 % (36.0-47.0); HEMOGLOBIN 15.4 g/dL (12.0-15.5); LYMPHOCYTES % (AUTO) 25.7 % (13-45); MEAN CORPUSCULAR HEMOGLOBIN 30.9 pg (27.0-33.4); MEAN CORPUSCULAR HGB CONC 33.9 g/dL (32.0-36.0); MEAN CORPUSCULAR VOLUME 91 fl (80-97); MONOCYTES % (AUTO) 6.2 % (3-13); PLATELET COUNT 164 10^3/uL (150-450); RED BLOOD COUNT 4.99 10^6/uL (3.72-5.28); RED CELL DISTRIBUTION WIDTH 18.2 % (11.5-14.0); SEGMENTED NEUTROPHILS % (AUTO) 66.9 % (42-78); TOTAL CELLS COUNTED % (AUTO) 100 %; WHITE BLOOD COUNT 10.4 10^3/uL (4.0-10.5)
[2017-12-25 15:32] LABS: ALANINE AMINOTRANSFERASE 47 U/L (9-52); ALBUMIN 3.7 g/dL (3.5-5.0); ALCOHOL 95 mg/dL (NONE DETECTED); ALKALINE PHOSPHATASE 334 U/L (38-126); ANION GAP 14 (5-19); ASPARTATE AMINO TRANSFERASE 93 U/L (14-36); BILIRUBIN,DIRECT 0.5 mg/dL (0.0-0.4); BILIRUBIN,TOTAL 0.8 mg/dL (0.2-1.3); BLOOD UREA NITROGEN 3 mg/dL (7-20); CALCIUM 9.2 mg/dL (8.4-10.2); CARBON DIOXIDE 24 mmol/L (22-30); CHLORIDE 99 mmol/L (98-107); GLUCOSE 350 mg/dL (75-110); LIPASE 487.9 U/L (23-300); SODIUM 136.5 mmol/L (137-145); TOTAL PROTEIN 8.3 g/dL (6.3-8.2)
[2017-12-25] MEDS ORDERED: POTASSIUM CHLORIDE 20 MEQ/15 ML UDCUP PO ONE (15:41)
[2017-12-25 16:23] VITALS: BP 131/93
--- NOTE | 2017-12-25 16:52 | RADIOLOGY REPORT (SQ) ---
EXAM DESCRIPTION: CHEST 2 VIEWS COMPLETED DATE/TIME: 12/25/2017 4:28 pm REASON FOR STUDY: chest pain COMPARISON: 07/22/2017 EXAM PARAMETERS: NUMBER OF VIEWS: two views TECHNIQUE: Digital Frontal and Lateral radiographic views of the chest acquired. RADIATION DOSE: NA LIMITATIONS: none FINDINGS: LUNGS AND PLEURA: No opacities, masses or pneumothorax. No pleural effusion. MEDIASTINUM AND HILAR STRUCTURES: No masses or contour abnormalities. HEART AND VASCULAR STRUCTURES: Heart normal size. No evidence for failure. BONES: No acute findings. HARDWARE: None in the chest. OTHER: No other significant finding. IMPRESSION: NO ACUTE RADIOGRAPHIC FINDING IN THE CHEST. TECHNICAL DOCUMENTATION: JOB ID: [id number] [employer] All Rights Reserved Reading location - IP/workstation name: [email or web address]
[2017-12-25 18:18] LABS: APPEARANCE,URINE SLIGHTLY-CLOUDY; BILIRUBIN,URINE NEGATIVE (NEGATIVE); COLOR,URINE YELLOW; GLUCOSE, URINE >=500 mg/dL (NEGATIVE); KETONES,URINE NEGATIVE (NEGATIVE); LEUKOCYTE ESTERASE,URINE NEGATIVE (NEGATIVE); NITRITE,URINE NEGATIVE (NEGATIVE); PROTEIN,URINE 100 mg/dL (NEGATIVE); URINE SPECIFIC GRAVITY 1.017; UROBILINOGEN,URINE NEGATIVE mg/dL (<2.0)
--- NOTE | 2017-12-25 19:49 | EKG REPORT ---
SEVERITY:- OTHERWISE NORMAL ECG - SINUS TACHYCARDIA : Confirmed by: Del Claudio MD 25-Dec-2017 19:48:41
== END 2017-12-25 19:00 | disposition home or self-care (01) ==
LOC: ER 14:28
DX: F41.0 Panic disorder [episodic paroxysmal anxiety] (principal); R10.84 Generalized abdominal pain; R06.4 Hyperventilation; G62.9 Polyneuropathy, unspecified; R11.10 Vomiting, unspecified; R19.7 Diarrhea, unspecified; Z87.19 Personal history of other diseases of the digestive system; Z87.01 Personal history of pneumonia (recurrent); Z98.84 Bariatric surgery status
CPT/HCPCS: 93005; 99284; 96374; 96375; 36415; 82962; 80307; 83690; 84703; 85025; 80053; 81001; 71046; 93010; J2270; J2060

== ENCOUNTER 2017-12-26 07:23 | Emergency (ER) | payer SELFPAY ==
[2017-12-26 09:41] LABS: ABSOLUTE EOSINOPHILS # (AUTO) 0.1 10^3/uL (0.0-0.6); ABSOLUTE LYMPHOCYTES (AUTO) 1.4 10^3/uL (0.5-4.7); ABSOLUTE MONOCYTES (AUTO) 0.5 10^3/uL (0.1-1.4); ABSOLUTE NEUT (AUTO) 6.1 10^3/uL (1.7-8.2); BASOPHILS % (AUTO) 0.3 % (0-2); EOSINOPHILS % (AUTO) 0.7 % (0-6); HEMATOCRIT 47.5 % (36.0-47.0); LYMPHOCYTES % (AUTO) 17.6 % (13-45); MEAN CORPUSCULAR HEMOGLOBIN 31.1 pg (27.0-33.4); MEAN CORPUSCULAR HGB CONC 33.8 g/dL (32.0-36.0); MEAN CORPUSCULAR VOLUME 92 fl (80-97); MONOCYTES % (AUTO) 6.2 % (3-13); PLATELET COUNT 144 10^3/uL (150-450); RED BLOOD COUNT 5.16 10^6/uL (3.72-5.28); RED CELL DISTRIBUTION WIDTH 18.9 % (11.5-14.0); SEGMENTED NEUTROPHILS % (AUTO) 75.2 % (42-78); TOTAL CELLS COUNTED % (AUTO) 100 %
[2017-12-26 10:00] LABS: INTERNATIONAL RATION (INR) 1.05; PROTHROMBIN TIME 14.2 SEC (11.4-15.4)
[2017-12-26 10:01] LABS: PARTIAL THROMBOPLASTIN TIME 27.9 SEC (23.5-35.8)
[2017-12-26 10:26] LABS: ALANINE AMINOTRANSFERASE 48 U/L (9-52); ALBUMIN 3.7 g/dL (3.5-5.0); ALKALINE PHOSPHATASE 346 U/L (38-126); ANION GAP 12 (5-19); ASPARTATE AMINO TRANSFERASE 87 U/L (14-36); BILIRUBIN,DIRECT 0.6 mg/dL (0.0-0.4); BILIRUBIN,TOTAL 1.9 mg/dL (0.2-1.3); BLOOD UREA NITROGEN 5 mg/dL (7-20); CALCIUM 9.5 mg/dL (8.4-10.2); CARBON DIOXIDE 24 mmol/L (22-30); CHLORIDE 102 mmol/L (98-107); GLUCOSE 128 mg/dL (75-110); LIPASE 548.7 U/L (23-300); POTASSIUM 3.7 mmol/L (3.6-5.0); SODIUM 137.9 mmol/L (137-145); TOTAL PROTEIN 8.1 g/dL (6.3-8.2)
[2017-12-26] MEDS ORDERED: HYDROCODONE/ACETAMINOPHEN 5-325 MG TABLET PO ONE (10:38)
--- NOTE | 2017-12-26 10:39 | ER Document Report ---
Doctor's Note Notes: 12/26/17 10:39 Room 10 This is a 47-year-old female who was seen here less than 12 hours ago for abdominal pain. Patient states that she has pancreatitis. History of diabetes. States that her pain in the abdomen radiates to her back. Getting worse. Reportedly patient had a CT scan, x-ray, pain meds and labs yesterday and everything was normal. Patient states that nothing was done for her. Having nausea and vomiting. No fever, chills, sweats. By report from nurse that took care of her yesterday she was hysterical at triage and had to be placed in a wheelchair and brought straight back. By report from nurse all of her workup was unremarkable and normal Past medical history: Diabetes, pseudocysts Past surgical history: Denies Social history: Denies any significant alcohol or drug abuse or tobacco abuse. Family history: Diabetes, hypertension Review of systems: Constitutional: denies: Chills, Diaphoresis, Fever, Malaise, Weakness EENT: denies: Eye discharge, Blurred vision, Tearing, Double vision, Nose congestion, Nose discharge, Throat swelling, Mouth pain Cardiovascular: denies: Palpitations, Heart racing, Orthopnea, Dyspnea, Chest pain Respiratory: denies: Cough, Hurts to breathe, Wheezing, Shortness of breath Gastrointestinal: Complaining of abdominal pain diffusely, back pain, nausea and vomiting Genitourinary: denies: Burning, Dysuria, Discharge, Frequency, Flank pain, Hematuria Musculoskeletal: denies: Joint pain, Joint swelling, Muscle pain, Muscle stiffness,. Does complain of back pain Hematologic/Lymphatic: denies: Anemia, Easy bleeding, Easy bruising, Blood clots Neurological/Psychological: denies: Confusion, Dementia, Depression, Loss of consciousness Skin: No lesions, no masses, no skin breakdown, no abscesses Physical exam: General: Alert no acute distress HEENT: Atraumatic, normocephalic, pupils equal round react to light and accommodation, extraocular muscles are intact, nose is non tender, posterior pharynx is without erythema or exudate. Tongue is unremarkable Heart: Heart with regular rate and rhythm, no murmurs, no rubs, no clicks Lungs: Lungs clear to auscultation bilaterally, no wheezes, rhonchi, rales Abdomen: Abdomen is soft, patient has exaggerated pain response with light touch to the abdomen. Will not lay on her back for exam. Moving all over the bed. Will not cooperate with exam Neuro: cranial nerves II through XII intact, reflexes intact, sensation intact, Extremities:Moving all extremities. Equal strength bilaterally in the upper lower extremities. No significant deformity Skin: No lesions. Skin intact Psych: Normal insight. Normal judgment Discharge - Discharge Clinical Impression: Pancreatitis Qualifiers: Chronicity: chronic Pancreatitis type: unspecified pancreatitis type Qualified Code(s): K86.1 - Other chronic pancreatitis Condition: Good Disposition: HOME, SELF-CARE Instructions: Pancreatitis ([facility]) Additional Instructions: Please follow strict instructions for clear liquid diet, bowel rest, avoiding fatty foods, avoiding alcohol for the next several weeks. Use pain medication sparingly. Drink plenty of water. Follow-up with your regular doctor soon as possible for repeat evaluation and repeat labs. In the event that symptoms are getting worse or no better in the next 12-24 hours please return. Prescriptions: Hydrocodone/Acetaminophen [[place] 5-325 mg Tablet] 1 tab PO QID PRN 5 Days #20 tablet PRN Reason: For Pain Promethazine HCl [Phenergan 25 mg Tablet] 25 mg PO BID PRN 7 Days #15 tablet PRN Reason: For Nausea/Vomiting Ranitidine HCl [Zantac] 150 mg PO BID 7 Days #14 tablet Forms: Return to Work Referrals: ANGELA ROLAND MD [ACTIVE STAFF] - Follow up in 3-5 days Course - Re-evaluation Re-evalutation: 12/26/17 11:59 I had a long discussion with the patient with regards to her chronic abdominal pain. Does have a mild elevated lipase but review of her chart shows that he she has had pancreatitis on multiple occasions. I have offered her admission versus oral pain medication. Patient seemed to be a bit argumentative and I did directly confront this. I told her that I did not really want to argue with her at this time that I was here to help I was offering her options of admission versus outpatient management for her chronic pancreatitis. I did do a medication check with the [facility] pharmacy and I did not see an excessive amount of pain medications being prescribed so I feel comfortable prescribing her a short course of some narcotic medications. I have advised her that if her symptoms get worse she should return and we will reassess the situation as sometimes this does require hospitalization but at this time there are treatment options. At this time feel comfortable discharging. Will discharge at this time in stable condition. Laboratory 12/26/17 12/26/17 12/26/17 09:01 09:03 09:03 WBC RBC Hgb Hct MCV MCH MCHC RDW Plt Count Seg Neutrophils % Lymphocytes % Monocytes % Eosinophils % Basophils % Absolute Neutrophils Absolute Lymphocytes Absolute Monocytes Absolute Eosinophils Absolute Basophils PT 14.2 INR 1.05 APTT 27.9 Sodium 137.9 Potassium 3.7 Chloride 102 Carbon Dioxide 24 Anion Gap 12 BUN 5 L Creatinine 0.49 L Est GFR ( Amer) > 60 Est GFR (Non-Af Amer) > 60 Glucose 128 H POC Glucose 116 H Calcium 9.5 Total Bilirubin 1.9 H Direct Bilirubin 0.6 H Neonat Total Bilirubin Not Reportable Neonat Direct Bilirubin Not Reportable Neonat Indirect Bili Not Reportable AST 87 H ALT 48 Alkaline Phosphatase 346 H Total Protein 8.1 Albumin 3.7 Lipase 548.7 H Serum Alcohol 12/26/17 12/26/17 09:03 09:03 WBC 8.0 RBC 5.16 Hgb 16.0 H Hct 47.5 H MCV 92 MCH 31.1 MCHC 33.8 RDW 18.9 H Plt Count 144 L Seg Neutrophils % 75.2 Lymphocytes % 17.6 Monocytes % 6.2 Eosinophils % 0.7 Basophils % 0.3 Absolute Neutrophils 6.1 Absolute Lymphocytes 1.4 Absolute Monocytes 0.5 Absolute Eosinophils 0.1 Absolute Basophils 0.0 PT INR APTT Sodium Potassium Chloride Carbon Dioxide Anion Gap BUN Creatinine Est GFR ( Amer) Est GFR (Non-Af Amer) Glucose POC Glucose Calcium Total Bilirubin Direct Bilirubin Neonat Total Bilirubin Neonat Direct Bilirubin Neonat Indirect Bili AST ALT Alkaline Phosphatase Total Protein Albumin Lipase Serum Alcohol < 10 - Laboratory Result Diagrams: 12/26/17 09:03 12/26/17 09:03 Laboratory results interpreted by me: 12/26/17 12/26/17 12/26/17 09:01 09:03 09:03 Hgb 16.0 H Hct 47.5 H RDW 18.9 H Plt Count 144 L BUN 5 L Creatinine 0.49 L Glucose 128 H POC Glucose 116 H Total Bilirubin 1.9 H Direct Bilirubin 0.6 H AST 87 H Alkaline Phosphatase 346 H Lipase 548.7 H
[2017-12-26 12:23] VITALS: BP 146/83
== END 2017-12-26 12:25 | disposition home or self-care (01) ==
LOC: ER 07:23
DX: K86.1 Other chronic pancreatitis (principal)
CPT/HCPCS: 36415; 80053; 80307; 82962; 83690; 85025; 85610; 85730; 99284

== ENCOUNTER 2018-02-02 12:02 | Emergency (ER) | payer SELFPAY ==
--- NOTE | 2018-02-02 13:11 | ER Document Report ---
ED Medical Screen (RME) - General Chief Complaint: Abdominal Pain Stated Complaint: WEAKNESS Time Seen by Provider: 02/02/18 13:10 Notes: Patient is a 47-year-old female with history of pancreatitis that presents to the emergency department for chief complaint of epigastric abdominal pain, nausea, vomiting and diarrhea. Patient reports having symptoms over the last 2 days and the been progressively worse, not able to keep anything down, multiple episodes of vomiting, and currently rates the pain as a 9 out of 10 in her epigastric region of her abdomen.. ROS: Unless otherwise stated in this report the patient's positive and negative responses for review of systems for constitutional, eyes, ENT, cardiovascular, respiratory, gastrointestinal, neurological, genitourinary, musculoskeletal, and integumentary systems and related systems to the presenting problem are either as stated in the HPI or were not pertinent or were negative for the symptoms and/or complaints related to the presenting medical problem. PHYSICAL EXAMINATION: Vital signs reviewed. GENERAL: Well-appearing, well-nourished and appears uncomfortable HEAD: Atraumatic, normocephalic. EYES: Pupils equal round extraocular movements intact, conjunctiva are normal. ENT: Nares patent NECK: Normal range of motion CV: Heart rate tachycardic, regular rhythm Abdomen: Significant tenderness with palpation in the epigastric and right upper quadrant of the patient's abdomen, no rebound, guarding or rigidity. LUNGS: No respiratory distress Musculoskeletal: Normal range of motion NEUROLOGICAL: Normal speech PSYCH: Normal mood, normal affect. MDM: Patient seen and examined for rapid initial assessment. Vital signs reviewed. A comprehensive ED assessment and evaluation of the patient, analysis of test results and completion of the medical decision making process will be conducted by additional ED providers. *Note is created using voice recognition software and may contain spelling, syntax or grammatical errors. TRAVEL OUTSIDE OF THE [place] IN LAST 30 DAYS: No - Related Data Allergies/Adverse Reactions: Bee Allergy (Uncoded 02/02/18 12:02) bees Allergy (Uncoded 02/02/18 12:02) Past Medical History - Social History Family history: Reviewed & Not Pertinent - Past Medical History Cardiac Medical History: Reports: Hx Hypertension Neurological Medical History: Denies: Hx Seizures Endocrine Medical History: Reports: Hx Diabetes Mellitus Type 2 Renal/ Medical History: Denies: Hx Peritoneal Dialysis GI Medical History: Reports: Hx Gastroesophageal Reflux Disease, Hx Hepatitis Musculoskeltal Medical History: Reports Hx Arthritis - gout Psychiatric Medical History: Reports: Hx Depression Infectious Medical History: Reports: Hx Hepatitis Past Surgical History: Reports: Hx Abdominal Surgery - Laproscopic Gastric Bypass, Hx Section - x 3, Hx Gastric Bypass Surgery. Denies: Hx Hysterectomy - Immunizations Hx Diphtheria, Pertussis, Tetanus Vaccination: No History of Influenza Vaccine for 01/2017 - 06/2017 Season: Yes Influenza Administration Date for 01/2017 - 06/2017 Season: 01/20/17 Physical Exam - Vital signs Vitals: Temp Pulse Resp BP Pulse Ox 98.8 F 112 H 16 131/99 H 98 02/02/18 12:05 02/02/18 12:05 02/02/18 12:05 02/02/18 12:05 02/02/18 12:05 Course - Vital Signs Vital signs: Temp Pulse Resp BP Pulse Ox 98.8 F 112 H 16 131/99 H 98 02/02/18 12:05 02/02/18 12:05 02/02/18 12:05 02/02/18 12:05 02/02/18 12:05
[2018-02-02] MEDS ORDERED: HYDROMORPHONE HCL INJ/PF 2 MG/ML AMPULE IV ONE ×2 (13:15→15:15)
[2018-02-02] MEDS ORDERED: RINGERS SOLUTION,LACTATED 1,000 ML IV ONE (13:15)
[2018-02-02] MEDS ORDERED: ONDANSETRON HCL INJ/PF 4 MG/2 ML SDV IV ONE ×2 (13:15→15:15)
[2018-02-02 13:45] LABS: ABSOLUTE LYMPHOCYTES (AUTO) 2.5 10^3/uL (0.5-4.7); ABSOLUTE MONOCYTES (AUTO) 0.5 10^3/uL (0.1-1.4); ABSOLUTE NEUT (AUTO) 5.8 10^3/uL (1.7-8.2); BASOPHILS % (AUTO) 0.5 % (0-2); EOSINOPHILS % (AUTO) 0.1 % (0-6); HEMATOCRIT 46.7 % (36.0-47.0); HEMOGLOBIN 16.4 g/dL (12.0-15.5); LYMPHOCYTES % (AUTO) 28.3 % (13-45); MEAN CORPUSCULAR HEMOGLOBIN 34.6 pg (27.0-33.4); MEAN CORPUSCULAR HGB CONC 35.2 g/dL (32.0-36.0); MEAN CORPUSCULAR VOLUME 98 fl (80-97); MONOCYTES % (AUTO) 5.2 % (3-13); PLATELET COUNT 179 10^3/uL (150-450); RED BLOOD COUNT 4.75 10^6/uL (3.72-5.28); RED CELL DISTRIBUTION WIDTH 15.2 % (11.5-14.0); SEGMENTED NEUTROPHILS % (AUTO) 65.9 % (42-78); TOTAL CELLS COUNTED % (AUTO) 100 %; WHITE BLOOD COUNT 8.8 10^3/uL (4.0-10.5)
[2018-02-02 14:01] LABS: ALANINE AMINOTRANSFERASE 72 U/L (9-52); ALBUMIN 3.8 g/dL (3.5-5.0); ALKALINE PHOSPHATASE 450 U/L (38-126); ANION GAP 15 (5-19); ASPARTATE AMINO TRANSFERASE 189 U/L (14-36); BILIRUBIN,DIRECT 1.1 mg/dL (0.0-0.4); BILIRUBIN,TOTAL 2.7 mg/dL (0.2-1.3); BLOOD UREA NITROGEN 5 mg/dL (7-20); CALCIUM 9.3 mg/dL (8.4-10.2); CARBON DIOXIDE 21 mmol/L (22-30); CHLORIDE 100 mmol/L (98-107); GLUCOSE 216 mg/dL (75-110); LIPASE 546.5 U/L (23-300); POTASSIUM 4.7 mmol/L (3.6-5.0); SODIUM 136.2 mmol/L (137-145); TOTAL PROTEIN 8.9 g/dL (6.3-8.2)
[2018-02-02 14:25] LABS: APPEARANCE,URINE CLOUDY; BILIRUBIN,URINE NEGATIVE (NEGATIVE); COLOR,URINE AMBER; GLUCOSE, URINE 50 mg/dL (NEGATIVE); KETONES,URINE NEGATIVE (NEGATIVE); LEUKOCYTE ESTERASE,URINE NEGATIVE (NEGATIVE); NITRITE,URINE NEGATIVE (NEGATIVE); PROTEIN,URINE 30 mg/dL (NEGATIVE); URINE SPECIFIC GRAVITY 1.015; UROBILINOGEN,URINE NEGATIVE mg/dL (<2.0)
[2018-02-02] MEDS ORDERED: NORMAL SALINE 1000 ML 1,000 ML IV PRN (15:19)
[2018-02-02 15:48] LABS: ALCOHOL 86 mg/dL (NONE DETECTED)
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
--- NOTE | 2018-02-02 17:20 | RADIOLOGY REPORT (SQ) ---
EXAM DESCRIPTION: CT ABD/PELVIS WITH IV ONLY COMPLETED DATE/TIME: 02/02/2018 5:03 pm REASON FOR STUDY: abd pain, hx pancreatitis/pseudocyst COMPARISON: 07/20/2017 TECHNIQUE: CT scan of the abdomen and pelvis performed using helical scanning technique with dynamic intravenous contrast injection. No oral contrast. Images reviewed with lung, soft tissue, and bone w indows. Reconstructed coronal and sagittal MPR images reviewed. Delayed images for evaluation of the urinary system also acquired. All images stored on PACS. All CT scanners at this facility use dose modulation, iterative reconstruction, and/or weight based d osing when appropriate to reduce radiation dose to as low as reasonably achievable (ALARA). [facility]: Dose Right [facility]: CareDose [facility]: Dose Right [facility]: Teradose 4D [facility]: Globevestor CONTRAST TYPE AND DOSE: contrast/concentration: Isovue 350.00 mg/ml; Total Contrast Delivered: 94.0 ml; Total Saline Delivered: 61.0 ml RENAL FUNCTION: GFR > 60. RADIATION DOSE: CT Rad equipment meets quality standard of care and radiation dose reduction techniq ues were employed. CTDIvol: 16.3 - 20.1 mGy. DLP: 1754 mGy-cm.. LIMITATIONS: None. FINDINGS: LOWER CHEST: Small areas of residual subpleural scarring -atelectasis in the right lung ba se. LIVER: Similar hepatomegaly and fatty infiltration. No enhancing masses. No dilated ducts. SPLEEN: Normal size. No focal lesions. PANCREAS: Similar lobular 15 mm pseudocyst in the pancreatic head. No significant calcifications. Mi ld adjacent inflammation. No peripancreatic fluid collections. Distal Pancreatic duct not dilated. GALLBLADDER: No calcified stones. No inflammatory changes to suggest cholecystitis. ADRENAL GLANDS: No significant masses. RIGHT KIDNEY AND URETER: Tiny cysts identified. No solid masses identified. No calcified stones. No h ydronephrosis or hydroureter. LEFT KIDNEY AND URETER: No cysts identified. No solid masses identified. No calcified stones. No hydr onephrosis or hydroureter. AORTA AND VESSELS: No aneurysm. No dissection. Renal arteries, SMA, celiac without significant stenos is. RETROPERITONEUM: No bulky retroperitoneal adenopathy. BOWEL AND PERITONEAL CAVITY: Prior gastric bypass. No obstruction or inflammatory changes. No free f luid. APPENDIX: Normal. PELVIS: No mass. No free fluid. Unremarkable bladder. ABDOMINAL WALL: No masses. No hernias. BONES: No acute findings. OTHER: No other significant finding. IMPRESSION: Mild peripancreatic inflammatory changes.Similar lobular 15 mm pseudocyst in the pancrea tic head. No significant calcifications. Small areas of residual subpleural scarring -atelectasis in the right lung base. TECHNICAL DOCUMENTATION: JOB ID: [id number] Quality ID # [id number]: Final reports with documentation of one or more dose reduction techniques (e.g., Au tomated exposure control, adjustment of the mA and/or kV according to patient size, use of iterative reconstruction technique) 2010 [employer]- All Rights Reserved Reading location - IP/workstation name: [email or web address]
[2018-02-02] MEDS ORDERED: IBUPROFEN 800 MG TABLET PO ONE (18:40)
[2018-02-02 18:55] VITALS: BP 126/80
--- NOTE | 2018-02-05 07:57 | EKG REPORT ---
SEVERITY:- BORDERLINE ECG - SINUS RHYTHM NONSPECIFIC INFERIOR ST CHANGES INFERIOR LEADS : Confirmed by: Del Claudio MD 05-Feb-2018 07:56:19
== END 2018-02-02 18:54 | disposition home or self-care (01) ==
LOC: ER 12:02
DX: F10.10 Alcohol abuse, uncomplicated (principal); K86.0 Alcohol-induced chronic pancreatitis; R11.2 Nausea with vomiting, unspecified; R53.1 Weakness; R10.10 Upper abdominal pain, unspecified; M54.9 Dorsalgia, unspecified; R19.7 Diarrhea, unspecified; F17.200 Nicotine dependence, unspecified, uncomplicated; I10 Essential (primary) hypertension; E11.9 Type 2 diabetes mellitus without complications
CPT/HCPCS: 93005; 96376; 99284; 96361; 96374; 96375; 36415; 80307; 83690; 85025; 80053; 81001; 74177; 93010; J1170; J2405; J7120

== ENCOUNTER 2018-02-04 21:58 | Inpatient (IN) | payer SELFPAY ==
[2018-02-04] MEDS ORDERED: NORMAL SALINE 1000 ML 1,000 ML IV ONE (23:02)
[2018-02-04] MEDS ORDERED: ONDANSETRON HCL INJ/PF 4 MG/2 ML SDV IV ONE (23:02)
[2018-02-04] MEDS ORDERED: MORPHINE SULFATE 10 MG/ML INJ IV ONE (23:02)
--- NOTE | 2018-02-04 23:04 | ER Document Report ---
ED GI/ - General Chief Complaint: Abdominal Pain >50 Stated Complaint: BACK AND STOMACH PAIN Time Seen by Provider: 02/04/18 23:01 Mode of Arrival: Wheelchair Information source: Patient TRAVEL OUTSIDE OF THE [place] IN LAST 30 DAYS: No - HPI Patient complains to provider of: Abdominal pain, Vomiting Onset: Last week Timing/Duration: Persistent, Worse Quality of pain: Sharp, Stabbing Severity at maximum: Severe Severity in ED: Severe Location: Epigastric Associated symptoms: Nausea, Vomiting Exacerbated by: Food Relieved by: Denies Similar symptoms previously: Yes Recently seen / treated by doctor: Yes Notes: 02/04/18 23:03 Patient is a 47-year-old female presenting to the emergency room complaining of epigastric abdominal pain with nausea and vomiting that is been going on for the past 1-2 weeks, she reports being seen in this facility recently and diagnosed with pancreatitis, was discharged home with prescription medication and instructions for follow-up, however her symptoms have worsened and she is unable to tolerate any p.o. intake stating that it comes up repeatedly and her pain has worsened significantly, she has a history of 3 C-sections and a gastric bypass surgery in the past, she denies vomiting any blood, no fevers - Related Data Allergies/Adverse Reactions: Bee Allergy (Uncoded 02/02/18 12:02) bees Allergy (Uncoded 02/02/18 12:02) Past Medical History - General Information source: Patient - Social History Smoking Status: Unknown if Ever Smoked Family History: Reviewed & Not Pertinent, DM - Past Medical History Cardiac Medical History: Reports: Hx Hypertension, Hx Pulmonary Embolism Neurological Medical History: Denies: Hx Seizures Endocrine Medical History: Reports: Hx Diabetes Mellitus Type 2 Renal/ Medical History: Denies: Hx Peritoneal Dialysis GI Medical History: Reports: Hx Gastroesophageal Reflux Disease, Hx Hepatitis Musculoskeletal Medical History: Reports Hx Arthritis - gout Psychiatric Medical History: Reports: Hx Depression Infectious Medical History: Reports: Hx Hepatitis Past Surgical History: Reports: Hx Abdominal Surgery - Laproscopic Gastric Bypass, Hx Section - x 3, Hx Gastric Bypass Surgery, Hx Hysterectomy - Immunizations Hx Diphtheria, Pertussis, Tetanus Vaccination: No Review of Systems - Review of Systems Constitutional: No symptoms reported EENT: No symptoms reported Cardiovascular: No symptoms reported Respiratory: No symptoms reported Gastrointestinal: See HPI Genitourinary: No symptoms reported Female Genitourinary: No symptoms reported Musculoskeletal: No symptoms reported Skin: No symptoms reported Hematologic/Lymphatic: No symptoms reported Neurological/Psychological: No symptoms reported -: Yes All other systems reviewed and negative Physical Exam - Vital signs Vitals: Temp Pulse Resp BP Pulse Ox 98.4 F 111 H 16 133/96 H 98 02/04/18 22:06 02/04/18 22:06 02/04/18 22:06 02/04/18 22:06 02/04/18 22:06 Interpretation: Tachycardic - General General appearance: Appears well, Alert - HEENT Head: Normocephalic, Atraumatic Eyes: Normal Pupils: PERRL - Respiratory Respiratory status: No respiratory distress Chest status: Nontender Breath sounds: Normal Chest palpation: Normal - Cardiovascular Rhythm: Regular Heart sounds: Normal auscultation Murmur: No - Abdominal Inspection: Normal Distension: No distension Bowel sounds: Normal Tenderness: Tender - Epigastric Organomegaly: No organomegaly - Back Back: Normal, Nontender - Extremities General upper extremity: Normal inspection, Nontender, Normal color, Normal ROM , Normal temperature General lower extremity: Normal inspection, Nontender, Normal color, Normal ROM , Normal temperature, Normal weight bearing. No: Julia's sign - Neurological Neuro grossly intact: Yes Cognition: Normal Orientation: AAOx4 Palomo Coma Scale Eye Opening: Spontaneous Palomo Coma Scale Verbal: Oriented Palomo Coma Scale Motor: Obeys Commands Terrell Coma Scale Total: 15 Speech: Normal Motor strength normal: LUE, RUE, LLE, RLE Sensory: Normal - Psychological Associated symptoms: Normal affect, Normal mood - Skin Skin Temperature: Warm Skin Moisture: Dry Skin Color: Normal Course - Re-evaluation Re-evalutation: 02/05/18 04:27 Patient discussed with hospitalist, Dr. Ramirez who agrees to admit for further evaluation and treatment 02/05/18 06:01 Patient with acute on chronic pancreatitis, with elevated liver enzymes, slightly higher lipase than usual, with persistent abdominal pain, CT scan performed on most recent visit prior to today shows a 15 mm pseudocyst in the pancreas, given patient's worsening symptoms decision was made to admit for further evaluation and treatment - Vital Signs Vital signs: Temp Pulse Resp BP Pulse Ox 98.4 F 111 H 18 134/91 H 97 02/04/18 22:06 02/04/18 22:06 02/05/18 05:01 02/05/18 05:01 02/05/18 05:01 - Laboratory Result Diagrams: 02/05/18 01:26 02/05/18 01:26 Laboratory results interpreted by me: 02/05/18 02/05/18 02/05/18 01:26 01:26 02:50 MCV 99 H MCH 34.5 H RDW 14.8 H Plt Count 126 L Sodium 133.5 L Glucose 262 H Total Bilirubin 2.0 H Direct Bilirubin 1.0 H AST 185 H ALT 69 H Alkaline Phosphatase 415 H Lipase 756.6 H Urine Glucose (UA) 150 H Urine Blood LARGE H Ur Leukocyte Esterase TRACE H - Diagnostic Test Radiology reviewed: Image reviewed, Reports reviewed Discharge - Discharge Clinical Impression: Pancreatitis Qualifiers: Chronicity: acute Pancreatitis type: unspecified pancreatitis type Acute pancreatitis complication: unspecified Qualified Code(s): K85.90 - Acute pancreatitis without necrosis or infection, unspecified Condition: Stable Disposition: ADMITTED INPATIENT Admitting Provider: Hospitalist Unit Admitted: Medical Floor
[2018-02-05] MEDS ORDERED: METOCLOPRAMIDE HCL INJ/PF 10 MG/2 ML SDV IV ONE (01:27)
[2018-02-05] MEDS ORDERED: HYDROMORPHONE HCL INJ/PF 2 MG/ML AMPULE IV ONE ×2 (01:27→05:21)
[2018-02-05 01:35] LABS: ABSOLUTE LYMPHOCYTES (AUTO) 1.3 10^3/uL (0.5-4.7); ABSOLUTE MONOCYTES (AUTO) 0.6 10^3/uL (0.1-1.4); ABSOLUTE NEUT (AUTO) 5.7 10^3/uL (1.7-8.2); BASOPHILS % (AUTO) 0.2 % (0-2); EOSINOPHILS % (AUTO) 0.3 % (0-6); HEMATOCRIT 42.7 % (36.0-47.0); LYMPHOCYTES % (AUTO) 16.8 % (13-45); MEAN CORPUSCULAR HEMOGLOBIN 34.5 pg (27.0-33.4); MEAN CORPUSCULAR HGB CONC 35.1 g/dL (32.0-36.0); MEAN CORPUSCULAR VOLUME 99 fl (80-97); MONOCYTES % (AUTO) 8.1 % (3-13); PLATELET COUNT 126 10^3/uL (150-450); RED BLOOD COUNT 4.34 10^6/uL (3.72-5.28); RED CELL DISTRIBUTION WIDTH 14.8 % (11.5-14.0); SEGMENTED NEUTROPHILS % (AUTO) 74.6 % (42-78); TOTAL CELLS COUNTED % (AUTO) 100 %; WHITE BLOOD COUNT 7.7 10^3/uL (4.0-10.5)
[2018-02-05 01:45] LABS: ALANINE AMINOTRANSFERASE 69 U/L (9-52); ALBUMIN 3.6 g/dL (3.5-5.0); ALKALINE PHOSPHATASE 415 U/L (38-126); ANION GAP 12 (5-19); ASPARTATE AMINO TRANSFERASE 185 U/L (14-36); BLOOD UREA NITROGEN 7 mg/dL (7-20); CALCIUM 8.7 mg/dL (8.4-10.2); CARBON DIOXIDE 23 mmol/L (22-30); CHLORIDE 99 mmol/L (98-107); GLUCOSE 262 mg/dL (75-110); LIPASE 756.6 U/L (23-300); POTASSIUM 4.1 mmol/L (3.6-5.0); SODIUM 133.5 mmol/L (137-145); TOTAL PROTEIN 8.2 g/dL (6.3-8.2)
[2018-02-05 03:21] LABS: APPEARANCE,URINE CLOUDY; BILIRUBIN,URINE NEGATIVE (NEGATIVE); COLOR,URINE YELLOW; GLUCOSE, URINE 150 mg/dL (NEGATIVE); KETONES,URINE NEGATIVE (NEGATIVE); LEUKOCYTE ESTERASE,URINE TRACE (NEGATIVE); NITRITE,URINE NEGATIVE (NEGATIVE); PROTEIN,URINE NEGATIVE (NEGATIVE); UROBILINOGEN,URINE NEGATIVE mg/dL (<2.0)
[2018-02-05 05:19] LABS: URINE AMPHETAMINES SCREEN NEGATIVE; URINE BARBITURATES SCREEN NEGATIVE; URINE BENZODIAZEPINES SCREEN NEGATIVE; URINE COCAINE SCREEN NEGATIVE; URINE MARIJUANA (THC) SCREEN NEGATIVE; URINE METHADONE SCREEN NEGATIVE; URINE PHENCYCLIDINE SCREEN NEGATIVE
[2018-02-05] MEDS ORDERED: MAG HYDROX/AL HYDROX/SIMETH SUSP 30 ML UDCUP PO PRN (05:53)
[2018-02-05] MEDS ORDERED: ACETAMINOPHEN 325 MG TABLET PO PRN (05:53)
[2018-02-05] MEDS ORDERED: TEMAZEPAM 7.5 MG CAPSULE PO PRN (05:53)
[2018-02-05] MEDS ORDERED: NORMAL SALINE 1000 ML 1,000 ML IV PRN (05:53)
[2018-02-05] MEDS ORDERED: DEXTROSE 50%-WATER 25 GM/50 ML DISP.SYRIN IV PRN ×4 (05:53→05:59)
[2018-02-05] MEDS ORDERED: GLUCAGON,HUMAN RECOMB 1 MG INJ SUBCUT PRN (05:53)
[2018-02-05] MEDS ORDERED: PROMETHAZINE HCL 25 MG TABLET PO PRN (05:53)
[2018-02-05] MEDS ORDERED: DEXTROSE 40% GEL 15 GM TUBE PO PRN ×4 (05:53→05:59)
[2018-02-05] MEDS ORDERED: GLUCAGON,HUMAN RECOMB 1 MG INJ IM PRN (05:59)
[2018-02-05] MEDS ORDERED: INSULIN REG, HUMAN 100 UNIT/ML 3 ML VIAL (PYX) SUBCUT PRN (05:59)
--- NOTE | 2018-02-05 06:43 | PDOC H&P ---
History of Present Illness Admission Date/PCP: 02/05/18 04:37 [facility] Patient complains of: Abdominal pain History of Present Illness: BILL FERRER is a 47 year old female with history of chronic pancreatitis who comes to the emergency department complaining of one week of epigastric pain radiated to the back, crampy in nature, up to 10/10 intensity, feels like contractions that do not go away and is constant. This is associated with nausea and vomiting of clear liquid. Unfortunately patient is still drinks 2 glasses of wine a day. Denies shortness of breath, chest pain, fever, chills, diarrhea, changes in her urine. In the emergency department CT abdomen and pelvis was done and it shows a new 1.5 mm pseudocyst in the pancreatic head. Her LFTs are elevated compared to prior as well as her lipase is 756 with a baseline in the 500s. Patient does not follow with any GI doctor. Has multiple visits to the emergency department. Past Medical History Cardiac Medical History: Reports: Hypertension, Pulmonary Embolism Neurological Medical History: Denies: Seizures Endocrine Medical History: Reports: Diabetes Mellitus Type 2 GI Medical History: Reports: Gastroesophageal Reflux Disease, Hepatitis Musculoskeltal Medical History: Reports: Arthritis - gout Psychiatric Medical History: Reports: Depression Past Surgical History Past Surgical History: Reports: Section - x 3, Gastric Bypass Surgery, Hysterectomy Social History Information Source: Patient Smoking Status: Current Every Day Smoker Frequency of Alcohol Use: Occasional Hx Recreational Drug Use: No Drugs: None Hx Prescription Drug Abuse: No - Advance Directive Resuscitation Status: Full Code Family History Family History: Reviewed & Not Pertinent, DM Parental Family History Reviewed: No Children Family History Reviewed: NA Sibling(s) Family History Reviewed.: NA Medication/Allergy Home Medications: Aspirin [Adult Low Dose Aspirin EC] 81 mg PO DAILY 07/18/17 Ergocalciferol (Vitamin D2) [Vitamin D] 400 unit PO DAILY 07/18/17 Gabapentin [Neurontin] 600 mg PO Q8 07/18/17 Hydroxyzine HCl [Atarax 25 mg Tablet] 25 mg PO QHS 07/18/17 Insulin Detemir [Levemir Flextouch] 10 units SQ QHS 07/18/17 Lisinopril [Zestril] 10 mg PO DAILY 07/18/17 Multivit with Minerals No.55 [Centrum Flavor Burst Adult] 1 tab PO DAILY Amitriptyline HCl 25 mg PO QPM 07/22/17 Folic Acid [Folvite 1 mg Tablet] 1 mg PO DAILY tablet 07/26/17 Potassium Chloride [Kaon-Cl 20 Meq/15 ml Udcup] 20 meq PO DAILY #30 udc Thiamine HCl [Thiamine 100 mg Tablet] 100 mg PO DAILY tablet 07/26/17 Torsemide [Demadex 20 mg Tablet] 20 mg PO DAILY tablet 07/26/17 Ondansetron [Zofran Odt 4 mg Tablet] 1 - 2 tab PO Q4H PRN #15 tab.rapdis Hydrocodone/Acetaminophen [[place] 5-325 mg Tablet] 1 tab PO QID PRN 5 Days #20 tablet 12/26/17 Promethazine HCl [Phenergan 25 mg Tablet] 25 mg PO BID PRN 7 Days #15 tablet 10/07 Ranitidine HCl [Zantac] 150 mg PO BID 7 Days #14 tablet 12/26/17 Gabapentin 300 mg PO TID #15 capsule 02/02/18 Naproxen [Naprosyn 250 Nmg Tablet] 1 tab PO BID #14 tablet 02/02/18 Ondansetron HCl [Zofran 4 mg Tablet] 1 - 2 tab PO Q6 PRN #15 tablet 02/02/18 Allergies/Adverse Reactions: Bee Allergy (Uncoded 02/02/18 12:02) bees Allergy (Uncoded 02/02/18 12:02) Review of Systems Review of Systems: As outlined in the HPI, others negative Physical Exam Vital Signs: Temp Pulse Resp BP Pulse Ox 97.7 F 95 20 144/86 H 99 02/05/18 06:15 02/05/18 06:15 02/05/18 06:15 02/05/18 06:15 02/05/18 06:15 Intake & Output 02/03/18 02/04/18 02/05/18 06:59 06:59 06:59 Weight 83.4 kg Additional comments: General appearance: Morbid obese, alert and cooperative, and appears to be in acute distress secondary to abdominal pain Head: Normocephalic Eyes: PEERL, EOMI, vision is grossly intact. Ears: External auditory canal and tympanic membranes clear, hearing grossly intact. Nose: No nasal discharge. Throat: Oral cavity and pharynx normal. No inflammation, swelling, exudate or lesions. Neck: Neck supple, nontender without lymphadenopathy, masses or thyromegaly. Cardiac: Normal S1 and S2. No S3, S4 or murmurs. Rhythm is regular. There is no peripheral edema, cyanosis or pallor. Extremities are warm and well perfused. Capillary refill is less than 2 seconds. No carotid bruits. Lungs: Clear to auscultation and percussion without rales, rhonchi, wheezing or diminished breath sounds. Not using accessory muscles. Abdomen: Positive bowel sounds. Soft. Severe diffuse tenderness with mild guarding more in the epigastric and left upper quadrant area. Extremities: No significant deformity or joint abnormality. No edema. Peripheral pulses intact. No varicosities. Neurological: Cranial nerves II through XII grossly intact. Strength and sensation symmetric and intact throughout. Reflexes 2+ throughout. Skin: Skin normal color, texture and turgor with no lesions or eruptions, warm and dry. Psychiatric: The mental examination revealed the patient was oriented to person , place, and time. The patient was able to demonstrate good judgment on recent , without hallucinations, abnormal affect or abnormal behaviors. Results Laboratory Results: 02/05/18 02/05/18 02/05/18 01:26 01:26 02:50 WBC 7.7 RBC 4.34 Hgb 15.0 Hct 42.7 MCV 99 H MCH 34.5 H MCHC 35.1 RDW 14.8 H Plt Count 126 L Seg Neutrophils % 74.6 Lymphocytes % 16.8 Monocytes % 8.1 Eosinophils % 0.3 Basophils % 0.2 Absolute Neutrophils 5.7 Absolute Lymphocytes 1.3 Absolute Monocytes 0.6 Absolute Eosinophils 0.0 Absolute Basophils 0.0 Sodium 133.5 L Potassium 4.1 Chloride 99 Carbon Dioxide 23 Anion Gap 12 BUN 7 Creatinine 0.68 Est GFR ( Amer) > 60 Est GFR (Non-Af Amer) > 60 Glucose 262 H Calcium 8.7 Total Bilirubin 2.0 H Direct Bilirubin 1.0 H AST 185 H ALT 69 H Alkaline Phosphatase 415 H Albumin 3.6 Lipase 756.6 H Urine Color YELLOW Urine Appearance CLOUDY Urine pH 5.0 Ur Specific [place] 1.010 Urine Protein NEGATIVE Urine Glucose (UA) 150 H Urine Ketones NEGATIVE Urine Blood LARGE H Urine Nitrite NEGATIVE Urine Bilirubin NEGATIVE Urine Urobilinogen NEGATIVE Ur Leukocyte Esterase TRACE H Urine WBC (Auto) 7 Urine RBC (Auto) 2 U Hyaline Cast (Auto) 16 Urine Bacteria (Auto) 3+ Squamous Epi Cells Auto 9 Urine Mucus (Auto) RARE Urine Ascorbic Acid NEGATIVE Urine Opiates Screen Urine Methadone Screen Ur Barbiturates Screen Ur Phencyclidine Scrn Ur Amphetamines Screen U Benzodiazepines Scrn Urine Cocaine Screen U Marijuana (THC) Screen 02/05/18 02:50 WBC RBC Hgb Hct MCV MCH MCHC RDW Plt Count Seg Neutrophils % Lymphocytes % Monocytes % Eosinophils % Basophils % Absolute Neutrophils Absolute Lymphocytes Absolute Monocytes Absolute Eosinophils Absolute Basophils Sodium Potassium Chloride Carbon Dioxide Anion Gap BUN Creatinine Est GFR ( Amer) Est GFR (Non-Af Amer) Glucose Calcium Total Bilirubin Direct Bilirubin AST ALT Alkaline Phosphatase Albumin Lipase Urine Color Urine Appearance Urine pH Ur Specific [place] Urine Protein Urine Glucose (UA) Urine Ketones Urine Blood Urine Nitrite Urine Bilirubin Urine Urobilinogen Ur Leukocyte Esterase Urine WBC (Auto) Urine RBC (Auto) U Hyaline Cast (Auto) Urine Bacteria (Auto) Squamous Epi Cells Auto Urine Mucus (Auto) Urine Ascorbic Acid Urine Opiates Screen UNCONFIRMED POSITIVE Urine Methadone Screen NEGATIVE Ur Barbiturates Screen NEGATIVE Ur Phencyclidine Scrn NEGATIVE Ur Amphetamines Screen NEGATIVE U Benzodiazepines Scrn NEGATIVE Urine Cocaine Screen NEGATIVE U Marijuana (THC) Screen NEGATIVE Assessment & Plan - Diagnosis (1) Acute on chronic pancreatitis Is this a current diagnosis for this admission?: Yes Plan: Patient with acute on chronic pancreatitis with a CT abdomen pelvis showing a 1.5 mm pseudocyst which is new and was not showing in the CT done on June 2017. Patient also has elevated liver enzymes compared with the ones done on 12/26/17. Apparently her baseline lipase is around 500, today was 756. Patient will be on aggressive IV fluids hydration, IV antiemetics and pain medication as needed. GI consultation with Dr. Doll for evaluation and further recommendations. We will keep the patient n.p.o. Place order for right upper quadrant ultrasound. IV protonix (2) Diabetes mellitus type 2 in obese Is this a current diagnosis for this admission?: Yes Plan: Accu-Cheks every 6 hours patient will be n.p.o. insulin and sliding scale and hypoglycemia protocol. Resume home diabetic medication. Usually his blood sugar is not well controlled and the patient is known to be noncompliant. (3) Alcohol dependency Qualifiers: Substance use status: unspecified alcohol-induced disorder Qualified Code(s ): F10.29 - Alcohol dependence with unspecified alcohol-induced disorder Is this a current diagnosis for this admission?: Yes Plan: Patient drinks 2 glasses of wine a day at the latest, counseling given in the ED - Time Time Spent: 30 to 50 Minutes - Inpatient Certification Based on my medical assessment, after consideration of the patient's comorbidities, presenting symptoms, or acuity I expect that the services needed warrant INPATIENT care.: Yes I certify that my determination is in accordance with my understanding of Medicare's requirements for reasonable and necessary INPATIENT services [42 CFR 412.3e].: Yes Medical Necessity: Risk of Complication if Not Cared For in Hospital
[2018-02-05] MEDS ORDERED: PANTOPRAZOLE SODIUM 40 MG VIAL IV ONE (07:00)
[2018-02-05] MEDS: HYDROMORPHONE HCL INJ/PF 2 MG/ML AMPULE IV PRN ×4 (08:30→22:27)
--- NOTE | 2018-02-05 09:39 | RADIOLOGY REPORT (SQ) ---
EXAM DESCRIPTION: U/S ABDOMEN LIMITED W/O DOP COMPLETED DATE/TIME: 02/05/2018 8:49 am REASON FOR STUDY: Increased LFTs from baseline COMPARISON: None. TECHNIQUE: Dynamic and static grayscale images acquired of the abdomen and recorded on PACS. Additio nal selected color Doppler and spectral images recorded. LIMITATIONS: Limited visualization. Poor acoustical window FINDINGS: PANCREAS: Not visualized. LIVER: Normal size Moderate to marked fatty infiltration. No focal masses. LIVER VASCULATURE: Normal directional flow of the main portal vein and hepatic veins. GALLBLADDER: No stones. Normal wall thickness. No pericholecystic fluid. ULTRASOUND-DETECTED OLIVEIRA'S SIGN: Negative. INTRAHEPATIC DUCTS AND COMMON DUCT: CBD and intrahepatic ducts normal caliber. No filling defects. INFERIOR VENA CAVA: Normal flow. AORTA: No aneurysm. RIGHT KIDNEY: Normal size. Normal echogenicity. No solid or suspicious masses. No hydronephros is. No calcifications. PERITONEAL AND RIGHT PLEURAL SPACE: No ascites or effusions. OTHER: No other significant findings. IMPRESSION: FATTY LIVER. OTHERWISE NORMAL RUQ US VISUALIZED TECHNICAL DOCUMENTATION: JOB ID: [id number]- All Rights Reserved Reading location - IP/workstation name: [email or web address]
[2018-02-05] MEDS: PROMETHAZINE HCL INJ 25 MG/1 ML VIAL IV PRN ×2 (09:58→22:22)
[2018-02-05] MEDS: ENOXAPARIN SODIUM INJ 40 MG/0.4 ML DISP.SYRIN SUBCUT SCH (09:59)
[2018-02-05] MEDS: RINGERS SOLUTION,LACTATED 1,000 ML IV PRN ×2 (13:17→18:15)
[2018-02-06] MEDS: RINGERS SOLUTION,LACTATED 1,000 ML IV PRN (03:49)
[2018-02-06] MEDS: HYDROMORPHONE HCL INJ/PF 2 MG/ML AMPULE IV PRN ×2 (03:52→09:10)
[2018-02-06 06:37] LABS: ALANINE AMINOTRANSFERASE 63 U/L (9-52); ALBUMIN 2.8 g/dL (3.5-5.0); ALKALINE PHOSPHATASE 347 U/L (38-126); ANION GAP 8 (5-19); ASPARTATE AMINO TRANSFERASE 143 U/L (14-36); BILIRUBIN,DIRECT 0.9 mg/dL (0.0-0.4); BILIRUBIN,TOTAL 2.1 mg/dL (0.2-1.3); BLOOD UREA NITROGEN 6 mg/dL (7-20); CALCIUM 8.4 mg/dL (8.4-10.2); CARBON DIOXIDE 24 mmol/L (22-30); CHLORIDE 104 mmol/L (98-107); GLUCOSE 135 mg/dL (75-110); LIPASE 60.7 U/L (23-300); POTASSIUM 4.2 mmol/L (3.6-5.0); SODIUM 136.3 mmol/L (137-145); TOTAL PROTEIN 6.7 g/dL (6.3-8.2)
[2018-02-06 06:41] LABS: ABSOLUTE EOSINOPHILS # (AUTO) 0.1 10^3/uL (0.0-0.6); ABSOLUTE LYMPHOCYTES (AUTO) 1.5 10^3/uL (0.5-4.7); ABSOLUTE MONOCYTES (AUTO) 0.3 10^3/uL (0.1-1.4); BASOPHILS % (AUTO) 0.4 % (0-2); EOSINOPHILS % (AUTO) 1.3 % (0-6); LYMPHOCYTES % (AUTO) 25.6 % (13-45); MEAN CORPUSCULAR HEMOGLOBIN 34.9 pg (27.0-33.4); MEAN CORPUSCULAR VOLUME 100 fl (80-97); MONOCYTES % (AUTO) 5.7 % (3-13); RED BLOOD COUNT 3.62 10^6/uL (3.72-5.28); TOTAL CELLS COUNTED % (AUTO) 100 %
[2018-02-06 06:42] LABS: HEMOGLOBIN 12.6 g/dL (12.0-15.5); PLATELET COUNT 82 10^3/uL (150-450)
[2018-02-06 06:47] LABS: AMYLASE < 30 U/L (30-110)
[2018-02-06] MEDS: PROMETHAZINE HCL INJ 25 MG/1 ML VIAL IV PRN (09:10)
[2018-02-06] MEDS: ENOXAPARIN SODIUM INJ 40 MG/0.4 ML DISP.SYRIN SUBCUT SCH (09:26)
[2018-02-06] MEDS ORDERED: PANTOPRAZOLE SODIUM 40 MG VIAL IV SCH (10:00)
[2018-02-06 12:01] VITALS: BP 135/80
--- NOTE | 2018-02-06 15:30 | PDOC DISCHARGE SUMMARY ---
General - Admit/Disc Date/PCP Admission Date/Primary Care Provider: 02/05/18 04:37 Discharge Date: 02/06/18 - Discharge Diagnosis (1) Acute on chronic pancreatitis Is this a current diagnosis for this admission?: Yes Summary: She improved rather quickly, as her lipase returned to normal, and she was noted to be making several trips downstairs to the cafeteria to get food and coffee without telling the staff where she was going. Apparently she was unhooked herself from her IV and take off on her own without any assistance. Apparently she was seen downstairs in the cafeteria twice before noon today. - Additional Information Resuscitation Status: Full Code Discharge Diet: Diabetic Discharge Activity: Activity As Tolerated Home Medications: Gabapentin [Neurontin 300 mg Capsule] 300 mg PO Q8 02/05/18 Naproxen [Naprosyn 250 mg Tablet] 250 mg PO Q12 02/05/18 Ondansetron HCl [Zofran 4 mg Tablet] 4 mg PO Q8HP PRN 02/05/18 Rivaroxaban [Xarelto] 20 mg PO DAILY 02/05/18 History of Present Illness History of Present Illness: BILL FERRER is a 47 year old female with history of chronic pancreatitis who comes to the emergency department complaining of one week of epigastric pain radiated to the back, crampy in nature, up to 10/10 intensity, feels like contractions that do not go away and is constant. This is associated with nausea and vomiting of clear liquid. Unfortunately patient is still drinks 2 glasses of wine a day. Denies shortness of breath, chest pain, fever, chills, diarrhea, changes in her urine. In the emergency department CT abdomen and pelvis was done and it shows a new 1.5 mm pseudocyst in the pancreatic head. Her LFTs are elevated compared to prior as well as her lipase is 756 with a baseline in the 500s. Patient does not follow with any GI doctor. Has multiple visits to the emergency department. Hospital Course Hospital Course: She was put on IV fluids and was supposed to be on gut rest, but apparently she would disconnect her IV on her own did not tell the nursing staff she was going anywhere, and she apparently made several forays down to the cafeteria unattended. By report, she was seen in the cafeteria 2 times today before noon. Her lipase had returned to normal and since she was eating and drinking without any difficulty she was discharged home today in good condition. Physical Exam Vital Signs: Temp Pulse Resp BP Pulse Ox 97.7 F 99 18 135/80 H 100 02/06/18 11:57 02/06/18 11:57 02/06/18 11:57 02/06/18 11:57 02/06/18 11:57 Intake & Output 02/05/18 02/06/18 02/07/18 06:59 06:59 06:59 Intake Total 1992 Balance 1992 Weight 83.4 kg 85.275 kg General appearance: PRESENT: no acute distress, disheveled, morbidly obese Respiratory exam: PRESENT: clear to auscultation candice, unlabored. ABSENT: rales , rhonchi, tachypnea, wheezes Cardiovascular exam: PRESENT: RRR, +S1, +S2. ABSENT: diastolic murmur, systolic murmur GI/Abdominal exam: PRESENT: normal bowel sounds, soft. ABSENT: guarding, rebound, tenderness Extremities exam: PRESENT: full ROM. ABSENT: pedal edema Musculoskeletal exam: PRESENT: ambulatory, normal inspection. ABSENT: deformity Neurological exam: PRESENT: alert, awake, oriented to person, oriented to place , oriented to time, normal gait Results Laboratory Results: 02/06/18 05:52 02/06/18 05:52 02/06/18 02/06/18 05:52 05:52 WBC 6.0 RBC 3.62 L Hgb 12.6 D Hct 36.0 MCV 100 H MCH 34.9 H MCHC 35.0 RDW 15.0 H Plt Count 82 L Seg Neutrophils % 67.0 Lymphocytes % 25.6 Monocytes % 5.7 Eosinophils % 1.3 Basophils % 0.4 Absolute Neutrophils 4.0 Absolute Lymphocytes 1.5 Absolute Monocytes 0.3 Absolute Eosinophils 0.1 Absolute Basophils 0.0 Sodium 136.3 L Potassium 4.2 Chloride 104 Carbon Dioxide 24 Anion Gap 8 BUN 6 L Creatinine 0.47 L Est GFR ( Amer) > 60 Est GFR (Non-Af Amer) > 60 Glucose 135 H Calcium 8.4 Total Bilirubin 2.1 H AST 143 H ALT 63 H Alkaline Phosphatase 347 H Total Protein 6.7 Albumin 2.8 L Amylase < 30 L Lipase 60.7 Impressions: Abdomen Ultrasound 02/05/18 00:00 IMPRESSION: FATTY LIVER. OTHERWISE NORMAL RUQ US VISUALIZED Qualifiers - * PATIENT BEING DISCHARGED WITH ANY OF THE FOLLOWING DIAGNOSIS: No
== END 2018-02-06 12:50 | disposition home or self-care (01) | DRG 440 ==
LOC: ER 21:58 → EH 02-05 04:37 → 4S 02-05 06:13
PROVIDERS: ADMIT Internal Medicine; ATTEND Internal Medicine
DX: K85.90 Acute pancreatitis without necrosis or infection, unspecified (principal); K86.1 Other chronic pancreatitis; I10 Essential (primary) hypertension; E11.8 Type 2 diabetes mellitus with unspecified complications; K21.9 Gastro-esophageal reflux disease without esophagitis; F10.20 Alcohol dependence, uncomplicated; Y90.0 Blood alcohol level of less than 20 mg/100 ml; Z86.711 Personal history of pulmonary embolism; Z98.84 Bariatric surgery status; Z79.84 Long term (current) use of oral hypoglycemic drugs; Z79.82 Long term (current) use of aspirin; Z79.4 Long term (current) use of insulin; Z79.899 Other long term (current) drug therapy
CPT/HCPCS: 36415; 76705; 80053; 80307; 81001; 82150; 82962; 83690; 85025; 96361; 96374; 96375; 99285; J1170; J1650; J2270; J2405; J2550; J2765; J3490; J7030; J7120; S0164

== ENCOUNTER 2018-04-16 06:15 | Inpatient (IN) | payer SELFPAY ==
[2018-04-16] MEDS ORDERED: FUROSEMIDE INJ/PF 40 MG/4 ML SDV IV ONE (06:40)
--- NOTE | 2018-04-16 06:48 | ER Document Report ---
ED General - General Chief Complaint: Shortness Of Breath Stated Complaint: TROUBLE BREATHING Time Seen by Provider: 04/16/18 06:37 Mode of Arrival: Medic Information source: Patient, Relative Cannot obtain history due to: Unstable vital signs TRAVEL OUTSIDE OF THE [place] IN LAST 30 DAYS: No - HPI Patient complains to provider of: Shortness of breath Onset: Other - This is a 47-year-old female who presents for evaluation of pain through the abdomen as well as shortness of breath which is been worsening over last several days. She had been slightly sick. Rest of history is limited secondary to this patient's dyspnea. Some of it is obtained by her bedside partner Kristofer. - Related Data Allergies/Adverse Reactions: No Known Drug Allergies Allergy (Verified 04/16/18 07:23) Bee Allergy (Uncoded 04/16/18 07:23) bees Allergy (Uncoded 04/16/18 07:23) Past Medical History - General Information source: Patient, Relative Cannot obtain history due to: Unstable vital signs - Social History Smoking Status: Current Every Day Smoker Smoking Education Provided: Yes Frequency of alcohol use: Occasional Drug Abuse: None Lives with: Friend Family History: Reviewed & Not Pertinent, DM - Past Medical History Cardiac Medical History: Reports: Hx Hypertension, Hx Pulmonary Embolism Neurological Medical History: Denies: Hx Seizures Endocrine Medical History: Reports: Hx Diabetes Mellitus Type 2 Renal/ Medical History: Denies: Hx Peritoneal Dialysis GI Medical History: Reports: Hx Gastroesophageal Reflux Disease, Hx Hepatitis Musculoskeletal Medical History: Reports Hx Arthritis - gout Psychiatric Medical History: Reports: Hx Depression Infectious Medical History: Reports: Hx Hepatitis Past Surgical History: Reports: Hx Abdominal Surgery - Laproscopic Gastric Bypass, Hx Section - x 3, Hx Gastric Bypass Surgery, Hx Hysterectomy - Immunizations Hx Diphtheria, Pertussis, Tetanus Vaccination: No Review of Systems - Review of Systems -: Yes All other systems reviewed and negative Physical Exam - Vital signs Vitals: Temp Pulse Resp BP 97.6 F 122 H 28 H 102/50 L 04/16/18 06:24 04/16/18 06:24 04/16/18 06:24 04/16/18 06:24 - General General appearance: Anxious In distress: Moderate - HEENT Head: Normocephalic Eyes: Normal Conjunctiva: Normal Cornea: Normal Extraocular movements intact: Yes Eyelashes: Normal Pupils: PERRL Ears: Normal External canal: Normal - Respiratory Respiratory status: Agonal respirations, Tachypnea Chest status: Nontender Breath sounds: Decreased air movement, Rales, Wheezing Chest palpation: Normal - Cardiovascular Rhythm: Tachycardia Heart sounds: Normal auscultation Murmur: No - Abdominal Inspection: Normal Tenderness: Tender - Diffuse tenderness throughout the abdomen - Back Back: Normal - Extremities General upper extremity: Normal inspection, Nontender, Normal color, Normal ROM, Normal temperature General lower extremity: Normal inspection, Nontender, Normal color, Normal ROM, Normal temperature, Normal weight bearing. No: Julia's sign - Neurological Neuro grossly intact: Yes Cognition: Normal Orientation: AAOx4 [place] Coma Scale Eye Opening: Spontaneous [place]omo Coma Scale Verbal: Oriented [place] Coma Scale Motor: Obeys Commands [place] Coma Scale Total: 15 Speech: Normal Motor strength normal: LUE, RUE, LLE, RLE Sensory: Normal - Psychological Associated symptoms: Normal affect, Normal mood Course - Re-evaluation Re-evalutation: 04/16/18 11:38 This 47-year-old female presented profoundly hypoxic. Upon EMS arrival at her house for her dyspnea they noted that her saturation was 60%. She was placed on a nonrebreather and subsequently transported to the emergency department. On initial evaluation the patient was on a nonrebreather with marked tachypnea and oxygen level in the low 90s. BiPAP was emergently called for. Her lungs demonstrated diffuse crackles and scant wheezes. Grossly this patient appeared fluid overloaded as she did demonstrate edema in the lower extremities with the rales in the lungs. Her history is limited secondary to her profound tachypnea however her live-in partner Kristofer was at the bedside and noted that she had been getting more sick lately. He said that in the past she had had pneumonia which was like this and that she had had too much fluid in the past which was like this where they had to "squeeze it out her chest to get it out". Because the concern for multiple potential underlying etiologies obtained chest x-ray, venous blood gas, CBC CMP troponin BNP EKG. Patient was initially placed on BiPAP as previously stated with a profound improvement in her work of breathing thereafter. CBC demonstrated modest leukocytosis CMP shows slight elevation in bilirubin which patient has previously had. Her proBNP is markedly elevated in comparison to her previous which is in conjunction with her fluid overload. Her EKG is unchanged. Initiated diuresis with 40 mg IV Lasix. Deferred administration of other medications at this time. This patient does appear to be slightly improving however her blood pressure decreased after the administration of BiPAP as such deferred aggressive antihypertensives. It is notable that she does have a history of chronic pancreatitis though I do not believe this is the underlying etiology of her profound dyspnea today. I have contacted the on-call hospitalist Dr. Alvarado. He agrees to evaluate this patient for admission to the [facility] based on her level of support at this time. - Vital Signs Vital signs: Temp Pulse Resp BP Pulse Ox 97.6 F 122 H 17 101/69 97 04/16/18 06:24 04/16/18 06:24 04/16/18 11:01 04/16/18 11:01 04/16/18 11:01 - Laboratory Result Diagrams: 04/16/18 08:37 04/16/18 08:37 Laboratory results interpreted by me: 04/16/18 04/16/18 04/16/18 08:37 08:37 08:37 WBC 10.8 H RBC 3.71 L MCV 104 H MCH 35.3 H RDW 14.9 H Absolute Neutrophils 8.4 H Glucose 160 H Total Bilirubin 4.0 H Direct Bilirubin 2.6 H AST 70 H Alkaline Phosphatase 381 H NT-Pro-B Natriuret Pep 1910 H Albumin 2.6 L Urine Urobilinogen 04/16/18 09:20 WBC RBC MCV MCH RDW Absolute Neutrophils Glucose Total Bilirubin Direct Bilirubin AST Alkaline Phosphatase NT-Pro-B Natriuret Pep Albumin Urine Urobilinogen 4.0 H Critical Care Note - Critical Care Note Total time excluding time spent on procedures (mins): 35 Discharge - Discharge Clinical Impression: Hypoxia, Tachypnea, Tachycardia Fluid overload Qualifiers: Hypervolemia type: unspecified Qualified Code(s): E87.70 - Fluid overload, unspecified Condition: Stable Disposition: ADMITTED INPATIENT Admitting Provider: Hospitalist - [facility] Admitted: [facility]
[2018-04-16] MEDS ORDERED: FENTANYL CITRATE INJ/PF 100 MCG/2 ML AMPUL IV ONE ×2 (07:50→09:44)
[2018-04-16] MEDS ORDERED: ONDANSETRON HCL INJ/PF 4 MG/2 ML SDV IV ONE (07:50)
--- NOTE | 2018-04-16 08:02 | RADIOLOGY REPORT (SQ) ---
EXAM DESCRIPTION: X-ray single view chest. CLINICAL HISTORY: 47 years Female, cough COMPARISON: 12/25/2017. TECHNIQUE: Single portable view of the chest performed on 04/16/2018 at 7:26 AM FINDINGS: The lungs are relatively well expanded. There is patchy airspace disease in the right perihilar region and left lung base which may be due to edema, atelectasis or possibly pneumonia. There is blunting of the right lateral costophrenic sulcus which may reflect a small effusion. There is no evidence of a pneumothorax. The cardiac silhouette is normal in size and configuration. The mediastinal contours are normal. No acute osseous abnormality is identified. No focal soft tissue abnormalities are seen. Lines and tubes: None. IMPRESSION: Patchy airspace disease in the right perihilar region and left lung base with findings suggesting a small right pleural effusion. Findings may reflect edema, atelectasis or possibly pneumonia.
[2018-04-16 08:49] LABS: VENOUS BLOOD BASE EXCESS -1.7 mmol/L; VENOUS BLOOD HCO3 23.7 mmol/L (20-32); VENOUS BLOOD PCO2 42.4 mmHg (35-63); VENOUS BLOOD PH 7.37 (7.30-7.42)
[2018-04-16 09:06] LABS: ALANINE AMINOTRANSFERASE 35 U/L (9-52); ALBUMIN 2.6 g/dL (3.5-5.0); ALKALINE PHOSPHATASE 381 U/L (38-126); ANION GAP 12 (5-19); ASPARTATE AMINO TRANSFERASE 70 U/L (14-36); BILIRUBIN,DIRECT 2.6 mg/dL (0.0-0.4); BLOOD UREA NITROGEN 11 mg/dL (7-20); CALCIUM 8.4 mg/dL (8.4-10.2); CARBON DIOXIDE 24 mmol/L (22-30); CHLORIDE 106 mmol/L (98-107); GLUCOSE 160 mg/dL (75-110); LIPASE 290.6 U/L (23-300); POTASSIUM 4.2 mmol/L (3.6-5.0); SODIUM 141.9 mmol/L (137-145); TOTAL PROTEIN 7.6 g/dL (6.3-8.2)
[2018-04-16 09:15] LABS: ABSOLUTE LYMPHOCYTES (AUTO) 1.7 10^3/uL (0.5-4.7); ABSOLUTE MONOCYTES (AUTO) 0.6 10^3/uL (0.1-1.4); ABSOLUTE NEUT (AUTO) 8.4 10^3/uL (1.7-8.2); BASOPHILS % (AUTO) 0.4 % (0-2); EOSINOPHILS % (AUTO) 0.3 % (0-6); HEMATOCRIT 38.4 % (36.0-47.0); HEMOGLOBIN 13.1 g/dL (12.0-15.5); LYMPHOCYTES % (AUTO) 16.2 % (13-45); MEAN CORPUSCULAR HEMOGLOBIN 35.3 pg (27.0-33.4); MEAN CORPUSCULAR HGB CONC 34.1 g/dL (32.0-36.0); MEAN CORPUSCULAR VOLUME 104 fl (80-97); MONOCYTES % (AUTO) 5.8 % (3-13); PLATELET COUNT 170 10^3/uL (150-450); RED BLOOD COUNT 3.71 10^6/uL (3.72-5.28); RED CELL DISTRIBUTION WIDTH 14.9 % (11.5-14.0); SEGMENTED NEUTROPHILS % (AUTO) 77.3 % (42-78); TOTAL CELLS COUNTED % (AUTO) 100 %; WHITE BLOOD COUNT 10.8 10^3/uL (4.0-10.5)
[2018-04-16 09:17] LABS: NT PRO BNP 1910 pg/mL (<125)
[2018-04-16 09:19] LABS: TROPONIN I < 0.012 ng/mL
[2018-04-16 10:33] LABS: APPEARANCE,URINE SLIGHTLY-CLOUDY; BILIRUBIN,URINE NEGATIVE (NEGATIVE); COLOR,URINE DARK YELLOW; GLUCOSE, URINE NEGATIVE (NEGATIVE); KETONES,URINE NEGATIVE (NEGATIVE); LEUKOCYTE ESTERASE,URINE NEGATIVE (NEGATIVE); NITRITE,URINE NEGATIVE (NEGATIVE); PROTEIN,URINE NEGATIVE (NEGATIVE); URINE SPECIFIC GRAVITY 1.021
[2018-04-16 10:44] LABS: URINE AMPHETAMINES SCREEN NEGATIVE; URINE BARBITURATES SCREEN NEGATIVE; URINE BENZODIAZEPINES SCREEN NEGATIVE; URINE COCAINE SCREEN NEGATIVE; URINE MARIJUANA (THC) SCREEN NEGATIVE; URINE METHADONE SCREEN NEGATIVE; URINE PHENCYCLIDINE SCREEN NEGATIVE
--- NOTE | 2018-04-16 13:10 | EKG REPORT ---
SEVERITY:- BORDERLINE ECG - SINUS TACHYCARDIA BORDERLINE T ABNORMALITIES, INFERIOR LEADS : Confirmed by: Gabriela Devi 16-Apr-2018 13:09:43
[2018-04-16] MEDS ORDERED: ONDANSETRON HCL INJ/PF 4 MG/2 ML SDV IV PRN (14:10)
[2018-04-16] MEDS ORDERED: ONDANSETRON HCL INJ/PF 4 MG/2 ML SDV ONE (14:22)
[2018-04-16] MEDS: RIVAROXABAN 10 MG TABLET PO SCH (15:06)
[2018-04-16] MEDS: IPRATROPIUM/ALBUTEROL 0.5-2.5 MG/3 ML AMPUL NEB PRN (15:54)
--- NOTE | 2018-04-16 18:50 | PDOC H&P ---
History of Present Illness Admission Date/PCP: 04/16/18 11:27 BK URIARTE NP History of Present Illness: BILL FERRER is a 47 year old female with a history of RAMSAY who is most often here with acute exacerbations of chronic pancreatitis, but she comes in today with a 3-4-day history of worsening shortness of breath. She said she first started noticing some swelling in her legs about a week ago and she feels like it is been getting worse. She is never had anything like this before. She has not had any fever or cough, but she has had decreased exercise tolerance. She said if she lays down flat she gets short of breath and so she has been trying to sleep propped up. She is not taken any long trips recently or had any periods of prolonged immobility. She had an elevated BNP and was hypertensive on admission, and had never had an elevated BNP before. She also had what looked like pulmonary edema on her chest x-ray. She is being admitted for respiratory distress requiring BiPAP and for further evaluation. Past Medical History Cardiac Medical History: Reports: Hypertension, Pulmonary Embolism Neurological Medical History: Denies: Seizures Endocrine Medical History: Reports: Diabetes Mellitus Type 2 GI Medical History: Reports: Gastroesophageal Reflux Disease, Hepatitis Musculoskeltal Medical History: Reports: Arthritis - gout Psychiatric Medical History: Denies: Depression Past Surgical History Past Surgical History: Reports: Section - x 3, Gastric Bypass Surgery, Hysterectomy Social History Lives with: Friend Smoking Status: Current Every Day Smoker Cigarettes Packs Per Day: 1 Number of Years Smokin Frequency of Alcohol Use: Rare Hx Recreational Drug Use: No Drugs: None Hx Prescription Drug Abuse: No - Advance Directive Resuscitation Status: Full Code Family History Family History: Reviewed & Not Pertinent, DM Parental Family History Reviewed: No Children Family History Reviewed: No - Noncontributory Sibling(s) Family History Reviewed.: No - Noncontributory Medication/Allergy Home Medications: Gabapentin [Neurontin] 600 mg PO Q8 04/16/18 Rivaroxaban [Xarelto] 20 mg PO DAILY 04/16/18 Allergies/Adverse Reactions: No Known Drug Allergies Allergy (Verified 04/16/18 07:23) Bee Allergy (Uncoded 04/16/18 07:23) bees Allergy (Uncoded 04/16/18 07:23) Review of Systems All systems: reviewed and no additional remarkable complaints except as stated - 10 point review of systems was conducted with the patient and was negative ex cept as noted above Physical Exam Vital Signs: Temp Pulse Resp BP Pulse Ox 99.0 F 96 30 H 111/66 100 04/16/18 16:08 04/16/18 16:08 04/16/18 16:08 04/16/18 16:08 04/16/18 16:08 Intake & Output 04/15/18 04/16/18 04/17/18 06:59 06:59 06:59 Intake Total 222 Output Total 825 Balance -603 Weight 88.451 kg 85.2 kg General appearance: PRESENT: cooperative, disheveled, morbidly obese, other - In moderate distress Head exam: PRESENT: atraumatic, normocephalic Eye exam: PRESENT: EOMI, PERRLA. ABSENT: conjunctival injection, nystagmus, scleral icterus Ear exam: PRESENT: normal external ear exam Mouth exam: PRESENT: other - BiPAP mask was on Throat exam: PRESENT: other - BiPAP mask is on Neck exam: PRESENT: full ROM, other - Difficult to tell if she had JVD because she did not want to lay back and also because of her body habitus. ABSENT: carotid bruit, lymphadenopathy, meningismus, tenderness, thyromegaly Respiratory exam: PRESENT: accessory muscle use, decreased breath sounds, s ymmetrical, tachypnea. ABSENT: rales, rhonchi, unlabored, wheezes Cardiovascular exam: PRESENT: RRR, +S1, +S2 Vascular exam: PRESENT: normal capillary refill GI/Abdominal exam: PRESENT: normal bowel sounds, soft. ABSENT: distended, guarding, rebound, tenderness Extremities exam: PRESENT: +1 edema - Bilateral lower extremities. ABSENT: clubbing Musculoskeletal exam: PRESENT: normal inspection. ABSENT: deformity Neurological exam: PRESENT: alert, awake, oriented to person, oriented to place, oriented to time, oriented to situation, CN II-XII grossly intact. ABSENT: motor sensory deficit Psychiatric exam: PRESENT: flat affect Skin exam: PRESENT: dry, warm Results Laboratory Results: 04/16/18 08:37 04/16/18 08:37 04/16/18 04/16/18 04/16/18 08:37 08:37 08:37 WBC 10.8 H RBC 3.71 L Hgb 13.1 Hct 38.4 MCV 104 H MCH 35.3 H MCHC 34.1 RDW 14.9 H Plt Count 170 Seg Neutrophils % 77.3 Lymphocytes % 16.2 Monocytes % 5.8 Eosinophils % 0.3 Basophils % 0.4 Absolute Neutrophils 8.4 H Absolute Lymphocytes 1.7 Absolute Monocytes 0.6 Absolute Eosinophils 0.0 Absolute Basophils 0.0 VBG pH 7.37 VBG pCO2 42.4 VBG HCO3 23.7 VBG Base Excess -1.7 Sodium 141.9 Potassium 4.2 Chloride 106 Carbon Dioxide 24 Anion Gap 12 BUN 11 Creatinine 0.99 Est GFR ( Amer) > 60 Est GFR (Non-Af Amer) > 60 Glucose 160 H Calcium 8.4 Total Bilirubin 4.0 H AST 70 H ALT 35 Alkaline Phosphatase 381 H Total Protein 7.6 Albumin 2.6 L Lipase 290.6 Urine Color Urine Appearance Urine pH Ur Specific [place] Urine Protein Urine Glucose (UA) Urine Ketones Urine Blood Urine Nitrite Ur Leukocyte Esterase Urine WBC (Auto) Urine RBC (Auto) 04/16/18 09:20 WBC RBC Hgb Hct MCV MCH MCHC RDW Plt Count Seg Neutrophils % Lymphocytes % Monocytes % Eosinophils % Basophils % Absolute Neutrophils Absolute Lymphocytes Absolute Monocytes Absolute Eosinophils Absolute Basophils VBG pH VBG pCO2 VBG HCO3 VBG Base Excess Sodium Potassium Chloride Carbon Dioxide Anion Gap BUN Creatinine Est GFR ( Amer) Est GFR (Non-Af Amer) Glucose Calcium Total Bilirubin AST ALT Alkaline Phosphatase Total Protein Albumin Lipase Urine Color DARK YELLOW Urine Appearance SLIGHTLY-CLOUDY Urine pH 5.0 Ur Specific [place] 1.021 Urine Protein NEGATIVE Urine Glucose (UA) NEGATIVE Urine Ketones NEGATIVE Urine Blood NEGATIVE Urine Nitrite NEGATIVE Ur Leukocyte Esterase NEGATIVE Urine WBC (Auto) 6 Urine RBC (Auto) 0 04/16/18 08:37 Troponin I < 0.012 NT-Pro-B Natriuret Pep 1910 H Impressions: Chest X-Ray 04/16/18 06:39 IMPRESSION: Patchy airspace disease in the right perihilar region and left lung base with findings suggesting a small right pleural effusion. Findings may reflect edema, atelectasis or possibly pneumonia. Assessment & Plan - Diagnosis (1) Acute diastolic heart failure Is this a current diagnosis for this admission?: Yes Plan: We're going to give her Lasix and repeat an echocardiogram. She had an echocardiogram back in June that showed right ventricular systolic pressure of 30-40 mmHg and grade 1 diastolic dysfunction. We will keep an eye on her blood pressure and if it does not come down we will probably can give her something to help bring it down. Once we improve her exacerbation we will go medically optimize her. (2) Acute respiratory failure Qualifiers: Respiratory failure complication: hypoxia Qualified Code(s): J96.01 - Acute respiratory failure with hypoxia Is this a current diagnosis for this admission?: Yes Plan: We will keep her on BiPAP until we can get some fluid off of her, then we will transition her to a nasal cannula. - Time Time Spent: 50 to 70 Minutes - Inpatient Certification Medical Necessity: Need Close Monitoring Due to Risk of Patient Decompensation, Risk of Complication if Not Cared For in Hospital
[2018-04-16] MEDS: FUROSEMIDE INJ/PF 20 MG/2 ML SDV IV SCH (23:06)
[2018-04-17] MEDS: ACETAMINOPHEN 325 MG TABLET PO PRN ×2 (01:38→17:42)
[2018-04-17 05:15] LABS: HEMATOCRIT 29.4 % (36.0-47.0); MEAN CORPUSCULAR HEMOGLOBIN 35.6 pg (27.0-33.4); MEAN CORPUSCULAR HGB CONC 35.1 g/dL (32.0-36.0); MEAN CORPUSCULAR VOLUME 102 fl (80-97); PLATELET COUNT 155 10^3/uL (150-450); RED CELL DISTRIBUTION WIDTH 14.5 % (11.5-14.0); WHITE BLOOD COUNT 9.7 10^3/uL (4.0-10.5)
[2018-04-17 05:19] LABS: HEMOGLOBIN 10.3 g/dL (12.0-15.5)
[2018-04-17 05:29] LABS: ALANINE AMINOTRANSFERASE 28 U/L (9-52); ALKALINE PHOSPHATASE 277 U/L (38-126); ANION GAP 5 (5-19); ASPARTATE AMINO TRANSFERASE 53 U/L (14-36); BILIRUBIN,TOTAL 2.8 mg/dL (0.2-1.3); BLOOD UREA NITROGEN 13 mg/dL (7-20); CALCIUM 7.5 mg/dL (8.4-10.2); CARBON DIOXIDE 27 mmol/L (22-30); CHLORIDE 106 mmol/L (98-107); GLUCOSE 175 mg/dL (75-110); POTASSIUM 3.8 mmol/L (3.6-5.0); SODIUM 137.8 mmol/L (137-145)
[2018-04-17 07:30] LABS: A TYPE INFLUENZA AG NEGATIVE (NEGATIVE); B INFLUENZA AG NEGATIVE (NEGATIVE)
[2018-04-17] MEDS: RIVAROXABAN 10 MG TABLET PO SCH (09:25)
[2018-04-17] MEDS: FUROSEMIDE INJ/PF 20 MG/2 ML SDV IV SCH ×2 (09:26→22:30)
[2018-04-17] MEDS: IPRATROPIUM/ALBUTEROL 0.5-2.5 MG/3 ML AMPUL NEB PRN (11:25)
--- NOTE | 2018-04-17 16:31 | PDOC PROGRESS REPORT ---
Subjective Progress Note for:: 04/17/18 Subjective:: No adverse events overnight. She has been able to come off BiPAP. Her urine outputs been excellent. She says she feels like her leg swelling is improved substantially. She was asleep but when I woke her up she was asking for pain medication. I tried to explain to her that with her respiratory failure and with her blood pressure being a bit on the low side, I thought that some of the pain medicine she was asking for would not have been safe to give to her but that I would look for something that I could give her that might help with some of her discomfort without causing her harm. She said that she was supposed to be on Xarelto for the past several months but that she is not been taking it. She has been coughing up some clear sputum. Reason For Visit: ACUTE HYPOXEMIC RESPIRATORY FAILURE,SUSPECTED ACUT Physical Exam Vital Signs: Temp Pulse Resp BP Pulse Ox 97.6 F 111 H 18 120/74 98 04/17/18 11:39 04/17/18 14:00 04/17/18 11:39 04/17/18 11:39 04/17/18 11:39 Intake & Output 04/16/18 04/17/18 04/18/18 06:59 06:59 06:59 Intake Total 222 Output Total 1425 Balance -1203 Weight 88.451 kg 81.4 kg General appearance: PRESENT: no acute distress, cooperative, disheveled, obese Respiratory exam: PRESENT: crackles, symmetrical, unlabored. ABSENT: accessory muscle use, rhonchi, tachypnea, wheezes Cardiovascular exam: PRESENT: RRR, +S1, +S2 Vascular exam: PRESENT: normal capillary refill GI/Abdominal exam: PRESENT: normal bowel sounds, soft. ABSENT: distended, guarding, rebound, tenderness Extremities exam: PRESENT: other - Trace ankle and pretibial edema. ABSENT: clubbing Musculoskeletal exam: PRESENT: normal inspection. ABSENT: deformity Neurological exam: PRESENT: alert, awake, oriented to person, oriented to place, oriented to time, oriented to situation Psychiatric exam: PRESENT: flat affect Skin exam: PRESENT: dry, warm Results Laboratory Results: 04/17/18 04:37 04/17/18 04:37 04/17/18 04/17/18 04:37 04:37 WBC 9.7 RBC 2.90 L Hgb 10.3 L D Hct 29.4 L MCV 102 H MCH 35.6 H MCHC 35.1 RDW 14.5 H Plt Count 155 Sodium 137.8 Potassium 3.8 Chloride 106 Carbon Dioxide 27 Anion Gap 5 BUN 13 Creatinine 0.80 Est GFR ( Amer) > 60 Est GFR (Non-Af Amer) > 60 Glucose 175 H Calcium 7.5 L Total Bilirubin 2.8 H AST 53 H ALT 28 Alkaline Phosphatase 277 H Total Protein 6.0 L Albumin 2.0 L 04/16/18 04/17/18 08:37 04:37 Troponin I < 0.012 NT-Pro-B Natriuret Pep 1910 H 1030 H Impressions: Chest X-Ray 04/16/18 06:39 IMPRESSION: Patchy airspace disease in the right perihilar region and left lung base with findings suggesting a small right pleural effusion. Findings may reflect edema, atelectasis or possibly pneumonia. Assessment & Plan - Diagnosis (1) Acute diastolic heart failure Is this a current diagnosis for this admission?: Yes Plan: She responded well to diuresis. Her blood pressure has improved and that should improve some of her symptoms as well. Echocardiogram is been done but the final read is still pending. (2) Acute respiratory failure Qualifiers: Respiratory failure complication: hypoxia Qualified Code(s): J96.01 - Acute respiratory failure with hypoxia Is this a current diagnosis for this admission?: Yes Plan: She is also improving in this regard. Her oxygen demand is reduced and she is no longer needing BiPAP. She is stable on 5 L nasal cannula. We will continue to wean oxygen as tolerated. Also, because of the fact that she has a history of a PE and apparently has not been taking her anticoagulant, I am going to repeat the CTA of her chest. We continue to encourage aggressive pulmonary toilet. - Time Time Spent with patient: 15-24 minutes
--- NOTE | 2018-04-17 22:12 | RADIOLOGY REPORT (SQ) ---
EXAM DESCRIPTION: CT CHEST ANGIOGRAPHY WITHOUT THEN WITH IV CONTRAST COMPLETED DATE/TME: 04/17/2018 00:00 CLINICAL HISTORY: 47 years, Female, dyspnea, hypoxemia COMPARISON: None. TECHNIQUE: 328 Images stored on PACS. All CT scanners at this facility use dose modulation, iterative reconstruction, and/or weight based dosing when appropriate to reduce radiation dose to as low as reasonably achievable (ALARA). Axial CTA images were obtained with coronal and sagittal MIPS reconstructions. [facility]: Dose Right [facility]: CareDose [facility]: Dose Right [facility]: Teradose 4D [facility]: [employer] LIMITATIONS: None. FINDINGS: There is no intraluminal filling defect to suggest pulmonary embolus. Negative for thoracic aortic aneurysm or dissection. Nonenlarged mediastinal lymph nodes. The heart and pericardium are unremarkable. Limited evaluation of the upper abdomen shows post surgical changes of the stomach. Fatty infiltrative change to the liver. Osseous structures are grossly intact. No pneumothorax. Rather extensive groundglass opacities bilaterally as well as a small right pleural effusion with adjacent atelectasis. IMPRESSION: Negative for pulmonary embolus, thoracic aortic aneurysm, or dissection. Extensive groundglass opacities bilaterally with a small right pleural effusion. Findings may reflect pneumonitis with a component of pulmonary edema not excluded. Fatty infiltrative change to the liver TECHNICAL DOCUMENTATION: Quality ID # [id number]: Final reports with documentation of one or more dose reduction techniques (e.g., Automated exposure control, adjustment of the mA and/or kV according to patient size, use of iterative reconstruction technique) copyright 2011 [employer]- All Rights Reserved
[2018-04-18 04:50] LABS: HEMATOCRIT 28.7 % (36.0-47.0); MEAN CORPUSCULAR HEMOGLOBIN 35.1 pg (27.0-33.4); MEAN CORPUSCULAR VOLUME 101 fl (80-97); PLATELET COUNT 150 10^3/uL (150-450); RED BLOOD COUNT 2.85 10^6/uL (3.72-5.28); RED CELL DISTRIBUTION WIDTH 14.6 % (11.5-14.0); WHITE BLOOD COUNT 10.9 10^3/uL (4.0-10.5)
[2018-04-18 05:12] LABS: ALANINE AMINOTRANSFERASE 26 U/L (9-52); ALKALINE PHOSPHATASE 297 U/L (38-126); ANION GAP 6 (5-19); ASPARTATE AMINO TRANSFERASE 73 U/L (14-36); BILIRUBIN,DIRECT 1.8 mg/dL (0.0-0.4); BILIRUBIN,TOTAL 2.6 mg/dL (0.2-1.3); BLOOD UREA NITROGEN 11 mg/dL (7-20); CALCIUM 7.4 mg/dL (8.4-10.2); CARBON DIOXIDE 28 mmol/L (22-30); CHLORIDE 102 mmol/L (98-107); GLUCOSE 187 mg/dL (75-110); POTASSIUM 3.1 mmol/L (3.6-5.0); SODIUM 136.3 mmol/L (137-145)
[2018-04-18] MEDS: FUROSEMIDE INJ/PF 20 MG/2 ML SDV IV SCH (10:03)
[2018-04-18] MEDS: RIVAROXABAN 10 MG TABLET PO SCH (10:03)
[2018-04-18] MEDS: IPRATROPIUM/ALBUTEROL 0.5-2.5 MG/3 ML AMPUL NEB PRN ×2 (11:04→23:16)
--- NOTE | 2018-04-18 16:05 | PDOC PROGRESS REPORT ---
Subjective Progress Note for:: 04/18/18 Subjective:: No adverse events overnight. When I came into the room she was laying in the bed crying but when she started talking she stopped crying altogether. we talked again about avoiding narcotics given her respiratory status, because she was wanting narcotics for pain, which she described as just being all over. Once we got past that she told me she felt like she was able to be more active without feeling short of breath today. Reason For Visit: ACUTE HYPOXEMIC RESPIRATORY FAILURE,SUSPECTED ACUT Physical Exam Vital Signs: Temp Pulse Resp BP Pulse Ox 97.8 F 107 H 20 99/56 L 97 04/18/18 12:11 04/18/18 14:00 04/18/18 12:11 04/18/18 12:11 04/18/18 12:11 Intake & Output 04/17/18 04/18/18 04/19/18 06:59 06:59 06:59 Intake Total 222 387 Output Total 1425 1300 Balance -1203 -913 Weight 81.4 kg 86 kg 86 kg General appearance: PRESENT: no acute distress, cooperative, disheveled, morbidly obese Respiratory exam: PRESENT: crackles, symmetrical, unlabored, wheezes - Very faint end-expiratory. ABSENT: accessory muscle use, prolonged expiratory phas, rhonchi, tachypnea Cardiovascular exam: PRESENT: RRR, +S1, +S2 Vascular exam: PRESENT: normal capillary refill GI/Abdominal exam: PRESENT: normal bowel sounds, soft. ABSENT: distended, guarding, rebound, tenderness Extremities exam: ABSENT: clubbing, pedal edema Musculoskeletal exam: PRESENT: normal inspection. ABSENT: deformity Neurological exam: PRESENT: alert, awake, oriented to person, oriented to place, oriented to time Psychiatric exam: PRESENT: other - She was initially crying and this abruptly stopped once we started talking more about her breathing Skin exam: PRESENT: dry, warm Results Laboratory Results: 04/18/18 04:16 04/18/18 04:16 04/18/18 04/18/18 04:16 04:16 WBC 10.9 H RBC 2.85 L Hgb 10.0 L Hct 28.7 L MCV 101 H MCH 35.1 H MCHC 35.0 RDW 14.6 H Plt Count 150 Sodium 136.3 L Potassium 3.1 L Chloride 102 Carbon Dioxide 28 Anion Gap 6 BUN 11 Creatinine 0.56 Est GFR ( Amer) > 60 Est GFR (Non-Af Amer) > 60 Glucose 187 H Calcium 7.4 L Total Bilirubin 2.6 H AST 73 H ALT 26 Alkaline Phosphatase 297 H Total Protein 6.0 L Albumin 2.0 L 04/16/18 04/17/18 04/18/18 08:37 04:37 04:16 Troponin I < 0.012 NT-Pro-B Natriuret Pep 1910 H 1030 H 393 H Impressions: Chest X-Ray 04/16/18 06:39 IMPRESSION: Patchy airspace disease in the right perihilar region and left lung base with findings suggesting a small right pleural effusion. Findings may reflect edema, atelectasis or possibly pneumonia. Chest/Abdomen CTA 04/17/18 00:00 IMPRESSION: Negative for pulmonary embolus, thoracic aortic aneurysm, or dissection. Extensive groundglass opacities bilaterally with a small right pleural effusion. Findings may reflect pneumonitis with a component of pulmonary edema not excluded. Fatty infiltrative change to the liver TECHNICAL DOCUMENTATION: Quality ID # 436: Final reports with documentation of one or more dose reduction techniques (e.g., Automated exposure control, adjustment of the mA and/or kV according to patient size, use of iterative reconstruction technique) copyright 2011 [employer]- All Rights Reserved Assessment & Plan - Diagnosis (1) Acute diastolic heart failure Is this a current diagnosis for this admission?: Yes Plan: Still waiting on the official read from her echocardiogram pending. Her BNP has come down to near normal. She no longer appears edematous. The CT scan of her chest was negative for PE, but it showed diffuse groundglass opacities consistent with pulmonary edema. I am stopping her Lasix because I do not want to over diurese her, and peripherally she appears euvolemic. I am repeating her chest x-ray today. (2) Acute respiratory failure Qualifiers: Respiratory failure complication: hypoxia Qualified Code(s): J96.01 - Acute respiratory failure with hypoxia Is this a current diagnosis for this admission?: Yes Plan: We got her down to 1 L on the nasal cannula she was around 95%. When that came off she was down around 85%. I am surprised that 1 L on the nasal cannula was enough to make that much of a difference in her SPO2. We continue to encourage aggressive pulmonary toilet. She did sound like she might be wheezing a little bit, and given the appearance of her chest CT yesterday, I still think this is some fluid, but I am going to give her a dose of IV Solu-Medrol to see if perhaps she also has a little bit of bronchospasm that will respond. - Time Time Spent with patient: 15-24 minutes
[2018-04-18] MEDS ORDERED: POTASSIUM CHLORIDE 10 MEQ CAPSULE.ER PO ONE (16:30)
[2018-04-18] MEDS ORDERED: METHYLPREDNISOLONE INJ 125 MG/2 ML SDV IV ONE (16:30)
--- NOTE | 2018-04-18 19:02 | RADIOLOGY REPORT (SQ) ---
EXAM DESCRIPTION: CHEST 2 VIEWS COMPLETED DATE/TIME: 04/18/2018 6:29 pm REASON FOR STUDY: dyspnea COMPARISON: CT chest, 04/17/2018, chest radiographs, 04/16/2018 EXAM PARAMETERS: NUMBER OF VIEWS: two views TECHNIQUE: Digital Frontal and Lateral radiographic views of the chest acquired. RADIATION DOSE: NA LIMITATIONS: none FINDINGS: LUNGS AND PLEURA: Unchanged small bilateral pleural effusions and bilateral ground-glass p ulmonary opacity. MEDIASTINUM AND HILAR STRUCTURES: No masses or contour abnormalities. HEART AND VASCULAR STRUCTURES: Heart normal size. No evidence for failure. BONES: No acute findings. HARDWARE: None in the chest. OTHER: No other significant finding. IMPRESSION: Unchanged small bilateral pleural effusions and bilateral ground-glass pulmonary opacity . No new airspace opacity. TECHNICAL DOCUMENTATION: JOB ID: [id number] [employer]- All Rights Reserved Reading location - IP/workstation name: [email or web address]
[2018-04-19] MEDS: ACETAMINOPHEN 325 MG TABLET PO PRN ×2 (02:08→14:13)
[2018-04-19 07:06] LABS: HEMATOCRIT 33.5 % (36.0-47.0); HEMOGLOBIN 11.7 g/dL (12.0-15.5); MEAN CORPUSCULAR HEMOGLOBIN 35.7 pg (27.0-33.4); MEAN CORPUSCULAR HGB CONC 34.9 g/dL (32.0-36.0); MEAN CORPUSCULAR VOLUME 102 fl (80-97); PLATELET COUNT 161 10^3/uL (150-450); RED BLOOD COUNT 3.28 10^6/uL (3.72-5.28); RED CELL DISTRIBUTION WIDTH 14.6 % (11.5-14.0); WHITE BLOOD COUNT 10.2 10^3/uL (4.0-10.5)
[2018-04-19 07:38] LABS: ALANINE AMINOTRANSFERASE 39 U/L (9-52); ALBUMIN 2.6 g/dL (3.5-5.0); ALKALINE PHOSPHATASE 457 U/L (38-126); ANION GAP 11 (5-19); ASPARTATE AMINO TRANSFERASE 97 U/L (14-36); BILIRUBIN,TOTAL 2.9 mg/dL (0.2-1.3); BLOOD UREA NITROGEN 8 mg/dL (7-20); CALCIUM 7.7 mg/dL (8.4-10.2); CARBON DIOXIDE 26 mmol/L (22-30); CHLORIDE 97 mmol/L (98-107); POTASSIUM 4.3 mmol/L (3.6-5.0); TOTAL PROTEIN 7.3 g/dL (6.3-8.2)
[2018-04-19 07:46] LABS: GLUCOSE 519 mg/dL (75-110)
[2018-04-19] MEDS ORDERED: DEXTROSE 40% GEL 15 GM TUBE PO PRN ×2 (09:08)
[2018-04-19] MEDS ORDERED: DEXTROSE 50%-WATER 25 GM/50 ML DISP.SYRIN IV PRN ×2 (09:08)
[2018-04-19] MEDS ORDERED: GLUCAGON,HUMAN RECOMB 1 MG INJ IM PRN (09:08)
[2018-04-19] MEDS ORDERED: INSULIN LISPRO 100 UNIT/ML 3 ML VIAL ONE (09:54)
[2018-04-19] MEDS: INSULIN LISPRO 100 UNIT/ML 3 ML VIAL SUBCUT PRN ×4 (09:58→22:24)
[2018-04-19] MEDS: PREDNISONE 20 MG TABLET PO SCH (11:18)
[2018-04-19] MEDS: FAMOTIDINE 20 MG TABLET PO SCH (11:18)
[2018-04-19] MEDS: HEPARIN SOD (PORCINE) 5,000 UNIT/ML 1 ML SYRINGE SUBCUT SCH ×2 (14:07→22:24)
--- NOTE | 2018-04-19 16:10 | PDOC PROGRESS REPORT ---
Subjective Progress Note for:: 04/19/18 Subjective:: No adverse events overnight. No new complaints. She was off oxygen and appeared comfortable today. I gave her a dose of steroids yesterday and her blood sugar was really high this morning. She tells me today that she forgot to tell us she takes Lantus at home. Reason For Visit: ACUTE HYPOXEMIC RESPIRATORY FAILURE,SUSPECTED ACUT Physical Exam Vital Signs: Temp Pulse Resp BP Pulse Ox 98.5 F 87 24 H 90/48 L 95 04/19/18 03:18 04/19/18 03:18 04/19/18 03:18 04/19/18 03:18 04/19/18 03:18 Intake & Output 04/18/18 04/19/18 04/20/18 06:59 06:59 06:59 Intake Total 387 592 Output Total 1300 Balance -913 592 Weight 86 kg 86.1 kg General appearance: PRESENT: no acute distress, cooperative, morbidly obese Respiratory exam: PRESENT: decreased breath sounds, symmetrical, unlabored. ABSENT: accessory muscle use, crackles, rhonchi, tachypnea, wheezes Cardiovascular exam: PRESENT: RRR, +S1, +S2 Vascular exam: PRESENT: normal capillary refill GI/Abdominal exam: PRESENT: normal bowel sounds, soft. ABSENT: distended, guarding, rebound, tenderness Extremities exam: ABSENT: clubbing, pedal edema Musculoskeletal exam: PRESENT: normal inspection. ABSENT: deformity Neurological exam: PRESENT: alert, awake, oriented to person, oriented to place, oriented to time Psychiatric exam: PRESENT: appropriate affect, normal mood Skin exam: PRESENT: dry, warm Results Laboratory Results: 04/19/18 06:44 04/19/18 06:44 04/19/18 04/19/18 06:44 06:44 WBC 10.2 RBC 3.28 L Hgb 11.7 L Hct 33.5 L MCV 102 H MCH 35.7 H MCHC 34.9 RDW 14.6 H Plt Count 161 Sodium 134.0 L Potassium 4.3 Chloride 97 L Carbon Dioxide 26 Anion Gap 11 BUN 8 Creatinine 0.58 Est GFR ( Amer) > 60 Est GFR (Non-Af Amer) > 60 Glucose 519 H* Calcium 7.7 L Total Bilirubin 2.9 H AST 97 H ALT 39 Alkaline Phosphatase 457 H Total Protein 7.3 Albumin 2.6 L 04/16/18 04/17/18 04/18/18 08:37 04:37 04:16 Troponin I < 0.012 NT-Pro-B Natriuret Pep 1910 H 1030 H 393 H 04/19/18 06:44 Troponin I NT-Pro-B Natriuret Pep 662 H Impressions: Chest/Abdomen CTA 04/17/18 00:00 IMPRESSION: Negative for pulmonary embolus, thoracic aortic aneurysm, or dissection. Extensive groundglass opacities bilaterally with a small right pleural effusion. Findings may reflect pneumonitis with a component of pulmonary edema not excluded. Fatty infiltrative change to the liver TECHNICAL DOCUMENTATION: Quality ID # 436: Final reports with documentation of one or more dose reduction techniques (e.g., Automated exposure control, adjustment of the mA and/or kV according to patient size, use of iterative reconstruction technique) copyright 2011 [employer]- All Rights Reserved Chest X-Ray 04/18/18 00:00 IMPRESSION: Unchanged small bilateral pleural effusions and bilateral ground- glass pulmonary opacity. No new airspace opacity. Assessment & Plan - Diagnosis (1) Acute diastolic heart failure Is this a current diagnosis for this admission?: Yes Plan: Resolved. I've stopped her diuretics. I am still waiting for the final results from her echocardiogram, but I do not believe that she has chronic heart failure. (2) Acute respiratory failure Qualifiers: Respiratory failure complication: hypoxia Qualified Code(s): J96.01 - Acute respiratory failure with hypoxia Is this a current diagnosis for this admission?: Yes Plan: She responded initially to some diuresis, and yesterday I gave her a dose of Solu-Medrol and her breathing has improved substantially today. Based on the appearance of her chest x-ray, I am concerned that she may have an interstitial pneumonitis. I have consulted Dr. Howard. Because she responded to steroids, I have started her on some prednisone. (3) Type 2 diabetes mellitus Qualifiers: Diabetes mellitus manager long term care insulin use: with manager long term care use Diabetes mellitus complication status: with unspecified complications Qualified Code(s): E11.8 - Type 2 diabetes mellitus with unspecified complications; Z79.4 - snf (current) use of insulin; Z79.4 - vermin exterminator (current) use of insulin; Z79.4 - vermin exterminator (current) use of insulin; Z79.4 - snf (current) use of insulin Is this a current diagnosis for this admission?: Yes Plan: She told us today that she actually takes insulin every day. I have resumed her home dose of long-acting insulin, and start her on a sliding scale. - Time Time Spent with patient: 25-34 minutes
[2018-04-19] MEDS ORDERED: NICOTINE 7 MG/24 HR PATCH.TD24 TD PRN (19:53)
[2018-04-19] MEDS ORDERED: INSULIN GLARGINE,HUM.REC.ANLOG 1,000 UNIT/10 ML UNIT SUBCUT SCH (22:00)
[2018-04-19] MEDS: INSULIN GLARGINE,HUM.REC.ANLOG 300 UNIT/3 ML INSULN.PEN SUBCUT SCH (22:23)
[2018-04-19] MEDS: IPRATROPIUM/ALBUTEROL 0.5-2.5 MG/3 ML AMPUL NEB PRN (23:32)
[2018-04-20] MEDS: HEPARIN SOD (PORCINE) 5,000 UNIT/ML 1 ML SYRINGE SUBCUT SCH ×3 (06:14→22:00)
[2018-04-20] MEDS ORDERED: ALBUTEROL SULFATE 0.042% NEB (1.25 MG/3 ML) AMPUL NEB ONE (10:00)
[2018-04-20] MEDS: GABAPENTIN 300 MG CAPSULE PO SCH ×2 (11:07→17:33)
[2018-04-20] MEDS: FAMOTIDINE 20 MG TABLET PO SCH (11:07)
[2018-04-20] MEDS: PREDNISONE 20 MG TABLET PO SCH (11:07)
[2018-04-20] MEDS: INSULIN LISPRO 100 UNIT/ML 3 ML VIAL SUBCUT PRN ×3 (12:56→21:54)
--- NOTE | 2018-04-20 14:47 | PDOC PROGRESS REPORT ---
Subjective Progress Note for:: 04/20/18 Subjective:: No adverse events overnight. No new complaints. Her breathing has been comfortable. She starting to get up and move around in the room a little bit and her exercise tolerance is improved. She denies any cough or shortness of breath. Reason For Visit: ACUTE HYPOXEMIC RESPIRATORY FAILURE,SUSPECTED ACUT Physical Exam Vital Signs: Temp Pulse Resp BP Pulse Ox 98.0 F 86 18 108/63 94 04/20/18 12:22 04/20/18 14:00 04/20/18 12:22 04/20/18 12:22 04/20/18 12:22 Intake & Output 04/19/18 04/20/18 04/21/18 06:59 06:59 06:59 Intake Total 592 992 Balance 592 992 Weight 86.1 kg 87.2 kg General appearance: PRESENT: no acute distress, cooperative, morbidly obese Respiratory exam: PRESENT: decreased breath sounds, symmetrical, unlabored. ABSENT: accessory muscle use, crackles, rhonchi, tachypnea, wheezes Cardiovascular exam: PRESENT: RRR, +S1, +S2 Vascular exam: PRESENT: normal capillary refill GI/Abdominal exam: PRESENT: normal bowel sounds, soft. ABSENT: distended, guarding, rebound, tenderness Extremities exam: ABSENT: clubbing, pedal edema Musculoskeletal exam: PRESENT: normal inspection. ABSENT: deformity Neurological exam: PRESENT: alert, awake, oriented to person, oriented to place, oriented to time Psychiatric exam: PRESENT: appropriate affect, normal mood Skin exam: PRESENT: dry, warm Results Laboratory Results: 04/19/18 06:44 04/19/18 06:44 04/20/18 11:07 C-Reactive Protein 41.8 H 04/16/18 04/17/18 04/18/18 08:37 04:37 04:16 Troponin I < 0.012 NT-Pro-B Natriuret Pep 1910 H 1030 H 393 H 04/19/18 06:44 Troponin I NT-Pro-B Natriuret Pep 662 H Impressions: Chest/Abdomen CTA 04/17/18 00:00 IMPRESSION: Negative for pulmonary embolus, thoracic aortic aneurysm, or dissection. Extensive groundglass opacities bilaterally with a small right pleural effusion. Findings may reflect pneumonitis with a component of pulmonary edema not excluded. Fatty infiltrative change to the liver TECHNICAL DOCUMENTATION: Quality ID # 436: Final reports with documentation of one or more dose reduction techniques (e.g., Automated exposure control, adjustment of the mA and/or kV according to patient size, use of iterative reconstruction technique) copyright 2011 [employer]- All Rights Reserved Chest X-Ray 04/18/18 00:00 IMPRESSION: Unchanged small bilateral pleural effusions and bilateral ground- glass pulmonary opacity. No new airspace opacity. Assessment & Plan - Diagnosis (1) Acute diastolic heart failure Is this a current diagnosis for this admission?: Yes Plan: Resolved. I've stopped her diuretics. I am still waiting for the final results from her echocardiogram, but I do not believe that she has chronic heart failure. (2) Acute respiratory failure Qualifiers: Respiratory failure complication: hypoxia Qualified Code(s): J96.01 - Acute respiratory failure with hypoxia Is this a current diagnosis for this admission?: Yes Plan: She responded initially to some diuresis, but she really was seem to respond well to steroids. Based on the appearance of her chest x-ray, I am concerned that she may have an interstitial pneumonitis. I have consulted Dr. Howard. He has placed some orders and her workup is pending. (3) Type 2 diabetes mellitus Qualifiers: Diabetes mellitus snf insulin use: with terminal block assembler use Diabetes mellitus complication status: with unspecified complications Qualified Code(s): E11.8 - Type 2 diabetes mellitus with unspecified complications; Z79.4 - terminal block assembler (current) use of insulin; Z79.4 - terminal block assembler (current) use of insulin; Z79.4 - terminal block assembler (current) use of insulin; Z79.4 - FPC (current) use of insulin Is this a current diagnosis for this admission?: Yes Plan: I have resumed her home dose of long-acting insulin, and start her on a sliding scale. This may have to be adjusted depending on how long her steroid therapy will be. - Time Time Spent with patient: 15-24 minutes
[2018-04-20] MEDS ORDERED: FLUTICASONE/SALMETEROL DISKUS 250-50 MCG/DOSE IH ONE (21:17)
[2018-04-20] MEDS: INSULIN GLARGINE,HUM.REC.ANLOG 300 UNIT/3 ML INSULN.PEN SUBCUT SCH (21:54)
[2018-04-20] MEDS: FLUTICASONE/SALMETEROL DISKUS 250-50 MCG/DOSE IH SCH (21:55)
[2018-04-21] MEDS ORDERED: TRAZODONE HCL 50 MG TABLET PO PRN (00:17)
[2018-04-21] MEDS: GABAPENTIN 300 MG CAPSULE PO SCH ×2 (01:03→11:04)
[2018-04-21] MEDS: HEPARIN SOD (PORCINE) 5,000 UNIT/ML 1 ML SYRINGE SUBCUT SCH (05:54)
--- NOTE | 2018-04-21 08:40 | XCELERA REPORT ---
[address] [address] Transthoracic Echocardiogram Report Name: BILL FERRER Age: 47 yrs Gender: Female : 1970 Patient Status: Inpatient Patient Location: [address] [place] [address] Study Date: 04/16/2018 03:01 PM Procedure: A two-dimensional transthoracic echocardiogram with color flow and Doppler was performed. Study Quality: Poor. The study was technically difficult with many images being suboptimal in quality. Reason For Study: suspected acute diastolic heart failure History: diastolic heart failure. Ordering Physician: ELSY EWING Performed By: Shannen Asif Interpretation Summary The left ventricle is normal in size. There is normal left ventricular wall thickness. LV EF is > than 60% Left ventricular systolic function is normal. Doppler measurements suggest impaired left ventricular relaxation, which is associated with grade I/IV or mild diastolic dysfunction The left ventricular wall motion is normal. The right ventricle is not well visualized secondary to technical limitations Right atrium not well visualized secondary to technical limitations The left atrial size is normal. There is no evidence of mitral valve prolapse. There is no vegetation seen on the mitral valve. There is no mitral valve stenosis. There is a trace amount of mitral regurgitation There is no aortic valvular vegetation. There is no aortic valve stenosis No aortic regurgitation is present. The tricuspid valve is not well visualized secondary to technical limitations cannot comment on TR or RVSP. The aortic root is not well visualized. There is no pericardial effusion. MMode/2D Measurements & Calculations RVDd: 2.8 cm LVIDd: 3.1 cm FS: 29.1 % Ao root diam: 2.5 cm IVSd: 1.1 cm LVIDs: 2.2 cm EDV(Teich): 36.6 ml Ao root area: 4.9 cm2 LVPWd: 1.4 cm ESV(Teich): 15.6 ml EF(Teich): 57.4 % Doppler Measurements & Calculations MV E max abdiel: MV dec slope: Ao V2 max: LV V1 max P.0 cm/sec 108.0 cm/sec 3.5 mmHg MV A max abdiel: 354.0 cm/sec2 Ao max PG: LV V1 max: 75.0 cm/sec MV dec time: 0.16 sec 4.7 mmHg 93.3 cm/sec MV E/A: 0.77 PA V2 max: 124.6 cm/sec PA max P.2 mmHg Left Ventricle The left ventricle is normal in size. There is normal left ventricular wall thickness. LV EF is > than 60%. Left ventricular systolic function is normal. Doppler measurements suggest impaired left ventricular relaxation, which is associated with grade I/IV or mild diastolic dysfunction. The left ventricular wall motion is normal. Right Ventricle The right ventricle is not well visualized secondary to technical limitations. Atria Right atrium not well visualized secondary to technical limitations. The left atrial size is normal. Mitral Valve There is no evidence of mitral valve prolapse. There is no vegetation seen on the mitral valve. There is no mitral valve stenosis. There is a trace amount of mitral regurgitation. Aortic Valve There is no aortic valvular vegetation. There is no aortic valve stenosis. No aortic regurgitation is present. Tricuspid Valve The tricuspid valve is not well visualized secondary to technical limitations. cannot comment on TR or RVSP. Pulmonic Valve The pulmonic valve is not well visualized. Great Vessels The aortic root is not well visualized. Effusions There is no pericardial effusion. : ELSY EWING > Gosia Mims
--- NOTE | 2018-04-21 08:56 | CONSULTATION REPORT E ---
Consultation Report NAME: BILL FERRER : 1970 AGE: 47Y DATE: 04/20/2018 309 A TO: CONSUELO VU M.D. FROM: ELSY EWING M.D. Requesting Physician HISTORY OF PRESENT ILLNESS: The patient is a 47-year-old female who came in with increased dyspnea on admission 4 days ago, with chest x-ray and CAT scan showing diffuse pulmonary infiltrate, treated recently for poorly-controlled hypertension, and pulmonary edema. Currently, the patient denies any fever or chills. Coughing out some yellow-green phlegm sometimes. Never used any inhalers in the past. The patient also complained about bilateral lower extremity pain, which seemed to improve on gabapentin. She has had diabetes for a few years, but not adequately treated. PAST MEDICAL HISTORY: 1. History of hypertension. 2. History of pulmonary embolism. 3. Diabetes mellitus. 4. GERD. 5. Hepatitis. 6. Arthritis. PAST SURGICAL HISTORY: 1. section x3. 2. Gastric bypass surgery. 3. Hysterectomy. SOCIAL HISTORY: Lives with a friend. Smokes occasionally. She smoked for about 5 years. Denies illicit drug use or alcohol abuse. FAMILY HISTORY: History of diabetes. MEDICATIONS: Medications at home include: 1. Xarelto 20 mg daily. 2. Gabapentin. ALLERGIES: No known drug allergies. BEE ALLERGY. REVIEW OF SYSTEMS: CONSTITUTIONAL: No fever or chills. EYES: Has some blurring of vision. No jaundice or pallor. EARS, NOSE, AND THROAT: No ear drainage. No nasal discharge. CHEST AND LUNGS: Complained about shortness of breath, coughing yellow-green phlegm. RESPIRATORY: She has exertional dyspnea, the frequent cough with sometimes yellow-green sputum, nasal congestion. CARDIAC: No history of palpitation. No history of heart attack. GASTROINTESTINAL: No nausea, vomiting, or diarrhea. GENITOURINARY: No dysuria, hematuria. Positive bowel sounds. EXTREMITIES: No swelling. No leg edema. NERVOUS SYSTEM: Complains of signs of peripheral neuropathy lower legs. PHYSICAL EXAMINATION: GENERAL: The patient is awake, alert, oriented x3. VITAL SIGNS: Temperature is 98 degrees Fahrenheit. The blood pressure is 110/66, the respirations 19. Saturation is 93% on room air. EYES: No jaundice or pallor. EARS, NOSE, AND THROAT: No ear drainage. No nasal discharge. CHEST AND LUNGS: No wheezing. No rhonchi. No coarse crackles. CARDIOVASCULAR: S1, S2 distinct. Normal rate, regular rhythm. ABDOMEN: Flabby. Positive bowel sounds. Soft, nondistended, nontender. EXTREMITIES: No joint swelling or cellulitis. LABORATORY DATA: CBC done today showed a white count of 10.2, hemoglobin is 11.7, hematocrit is 33.5, platelet count is 761. ESR was 97, which is elevated. There was no chemistry done today. Rheumatoid factor done today was negative. CRP protein is 41, which is elevated. Normal is less than 10. BNP done yesterday was elevated at 662 pg/mL. It was 1910 on admission. ASSESSMENT: 1. Pulmonary infiltrates bilaterally, diffuse; most likely due to pulmonary edema and acute decompensation. Interstitial lung disease cannot be completely excluded. Recommend to optimize CHF therapy. Optimize blood pressure control. We gave the patient some diuresis, and optimize diabetes control. The patient may require cardiology followup for cardiac complications due to diabetes. 2. Bronchial asthma could not be completely excluded. Recommend prednisone only for a maximum of 5 days. Will start the patient on Advair 250 mcg Diskhaler 1 puff b.i.d. and albuterol inhaler as needed. 3. Bronchitis is possible because the patient is coughing yellow-green phlegm. We will send the patient home on antibiotics for 7-10 days. Recommend the patient to follow up with her primary care and recommend followup with a pre assembly wirer. Recommend pulmonary clinic followup in 2-3 weeks following hospital discharge. DICTATING PHYSICIAN: CONSUELO VU MD,JULIET,MPH [id number] PHY#: [id number] ID: [id number] JOB#: [id number] ACCT: [id number] cc:CONSUELO VU M.D. > DEEPALI
[2018-04-21] MEDS: FAMOTIDINE 20 MG TABLET PO SCH (11:04)
[2018-04-21] MEDS: PREDNISONE 20 MG TABLET PO SCH (11:04)
[2018-04-21] MEDS: FLUTICASONE/SALMETEROL DISKUS 250-50 MCG/DOSE IH SCH (11:05)
[2018-04-21 12:52] VITALS: BP 102/50
--- NOTE | 2018-04-21 14:26 | PULMONARY FUNCTION TEST ---
PULMONARY FUNCTION TEST PATIENT NAME: BILL FERRER MR#: [id number] [facility] #: [id number] ROOM#: 309 DATE OF STUDY: 04/20/2018 AGE/RACE/GENDER: 47 F REFERRING MD: Consuelo Vu MD History: This is a 47 year old female who came in for increased shortness of breath and diffuse pulmonary infiltrate on chest CT scan and treated for pulmonary edema and possible interstitial lung disease. Procedure: Spirometry Pre/Post bronchodilator Indication: Dyspnea REPORT The spirometry showed absence of obstructive airway defect. The FEV 1 was low at 57% and the FVC was also low at 56% predicted. Suggestive of moderate ventilatory impairment, most likely due to patient's obesity and pulmonary edema. IMPRESSION There was no significant bronchodilator response. The low FVC may be also suggestive of restrictive lung defect. Bronchial asthma could not be completely excluded on this spirometry. INTERPRETING PHYSICIAN: CONSUELO VU MD,JULIET,MPH /: MTEFFT TT: 1355 ID: [id number] /: [id number] TD: 1857 JOB: [id number] cc:Sher BRYSON M.D. > MTDD
--- NOTE | 2018-04-21 15:45 | PDOC DISCHARGE SUMMARY ---
General - Admit/Disc Date/PCP Admission Date/Primary Care Provider: 04/16/18 11:27 BK URIARTE NP Discharge Date: 04/21/18 - Discharge Diagnosis (1) Acute diastolic heart failure Is this a current diagnosis for this admission?: Yes Summary: This is how she looked when she presented. She did respond to diuresis initially but then plateaued. She had grade 1 diastolic dysfunction on her echocardiogram but the other views of the right ventricle were not very good. After she was here for a few days and did not make any progress, it was decided that this was probably not the primary issue. She was hypertensive when she first came in and that could have possibly contributed to some fluid retention, but has her other medical conditions were treated her blood pressure came down. (2) Acute respiratory failure Is this a current diagnosis for this admission?: Yes Summary: As above, she initially responded to diuresis, but then she plateaued. After we started steroids her condition improved. This problem is now resolved. She was seen in consultation by Dr. Howard, and he is working her up for interstitial pneumonia. There is also the possibility of asthma or some form of reactive airway disease. She has been started on Advair and will continue a burst of steroids to see Dr. Howard in his office. (3) Type 2 diabetes mellitus Is this a current diagnosis for this admission?: Yes Summary: She did not tell us initially that she was diabetic and on insulin, but after we gave her some Solu-Medrol her blood sugar went up and at that time she told that she was diabetic. We used her home doses of insulin and a sliding scale to keep her blood sugar under control. After we switch her to prednisone her blood sugar was much more manageable. - Additional Information Resuscitation Status: Full Code Discharge Diet: Cardiac, Diabetic Discharge Activity: Activity As Tolerated, Balance Activity w/Rest, Weigh Daily Prescriptions: Doxycycline Hyclate 100 mg PO BID #10 capsule Fluticasone/Salmeterol [Advair 250-50 Diskus 14 Dose/Diskus] 1 inh IH RTQ12 #1 inhaler Prednisone [Deltasone 20 mg Tablet] 40 mg PO DAILY #10 tablet Home Medications: Gabapentin [Neurontin] 600 mg PO Q8 04/16/18 Doxycycline Hyclate 100 mg PO BID #10 capsule 04/21/18 Fluticasone/Salmeterol [Advair 250-50 Diskus 14 Dose/Diskus] 1 inh IH RTQ12 #1 inhaler 04/21/18 Prednisone [Deltasone 20 mg Tablet] 40 mg PO DAILY #10 tablet 04/21/18 History of Present Illness History of Present Illness: BILL FERRER is a 47 year old female with a history of RAMSAY who is most often here with acute exacerbations of chronic pancreatitis, but she comes in today with a 3-4-day history of worsening shortness of breath. She said she first started noticing some swelling in her legs about a week ago and she feels like it is been getting worse. She is never had anything like this before. She has not had any fever or cough, but she has had decreased exercise tolerance. She said if she lays down flat she gets short of breath and so she has been trying to sleep propped up. She is not taken any long trips recently or had any periods of prolonged immobility. She had an elevated BNP and was hypertensive on admission, and had never had an elevated BNP before. She also had what looked like pulmonary edema on her chest x-ray. She is being admitted for respiratory distress requiring BiPAP and for further evaluation. Hospital Course Hospital Course: She initially responded to diuresis and we were able to get her off BiPAP, but she was still on 5 L nasal cannula for a couple of days. We could not wean her oxygen down below that. Imaging studies of her chest after diuresis still showed a diffuse heterogeneous appearance, and due to concern over an interstitial pneumonia, steroids were started. She responded very well after that. Dr. Howard was consulted and is working her up for interstitial pneumonia, and also feels that asthma or reactive airway disease is also a possibility. She has been started on Advair, and she will continue a short burst of prednisone until she sees Dr. Howard in his office. We had her on a diabetic diet after she told her she was diabetic and took insulin. Prior to this, we did not know, and she did not tell us, until we gave her some Solu- Medrol her blood sugar was elevated substantially. When we switch her to prednisone her blood sugars improved. We also put her back on an equivalent dose of Lantus to what she takes at home. She was noncompliant with her recommendations and Wandering off the floor and going down to the cafeteria to try to get food she wanted. Her labs and examination were reassuring and she was discharged in good condition. Physical Exam Vital Signs: Temp Pulse Resp BP Pulse Ox 97.9 F 41 L 18 102/50 L 72 L 04/21/18 12:50 04/21/18 12:50 04/21/18 12:50 04/21/18 12:50 04/21/18 12:50 Intake & Output 04/20/18 04/21/18 04/22/18 06:59 06:59 06:59 Intake Total 992 1037 240 Output Total 2 Balance 992 1037 238 Weight 87.2 kg 88.6 kg General appearance: PRESENT: no acute distress, cooperative, morbidly obese Respiratory exam: PRESENT: decreased breath sounds, symmetrical, unlabored. ABSENT: accessory muscle use, crackles, rhonchi, tachypnea, wheezes Cardiovascular exam: PRESENT: RRR, +S1, +S2 Vascular exam: PRESENT: normal capillary refill GI/Abdominal exam: PRESENT: normal bowel sounds, soft. ABSENT: distended, guarding, rebound, tenderness Extremities exam: ABSENT: clubbing, pedal edema Musculoskeletal exam: PRESENT: normal inspection. ABSENT: deformity Neurological exam: PRESENT: alert, awake, oriented to person, oriented to place, oriented to time Psychiatric exam: PRESENT: appropriate affect, normal mood Skin exam: PRESENT: dry, warm Results Laboratory Results: 04/19/18 06:44 04/19/18 06:44 04/16/18 08:14 Blood Blood Culture - Final NO GROWTH IN 5 DAYS 04/16/18 08:37 Blood Blood Culture - Final NO GROWTH IN 5 DAYS 04/16/18 04/17/18 04/18/18 08:37 04:37 04:16 Troponin I < 0.012 NT-Pro-B Natriuret Pep 1910 H 1030 H 393 H 04/19/18 06:44 Troponin I NT-Pro-B Natriuret Pep 662 H Impressions: Chest/Abdomen CTA 04/17/18 00:00 IMPRESSION: Negative for pulmonary embolus, thoracic aortic aneurysm, or dissection. Extensive groundglass opacities bilaterally with a small right pleural effusion. Findings may reflect pneumonitis with a component of pulmonary edema not excluded. Fatty infiltrative change to the liver TECHNICAL DOCUMENTATION: Quality ID # [id number]: Final reports with documentation of one or more dose reduction techniques (e.g., Automated exposure control, adjustment of the mA and/or kV according to patient size, use of iterative reconstruction technique) copyright 2011 [employer]- All Rights Reserved Chest X-Ray 04/18/18 00:00 IMPRESSION: Unchanged small bilateral pleural effusions and bilateral ground- glass pulmonary opacity. No new airspace opacity. Qualifiers - * PATIENT BEING DISCHARGED WITH ANY OF THE FOLLOWING DIAGNOSIS: No
[2018-04-23 11:37] LABS: ANTICHROMATIN AB <0.2 AI (0.0-0.9); CENTROMERE B AB <0.2 AI (0.0-0.9); JO-1 ANTIBODY (ANACOMP) <0.2 AI (0.0-0.9); SJOGREN'S ANTI-SS-B AB <0.2 AI (0.0-0.9); SJOGREN'S SS-A ANTIBODY <0.2 AI (0.0-0.9)
[2018-04-23 15:51] LABS: DNA DOUBLE STRAND ANTIBODY ANA <1 IU/mL (0-9)
== END 2018-04-21 13:10 | disposition home or self-care (01) | DRG 291 ==
LOC: ER 06:15 → EH 11:27 → 3N 13:07
PROVIDERS: ADMIT Family Medicine; ATTEND Family Medicine
DX: I11.0 Hypertensive heart disease with heart failure (principal); I50.31 Acute diastolic (congestive) heart failure; J96.01 Acute respiratory failure with hypoxia; K86.1 Other chronic pancreatitis; J44.9 Chronic obstructive pulmonary disease, unspecified; E11.8 Type 2 diabetes mellitus with unspecified complications; K21.9 Gastro-esophageal reflux disease without esophagitis; M10.9 Gout, unspecified; E66.01 Morbid (severe) obesity due to excess calories; F17.210 Nicotine dependence, cigarettes, uncomplicated; Z86.711 Personal history of pulmonary embolism; Z98.84 Bariatric surgery status; Z68.36 Body mass index [BMI] 36.0-36.9, adult; Z79.4 Long term (current) use of insulin; Z79.01 Long term (current) use of anticoagulants; Z79.899 Other long term (current) drug therapy; Z91.19 Patient's noncompliance with other medical treatment and regimen
CPT/HCPCS: 36415; 51702; 71045; 71046; 71275; 80053; 80307; 81001; 82803; 82962; 83036; 83690; 83880; 84484; 85025; 85027; 85652; 86140; 86225; 86235; 86430; 87040; 87804; 90686; 93005; 93010; 93306; 94060; 94640; 94660; 94667; 94799; 96374; 96375; 96376; 99291; J1644; J1815; J1940; J2405; J2930; J3010; J3490; J7512; J7620

== ENCOUNTER → 2018-05-07 | Outpatient (CLI) | payer OTHER ==
[2018-05-07 12:55] LABS: ALANINE AMINOTRANSFERASE 38 U/L (9-52); ALBUMIN 2.7 g/dL (3.5-5.0); ALKALINE PHOSPHATASE 291 U/L (38-126); ANION GAP 10 (5-19); ASPARTATE AMINO TRANSFERASE 59 U/L (14-36); BILIRUBIN,TOTAL 1.3 mg/dL (0.2-1.3); BLOOD UREA NITROGEN 6 mg/dL (7-20); CALCIUM 8.5 mg/dL (8.4-10.2); CARBON DIOXIDE 27 mmol/L (22-30); CHLORIDE 98 mmol/L (98-107); GLUCOSE 142 mg/dL (75-110); POTASSIUM 3.8 mmol/L (3.6-5.0); SODIUM 134.5 mmol/L (137-145); TOTAL PROTEIN 6.7 g/dL (6.3-8.2)
== END ==
LOC: CCC 11:52
DX: Z00.00 Encounter for general adult medical examination without abnormal findings (principal)
CPT/HCPCS: 36415; 80053

== ENCOUNTER 2018-06-23 21:33 | Emergency (ER) | payer SELFPAY ==
[2018-06-23 22:51] LABS: A TYPE INFLUENZA AG NEGATIVE (NEGATIVE); B INFLUENZA AG NEGATIVE (NEGATIVE)
--- NOTE | 2018-06-23 23:41 | ER Document Report ---
ED ENT - General Chief Complaint: Sore Throat Stated Complaint: SORE THROAT/TONGUE Time Seen by Provider: 06/23/18 22:38 Mode of Arrival: Ambulatory Information source: Patient Notes: 47-year-old female presented to ED for complaint of cough cold congestion sore throat and tongue burning for the last 5 days. She states she is not had any fevers. She states she thinks she might have strep throat. Strep test was negative. Patient is alert oriented respirations regular and unlabored speaking in full sentences walks with a even steady gait. TRAVEL OUTSIDE OF THE [place] IN LAST 30 DAYS: No - HPI Patient complains to provider of: Ear problem, Nose problem, Throat problem Onset: Last week Onset/Duration: Gradual Quality of pain: Achy Severity: Moderate Pain Level: 3 Context: Recent Illness Location of pain: Ears, Nose, Sinus, Throat Associated symptoms: Congestion, Cough, Ear pain, Runny nose, Sinus pain, Sinus drainage, Sore throat Similar symptoms previously: Yes Recently seen / treated by doctor: No - Related Data Allergies/Adverse Reactions: No Known Drug Allergies Allergy (Verified 04/16/18 07:23) Bee Allergy (Uncoded 04/16/18 07:23) bees Allergy (Uncoded 04/16/18 07:23) Past Medical History - General Information source: Patient - Social History Smoking Status: Current Every Day Smoker Cigarette use (# per day): Yes - 5-10 cigarettes a day Chew tobacco use (# tins/day): No Smoking Education Provided: Yes - 4 minutes Frequency of alcohol use: None Drug Abuse: None Lives with: Friend Family History: Reviewed & Not Pertinent, DM Patient has suicidal ideation: No Patient has homicidal ideation: No - Past Medical History Cardiac Medical History: Reports: Hx Hypertension, Hx Pulmonary Embolism Pulmonary Medical History: Reports: Hx Pneumonia EENT Medical History: Reports: None Neurological Medical History: Reports: None Endocrine Medical History: Reports: Hx Diabetes Mellitus Type 2 Renal/ Medical History: Reports: None Malignancy Medical History: Reports: None GI Medical History: Reports: Hx Gastroesophageal Reflux Disease Musculoskeletal Medical History: Reports Hx Arthritis - gout Skin Medical History: Reports None Psychiatric Medical History: Reports: None Traumatic Medical History: Reports: None Infectious Medical History: Reports: None Past Surgical History: Reports: Hx Abdominal Surgery - Laproscopic Gastric Bypass, Hx Section - x 3, Hx Gastric Bypass Surgery - Immunizations Hx Diphtheria, Pertussis, Tetanus Vaccination: No Review of Systems - Review of Systems Constitutional: No symptoms reported EENT: Ear pain, Nose congestion, Nose discharge, Sinus pressure, Sinus discharge, Throat pain Cardiovascular: No symptoms reported Respiratory: Cough Gastrointestinal: No symptoms reported Genitourinary: No symptoms reported Female Genitourinary: No symptoms reported Musculoskeletal: No symptoms reported Skin: No symptoms reported Hematologic/Lymphatic: No symptoms reported Neurological/Psychological: No symptoms reported -: Yes All other systems reviewed and negative Physical Exam - Vital signs Vitals: Temp Pulse Resp BP Pulse Ox 98.4 F 95 18 124/71 100 06/23/18 22:21 06/23/18 22:21 06/23/18 22:21 06/23/18 22:21 06/23/18 22:21 Interpretation: Normal - General General appearance: Appears well, Alert - HEENT Head: Normocephalic, Atraumatic Eyes: Normal Pupils: PERRL Ears: Normal External canal: Normal Tympanic membrane: Normal Sinus: Normal Nasal: Purulent discharge, Swelling Mouth/Lips: Normal Mucous membranes: Normal Pharynx: Erythema, Post nasal drainage. No: Exudate, Tonsillar hypertrophy Neck: Normal - Respiratory Respiratory status: No respiratory distress Chest status: Nontender Breath sounds: Nonproductive cough Chest palpation: Normal - Cardiovascular Rhythm: Regular Heart sounds: Normal auscultation Murmur: No - Abdominal Inspection: Normal Distension: No distension Bowel sounds: Normal Tenderness: Nontender Organomegaly: No organomegaly - Back Back: Normal, Nontender - Extremities General upper extremity: Normal inspection, Nontender, Normal color, Normal ROM, Normal temperature General lower extremity: Normal inspection, Nontender, Normal color, Normal ROM, Normal temperature, Normal weight bearing. No: Julia's sign - Neurological Neuro grossly intact: Yes Cognition: Normal Orientation: AAOx4 [place] Coma Scale Eye Opening: Spontaneous [place] Coma Scale Verbal: Oriented [place] Coma Scale Motor: Obeys Commands [place] Coma Scale Total: 15 Speech: Normal Motor strength normal: LUE, RUE, LLE, RLE Sensory: Normal - Psychological Associated symptoms: Normal affect, Normal mood - Skin Skin Temperature: Warm Skin Moisture: Dry Skin Color: Normal Course - Re-evaluation Re-evalutation: 06/24/18 01:49 After performing a Medical Screening Examination, I estimate there is LOW risk for ACUTE CORONARY SYNDROME, RESPIRATORY FAILURE, SEPSIS OR MENINGITIS, thus I consider the discharge disposition reasonable. I have reevaluated this patient multiple times and no significant life threatening changes are noted. The patient and I have discussed the diagnosis and risks, and we agree with discharging home with close follow-up. We also discussed returning to the Emergency Department immediately if new or worsening symptoms occur. We have discussed the symptoms which are most concerning (e.g., changing or worsening pain, trouble swallowing or breathing, neck stiffness, fever) that necessitate immediate return. - Vital Signs Vital signs: Temp Pulse Resp BP Pulse Ox 98.2 F 89 18 128/79 H 100 06/23/18 23:49 06/23/18 23:49 06/23/18 23:49 06/23/18 23:49 06/23/18 23:49 Discharge - Discharge Clinical Impression: Viral sore throat URI (upper respiratory infection) Qualifiers: URI type: unspecified viral URI Qualified Code(s): J06.9 - Acute upper respiratory infection, unspecified Condition: Stable Disposition: HOME, SELF-CARE Instructions: Family Physicians / Practices Additional Instructions: SORE THROAT: Sore throats may be caused by viruses, bacteria, or fungi. Most are due to a virus, and must get better on their own. Bacterial sore throats, particularly those due to "strep," need treatment with antibiotics. If an antibiotic is prescribed, be sure to take the medication for a full 10 days. Failure to take the antibiotic can result in complications such as rheumatic fever. Sometimes, an injection of antibiotics is given instead of pills or liquid. This single "shot" is equal in effectiveness to the oral medication. To relieve symptoms, take acetaminophen for pain. Sip clear liquids frequently, or eat popsicles or ice chips. Anesthetic sprays or lozenges may help. Make sure the air in the room is not too dry. Avoid using decongestants or antihistamines. Call the doctor if there is no improvement in two days, or if you have difficulty breathing, increasing throat pain, high fever, rash, or frequent vomiting. UPPER RESPIRATORY ILLNESS: You have a viral infection of the respiratory passages -- a "cold." This common infection causes nasal congestion, drainage, and often sore throat and cough. It is highly contagious. The disease usually lasts about 10 to 14 days. There is no "cure" for the viral infection -- it must run its course. If there is a complication, such as bacterial infection in the nose, sinuses, middle ear, or bronchial tubes, antibiotics may be required. The antibiotics won't affect the virus. Drink plenty of fluids. A humidifier may help. An expectorant medication or decongestant may make you more comfortable. Use acetaminophen or ibuprofen for fever or aches. See the doctor if fever persists over two days, if there is any significant worsening of your symptoms, or if you simply fail to improve as expected. Salt and soda solution 1 quart of water 1 tablespoon of salt 1 teaspoon of baking soda Mixed 3 ingredients together and boil for 1 minute Placed in a covered quart jar Use 1/2 ounce of cold solution to gargle 3 times a day USE OF ACETAMINOPHEN (Tylenol): Acetaminophen may be taken for pain relief or fever control. It's much safer than aspirin, offering a wider range of "safe" dosages. It is safe during . Some brand names are Tylenol, Panadol, Datril, Anacin 3, Tempra, and Liquiprin. Acetaminophen can be repeated every four hours. The following are maximum recommended dosages: >89 pounds or adults 650 mg to 900 mg Acetaminophen can be repeated every four hours. Maximum dose not to exceed 4000 mg a day. SMOKING: If you smoke, you should stop smoking. The tar and chemicals in cigarette smoke are harmful. Smoking has been shown to cause: emphysema chronic bronchitis lung cancer mouth and throat cancer stomach and pancreas cancer premature aging defects In addition, smoking increases ear and lung infections in children of smokers. FOLLOW-UP CARE: If you have been referred to a physician for follow-up care, call the physicians office for an appointment as you were instructed or within the next two days. If you experience worsening or a significant change in your symptoms, notify the physician immediately or return to the Emergency Department at any time for re-evaluation. Forms: Smoking Cessation Education
[2018-06-23 23:49] VITALS: BP 128/79
== END 2018-06-23 23:49 | disposition home or self-care (01) ==
LOC: ER 21:33
DX: J06.9 Acute upper respiratory infection, unspecified (principal); J02.9 Acute pharyngitis, unspecified; F17.210 Nicotine dependence, cigarettes, uncomplicated; I10 Essential (primary) hypertension; E11.9 Type 2 diabetes mellitus without complications; Z86.711 Personal history of pulmonary embolism; Z98.84 Bariatric surgery status
CPT/HCPCS: 87070; 87804; 87880; 99283; 99406

== ENCOUNTER 2018-06-27 07:16 | Inpatient (IN) | payer SELFPAY ==
[~2018-06-27 07:16] MED LIST: ACETYLCYSTEINE INJ 6000 MG/30 ML IV ONE
[2018-06-27] MEDS ORDERED: NORMAL SALINE 1000 ML 1,000 ML IV ONE ×3 (07:50→15:05)
[2018-06-27] MEDS ORDERED: DEXTROSE 50%-WATER 25 GM/50 ML DISP.SYRIN IV ONE ×3 (07:50→15:17)
[2018-06-27] MEDS ORDERED: DEXTROSE 40% GEL 15 GM TUBE PO ONE (07:52)
--- NOTE | 2018-06-27 07:56 | ER Document Report ---
ED General - General Chief Complaint: Dizziness Stated Complaint: DIZZY Time Seen by Provider: 06/27/18 07:47 Mode of Arrival: Ambulatory Information source: Patient Notes: Patient is a 47-year-old type II diabetic with a history of chronic pancreatitis and alcohol abuse who presents to the ER today for waking up last night sweating and feeling generally weak with generalized abdominal pain. Patient states that her belly has been "tender to put my pants on" for 2 days and that she has been fighting a cold that she was seen for here 3 days ago, but denies any burning with urination, abnormal bowel movements, nausea or vomiting. Patient denies any fever or chills that she knows of. Patient admits to the pain being worse in the left upper part of the abdomen radiating around to the back. She states that her last alcohol use was 3 days ago when she had wine at her sister's wedding wine tasting event. TRAVEL OUTSIDE OF THE [place] IN LAST 30 DAYS: No - Related Data Allergies/Adverse Reactions: No Known Drug Allergies Allergy (Verified 06/27/18 07:21) Bee Allergy (Uncoded 06/27/18 07:21) bees Allergy (Uncoded 06/27/18 07:21) Past Medical History - General Information source: Patient - Social History Smoking Status: Unknown if Ever Smoked Family History: Reviewed & Not Pertinent, DM - Past Medical History Cardiac Medical History: Reports: Hx Hypertension, Hx Pulmonary Embolism Pulmonary Medical History: Reports: Hx Pneumonia Neurological Medical History: Denies: Hx Seizures Endocrine Medical History: Reports: Hx Diabetes Mellitus Type 2 Renal/ Medical History: Denies: Hx Peritoneal Dialysis GI Medical History: Reports: Hx Gastroesophageal Reflux Disease, Hx Hepatitis Musculoskeletal Medical History: Reports Hx Arthritis - gout Psychiatric Medical History: Denies: Hx Depression Infectious Medical History: Reports: Hx Hepatitis Past Surgical History: Reports: Hx Abdominal Surgery - Laproscopic Gastric Bypass, Hx Section - x 3, Hx Gastric Bypass Surgery, Hx Hysterectomy - Immunizations Hx Diphtheria, Pertussis, Tetanus Vaccination: No Review of Systems - Review of Systems Constitutional: See HPI EENT: See HPI Cardiovascular: No symptoms reported Respiratory: See HPI Gastrointestinal: See HPI Genitourinary: No symptoms reported Female Genitourinary: No symptoms reported Musculoskeletal: No symptoms reported Skin: No symptoms reported Hematologic/Lymphatic: No symptoms reported Neurological/Psychological: No symptoms reported Physical Exam - Vital signs Vitals: Pulse Resp BP 74 10 L 90/63 L 06/27/18 07:21 06/27/18 07:21 06/27/18 07:21 - Notes Notes: PHYSICAL EXAMINATION: GENERAL: Anxious appearing, but in no acute distress. HEAD: Atraumatic, normocephalic. EYES: Pupils equal round and reactive to light, extraocular movements intact, sclera anicteric, conjunctiva are normal. ENT: Airway patent, ear canals without erythema or foreign body, TMs [place] with good bony landmarks, nares patent, oropharynx clear without exudates. Moist mucous membranes. NECK: Normal range of motion, supple without lymphadenopathy LUNGS: CTAB and equal. No wheezes rales or rhonchi. HEART: Regular rate and rhythm without murmurs ABDOMEN: Distended, moderate diffuse tenderness, palpation causes nausea. No guarding, no rebound BACK: no vertebral tenderness, normal ROM GI/: no CVA tenderness EXTREMITIES: Normal range of motion, no pitting edema. No cyanosis. NEUROLOGICAL: Alert and oriented to person place and time, cranial nerves grossly intact. Normal sensory/motor exams. PSYCH: Normal mood, normal affect. SKIN: cold extremities, normal turgor, no rashes or lesions noted Course - Re-evaluation Re-evalutation: 06/27/18 11:03 Patient has a temperature of 91, was placed on Ly hugger, given IV fluids as she had hypotension 70 systolically on arrival, patient's blood sugar on arrival was 38, did improve after IV dextrose and some apple juice, patient's abdomen is tender and also makes her want to vomit every time I palpate it. CT chest and abdomen/pelvis with IV contrast reveals no acute pathology, patient's bilirubin is elevated which she has had before, her lipase is normal today, she has a lactic acidosis of 4.8, glucose has remained stable during visit in the emergency department in the 120s after initial treatment. Patient is admitted at this time for multiple acute on chronic issues. - Vital Signs Vital signs: Temp Pulse Resp BP Pulse Ox 91.6 F L 74 9 L 88/67 L 99 06/27/18 09:25 06/27/18 07:21 06/27/18 13:16 06/27/18 13:16 06/27/18 13:16 - Laboratory Result Diagrams: 06/27/18 14:00 06/27/18 14:00 Laboratory results interpreted by me: 06/27/18 06/27/18 06/27/18 08:00 08:00 08:00 WBC 12.4 H RBC 2.61 L Hgb 9.3 L Hct 27.0 L MCV 103 H MCH 35.6 H RDW 15.2 H Plt Count 90 L Seg Neutrophils % 83.1 H Lymphocytes % 12.4 L Absolute Neutrophils 10.3 H VBG pH 7.28 L Sodium 130.9 L Potassium 3.4 L Glucose 277 H POC Glucose Lactic Acid Calcium 7.8 L Total Bilirubin 4.3 H Direct Bilirubin 3.4 H AST 48 H Alkaline Phosphatase 373 H Total Protein 5.9 L Albumin 1.8 L 06/27/18 06/27/18 09:00 09:32 WBC RBC Hgb Hct MCV MCH RDW Plt Count Seg Neutrophils % Lymphocytes % Absolute Neutrophils VBG pH Sodium Potassium Glucose POC Glucose 123 H Lactic Acid 4.8 H Calcium Total Bilirubin Direct Bilirubin AST Alkaline Phosphatase Total Protein Albumin Procedures - Central Line Right Internal jugular Time completed: 13:01 Consent obtained: Yes Central line pre-insertion: Sterile PPE donned, Chloraprep applied, Sterile drapes applied Central line lumen type: Triple Anesthetic type: 1% Lidocaine mL's of anesthesia: 2 Ultrasound guided: Yes Line secured with sutures: Yes Central line post-insertion: Blood return from lumens, Biopatch applied, Sutur ed, Sterile dressing applied, Position confirmed w/ CXR Number of attempts: 1 Complications: No Notes: 06/27/18 15:25 Dr. Garvey at bedside Critical Care Note - Critical Care Note Total time excluding time spent on procedures (mins): 45 - 45___ minutes spent in critical care time with patient, consulted with attending, speaking with family, placing orders and evaluating tests and labs. Discharge - Discharge Clinical Impression: Metabolic acidosis, Type 2 diabetes mellitus, Bilateral pleural effusion, Hypotension, Fatty liver disease, nonalcoholic Sepsis Qualifiers: Sepsis type: sepsis due to unspecified organism Qualified Code(s): A41.9 - Sepsis, unspecified organism Condition: Fair Disposition: ADMITTED INPATIENT Admitting Provider: Beronica agagrwal Unit Admitted: ICU
[2018-06-27] MEDS ORDERED: ONDANSETRON HCL INJ/PF 4 MG/2 ML SDV IV ONE (08:22)
[2018-06-27] MEDS ORDERED: FENTANYL CITRATE INJ/PF 100 MCG/2 ML AMPUL IV ONE ×3 (08:22→12:50)
[2018-06-27 08:30] LABS: VENOUS BLOOD BASE EXCESS -3.7 mmol/L; VENOUS BLOOD HCO3 23.8 mmol/L (20-32); VENOUS BLOOD PCO2 51.6 mmHg (35-63); VENOUS BLOOD PH 7.28 (7.30-7.42)
[2018-06-27 08:39] LABS: ABSOLUTE LYMPHOCYTES (AUTO) 1.5 10^3/uL (0.5-4.7); ABSOLUTE MONOCYTES (AUTO) 0.5 10^3/uL (0.1-1.4); ABSOLUTE NEUT (AUTO) 10.3 10^3/uL (1.7-8.2); BASOPHILS % (AUTO) 0.1 % (0-2); EOSINOPHILS % (AUTO) 0.3 % (0-6); HEMOGLOBIN 9.3 g/dL (12.0-15.5); LYMPHOCYTES % (AUTO) 12.4 % (13-45); MEAN CORPUSCULAR HEMOGLOBIN 35.6 pg (27.0-33.4); MEAN CORPUSCULAR HGB CONC 34.4 g/dL (32.0-36.0); MEAN CORPUSCULAR VOLUME 103 fl (80-97); MONOCYTES % (AUTO) 4.1 % (3-13); RED BLOOD COUNT 2.61 10^6/uL (3.72-5.28); RED CELL DISTRIBUTION WIDTH 15.2 % (11.5-14.0); SEGMENTED NEUTROPHILS % (AUTO) 83.1 % (42-78); TOTAL CELLS COUNTED % (AUTO) 100 %; WHITE BLOOD COUNT 12.4 10^3/uL (4.0-10.5)
[2018-06-27 08:41] LABS: PLATELET COUNT 90 10^3/uL (150-450)
[2018-06-27] MEDS ORDERED: NORMAL SALINE 1000 ML 2,000 ML IV ONE (08:54)
[2018-06-27 08:55] LABS: ALANINE AMINOTRANSFERASE 30 U/L (9-52); ALBUMIN 1.8 g/dL (3.5-5.0); ALKALINE PHOSPHATASE 373 U/L (38-126); ANION GAP 11 (5-19); ASPARTATE AMINO TRANSFERASE 48 U/L (14-36); BILIRUBIN,DIRECT 3.4 mg/dL (0.0-0.4); BILIRUBIN,TOTAL 4.3 mg/dL (0.2-1.3); BLOOD UREA NITROGEN 10 mg/dL (7-20); CALCIUM 7.8 mg/dL (8.4-10.2); CARBON DIOXIDE 22 mmol/L (22-30); CHLORIDE 98 mmol/L (98-107); GLUCOSE 277 mg/dL (75-110); POTASSIUM 3.4 mmol/L (3.6-5.0); SODIUM 130.9 mmol/L (137-145); TOTAL PROTEIN 5.9 g/dL (6.3-8.2)
[2018-06-27] MEDS ORDERED: PIPERACILLIN/TAZOBACTAM 3.375 GM VIAL IV ONE ×2 (10:40→12:33)
--- NOTE | 2018-06-27 10:48 | RADIOLOGY REPORT (SQ) ---
EXAM DESCRIPTION: CT CHEST WITH; CT ABD/PELVIS WITH IV ONLY COMPLETED DATE/TIME: 06/27/2018 10:25 am; 06/27/2018 10:22 am REASON FOR STUDY: abd, back pain, hypotensive COMPARISON: CT angio chest 04/17/2018 CT abdomen pelvis 02/02/2018 CONTRAST TYPE AND DOSE: contrast/concentration: Isovue 350.00 mg/ml; Total Contrast Delivered: 98.0 ml; Total Saline Delivered: 42.4 ml RENAL FUNCTION: Creatinine 0.99 TECHNIQUE: CT scan of the chest performed using helical scanning technique with dynamic intravenous contrast injection. Images reviewed with lung, soft tissue and bone windows. Reconstructed coronal a nd sagittal MPR images reviewed. All images stored on PACS. CT scan of the abdomen and pelvis performed with intravenous and without oral contrastusing helical s jolene technique with dynamic intravenous contrast injection. Images reviewed with lung, soft tissu e and bone windows. Reconstructed coronal and sagittal MPR images reviewed. Delayed images for eval uation of the urinary system also acquired and evaluated. All images stored on PACS. All CT scanners at this facility use dose modulation, iterative reconstruction, and/or weight based d osing when appropriate to reduce radiation dose to as low as reasonably achievable (ALARA). [facility]: Dose Right [facility]: CareDose [facility]: Dose Right [facility]: Teradose 4D [facility]: Smart Qu[employer] RADIATION DOSE: CT Rad equipment meets quality standard of care and radiation dose reduction techniq ues were employed. CTDIvol: 20.4 - 21.0 mGy. DLP: 3564 mGy-cm. . LIMITATIONS: None. FINDINGS: CHEST: LUNGS AND PLEURA: Patchy diffuse bilateral airspace disease is present worrisome for pulmonary edema. Multifocal pneumonia could have this appearance. Trace right pleural effusion. No pneumothorax. HILAR AND MEDIASTINAL STRUCTURES: No identified masses or abnormal nodes. HEART AND VASCULAR STRUCTURES: No aneurysm or dissection. No central pulmonary emboli. No pericardi al effusion. HARDWARE: None. THYROID AND OTHER SOFT TISSUES: No masses. No adenopathy. BONES: No significant finding. OTHER: No other significant finding. ABDOMEN AND PELVIS: LIVER: Diffuse low attenuation from edema or fatty infiltration. No focal masses. Normal enhancemen t of the portal vein and hepatic veins. SPLEEN: Normal size. No focal lesions. PANCREAS: Trace fluid along the pancreatic tail on axial images 46 through 50. No gross peripancreat ic acute inflammation. GALLBLADDER: No identified stones by CT criteria. No inflammatory changes to suggest cholecystitis. ADRENAL GLANDS: No significant masses or asymmetry. RIGHT KIDNEY AND URETER: No solid masses. No significant calcification. No hydronephrosis or hydroure ter. LEFT KIDNEY AND URETER: No solid masses. No significant calcification. No hydronephrosis or hydrouret er. AORTA AND VESSELS: No aneurysm. No dissection. Renal arteries, SMA, celiac without stenosis. RETROPERITONEUM: No retroperitoneal adenopathy, hemorrhage or masses. BOWEL AND PERITONEAL CAVITY: Small amount of right and left subphrenic fluid, trace cul-de-sac pelvic fluid. No CT evidence of bowel obstruction. Surgical clips are present in the left upper quadrant post gastric bypass APPENDIX: Not identified ABDOMINAL WALL: No masses. No hernias. Third-spacing of fluid along the abdominal wall with edema in the subcutaneous fat PELVIS: Distended urinary bladder. Normal size uterus and ovaries. Trace cul-de-sac fluid BONES: No significant or acute findings. Findings discussed with Swathi Saleh in the emergency room. IMPRESSION: Diffuse bilateral airspace disease edema versus pneumonia Third-spacing of fluid with edema in the abdominal wall and trace right pleural effusion and minimal ascites Post gastric bypass. Trace fluid along the pancreatic tail at the splenic hilum, correlate clinically for pancreatitis TECHNICAL DOCUMENTATION: JOB ID: [id number] Quality ID # [id number]: Final reports with documentation of one or more dose reduction techniques (e.g., Au tomated exposure control, adjustment of the mA and/or kV according to patient size, use of iterative reconstruction technique) 2010 [email or web address]- All Rights Reserved Reading location - IP/workstation name: [email or web address]
[2018-06-27 11:28] LABS: APPEARANCE,URINE CLEAR; BILIRUBIN,URINE NEGATIVE (NEGATIVE); COLOR,URINE YELLOW; GLUCOSE, URINE NEGATIVE (NEGATIVE); KETONES,URINE NEGATIVE (NEGATIVE); LEUKOCYTE ESTERASE,URINE NEGATIVE (NEGATIVE); NITRITE,URINE NEGATIVE (NEGATIVE); PROTEIN,URINE NEGATIVE (NEGATIVE); URINE SPECIFIC GRAVITY 1.016; UROBILINOGEN,URINE NEGATIVE mg/dL (<2.0)
[2018-06-27] MEDS ORDERED: ACETYLCYSTEINE INJ 6000 MG/30 ML IV ONE ×2 (12:00→14:30)
[2018-06-27] MEDS ORDERED: PANTOPRAZOLE SODIUM 40 MG VIAL IV PRN (12:03)
[2018-06-27] MEDS ORDERED: ALBUMIN HUMAN 12.5 GM/50 ML RTUINJ IV SCH (12:05)
[2018-06-27] MEDS ORDERED: POTASSI CL 20 MEQ/50 ML RIDER 20 MEQ/50 ML RTUPB IV ONE (12:30)
[2018-06-27] MEDS ORDERED: LORAZEPAM INJ 2 MG/1 ML VIAL IV ONE ×2 (12:49→12:51)
[2018-06-27] MEDS ORDERED: PANTOPRAZOLE SODIUM 80 MG in NORMAL SALINE 100 ML IV ONE (13:00)
[2018-06-27 14:42] LABS: ABSOLUTE LYMPHOCYTES (AUTO) 1.2 10^3/uL (0.5-4.7); ABSOLUTE MONOCYTES (AUTO) 0.4 10^3/uL (0.1-1.4); BASOPHILS % (AUTO) 0.3 % (0-2); EOSINOPHILS % (AUTO) 0.1 % (0-6); HEMATOCRIT 21.8 % (36.0-47.0); LYMPHOCYTES % (AUTO) 14.1 % (13-45); MEAN CORPUSCULAR HEMOGLOBIN 36.2 pg (27.0-33.4); MEAN CORPUSCULAR HGB CONC 35.2 g/dL (32.0-36.0); MEAN CORPUSCULAR VOLUME 103 fl (80-97); MONOCYTES % (AUTO) 4.2 % (3-13); RED BLOOD COUNT 2.12 10^6/uL (3.72-5.28); RED CELL DISTRIBUTION WIDTH 15.2 % (11.5-14.0); SEGMENTED NEUTROPHILS % (AUTO) 81.3 % (42-78); TOTAL CELLS COUNTED % (AUTO) 100 %; WHITE BLOOD COUNT 8.7 10^3/uL (4.0-10.5)
--- NOTE | 2018-06-27 14:42 | RADIOLOGY REPORT (SQ) ---
EXAM DESCRIPTION: CHEST SINGLE VIEW COMPLETED DATE/TIME: 06/27/2018 2:27 pm REASON FOR STUDY: central line placement COMPARISON: 04/18/2018 EXAM PARAMETERS: NUMBER OF VIEWS: One view. TECHNIQUE: Single frontal radiographic view of the chest acquired. RADIATION DOSE: NA LIMITATIONS: None. FINDINGS: LUNGS AND PLEURA: Chronic interstitial changes suggested. Minimal right pleural effusion. Cannot exclude mild pulmonary edema. MEDIASTINUM AND HILAR STRUCTURES: No masses. Contour normal. HEART AND VASCULAR STRUCTURES: Heart normal in size. Normal vasculature. BONES: No acute findings. HARDWARE: Right internal jugular catheter has its tip in the right atrium. OTHER: No other significant finding. IMPRESSION: Right internal jugular catheter terminates in the right atrium. Chronic interstitial ch anges. Mild pulmonary edema. Small right pleural effusion. TECHNICAL DOCUMENTATION: JOB ID: [id number] [employer]- All Rights Reserved Reading location - IP/workstation name: [email or web address]
[2018-06-27] MEDS: ALBUMIN HUMAN 25 GM/100 ML RTUINJ IV SCH ×2 (14:44→20:29)
[2018-06-27 15:00] LABS: ALANINE AMINOTRANSFERASE 27 U/L (9-52); ALBUMIN 1.6 g/dL (3.5-5.0); ALKALINE PHOSPHATASE 333 U/L (38-126); ANION GAP 6 (5-19); ASPARTATE AMINO TRANSFERASE 45 U/L (14-36); BILIRUBIN,TOTAL 3.9 mg/dL (0.2-1.3); BLOOD UREA NITROGEN 8 mg/dL (7-20); CALCIUM 7.4 mg/dL (8.4-10.2); CARBON DIOXIDE 24 mmol/L (22-30); CHLORIDE 106 mmol/L (98-107); POTASSIUM 3.2 mmol/L (3.6-5.0); SODIUM 135.7 mmol/L (137-145); TOTAL PROTEIN 5.5 g/dL (6.3-8.2)
[2018-06-27] MEDS: NORMAL SALINE 100 ML with PANTOPRAZOLE SODIUM 80 MG IV PRN ×2 (15:07)
[2018-06-27 15:09] LABS: HEMOGLOBIN 7.7 g/dL (12.0-15.5); PLATELET COUNT 87 10^3/uL (150-450)
[2018-06-27 15:11] LABS: GLUCOSE 43 mg/dL (75-110)
[2018-06-27] MEDS ORDERED: DEXTROSE 5% IV PRN ×3 (15:30→20:30)
[2018-06-27] MEDS ORDERED: ACETYLCYSTEINE IV PRN ×3 (15:30→20:30)
[2018-06-27] MEDS ORDERED: WATER IV PRN ×3 (15:30→20:30)
[2018-06-27] MEDS: HYDROCORTISONE SOD SUCCINATE INJ/PF 250 MG/2 ML SDV IV SCH ×2 (15:57→22:10)
[2018-06-27] MEDS: HEPARIN SOD (PORCINE) 5,000 UNIT/ML 1 ML SYRINGE SUBCUT SCH ×2 (15:57→22:24)
[2018-06-27] MEDS ORDERED: DEXTROSE 5% IV ONE ×3 (16:00→21:00)
[2018-06-27] MEDS ORDERED: WATER IV ONE ×3 (16:00→21:00)
[2018-06-27] MEDS ORDERED: ACETYLCYSTEINE IV ONE ×3 (16:00→21:00)
--- NOTE | 2018-06-27 16:02 | PDOC H&P ---
History of Present Illness Admission Date/PCP: 06/27/18 11:29 Patient complains of: Abdominal pain History of Present Illness: BILL FERRER is a 47 year old female with a past medical history of gastric bypass surgery, alcoholism, chronic pain. The patient presented to the emergency department with a chief complaint of abdominal pain. Hoarding to the patient she was in her usual state of health until yesterday evening. Patient stated that she went and ate dinner worse developed a sudden onset of abdominal pain. Patient stated that she went to bed as usual but woke up feeling sweaty and clammy. She stated she felt very weak. Patient denies any accompanying nausea or vomiting. Patient stated that she has been able to pass gas. She denies any diarrhea. No hematemesis, hematochezia. She describes pain in her lower abdomen that radiates into her back area. She has had numerous hospital and ED contacts. The patient was last seen in the emergency department 3 days ago for what was for what is described as rhinovirus. The patient was treated and released symptomatically. She denies any shortness of breath cough or sputum production. Patient stated that those symptoms have actually improved. CT of the chest, abdomen and pelvis reveals diffuse bilateral airspace disease versus a pneumonia as well as third spacing of fluid with edema in the abdominal wall and trace right pleural effusion and minimal ascites. Patient presented with a temperature of 91, was placed on Ly hugger, given IV fluids (2L) as she had hypotension 70 systolically on arrival, patient's blood sugar on arrival was 38, did improve after IV dextrose and some apple juice, patient's abdomen is tender and also makes her want to vomit upon palpation. Lipase is normal today, she has a lactic acidosis of 4.8, glucose has remained stable during visit in the emergency department in the 120s after initial treatment. Patient is admitted at this time for multiple acute on chronic issues. My evaluation of the patient she was found to be slightly tachycardic with a heart rate in the 90s, slightly hypotensive but map in the 60s, significant anxiety. Patient would let me palpate her abdomen especially when distracted however she would scream and pain at times when not stimulated. 1238: I called and discussed the case with the surgicalist. Recommendations at this time are to obtain CT with oral contrast. Also for line placement. Past Medical History Cardiac Medical History: Reports: Hypertension, Pulmonary Embolism Pulmonary Medical History: Reports: Pneumonia Endocrine Medical History: Reports: Diabetes Mellitus Type 2 GI Medical History: Reports: Gastroesophageal Reflux Disease, Hepatitis Musculoskeltal Medical History: Reports: Arthritis - gout Past Surgical History Past Surgical History: Reports: Section - x 3, Gastric Bypass Surgery, Hysterectomy Social History Information Source: Patient Lives with: Family Smoking Status: Current Every Day Smoker Frequency of Alcohol Use: Heavy - Last drink was 2 weeks ago Hx Recreational Drug Use: No Drugs: None Hx Prescription Drug Abuse: No - Advance Directive Resuscitation Status: Full Code Family History Family History: DM Parental Family History Reviewed: Yes Children Family History Reviewed: Yes Sibling(s) Family History Reviewed.: Yes Medication/Allergy Home Medications: Gabapentin [Neurontin] 600 mg PO Q8 04/16/18 Acetaminophen [Tylenol 325 mg Tablet] 650 mg PO Q6HP PRN 06/27/18 Furosemide [Lasix 40 mg Tablet] 40 mg PO QAM 06/27/18 Ibuprofen [Ibu-200] 200 mg PO PRN PRN 06/27/18 Lisinopril [Prinivil 10 mg Tablet] 10 mg PO DAILY 06/27/18 Potassium Chloride [K-Tab] 10 meq PO DAILY 06/27/18 Allergies/Adverse Reactions: No Known Drug Allergies Allergy (Verified 06/27/18 07:21) Bee Allergy (Uncoded 06/27/18 07:21) bees Allergy (Uncoded 06/27/18 07:21) Review of Systems Constitutional: PRESENT: weight gain. ABSENT: chills, fever(s), headache(s), weight loss Eyes: ABSENT: visual disturbances Ears: ABSENT: hearing changes Cardiovascular: PRESENT: edema, palpitations. ABSENT: chest pain, dyspnea on exertion, orthropnea Respiratory: ABSENT: cough, hemoptysis Gastrointestinal: PRESENT: abdominal pain, nausea. ABSENT: constipation, diarrhea, hematemesis, hematochezia, vomiting Genitourinary: ABSENT: dysuria, hematuria Musculoskeletal: ABSENT: joint swelling Integumentary: ABSENT: rash, wounds Neurological: ABSENT: abnormal gait, abnormal speech, confusion, dizziness, focal weakness, syncope Psychiatric: ABSENT: anxiety, depression, homidical ideation, suicidal ideation Endocrine: ABSENT: cold intolerance, heat intolerance, polydipsia, polyuria Hematologic/Lymphatic: ABSENT: easy bleeding, easy bruising Physical Exam Vital Signs: Temp Pulse Resp BP Pulse Ox 91.6 F L 74 17 102/58 L 94 06/27/18 09:25 06/27/18 07:21 06/27/18 11:15 06/27/18 11:15 06/27/18 11:15 Intake & Output 06/25/18 06/26/18 06/27/18 23:59 23:59 23:59 Intake Total 3000 Output Total 750 Balance 2250 Weight 85.6 kg General appearance: PRESENT: no acute distress, morbidly obese, well-developed Head exam: PRESENT: atraumatic, normocephalic Eye exam: PRESENT: conjunctiva pink, EOMI, PERRLA. ABSENT: scleral icterus Ear exam: PRESENT: normal external ear exam Mouth exam: PRESENT: moist, tongue midline Neck exam: ABSENT: carotid bruit, JVD, lymphadenopathy, thyromegaly Respiratory exam: PRESENT: decreased breath sounds, symmetrical, unlabored. ABSENT: rales, rhonchi, tachypnea, wheezes Cardiovascular exam: PRESENT: RRR. ABSENT: diastolic murmur, rubs, systolic murmur Pulses: PRESENT: normal dorsalis pedis pul Vascular exam: PRESENT: normal capillary refill GI/Abdominal exam: PRESENT: normal bowel sounds, soft, tenderness - Bilateral lower quadrants varying intensity. ABSENT: distended, guarding, mass, organolmegaly, rebound Rectal exam: PRESENT: deferred Extremities exam: PRESENT: full ROM. ABSENT: calf tenderness, clubbing, pedal edema Neurological exam: PRESENT: alert, awake, oriented to person, oriented to place, oriented to time, oriented to situation, CN II-XII grossly intact. ABSENT: motor sensory deficit Psychiatric exam: PRESENT: anxious, normal mood. ABSENT: homicidal ideation, suicidal ideation Skin exam: PRESENT: dry, intact, warm. ABSENT: cyanosis, rash Results Laboratory Results: 06/27/18 08:00 06/27/18 08:00 06/27/18 06/27/18 06/27/18 08:00 08:00 08:00 WBC 12.4 H RBC 2.61 L Hgb 9.3 L Hct 27.0 L MCV 103 H MCH 35.6 H MCHC 34.4 RDW 15.2 H Plt Count 90 L Seg Neutrophils % 83.1 H Lymphocytes % 12.4 L Monocytes % 4.1 Eosinophils % 0.3 Basophils % 0.1 Absolute Neutrophils 10.3 H Absolute Lymphocytes 1.5 Absolute Monocytes 0.5 Absolute Eosinophils 0.0 Absolute Basophils 0.0 VBG pH 7.28 L VBG pCO2 51.6 VBG HCO3 23.8 VBG Base Excess -3.7 Sodium 130.9 L Potassium 3.4 L Chloride 98 Carbon Dioxide 22 Anion Gap 11 BUN 10 Creatinine 0.99 Est GFR ( Amer) > 60 Est GFR (Non-Af Amer) > 60 Glucose 277 H Lactic Acid Calcium 7.8 L Total Bilirubin 4.3 H AST 48 H ALT 30 Alkaline Phosphatase 373 H Total Protein 5.9 L Albumin 1.8 L Lipase 183.0 Urine Color Urine Appearance Urine pH Ur Specific [place] Urine Protein Urine Glucose (UA) Urine Ketones Urine Blood Urine Nitrite Ur Leukocyte Esterase Urine WBC (Auto) 06/27/18 06/27/18 06/27/18 08:00 09:00 11:15 WBC RBC Hgb Hct MCV MCH MCHC RDW Plt Count Seg Neutrophils % Lymphocytes % Monocytes % Eosinophils % Basophils % Absolute Neutrophils Absolute Lymphocytes Absolute Monocytes Absolute Eosinophils Absolute Basophils VBG pH VBG pCO2 VBG HCO3 VBG Base Excess Sodium Potassium Chloride Carbon Dioxide Anion Gap BUN Creatinine Est GFR ( Amer) Est GFR (Non-Af Amer) Glucose Lactic Acid Cancelled 4.8 H Calcium Total Bilirubin AST ALT Alkaline Phosphatase Total Protein Albumin Lipase Urine Color YELLOW Urine Appearance CLEAR Urine pH 6.0 Ur Specific [place] 1.016 Urine Protein NEGATIVE Urine Glucose (UA) NEGATIVE Urine Ketones NEGATIVE Urine Blood NEGATIVE Urine Nitrite NEGATIVE Ur Leukocyte Esterase NEGATIVE Urine WBC (Auto) 1 06/27/18 08:00 Troponin I < 0.012 Impressions: Abdomen/Pelvis CT 06/27/18 08:05 IMPRESSION: Diffuse bilateral airspace disease edema versus pneumonia Third-spacing of fluid with edema in the abdominal wall and trace right pleural effusion and minimal ascites Post gastric bypass. Trace fluid along the pancreatic tail at the splenic hilum, correlate clinically for pancreatitis Chest CT 06/27/18 08:06 IMPRESSION: Diffuse bilateral airspace disease edema versus pneumonia Third-spacing of fluid with edema in the abdominal wall and trace right pleural effusion and minimal ascites Post gastric bypass. Trace fluid along the pancreatic tail at the splenic hilum, correlate clinically for pancreatitis Assessment & Plan - Diagnosis (1) Sepsis Qualifiers: Sepsis type: sepsis due to unspecified organism Qualified Code(s): A41.9 - Sepsis, unspecified organism Is this a current diagnosis for this admission?: Yes Plan: Uncertain of source. Differentials include peritonitis, acute on chronic pancreatitis, pneumonia, etc. etc. As the patient on broad-spectrum antibiotic coverage for now. The patient received further volume resuscitation. Given her hypothermia, persistent hypoglycemia, and hypotension will go ahead and cover her for adrenal insufficiency. (2) Multifocal pneumonia Is this a current diagnosis for this admission?: Yes Plan: Difficult to interpret on imaging. Will cover with Zosyn for now and follow. (4) Cirrhosis Qualifiers: Hepatic cirrhosis type: alcoholic cirrhosis Ascites presence: with ascites Qualified Code(s): K70.31 - Alcoholic cirrhosis of liver with ascites Is this a current diagnosis for this admission?: Yes Plan: I did discuss this with the radiologist does not appear to be a very large volume of ascites. Will cover for spontaneous bacterial peritonitis anyway. (5) Anasarca Plan: Most likely due to the patient's profound hypoalbuminemia. We will actually supplement albumin for now given her profound numbers. (6) Pulmonary hypertension Is this a current diagnosis for this admission?: Yes Plan: Last echo was in March (7) HTN (hypertension) Qualifiers: Hypertension type: essential hypertension Qualified Code(s): I10 - Essential (primary) hypertension Is this a current diagnosis for this admission?: Yes Plan: Actually hypotensive at this time due to her septic state will hold medications. (8) Diabetes mellitus type 2 in obese Is this a current diagnosis for this admission?: Yes (9) Obesity Qualifiers: Obesity type: with alveolar hypoventilation Serious obesity comorbidity presence: with serious comorbidity Body mass index: BMI 39.0-39.9 Is this a current diagnosis for this admission?: Yes (10) History of alcoholism Is this a current diagnosis for this admission?: Yes (11) Tobacco abuse Is this a current diagnosis for this admission?: Yes (12) Non-compliance Is this a current diagnosis for this admission?: Yes - Time Time Spent: 50 to 70 Minutes Smoking Cessation Education: 3 to 10 minutes Anticipated discharge: Home Within: within 72 hours Disposition: The patient is a full code. Pending patient's symptomatology and diagnostic findings will reevaluate needed. Will admit the patient to inpatient ICU as the patient's expected length of stay should surpass 2 midnights - Inpatient Certification Based on my medical assessment, after consideration of the patient's comorbidities, presenting symptoms, or acuity I expect that the services needed warrant INPATIENT care.: Yes Medical Necessity: Significant Comorbidiites Make Outpatient Treatment Too Risky, Need For IV Fluids, Need for IV Antibiotics Post Hospital Care: D/C Case Assistant Documentation
[2018-06-27] MEDS ORDERED: NOREPINEPHRINE BITARTRATE INJ/PF 4 MG/4 ML SDV IV ONE ×2 (16:27→17:40)
[2018-06-27 18:51] LABS: HEMATOCRIT 25.2 % (36.0-47.0); MEAN CORPUSCULAR HEMOGLOBIN 36.5 pg (27.0-33.4); MEAN CORPUSCULAR HGB CONC 35.7 g/dL (32.0-36.0); MEAN CORPUSCULAR VOLUME 102 fl (80-97); RED BLOOD COUNT 2.46 10^6/uL (3.72-5.28); RED CELL DISTRIBUTION WIDTH 15.4 % (11.5-14.0)
[2018-06-27 18:54] LABS: PLATELET COUNT 97 10^3/uL (150-450)
[2018-06-27] MEDS: DEXTROSE 5%-WATER 250 ML with NOREPINEPHRINE BITARTRATE 4 MG IV PRN ×2 (19:30)
[2018-06-27] MEDS: ONDANSETRON HCL INJ/PF 4 MG/2 ML SDV IV PRN (19:55)
[2018-06-27] MEDS: PIPERACILLIN SODIUM/TAZOBACTAM 4.5 GM in NORMAL SALINE 100 ML IV SCH (20:02)
[2018-06-27] MEDS: MORPHINE SULFATE 10 MG/ML INJ IV PRN (20:12)
--- NOTE | 2018-06-27 20:51 | EKG REPORT ---
SEVERITY:- ABNORMAL ECG - SINUS OR ECTOPIC ATRIAL RHYTHM PROBABLE LEFT ATRIAL ABNORMALITY PROLONGED QT INTERVAL : Confirmed by: Gosia Mims MD 27-Jun-2018 20:50:25
--- NOTE | 2018-06-27 21:29 | PDOC CONSULTATION ---
Consultation Consult Date: 06/27/18 Consult reason:: need arterial line History of Present Illness Admission Date/PCP: 06/27/18 11:29 History of Present Illness: BILL FERRER is a 47 year old female, obese, with sepsis and hypotension on pressors in need of arterial line for blood pressure monitoring. Past Medical History Cardiac Medical History: Reports: Hypertension, Pulmonary Embolism Pulmonary Medical History: Reports: Pneumonia Neurological Medical History: Denies: Seizures Endocrine Medical History: Reports: Diabetes Mellitus Type 2 GI Medical History: Reports: Gastroesophageal Reflux Disease, Hepatitis Musculoskeltal Medical History: Reports: Arthritis - gout Psychiatric Medical History: Denies: Depression Past Surgical History Past Surgical History: Reports: Section - x 3, Gastric Bypass Surgery, Hysterectomy Social History Lives with: Family Smoking Status: Current Every Day Smoker Cigarettes Packs Per Day: 1 Number of Years Smokin Frequency of Alcohol Use: Heavy - Last drink was 2 weeks ago Hx Recreational Drug Use: No Drugs: None Hx Prescription Drug Abuse: No - Advance Directive Resuscitation Status: Full Code Family History Family History: DM Parental Family History Reviewed: No Children Family History Reviewed: No Sibling(s) Family History Reviewed.: No Medication/Allergy Home Medications: Gabapentin [Neurontin] 600 mg PO Q8 04/16/18 Acetaminophen [Tylenol 325 mg Tablet] 650 mg PO Q6HP PRN 06/27/18 Furosemide [Lasix 40 mg Tablet] 40 mg PO QAM 06/27/18 Ibuprofen [Ibu-200] 200 mg PO PRN PRN 06/27/18 Lisinopril [Prinivil 10 mg Tablet] 10 mg PO DAILY 06/27/18 Potassium Chloride [K-Tab] 10 meq PO DAILY 06/27/18 Allergies/Adverse Reactions: No Known Drug Allergies Allergy (Verified 06/27/18 07:21) Bee Allergy (Uncoded 06/27/18 07:21) bees Allergy (Uncoded 06/27/18 07:21) Physical Exam Vital Signs: Temp Pulse Resp BP Pulse Ox 98.6 F 110 H 26 H 101/58 L 98 06/27/18 19:23 06/27/18 18:27 06/27/18 20:13 06/27/18 20:13 06/27/18 20:13 Intake & Output 06/26/18 06/27/18 06/28/18 06:59 06:59 06:59 Intake Total 3200 Output Total 1525 Balance 1675 Weight 94 kg General appearance: PRESENT: mild distress Head exam: PRESENT: atraumatic Eye exam: PRESENT: EOMI Mouth exam: PRESENT: neck supple Respiratory exam: PRESENT: clear to auscultation candice Cardiovascular exam: PRESENT: RRR GI/Abdominal exam: PRESENT: soft Extremities exam: PRESENT: full ROM Musculoskeletal exam: PRESENT: full ROM Skin exam: PRESENT: pallor Results Laboratory Results: 06/27/18 18:15 06/27/18 14:00 06/27/18 06/27/18 06/27/18 08:00 08:00 08:00 WBC 12.4 H RBC 2.61 L Hgb 9.3 L Hct 27.0 L MCV 103 H MCH 35.6 H MCHC 34.4 RDW 15.2 H Plt Count 90 L Seg Neutrophils % 83.1 H Lymphocytes % 12.4 L Monocytes % 4.1 Eosinophils % 0.3 Basophils % 0.1 Absolute Neutrophils 10.3 H Absolute Lymphocytes 1.5 Absolute Monocytes 0.5 Absolute Eosinophils 0.0 Absolute Basophils 0.0 VBG pH 7.28 L VBG pCO2 51.6 VBG HCO3 23.8 VBG Base Excess -3.7 Sodium 130.9 L Potassium 3.4 L Chloride 98 Carbon Dioxide 22 Anion Gap 11 BUN 10 Creatinine 0.99 Est GFR ( Amer) > 60 Est GFR (Non-Af Amer) > 60 Glucose 277 H Lactic Acid Calcium 7.8 L Magnesium Total Bilirubin 4.3 H AST 48 H ALT 30 Alkaline Phosphatase 373 H Total Protein 5.9 L Albumin 1.8 L Lipase 183.0 Urine Color Urine Appearance Urine pH Ur Specific [place] Urine Protein Urine Glucose (UA) Urine Ketones Urine Blood Urine Nitrite Ur Leukocyte Esterase Urine WBC (Auto) Blood Type Antibody Screen 06/27/18 06/27/18 06/27/18 08:00 09:00 11:15 WBC RBC Hgb Hct MCV MCH MCHC RDW Plt Count Seg Neutrophils % Lymphocytes % Monocytes % Eosinophils % Basophils % Absolute Neutrophils Absolute Lymphocytes Absolute Monocytes Absolute Eosinophils Absolute Basophils VBG pH VBG pCO2 VBG HCO3 VBG Base Excess Sodium Potassium Chloride Carbon Dioxide Anion Gap BUN Creatinine Est GFR ( Amer) Est GFR (Non-Af Amer) Glucose Lactic Acid Cancelled 4.8 H Calcium Magnesium Total Bilirubin AST ALT Alkaline Phosphatase Total Protein Albumin Lipase Urine Color YELLOW Urine Appearance CLEAR Urine pH 6.0 Ur Specific [place] 1.016 Urine Protein NEGATIVE Urine Glucose (UA) NEGATIVE Urine Ketones NEGATIVE Urine Blood NEGATIVE Urine Nitrite NEGATIVE Ur Leukocyte Esterase NEGATIVE Urine WBC (Auto) 1 Blood Type Antibody Screen 06/27/18 06/27/18 06/27/18 14:00 14:00 14:00 WBC 8.7 RBC 2.12 L Hgb 7.7 L Hct 21.8 L MCV 103 H MCH 36.2 H MCHC 35.2 RDW 15.2 H Plt Count 87 L Seg Neutrophils % 81.3 H Lymphocytes % 14.1 Monocytes % 4.2 Eosinophils % 0.1 Basophils % 0.3 Absolute Neutrophils 7.0 Absolute Lymphocytes 1.2 Absolute Monocytes 0.4 Absolute Eosinophils 0.0 Absolute Basophils 0.0 VBG pH VBG pCO2 VBG HCO3 VBG Base Excess Sodium 135.7 L Potassium 3.2 L Chloride 106 Carbon Dioxide 24 Anion Gap 6 BUN 8 Creatinine 0.76 Est GFR ( Amer) > 60 Est GFR (Non-Af Amer) > 60 Glucose 43 L Lactic Acid 2.3 H Calcium 7.4 L Magnesium 2.2 Total Bilirubin 3.9 H AST 45 H ALT 27 Alkaline Phosphatase 333 H Total Protein 5.5 L Albumin 1.6 L Lipase Urine Color Urine Appearance Urine pH Ur Specific [place] Urine Protein Urine Glucose (UA) Urine Ketones Urine Blood Urine Nitrite Ur Leukocyte Esterase Urine WBC (Auto) Blood Type Antibody Screen 06/27/18 06/27/18 15:30 18:15 WBC 10.0 RBC 2.46 L Hgb 9.0 L Hct 25.2 L MCV 102 H MCH 36.5 H MCHC 35.7 RDW 15.4 H Plt Count 97 L Seg Neutrophils % Lymphocytes % Monocytes % Eosinophils % Basophils % Absolute Neutrophils Absolute Lymphocytes Absolute Monocytes Absolute Eosinophils Absolute Basophils VBG pH VBG pCO2 VBG HCO3 VBG Base Excess Sodium Potassium Chloride Carbon Dioxide Anion Gap BUN Creatinine Est GFR ( Amer) Est GFR (Non-Af Amer) Glucose Lactic Acid Calcium Magnesium Total Bilirubin AST ALT Alkaline Phosphatase Total Protein Albumin Lipase Urine Color Urine Appearance Urine pH Ur Specific [place] Urine Protein Urine Glucose (UA) Urine Ketones Urine Blood Urine Nitrite Ur Leukocyte Esterase Urine WBC (Auto) Blood Type A POSITIVE Antibody Screen NEGATIVE 06/27/18 08:00 Troponin I < 0.012 Impressions: Abdomen/Pelvis CT 06/27/18 08:05 IMPRESSION: Diffuse bilateral airspace disease edema versus pneumonia Third-spacing of fluid with edema in the abdominal wall and trace right pleural effusion and minimal ascites Post gastric bypass. Trace fluid along the pancreatic tail at the splenic hilum, correlate clinically for pancreatitis Chest CT 06/27/18 08:06 IMPRESSION: Diffuse bilateral airspace disease edema versus pneumonia Third-spacing of fluid with edema in the abdominal wall and trace right pleural effusion and minimal ascites Post gastric bypass. Trace fluid along the pancreatic tail at the splenic hilum, correlate clinically for pancreatitis Chest X-Ray 06/27/18 14:02 IMPRESSION: Right internal jugular catheter terminates in the right atrium. Chronic interstitial changes. Mild pulmonary edema. Small right pleural effusion. Assessment & Plan - Plan Summary Plan Summary: A/ hypotensive patient on pressors requiring blood pressure monitoring P/ Placement of left arterial artery line under local. Procedure, risks, benefits, complications discussed with the patient, she understands all the above and decides to proceed.
--- NOTE | 2018-06-27 21:31 | Operative Report ---
Nonrecallable Operative Report DATE OF SURGERY: 06/27/18 PREOPERATIVE DIAGNOSIS: need arterial line POSTOPERATIVE DIAGNOSIS: same OPERATION: left radial artery line SURGEON: SAURAV STEPHENS ANESTHESIA: Local - 1 mL lidocaine TISSUE REMOVED OR ALTERED: n/a COMPLICATIONS: n/a ESTIMATED BLOOD LOSS: < 2 mL INTRAOPERATIVE FINDINGS: as above, good blood return PROCEDURE: see dictation
--- NOTE | 2018-06-27 22:13 | OPERATIVE REPORT E ---
Operative Report NAME: BILL FERRER : 1970 AGE: 47Y DATE OF SURGERY: 06/27/2018 ROOM: 606 PREOPERATIVE DIAGNOSIS: NEED OF ARTERIAL LINE FOR MANAGEMENT OF BLOOD PRESSURE. POSTOPERATIVE DIAGNOSIS: NEED OF ARTERIAL LINE FOR MANAGEMENT OF BLOOD PRESSURE. OPERATION: Placement of left radial arterial artery. SURGEON: SAURAV STEPHENS M.D. SHIRT IRONER SUPERVISOR: None. BLEEDING COMPLICATION: None. ANESTHESIA: Local, 1 mL of 1% lidocaine. INDICATION AND FINDINGS: This is a 47-year-old female admitted for sepsis, found to be in need of pressors and the placement of arterial line for monitoring the patient's blood pressure was required. DESCRIPTION OF PROCEDURE: The procedure was in the ICU. The patient was in the supine position. The left wrist was pronated. The wrist was then prepped and draped in a sterile fashion. Later the left radial artery was palpated by the wrist. The skin was infiltrated with 1% lidocaine and a needle with sleeve was inserted and easily cannulated the left radial artery with good return. The needle was removed, the sleeve advanced over the wire and the radial artery catheter sleeve was then connected to the tubing and secured to the wrist with tape. The patient tolerated the procedure well. DICTATING PHYSICIAN: SAURAV STEPHENS M.D. [id number] [facility]#: [id number] ID: [id number] JOB#: [id number] ACCT: [id number] cc:SAURAV STEPHENS M.D. > MTDD
[2018-06-27] MEDS: POTASSIUM CHLORIDE 20 MEQ/50 ML RTU IV SCH (22:22)
[2018-06-27] MEDS: LORAZEPAM INJ 2 MG/1 ML VIAL IV PRN (22:46)
[2018-06-27] MEDS ORDERED: LORAZEPAM INJ 2 MG/1 ML VIAL ONE (22:46)
[2018-06-27] MEDS ORDERED: LEVALBUTEROL HCL NEB 1.25 MG/3 ML AMPUL NEB PRN (22:49)
--- NOTE | 2018-06-28 00:07 | RADIOLOGY REPORT (SQ) ---
EXAM DESCRIPTION: CT ABDOMEN PELVIS WITHOUT IV CONTRAST COMPLETED DATE/TME: 06/27/2018 00:00 CLINICAL HISTORY: 47 years, Female, ABD pain COMPARISON: Prior CT from earlier on today's date TECHNIQUE: 346 Images stored on PACS. All CT scanners at this facility use dose modulation, iterative reconstruction, and/or weight based dosing when appropriate to reduce radiation dose to as low as reasonably achievable (ALARA). [facility]: Dose Right [facility]: CareDose [facility]: Dose Right [facility]: Teradose 4D [facility]: Neuro Kinetics LIMITATIONS: None. FINDINGS: Limited evaluation of the lung bases shows airspace opacities bilaterally, similar to the prior. Small bilateral pleural effusions. Osseous structures are grossly intact. Diffuse fatty infiltrative change to the liver. The spleen, adrenal glands, pancreas, kidneys are unremarkable. The gallbladder is present. Post surgical changes in the left upper quadrant. No free air. No gross evidence for bowel obstruction. Briceño catheter in urinary bladder. Small to moderate amount of ascites. This has worsened somewhat from the prior. Normal appendix. Residual contrast in bowel. IMPRESSION: Slight worsening in the amount of ascites. Airspace opacities of the lung bases bilaterally with small bibasilar effusions. Diffuse fatty infiltrative change to the liver. TECHNICAL DOCUMENTATION: Quality ID # [id number]: Final reports with documentation of one or more dose reduction techniques (e.g., Automated exposure control, adjustment of the mA and/or kV according to patient size, use of iterative reconstruction technique) copyright 2010 [employer]- All Rights Reserved
[2018-06-28] MEDS: ALBUMIN HUMAN 25 GM/100 ML RTUINJ IV SCH ×4 (00:49→17:45)
[2018-06-28] MEDS: PIPERACILLIN SODIUM/TAZOBACTAM 4.5 GM in NORMAL SALINE 100 ML IV SCH ×4 (00:53→17:45)
[2018-06-28] MEDS: POTASSIUM CHLORIDE 20 MEQ/50 ML RTU IV SCH (01:00)
[2018-06-28] MEDS: NORMAL SALINE 100 ML with PANTOPRAZOLE SODIUM 80 MG IV PRN ×6 (01:07→22:45)
[2018-06-28] MEDS: POTASSI CL 20 MEQ/50 ML RIDER 20 MEQ/50 ML RTUPB IV SCH ×3 (01:23→19:54)
[2018-06-28] MEDS ORDERED: NOREPINEPHRINE BITARTRATE INJ/PF 4 MG/4 ML SDV IV ONE (05:24)
[2018-06-28] MEDS: DEXTROSE 5%-WATER 250 ML with NOREPINEPHRINE BITARTRATE 4 MG IV PRN ×4 (05:27→14:46)
[2018-06-28] MEDS: HEPARIN SOD (PORCINE) 5,000 UNIT/ML 1 ML SYRINGE SUBCUT SCH ×3 (06:00→21:04)
[2018-06-28] MEDS: HYDROCORTISONE SOD SUCCINATE INJ/PF 250 MG/2 ML SDV IV SCH (06:09)
[2018-06-28] MEDS ORDERED: FUROSEMIDE INJ/PF 40 MG/4 ML SDV IV ONE (08:40)
[2018-06-28] MEDS ORDERED: DEXTROSE 50%-WATER SYRINGE 25 GM/50 ML DOSE IV PRN (09:00)
[2018-06-28] MEDS ORDERED: DEXTROSE 40% GEL 15 GM TUBE PO PRN (09:00)
[2018-06-28] MEDS ORDERED: HYDROCORTISONE SOD SUCCINATE INJ/PF 250 MG/2 ML SDV IV SCH (09:00)
[2018-06-28] MEDS ORDERED: DEXTROSE 40% GEL 15 GM TUBE X 2 PO PRN (09:00)
[2018-06-28] MEDS ORDERED: DEXTROSE 50%-WATER SYRINGE 12.5 GM/25 ML DOSE IV PRN (09:00)
[2018-06-28] MEDS ORDERED: GLUCAGON,HUMAN RECOMB 1 MG INJ IM PRN (09:00)
--- NOTE | 2018-06-28 09:06 | PDOC PROGRESS REPORT ---
Subjective Progress Note for:: 06/28/18 Subjective:: 0815: The patient was seen this morning on rounds. The patient is awake and alert. The patient remains on norepinephrine. Overnight the patient did require BiPAP due to respiratory issues. Increasing tachypnea as well as a dry cough. A.m. labs are pending and will review to be reviewed. The patient did pull her BiPAP mask off and request a number of items including hot tea and Flonase. I did try to update the patient on various aspects of her care. CVP has consistently ran in the higher teens. Will attempt diuresis given the patient has received albumin. The patient's respiratory issues did not began until the patient received full volume resuscitation therefore I am concern for pulmonary edema. Will obtain portable chest x-ray this morning. Has completed Mucom[employer] protocol. 1300: Reviewed a.m. labs. And chest x-ray. Chest x-ray suggestive of pulmonary edema. Will await the patient's output from Lasix. Selected Entries 06/28/18 08:10 Respiratory 18 Rate O2 Sat by Pulse 97 Oximetry Central Venous 22 Pressure- Mean Selected Entries 1700: The patient has not had much output approximately 400 cc since getting the Lasix. Will begin Lasix drip. I was notified by nursing staff that the patient continues to be tachypneic. CVP is uncertain as the patient's brown port significant reading of greater than 35 however the medial port is reading 12. Do believe this is Fales data. According to the patient's chest x-ray as well as her evident JVP I do believe the patient is volume up. I have ordered a stat CTA of the chest will await findings. I did review the case with Dr. Monaco. 06/28/18 16:42 Respiratory 31 H Rate O2 Sat by Pulse 97 Oximetry Reason For Visit: SEPSIS Physical Exam Vital Signs: Temp Pulse Resp BP Pulse Ox 98.1 F 99 18 127/62 H 97 06/28/18 08:00 06/28/18 08:00 06/28/18 08:10 06/28/18 08:10 06/28/18 08:10 Intake & Output 06/26/18 06/27/18 06/28/18 23:59 23:59 23:59 Intake Total 3375 1302 Output Total 1775 650 Balance 1600 652 Weight 94 kg 94.8 kg General appearance: PRESENT: morbidly obese, well-developed. ABSENT: cooperative Head exam: PRESENT: atraumatic, normocephalic Eye exam: PRESENT: conjunctiva pink, EOMI, PERRLA. ABSENT: scleral icterus Ear exam: PRESENT: normal external ear exam Mouth exam: PRESENT: moist, tongue midline Neck exam: PRESENT: JVD - Appears to the right clavicle this morning although this may be distorted by BiPAP.. ABSENT: carotid bruit, lymphadenopathy, thyromegaly, tracheal deviation Respiratory exam: PRESENT: crackles - Bilateral basal, decreased breath sounds. ABSENT: rales, rhonchi, wheezes Cardiovascular exam: PRESENT: RRR - Slightly tachycardic. ABSENT: diastolic murmur, rubs, systolic murmur Pulses: PRESENT: +1 pedal pulses bilateral Vascular exam: PRESENT: normal capillary refill GI/Abdominal exam: PRESENT: ascites, normal bowel sounds, soft, tenderness - The patient notes tenderness however with distraction I am able to manipulate all aspects of her abdomen.. ABSENT: distended, guarding, mass, organolmegaly, rebound Rectal exam: PRESENT: deferred Extremities exam: PRESENT: pedal edema. ABSENT: calf tenderness, clubbing Neurological exam: PRESENT: alert, awake, oriented to person, oriented to place, oriented to time, oriented to situation, CN II-XII grossly intact. ABSENT: motor sensory deficit Psychiatric exam: PRESENT: anxious, unusual affect. ABSENT: homicidal ideation, suicidal ideation Skin exam: PRESENT: dry, intact, jaundice, warm. ABSENT: cyanosis, rash Results Laboratory Results: 06/27/18 18:15 06/27/18 14:00 06/27/18 06/27/18 06/27/18 08:00 08:00 09:00 WBC RBC Hgb Hct MCV MCH MCHC RDW Plt Count Seg Neutrophils % Lymphocytes % Monocytes % Eosinophils % Basophils % Absolute Neutrophils Absolute Lymphocytes Absolute Monocytes Absolute Eosinophils Absolute Basophils Sodium 130.9 L Potassium 3.4 L Chloride 98 Carbon Dioxide 22 Anion Gap 11 BUN 10 Creatinine 0.99 Est GFR ( Amer) > 60 Est GFR (Non-Af Amer) > 60 Glucose 277 H Lactic Acid Cancelled 4.8 H Calcium 7.8 L Magnesium Total Bilirubin 4.3 H AST 48 H ALT 30 Alkaline Phosphatase 373 H Total Protein 5.9 L Albumin 1.8 L Lipase 183.0 Urine Color Urine Appearance Urine pH Ur Specific [place] Urine Protein Urine Glucose (UA) Urine Ketones Urine Blood Urine Nitrite Ur Leukocyte Esterase Urine WBC (Auto) Blood Type Antibody Screen 06/27/18 06/27/18 06/27/18 11:15 14:00 14:00 WBC 8.7 RBC 2.12 L Hgb 7.7 L Hct 21.8 L MCV 103 H MCH 36.2 H MCHC 35.2 RDW 15.2 H Plt Count 87 L Seg Neutrophils % 81.3 H Lymphocytes % 14.1 Monocytes % 4.2 Eosinophils % 0.1 Basophils % 0.3 Absolute Neutrophils 7.0 Absolute Lymphocytes 1.2 Absolute Monocytes 0.4 Absolute Eosinophils 0.0 Absolute Basophils 0.0 Sodium 135.7 L Potassium 3.2 L Chloride 106 Carbon Dioxide 24 Anion Gap 6 BUN 8 Creatinine 0.76 Est GFR ( Amer) > 60 Est GFR (Non-Af Amer) > 60 Glucose 43 L Lactic Acid Calcium 7.4 L Magnesium 2.2 Total Bilirubin 3.9 H AST 45 H ALT 27 Alkaline Phosphatase 333 H Total Protein 5.5 L Albumin 1.6 L Lipase Urine Color YELLOW Urine Appearance CLEAR Urine pH 6.0 Ur Specific [place] 1.016 Urine Protein NEGATIVE Urine Glucose (UA) NEGATIVE Urine Ketones NEGATIVE Urine Blood NEGATIVE Urine Nitrite NEGATIVE Ur Leukocyte Esterase NEGATIVE Urine WBC (Auto) 1 Blood Type Antibody Screen 06/27/18 06/27/18 06/27/18 14:00 15:30 18:15 WBC 10.0 RBC 2.46 L Hgb 9.0 L Hct 25.2 L MCV 102 H MCH 36.5 H MCHC 35.7 RDW 15.4 H Plt Count 97 L Seg Neutrophils % Lymphocytes % Monocytes % Eosinophils % Basophils % Absolute Neutrophils Absolute Lymphocytes Absolute Monocytes Absolute Eosinophils Absolute Basophils Sodium Potassium Chloride Carbon Dioxide Anion Gap BUN Creatinine Est GFR ( Amer) Est GFR (Non-Af Amer) Glucose Lactic Acid 2.3 H Calcium Magnesium Total Bilirubin AST ALT Alkaline Phosphatase Total Protein Albumin Lipase Urine Color Urine Appearance Urine pH Ur Specific [place] Urine Protein Urine Glucose (UA) Urine Ketones Urine Blood Urine Nitrite Ur Leukocyte Esterase Urine WBC (Auto) Blood Type A POSITIVE Antibody Screen NEGATIVE 06/27/18 08:00 Troponin I < 0.012 Impressions: Abdomen/Pelvis CT 06/27/18 08:05 IMPRESSION: Diffuse bilateral airspace disease edema versus pneumonia Third-spacing of fluid with edema in the abdominal wall and trace right pleural effusion and minimal ascites Post gastric bypass. Trace fluid along the pancreatic tail at the splenic hilum, correlate clinically for pancreatitis Chest CT 06/27/18 08:06 IMPRESSION: Diffuse bilateral airspace disease edema versus pneumonia Third-spacing of fluid with edema in the abdominal wall and trace right pleural effusion and minimal ascites Post gastric bypass. Trace fluid along the pancreatic tail at the splenic hilum, correlate clinically for pancreatitis Chest X-Ray 06/27/18 14:02 IMPRESSION: Right internal jugular catheter terminates in the right atrium. Chronic interstitial changes. Mild pulmonary edema. Small right pleural effusion. Assessment & Plan - Diagnosis (1) Sepsis Qualifiers: Sepsis type: sepsis due to unspecified organism Qualified Code(s): A41.9 - Sepsis, unspecified organism Is this a current diagnosis for this admission?: Yes Plan: Uncertain of source. Differentials include peritonitis, acute on chronic pancreatitis, pneumonia, etc. etc. The patient on broad-spectrum antibiotic coverage for now. The patient was appropriately volume resuscitated. Given her hypothermia, persistent hypoglycemia, and hypotension cover her for adrenal insufficiency. Cultures are pending at this time. The patient is currently pressor dependent. The patient was only able to have an A-line first brief period of time before it went bad. Did show we did have a little more pressure to work with than suspected. (2) Multifocal pneumonia Is this a current diagnosis for this admission?: Yes Plan: Difficult to interpret on imaging. Cover with Zosyn for now and follow. (3) Cirrhosis Qualifiers: Hepatic cirrhosis type: alcoholic cirrhosis Ascites presence: with ascites Qualified Code(s): K70.31 - Alcoholic cirrhosis of liver with ascites Is this a current diagnosis for this admission?: Yes Plan: Continue coverage for spontaneous bacterial peritonitis. (4) Anasarca Is this a current diagnosis for this admission?: Yes Plan: Most likely due to the patient's profound hypoalbuminemia. Has been supplemented albumin for now given her profound hypoalbuminemia. The patient's CVP is actually elevated therefore will attempt diuresis and see if there is improvement in pressure with this. (5) Pulmonary hypertension Is this a current diagnosis for this admission?: Yes Plan: Last echo was in March (6) HTN (hypertension) Qualifiers: Hypertension type: essential hypertension Qualified Code(s): I10 - Essential (primary) hypertension Is this a current diagnosis for this admission?: Yes Plan: Actually hypotensive at this time due to her septic state will hold medications. (7) Diabetes mellitus type 2 in obese Is this a current diagnosis for this admission?: Yes Plan: The patient was actually hypoglycemic which was suggestive more of an adrenal issue. We will continue every 6 hours Accu-Cheks as well as sliding scale coverage with R. (8) Obesity Qualifiers: Obesity type: with alveolar hypoventilation Serious obesity comorbidity presence: with serious comorbidity Body mass index: BMI 39.0-39.9 Is this a current diagnosis for this admission?: Yes (9) History of alcoholism Is this a current diagnosis for this admission?: Yes Plan: We will supplement B vitamins (10) Tobacco abuse Is this a current diagnosis for this admission?: Yes Plan: The patient declines any pharmacological intervention at this time however will add a PRN nicotine patch. (11) Non-compliance Is this a current diagnosis for this admission?: Yes - Time Smoking Cessation Education: 3 to 10 minutes Anticipated discharge: Home Within: within 72 hours Disposition: The patient is a full code. Pending patient's symptomatology and diagnostic findings will reevaluate as needed.
[2018-06-28] MEDS: MORPHINE SULFATE 10 MG/ML INJ IV PRN ×3 (11:22→22:45)
[2018-06-28] MEDS: ONDANSETRON HCL INJ/PF 4 MG/2 ML SDV IV PRN ×3 (11:22→22:45)
[2018-06-28] MEDS: HYDROCORTISONE SOD SUCCINATE INJ/PF 100 MG/2 ML SDV IV SCH ×2 (11:32→18:08)
[2018-06-28] MEDS ORDERED: FUROSEMIDE INJ/PF 40 MG/4 ML SDV ONE (11:34)
[2018-06-28] MEDS: INSULIN REG, HUMAN 100 UNIT/ML 3 ML VIAL (PYX) SUBCUT SCH ×3 (12:00→18:07)
[2018-06-28 12:17] LABS: ABSOLUTE MONOCYTES (AUTO) 0.5 10^3/uL (0.1-1.4); ABSOLUTE NEUT (AUTO) 11.6 10^3/uL (1.7-8.2); BASOPHILS % (AUTO) 0.3 % (0-2); HEMATOCRIT 24.2 % (36.0-47.0); HEMOGLOBIN 8.5 g/dL (12.0-15.5); LYMPHOCYTES % (AUTO) 7.7 % (13-45); MEAN CORPUSCULAR HGB CONC 35.1 g/dL (32.0-36.0); MEAN CORPUSCULAR VOLUME 103 fl (80-97); MONOCYTES % (AUTO) 3.8 % (3-13); RED BLOOD COUNT 2.36 10^6/uL (3.72-5.28); RED CELL DISTRIBUTION WIDTH 15.3 % (11.5-14.0); SEGMENTED NEUTROPHILS % (AUTO) 88.2 % (42-78); TOTAL CELLS COUNTED % (AUTO) 100 %; WHITE BLOOD COUNT 13.2 10^3/uL (4.0-10.5)
[2018-06-28 12:23] LABS: ALANINE AMINOTRANSFERASE 20 U/L (9-52); ALBUMIN 2.6 g/dL (3.5-5.0); ALKALINE PHOSPHATASE 274 U/L (38-126); ANION GAP 12 (5-19); ASPARTATE AMINO TRANSFERASE 37 U/L (14-36); BILIRUBIN,DIRECT 3.6 mg/dL (0.0-0.4); BLOOD UREA NITROGEN 5 mg/dL (7-20); CALCIUM 8.3 mg/dL (8.4-10.2); CARBON DIOXIDE 22 mmol/L (22-30); CHLORIDE 103 mmol/L (98-107); GLUCOSE 257 mg/dL (75-110); LIPASE 40.3 U/L (23-300); POTASSIUM 3.5 mmol/L (3.6-5.0); TOTAL PROTEIN 6.1 g/dL (6.3-8.2)
[2018-06-28 12:43] LABS: PLATELET COUNT 98 10^3/uL (150-450)
--- NOTE | 2018-06-28 14:40 | RADIOLOGY REPORT (SQ) ---
EXAM DESCRIPTION: CHEST SINGLE VIEW COMPLETED DATE/TIME: 06/28/2018 11:24 am REASON FOR STUDY: FU volume resuscitation COMPARISON: Chest x-ray 06/27/2018. EXAM PARAMETERS: NUMBER OF VIEWS: One view. TECHNIQUE: Single frontal radiographic view of the chest acquired. RADIATION DOSE: NA LIMITATIONS: None. FINDINGS: LUNGS AND PLEURA: Interval increase in the bilateral airspace opacities. Small right pleu ral effusion. No pneumothorax MEDIASTINUM AND HILAR STRUCTURES: No masses. Contour normal. HEART AND VASCULAR STRUCTURES: The heart is mildly enlarged. There is vascular congestion. BONES: No acute findings. HARDWARE: There is a right-sided central line with the tip overlying the right atrium. IMPRESSION: Worsening appearance of the chest with interval increase in the bilateral airspace opaci ties, may represent pulmonary edema and/or pneumonia. Mild cardiomegaly. Vascular congestion. Smal l right pleural effusion. TECHNICAL DOCUMENTATION: JOB ID: [id number] [employer]- All Rights Reserved Reading location - IP/workstation name: [email or web address]
[2018-06-28] MEDS: FLUTICASONE NASAL SPRAY 50 MCG/SPRY 120 SPRAY/16 GM NASL SCH ×2 (14:52→21:04)
[2018-06-28] MEDS ORDERED: VANCOMYCIN HCL 0 MG in DEXTROSE 5%-WATER 250 ML IV NR (16:30)
--- NOTE | 2018-06-28 19:04 | RADIOLOGY REPORT (SQ) ---
EXAM DESCRIPTION: CTA CHEST COMPLETED DATE/TIME: 06/28/2018 5:26 pm REASON FOR STUDY: Dyspnea, hypoxia COMPARISON: CT chest 06/27/2018. Chest x-ray 06/28/2018. TECHNIQUE: CT scan of the chest performed using helical scanning technique with dynamic intravenous contrast injection. Images reviewed with lung, soft tissue and bone windows. Reconstructed coronal and sagittal MPR images reviewed. Additional 3 dimensional post-processing performed to develop Maximal Intensity Projection images ([place] P). All images stored on PACS. All CT scanners at this facility use dose modulation, iterative reconstruction, and/or weight based d osing when appropriate to reduce radiation dose to as low as reasonably achievable (ALARA). [facility]: Dose Right [facility]: CareDose [facility]: Dose Right [facility]: Teradose 4D [facility]: GreenFuel CONTRAST TYPE AND DOSE: contrast/concentration: Isovue 350.00 mg/ml; Total Contrast Delivered: 82.0 ml; Total Saline Delivered: 110.0 ml Contrast bolus optimized for the pulmonary arteries. Not diagnostic for the aorta. RENAL FUNCTION: Creatinine 0.81 RADIATION DOSE: CT Rad equipment meets quality standard of care and radiation dose reduction techniq ues were employed. CTDIvol: 33.1 - 35.4 mGy. DLP: 1239 mGy-cm. . LIMITATIONS: None. FINDINGS: LUNGS AND PLEURA: There are small bilateral pleural effusions. Interval increase in the b ilateral airspace opacities. No pneumothorax. AORTA AND GREAT VESSELS: No thoracic aortic aneurysm. HEART: Trace pericardial effusion. Scattered coronary artery calcifications. PULMONARY ARTERIES: No emboli visualized in the main pulmonary arteries or the segmental branches. HILAR AND MEDIASTINAL STRUCTURES: Mildly enlarged mediastinal lymph nodes measuring up to 10 mm in sh ort axis. HARDWARE: Right IJ central line with the tip at the right atrium. UPPER ABDOMEN: The liver is enlarged with diffuse decreased attenuation, most consistent with fatty i nfiltration. There is small ascites and diffuse soft tissue edema at the visualized upper abdomen. THYROID AND OTHER SOFT TISSUES: Thyroid gland is unremarkable. BONES: No acute findings. 3D MIPS: Confirm above findings. IMPRESSION: 1. No pulmonary emboli. 2. Small bilateral pleural effusions with interval increase in the bilateral airspace opacities, may represent worsening pulmonary edema and/or pneumonia, acute respiratory distress syndrome is not excl udable. 3. Mild mediastinal adenopathy. 4. Trace pericardial effusion. 5. Hepatomegaly. Fatty infiltration of the liver. 6. Small ascites and anasarca at the visualized upper abdomen. COMMENT: Quality ID # [id number]: Final reports with documentation of one or more dose reduction techniques (e.g., Automated exposure control, adjustment of the mA and/or kV according to patient size, use of iterative reconstruction technique) TECHNICAL DOCUMENTATION: JOB ID: [id number] 2010 [employer]- All Rights Reserved Reading location - IP/workstation name: [email or web address]
[2018-06-28] MEDS ORDERED: VANCOMYCIN HCL INJ 1000 MG VIAL IV PRN (19:07)
[2018-06-28] MEDS ORDERED: FUROSEMIDE INJ/PF 100 MG/10 ML SDV ONE (19:44)
[2018-06-28] MEDS: LORAZEPAM INJ 2 MG/1 ML VIAL IV PRN (19:53)
[2018-06-28] MEDS: NORMAL SALINE 250 ML with FUROSEMIDE 250 MG IV PRN ×2 (19:53)
[2018-06-28] MEDS ORDERED: VANCOMYCIN HCL 1,500 MG in DEXTROSE 5%-WATER 250 ML IV ONE (20:00)
[2018-06-28] MEDS ORDERED: VANCOMYCIN HCL INJ 500 MG VIAL ONE (20:49)
[2018-06-28] MEDS ORDERED: VANCOMYCIN HCL INJ 1000 MG VIAL ONE (20:49)
[2018-06-28 22:20] LABS: ARTERIAL BLOOD BASE EXCESS -1.1 mmol/L; ARTERIAL BLOOD H2CO3 1.13 mmol/L (1.05-1.35); ARTERIAL BLOOD HCO3 23.3 mmol/L (20-24); ARTERIAL BLOOD O2 SATURATION 94.2 % (94-98); ARTERIAL BLOOD PCO2 37.4 mmHg (35-45); ARTERIAL BLOOD PH 7.41 (7.35-7.45); ARTERIAL BLOOD PO2 69.4 mmHg (80-100); ARTERIAL BLOOD TOTAL CO2 24.4 mmol/L (21-25)
[2018-06-28 22:23] LABS: ARTERIAL BLOOD FIO2 40%
[2018-06-29] MEDS: PIPERACILLIN SODIUM/TAZOBACTAM 4.5 GM in NORMAL SALINE 100 ML IV SCH ×5 (00:37→23:32)
[2018-06-29] MEDS: HYDROCORTISONE SOD SUCCINATE INJ/PF 100 MG/2 ML SDV IV SCH ×5 (00:37→23:32)
[2018-06-29] MEDS: INSULIN REG, HUMAN 100 UNIT/ML 3 ML VIAL (PYX) SUBCUT SCH ×5 (00:37→23:26)
[2018-06-29 00:46] LABS: POTASSIUM 3.5 mmol/L (3.6-5.0)
[2018-06-29] MEDS ORDERED: ALBUMIN HUMAN 50.0 GM/200 ML RTUINJ IV ONE (00:57)
[2018-06-29] MEDS: ALBUMIN HUMAN 25 GM/100 ML RTUINJ IV SCH ×3 (01:01→15:23)
[2018-06-29 04:35] LABS: HEMATOCRIT 21.1 % (36.0-47.0); MEAN CORPUSCULAR HEMOGLOBIN 36.3 pg (27.0-33.4); MEAN CORPUSCULAR VOLUME 104 fl (80-97); RED BLOOD COUNT 2.04 10^6/uL (3.72-5.28); RED CELL DISTRIBUTION WIDTH 15.3 % (11.5-14.0); WHITE BLOOD COUNT 13.9 10^3/uL (4.0-10.5)
[2018-06-29 04:45] LABS: INTERNATIONAL RATION (INR) 1.98; PROTHROMBIN TIME 23.5 SEC (11.4-15.4)
[2018-06-29 04:48] LABS: HEMOGLOBIN 7.4 g/dL (12.0-15.5)
[2018-06-29 04:49] LABS: PLATELET COUNT 71 10^3/uL (150-450)
[2018-06-29 04:57] LABS: ABSOLUTE LYMPHOCYTES# (MANUAL) 1.9 10^3/uL (0.5-4.7); ABSOLUTE MONOCYTES # (MANUAL) 0.1 10^3/uL (0.1-1.4); ABSOLUTE NEUTROPHILS# (MANUAL) 11.8 10^3/uL (1.7-8.2); BASOPHILS % (MANUAL) 0 % (0-2); EOSINOPHILS % (MANUAL) 0 % (0-6); LYMPHOCYTES % (MANUAL) 14 % (13-45); MONOCYTES % (MANUAL) 1 % (3-13); SEGMENTED NEUTROPHILS % (MAN) 85 % (42-78); TOTAL CELLS COUNTED 100
[2018-06-29 05:03] LABS: TOXIC GRANULATION SLIGHT; TOXIC VACUOLATION PRESENT
[2018-06-29 05:04] LABS: ALANINE AMINOTRANSFERASE 23 U/L (9-52); ALBUMIN 2.5 g/dL (3.5-5.0); ALKALINE PHOSPHATASE 219 U/L (38-126); ANION GAP 9 (5-19); ASPARTATE AMINO TRANSFERASE 43 U/L (14-36); BILIRUBIN,DIRECT 2.7 mg/dL (0.0-0.4); BILIRUBIN,TOTAL 3.7 mg/dL (0.2-1.3); BLOOD UREA NITROGEN 4 mg/dL (7-20); CALCIUM 8.1 mg/dL (8.4-10.2); CARBON DIOXIDE 24 mmol/L (22-30); CHLORIDE 106 mmol/L (98-107); GLUCOSE 163 mg/dL (75-110); PHOSPHORUS 3.5 mg/dL (2.5-4.5); POTASSIUM 3.2 mmol/L (3.6-5.0); SODIUM 138.7 mmol/L (137-145); TOTAL PROTEIN 5.9 g/dL (6.3-8.2)
[2018-06-29 05:06] LABS: ANISOCYTOSIS SLIGHT; OVALOCYTES SLIGHT; PLATELET COMMENT DECREASED; POIKILOCYTOSIS 1+; TARGET CELLS 1+; TEAR DROP CELLS SLIGHT
[2018-06-29] MEDS ORDERED: POTASSI CL 20 MEQ/50 ML RIDER 20 MEQ/50 ML RTUPB IV ONE (05:14)
[2018-06-29] MEDS: HEPARIN SOD (PORCINE) 5,000 UNIT/ML 1 ML SYRINGE SUBCUT SCH ×3 (05:18→21:02)
[2018-06-29] MEDS: POTASSIUM CHLORIDE 20 MEQ/50 ML RTU IV SCH ×2 (05:22→07:55)
[2018-06-29 06:57] LABS: ABSOLUTE RETICS # 0.024 10^6/uL (0.028-0.122); RETICULOCYTE COUNT (AUTO) 1.17 % (0.66-2.85)
[2018-06-29 07:05] LABS: IRON(TIBC) 50.2 ug/dL (37-170)
[2018-06-29] MEDS: DEXTROSE 5%-WATER 250 ML with NOREPINEPHRINE BITARTRATE 4 MG IV PRN ×4 (08:40→18:23)
[2018-06-29] MEDS ORDERED: PHARMACY COMMUNICATION ORDER MC NR (08:45)
[2018-06-29] MEDS: PROPOFOL 1,000 MG/100 ML INFUS..BTL IV PRN ×5 (09:45→23:06)
[2018-06-29] MEDS ORDERED: MIDAZOLAM HCL 50 MG/100 ML RTUINJ ONE (10:22)
[2018-06-29] MEDS: MIDAZOLAM HCL 50 MG/100 ML RTUINJ IV PRN ×2 (10:22→20:38)
[2018-06-29] MEDS: FLUTICASONE NASAL SPRAY 50 MCG/SPRY 120 SPRAY/16 GM NASL SCH ×2 (10:38→21:02)
[2018-06-29] MEDS: DOXYCYCLINE HYCLATE 100 MG in DEXTROSE 5%-WATER 250 ML IV SCH ×2 (10:38→21:03)
[2018-06-29] MEDS: MORPHINE SULFATE 10 MG/ML INJ IV PRN (11:05)
--- NOTE | 2018-06-29 11:17 | RADIOLOGY REPORT (SQ) ---
EXAM DESCRIPTION: CHEST SINGLE VIEW COMPLETED DATE/TIME: 06/29/2018 10:18 am REASON FOR STUDY: Intubation COMPARISON: 06/28/2018 NUMBER OF VIEWS: One view. TECHNIQUE: Single frontal radiographic image of the chest acquired. LIMITATIONS: None. FINDINGS: LUNGS AND PLEURA: Increasing bilateral airspace disease. No pneumothorax. MEDIASTINUM AND HEART: Stable heart size and mediastinal structures. SUPPORT DEVICES: Nasogastric tube overlying GE junction. Endotracheal tube between thoracic inlet an d dima. Unchanged position of right IJ central line. BONY STRUCTURES: No acute findings. HARDWARE: None. OTHER: No other significant finding. IMPRESSION: Good position of endotracheal tube. No pneumothorax. High position of nasogastric tube. Recommend advancing 6 cm. Reading location - IP/workstation name: [email or web address]
[2018-06-29 12:54] LABS: ARTERIAL BLOOD BASE EXCESS -0.6 mmol/L; ARTERIAL BLOOD FIO2 100%; ARTERIAL BLOOD H2CO3 1.09 mmol/L (1.05-1.35); ARTERIAL BLOOD HCO3 23.4 mmol/L (20-24); ARTERIAL BLOOD O2 SATURATION 99.7 % (94-98); ARTERIAL BLOOD PCO2 36.2 mmHg (35-45); ARTERIAL BLOOD PH 7.43 (7.35-7.45); ARTERIAL BLOOD TOTAL CO2 24.5 mmol/L (21-25)
[2018-06-29] MEDS ORDERED: SUCCINYLCHOLINE CHLORIDE INJ 200 MG/10 ML VIAL ONE (14:35)
[2018-06-29] MEDS: NORMAL SALINE 100 ML with PANTOPRAZOLE SODIUM 80 MG IV PRN ×2 (15:23)
[2018-06-29 16:42] LABS: ALANINE AMINOTRANSFERASE 25 U/L (9-52); ALBUMIN 2.8 g/dL (3.5-5.0); ALKALINE PHOSPHATASE 253 U/L (38-126); ANION GAP 12 (5-19); ASPARTATE AMINO TRANSFERASE 50 U/L (14-36); BILIRUBIN,DIRECT 3.2 mg/dL (0.0-0.4); BILIRUBIN,TOTAL 4.2 mg/dL (0.2-1.3); BLOOD UREA NITROGEN 5 mg/dL (7-20); CALCIUM 8.1 mg/dL (8.4-10.2); CARBON DIOXIDE 24 mmol/L (22-30); CHLORIDE 104 mmol/L (98-107); GLUCOSE 191 mg/dL (75-110); SODIUM 139.8 mmol/L (137-145); TOTAL PROTEIN 6.2 g/dL (6.3-8.2)
[2018-06-29 16:49] LABS: POTASSIUM 2.8 mmol/L (3.6-5.0)
--- NOTE | 2018-06-29 18:19 | PDOC PROGRESS REPORT ---
Subjective Progress Note for:: 06/29/18 Subjective:: 0800: Set at the patient's bedside this morning discuss her overall condition. She has continued to decline overnight remains increasingly tachypneic with altered mental status. She has more slow to respond she is even got cool extremities. The patient was agreeable to intubation. The patient actually fits a cold and wet profile at this time. The patient is agreeable to intubation. Called and discussed the case with the patient's next of kin her mother and Maik at [phone]. Her mother gave us permission to transfuse blood intubate and any other invasive procedures including but not limited to a central line placement, a line. 0830: Orders placed for intubation. I called and made pulmonology, Dr. Cisneros, aware of the patient's condition and he is agreeable to following the patient. 0940: The patient was successfully intubated by anesthesia. The patient was initially sedated with propofol however she was not compliant therefore Versed has been added. 1600: Repeat labs reveal low potassium this will be replaced. Will repeat these labs at 2200 tonight as well as magnesium Reason For Visit: SEPSIS Physical Exam Vital Signs: Temp Pulse Resp BP Pulse Ox 98.6 F 87 20 124/61 96 06/29/18 16:00 06/29/18 16:00 06/29/18 16:00 06/29/18 16:00 06/29/18 16:27 Intake & Output 06/27/18 06/28/18 06/30/18 23:59 23:59 00:59 Intake Total 3375 3220 1717 Output Total 1775 1600 1675 Balance 1600 1620 42 Weight 94 kg 94.8 kg 94.6 kg General appearance: PRESENT: disheveled, mild distress, morbidly obese Head exam: PRESENT: atraumatic, normocephalic Eye exam: PRESENT: conjunctiva pink, EOMI, PERRLA, scleral icterus Ear exam: PRESENT: normal external ear exam Mouth exam: PRESENT: moist, tongue midline Neck exam: PRESENT: JVD. ABSENT: carotid bruit, lymphadenopathy, thyromegaly, tracheal deviation Respiratory exam: PRESENT: crackles - Bilateral basal, decreased breath sounds, symmetrical, tachypnea. ABSENT: rales, rhonchi, unlabored, wheezes Cardiovascular exam: PRESENT: RRR. ABSENT: diastolic murmur, rubs, systolic murmur Pulses: PRESENT: normal dorsalis pedis pul Vascular exam: PRESENT: pallor GI/Abdominal exam: PRESENT: normal bowel sounds, soft. ABSENT: distended, guarding, mass, organolmegaly, rebound, tenderness Rectal exam: PRESENT: deferred Extremities exam: ABSENT: calf tenderness, clubbing, pedal edema Neurological exam: PRESENT: altered. ABSENT: motor sensory deficit Psychiatric exam: PRESENT: anxious. ABSENT: homicidal ideation, suicidal ideation Skin exam: PRESENT: dry, intact, warm. ABSENT: cyanosis, rash Results Laboratory Results: 06/29/18 04:24 06/29/18 16:13 06/27/18 06/28/18 06/29/18 15:30 22:17 00:29 WBC RBC Hgb Hct MCV MCH MCHC RDW Plt Count Seg Neutrophils % Lymphocytes % Monocytes % Eosinophils % Basophils % Absolute Neutrophils Absolute Lymphocytes Absolute Monocytes Absolute Eosinophils Absolute Basophils Retic Count (auto) Absolute Retic Carbonic Acid 1.13 HCO3/H2CO3 Ratio 20:1 ABG pH 7.41 ABG pCO2 37.4 ABG pO2 69.4 L ABG HCO3 23.3 ABG O2 Saturation 94.2 ABG Base Excess -1.1 FiO2 40% Sodium Potassium 3.5 L Chloride Carbon Dioxide Anion Gap BUN Creatinine Est GFR ( Amer) Est GFR (Non-Af Amer) Glucose Lactic Acid Calcium Phosphorus Magnesium 1.9 Iron TIBC % Saturation Ferritin Total Bilirubin AST ALT Alkaline Phosphatase Ammonia Total Protein Albumin Vitamin B12 Folate Blood Type A POSITIVE Antibody Screen NEGATIVE 06/29/18 06/29/18 06/29/18 04:24 04:24 04:24 WBC 13.9 H RBC 2.04 L Hgb 7.4 L Hct 21.1 L MCV 104 H MCH 36.3 H MCHC 35.0 RDW 15.3 H Plt Count 71 L Seg Neutrophils % Not Reportable Lymphocytes % Not Reportable Monocytes % Not Reportable Eosinophils % Not Reportable Basophils % Not Reportable Absolute Neutrophils Not Reportable Absolute Lymphocytes Not Reportable Absolute Monocytes Not Reportable Absolute Eosinophils Not Reportable Absolute Basophils Not Reportable Retic Count (auto) 1.17 Absolute Retic 0.024 L Carbonic Acid HCO3/H2CO3 Ratio ABG pH ABG pCO2 ABG pO2 ABG HCO3 ABG O2 Saturation ABG Base Excess FiO2 Sodium 138.7 Potassium 3.2 L Chloride 106 Carbon Dioxide 24 Anion Gap 9 BUN 4 L Creatinine 1.01 Est GFR ( Amer) > 60 Est GFR (Non-Af Amer) 59 L Glucose 163 H Lactic Acid Calcium 8.1 L Phosphorus 3.5 Magnesium 2.0 Iron TIBC % Saturation Ferritin Total Bilirubin 3.7 H AST 43 H ALT 23 Alkaline Phosphatase 219 H Ammonia Total Protein 5.9 L Albumin 2.5 L Vitamin B12 Folate Blood Type Antibody Screen 06/29/18 06/29/18 06/29/18 04:24 09:16 09:35 WBC RBC Hgb Hct MCV MCH MCHC RDW Plt Count Seg Neutrophils % Lymphocytes % Monocytes % Eosinophils % Basophils % Absolute Neutrophils Absolute Lymphocytes Absolute Monocytes Absolute Eosinophils Absolute Basophils Retic Count (auto) Absolute Retic Carbonic Acid HCO3/H2CO3 Ratio ABG pH ABG pCO2 ABG pO2 ABG HCO3 ABG O2 Saturation ABG Base Excess FiO2 Sodium Potassium Chloride Carbon Dioxide Anion Gap BUN Creatinine Est GFR ( Amer) Est GFR (Non-Af Amer) Glucose Lactic Acid 1.8 Calcium Phosphorus Magnesium Iron 50.2 TIBC 112 L % Saturation 45 Ferritin 733.00 H Total Bilirubin AST ALT Alkaline Phosphatase Ammonia 20.5 Total Protein Albumin Vitamin B12 975.0 H Folate 10.60 Blood Type Antibody Screen 06/29/18 06/29/18 06/29/18 12:34 16:13 16:13 WBC RBC Hgb Hct MCV MCH MCHC RDW Plt Count Seg Neutrophils % Lymphocytes % Monocytes % Eosinophils % Basophils % Absolute Neutrophils Absolute Lymphocytes Absolute Monocytes Absolute Eosinophils Absolute Basophils Retic Count (auto) Absolute Retic Carbonic Acid 1.09 HCO3/H2CO3 Ratio 21:1 ABG pH 7.43 ABG pCO2 36.2 ABG pO2 320.0 H ABG HCO3 23.4 ABG O2 Saturation 99.7 H ABG Base Excess -0.6 FiO2 100% Sodium 139.8 Potassium 2.8 L* Cancelled Chloride 104 Carbon Dioxide 24 Anion Gap 12 BUN 5 L Creatinine 1.14 Est GFR ( Amer) > 60 Est GFR (Non-Af Amer) 52 L Glucose 191 H Lactic Acid Calcium 8.1 L Phosphorus Magnesium 1.8 Iron TIBC % Saturation Ferritin Total Bilirubin 4.2 H AST 50 H ALT 25 Alkaline Phosphatase 253 H Ammonia Total Protein 6.2 L Albumin 2.8 L Vitamin B12 Folate Blood Type Antibody Screen 06/27/18 06/28/18 06/29/18 08:00 11:45 04:24 Troponin I < 0.012 NT-Pro-B Natriuret Pep 2310 H 4300 H Impressions: Abdomen/Pelvis CT 06/27/18 08:05 IMPRESSION: Diffuse bilateral airspace disease edema versus pneumonia Third-spacing of fluid with edema in the abdominal wall and trace right pleural effusion and minimal ascites Post gastric bypass. Trace fluid along the pancreatic tail at the splenic hilum, correlate clinically for pancreatitis Chest CT 06/27/18 08:06 IMPRESSION: Diffuse bilateral airspace disease edema versus pneumonia Third-spacing of fluid with edema in the abdominal wall and trace right pleural effusion and minimal ascites Post gastric bypass. Trace fluid along the pancreatic tail at the splenic hilum, correlate clinically for pancreatitis Chest/Abdomen CTA 06/28/18 00:00 IMPRESSION: 1. No pulmonary emboli. 2. Small bilateral pleural effusions with interval increase in the bilateral airspace opacities, may represent worsening pulmonary edema and/or pneumonia, acute respiratory distress syndrome is not excludable. 3. Mild mediastinal adenopathy. 4. Trace pericardial effusion. 5. Hepatomegaly. Fatty infiltration of the liver. 6. Small ascites and anasarca at the visualized upper abdomen. Chest X-Ray 06/29/18 00:00 IMPRESSION: Good position of endotracheal tube. No pneumothorax. High position of nasogastric tube. Recommend advancing 6 cm. Assessment & Plan - Diagnosis (1) Possible ARDS Is this a current diagnosis for this admission?: Yes Plan: Versus multifocal pneumonia versus pulmonary edema. Patient remains on Lasix drip. Currently intubated. Do appreciate pulmonology input on this. The patient remains cover with broad-spectrum antibiotic coverage including anaerobes, gram negatives, community-acquired, HCAP, atypicals. Echo pending. (2) Sepsis Qualifiers: Sepsis type: sepsis due to unspecified organism Qualified Code(s): A41.9 - Sepsis, unspecified organism Is this a current diagnosis for this admission?: Yes Plan: Uncertain of source. Differentials include peritonitis, acute on chronic pancreatitis, pneumonia, etc. etc. The patient on broad-spectrum antibiotic coverage for now. The patient was appropriately volume resuscitated. Given her hypothermia, persistent hypoglycemia, and hypotension cover her for adrenal insufficiency. Cultures are unremarkable. the patient is currently pressor dependent. The patient was only able to have an A-line first brief period of time before it went bad. Did show we did have a little more pressure to work with than suspected. (3) Multifocal pneumonia Is this a current diagnosis for this admission?: Yes Plan: Difficult to interpret on imaging. Cover with Tami Russ Vanco for now and follow. (4) Cirrhosis Qualifiers: Hepatic cirrhosis type: alcoholic cirrhosis Ascites presence: with ascites Qualified Code(s): K70.31 - Alcoholic cirrhosis of liver with ascites Is this a current diagnosis for this admission?: Yes Plan: Continue coverage for spontaneous bacterial peritonitis. (5) Anasarca Is this a current diagnosis for this admission?: Yes Plan: Most likely due to the patient's profound hypoalbuminemia. Has been supplemented albumin given her profound hypoalbuminemia. Continue to attempt diuresis and see if there is improvement in pressure with this. (6) Pulmonary hypertension Is this a current diagnosis for this admission?: Yes Plan: Last echo was in March, but will repeat given the patient's presentation (7) HTN (hypertension) Qualifiers: Hypertension type: essential hypertension Qualified Code(s): I10 - Essential (primary) hypertension Is this a current diagnosis for this admission?: Yes Plan: Actually hypotensive at this time due to her septic state will hold medications. (8) Diabetes mellitus type 2 in obese Is this a current diagnosis for this admission?: Yes Plan: The patient was actually hypoglycemic which was suggestive more of an adrenal issue. We will continue every 6 hours Accu-Cheks as well as sliding scale co verage with R. (9) Obesity Qualifiers: Obesity type: with alveolar hypoventilation Serious obesity comorbidity presence: with serious comorbidity Body mass index: BMI 39.0-39.9 Is this a current diagnosis for this admission?: Yes (10) History of alcoholism Is this a current diagnosis for this admission?: Yes Plan: We will supplement B vitamins (11) Tobacco abuse Is this a current diagnosis for this admission?: Yes Plan: The patient declines any pharmacological intervention at this time however will add a PRN nicotine patch. (12) Non-compliance Is this a current diagnosis for this admission?: Yes - Time Total Critical Time (Minutes): 60 Medications reviewed and adjusted accordingly: Yes Disposition: The patient is a full code. Pending patient's symptomatology and diagnostic findings will reevaluate as needed. I did communicate to the patient's mother that the patient's prognosis was quite poor. Did advise her to visit her daughter as her condition is extremely guarded.
[2018-06-29] MEDS: POTASSI CL 20 MEQ/50 ML RIDER 20 MEQ/50 ML RTUPB IV SCH ×3 (18:33→23:19)
[2018-06-29] MEDS: VANCOMYCIN HCL 1,500 MG in DEXTROSE 5%-WATER 250 ML IV SCH (21:03)
[2018-06-29 22:28] LABS: ANION GAP 12 (5-19); BLOOD UREA NITROGEN 5 mg/dL (7-20); CALCIUM 8.7 mg/dL (8.4-10.2); CARBON DIOXIDE 22 mmol/L (22-30); CHLORIDE 105 mmol/L (98-107); GLUCOSE 230 mg/dL (75-110); POTASSIUM 3.3 mmol/L (3.6-5.0); SODIUM 139.1 mmol/L (137-145)
[2018-06-29] MEDS: NORMAL SALINE 250 ML with FUROSEMIDE 250 MG IV PRN ×2 (22:48)
[2018-06-30 00:10] LABS: HEMATOCRIT 27.2 % (36.0-47.0); HEMOGLOBIN 9.4 g/dL (12.0-15.5); MEAN CORPUSCULAR HEMOGLOBIN 34.5 pg (27.0-33.4); MEAN CORPUSCULAR HGB CONC 34.7 g/dL (32.0-36.0); RED BLOOD COUNT 2.74 10^6/uL (3.72-5.28); RED CELL DISTRIBUTION WIDTH 18.1 % (11.5-14.0); WHITE BLOOD COUNT 16.9 10^3/uL (4.0-10.5)
[2018-06-30 00:22] LABS: MEAN CORPUSCULAR VOLUME 99 fl (80-97)
[2018-06-30 00:30] LABS: ABSOLUTE LYMPHOCYTES# (MANUAL) 2.4 10^3/uL (0.5-4.7); ABSOLUTE MONOCYTES # (MANUAL) 0.8 10^3/uL (0.1-1.4); ABSOLUTE NEUTROPHILS# (MANUAL) 13.7 10^3/uL (1.7-8.2); BASOPHILS % (MANUAL) 0 % (0-2); EOSINOPHILS % (MANUAL) 0 % (0-6); LYMPHOCYTES % (MANUAL) 14 % (13-45); MONOCYTES % (MANUAL) 5 % (3-13); SEGMENTED NEUTROPHILS % (MAN) 81 % (42-78); TOTAL CELLS COUNTED 100
[2018-06-30 00:31] LABS: ANISOCYTOSIS 2+; PLATELET COMMENT DECREASED; POIKILOCYTOSIS 2+; POLYCHROMASIA 2+; TARGET CELLS 1+; TEAR DROP CELLS 1+
[2018-06-30 00:32] LABS: PLATELET COUNT 78 10^3/uL (150-450)
[2018-06-30] MEDS: NORMAL SALINE 100 ML with PANTOPRAZOLE SODIUM 80 MG IV PRN ×4 (01:34→13:17)
[2018-06-30] MEDS: POTASSIUM CHLORIDE 20 MEQ/50 ML RTU IV SCH ×2 (01:35→03:32)
[2018-06-30] MEDS: PROPOFOL 1,000 MG/100 ML INFUS..BTL IV PRN (03:31)
[2018-06-30] MEDS: DEXTROSE 5%-WATER 250 ML with NOREPINEPHRINE BITARTRATE 4 MG IV PRN ×4 (03:32→13:18)
[2018-06-30] MEDS ORDERED: DOPAMINE HCL/DEXTROSE 5%-WATER 800 MG/250 ML RTUINJ IV ONE (04:31)
[2018-06-30 04:40] LABS: ABSOLUTE LYMPHOCYTES (AUTO) 2.5 10^3/uL (0.5-4.7); ABSOLUTE NEUT (AUTO) 14.9 10^3/uL (1.7-8.2); BASOPHILS % (AUTO) 0.2 % (0-2); EOSINOPHILS % (AUTO) 0.1 % (0-6); HEMATOCRIT 28.5 % (36.0-47.0); HEMOGLOBIN 9.9 g/dL (12.0-15.5); LYMPHOCYTES % (AUTO) 13.7 % (13-45); MEAN CORPUSCULAR HEMOGLOBIN 34.4 pg (27.0-33.4); MEAN CORPUSCULAR HGB CONC 34.9 g/dL (32.0-36.0); MEAN CORPUSCULAR VOLUME 99 fl (80-97); MONOCYTES % (AUTO) 5.6 % (3-13); RED BLOOD COUNT 2.89 10^6/uL (3.72-5.28); RED CELL DISTRIBUTION WIDTH 18.4 % (11.5-14.0); SEGMENTED NEUTROPHILS % (AUTO) 80.4 % (42-78); TOTAL CELLS COUNTED % (AUTO) 100 %; WHITE BLOOD COUNT 18.5 10^3/uL (4.0-10.5)
[2018-06-30] MEDS ORDERED: DOPAMINE HCL 800 MG/D5W 250 ML IV PRN (04:41)
[2018-06-30 04:44] LABS: ARTERIAL BLOOD BASE EXCESS -2.2 mmol/L; ARTERIAL BLOOD H2CO3 0.92 mmol/L (1.05-1.35); ARTERIAL BLOOD O2 SATURATION 99.1 % (94-98); ARTERIAL BLOOD PCO2 30.5 mmHg (35-45); ARTERIAL BLOOD PH 7.46 (7.35-7.45); ARTERIAL BLOOD PO2 150.8 mmHg (80-100); ARTERIAL BLOOD TOTAL CO2 21.9 mmol/L (21-25)
[2018-06-30 04:46] LABS: ARTERIAL BLOOD FIO2 50%
[2018-06-30 04:57] LABS: INTERNATIONAL RATION (INR) 1.75; PROTHROMBIN TIME 21.3 SEC (11.4-15.4)
[2018-06-30 05:06] LABS: PLATELET COUNT 82 10^3/uL (150-450)
[2018-06-30] MEDS: HEPARIN SOD (PORCINE) 5,000 UNIT/ML 1 ML SYRINGE SUBCUT SCH ×3 (05:10→21:53)
--- NOTE | 2018-06-30 05:11 | RADIOLOGY REPORT (SQ) ---
EXAM DESCRIPTION: XR CHEST 1 VIEW COMPLETED DATE/TME: 06/30/2018 06:00 CLINICAL HISTORY: 47 years, Female, resp failure COMPARISON: 06/29/2018 chest NUMBER OF VIEWS: 1 TECHNIQUE: Portable chest LIMITATIONS: None. FINDINGS: Heart size is stable. Endotracheal tube, enteric tube and central venous catheter in place. Artifact overlies the left hemithorax, limiting its evaluation. Mixed interstitial and airspace opacities bilaterally. No discrete pneumothorax. IMPRESSION: Endotracheal tube, enteric tube and central venous catheter in place. Interstitial and airspace opacities bilaterally. copyright 2010 [employer]- All Rights Reserved
[2018-06-30] MEDS: HYDROCORTISONE SOD SUCCINATE INJ/PF 100 MG/2 ML SDV IV SCH ×3 (05:13→17:49)
[2018-06-30 05:32] LABS: ALANINE AMINOTRANSFERASE 26 U/L (9-52); ALBUMIN 3.3 g/dL (3.5-5.0); ALKALINE PHOSPHATASE 242 U/L (38-126); ANION GAP 14 (5-19); ASPARTATE AMINO TRANSFERASE 58 U/L (14-36); BILIRUBIN,DIRECT 3.9 mg/dL (0.0-0.4); BILIRUBIN,TOTAL 4.9 mg/dL (0.2-1.3); BLOOD UREA NITROGEN 5 mg/dL (7-20); CALCIUM 9.1 mg/dL (8.4-10.2); CARBON DIOXIDE 22 mmol/L (22-30); CHLORIDE 105 mmol/L (98-107); GLUCOSE 193 mg/dL (75-110); POTASSIUM 3.9 mmol/L (3.6-5.0); SODIUM 140.9 mmol/L (137-145); TOTAL PROTEIN 6.9 g/dL (6.3-8.2)
[2018-06-30 05:32] LABS: CREATINE KINASE MB < 0.22 ng/mL (<4.55); TROPONIN I < 0.012 ng/mL
[2018-06-30] MEDS: INSULIN REG, HUMAN 100 UNIT/ML 3 ML VIAL (PYX) SUBCUT SCH ×3 (05:57→17:21)
[2018-06-30] MEDS: PIPERACILLIN SODIUM/TAZOBACTAM 4.5 GM in NORMAL SALINE 100 ML IV SCH ×3 (06:00→17:49)
[2018-06-30] MEDS ORDERED: POTASSI CL 20 MEQ/50 ML RIDER 20 MEQ/50 ML RTUPB IV SCH (06:00)
--- NOTE | 2018-06-30 06:59 | EKG REPORT ---
SEVERITY:- ABNORMAL ECG - SINUS WITH PACS RUN OF VENTRICULAR PREMATURE COMPLEXES LOW VOLTAGE THROUGHOUT NONSPECIFIC T ABNORMALITIES, ANT-LAT LEADS : Confirmed by: Del Claudio MD 30-Jun-2018 06:58:34
[2018-06-30] MEDS: FLUTICASONE NASAL SPRAY 50 MCG/SPRY 120 SPRAY/16 GM NASL SCH ×2 (09:33→21:53)
[2018-06-30] MEDS: ALBUMIN HUMAN 12.5 GM/50 ML RTUINJ IV SCH ×4 (09:41→13:17)
[2018-06-30] MEDS: MIDAZOLAM HCL 50 MG/100 ML RTUINJ IV PRN (09:42)
[2018-06-30] MEDS ORDERED: NORMAL SALINE 1000 ML 1,000 ML IV PRN (12:01)
--- NOTE | 2018-06-30 15:55 | PDOC CONSULTATION ---
Consultation Consult Date: 06/30/18 Attending physician:: TOM CALLAHAN Consult reason:: I was asked to see the patient because of decreasing urine output and worsening kidney function. History of Present Illness Admission Date/PCP: 06/27/18 11:29 History of Present Illness: BILL FERRER is a 47 year old female with history of obesity status post gastric bypass, hypertension, pulmonary embolism, diabetes mellitus type 2, alcoholism and chronic pain who was admitted on 06/27/2018 due to abdominal pain. Initial workup showed diffuse bilateral airspace disease versus pneumonia and CT scan of the abdomen and chest. Patient was noted to have third spacing and edema on the abdominal wall with trace right pleural effusion and minimal sinusitis. Patient was admitted with a diagnosis of sepsis of unknown etiology. She is currently on IV antibiotics with IV Zosyn and vancomycin. Multifocal pneumonia is also considered. Patient was subsequently intubated on 06/28/2018 and remains to be intubated at this time. She is also hypoalbuminemic and is being given IV albumin. Patient's urine output started to deteriorate for the last 48 hours so she was started on Lasix drip at 10 mg/h but despite that she is not responding and her urine output keeps declining. She has episodes of hypotension yesterday with blood pressure of 82/56 an episode of hypertension with blood pressure of 186/107 in the face of arrhythmia and bradycardia. Patient had a CTA of the chest on June 28 with contrast which revealed no pulmonary embolism. Patient had an echocardiogram done today which showed ejection fraction of 38%. Her chest x-ray shows mixed interstitial and airspace opacities bilaterally. In terms of the kidney function she came in with a BUN of 8 and creatinine of 0.76 which subsequently slowly has gotten worse and today she had a BUN of 5 with creatinine of 1.51 and estimated GFR of 37. Today she is more anyone at this and her urine output has been less than 15 mL an hour for the last few hours despite the Lasix drip and IV albumin. She is also on vasopressors for hypotension. I spoke with the patient's son Esa who told me that the patient does not have any known kidney disease. 3:45 PM: I am currently seeing the patient on hemodialysis. So far she is tole rating dialysis without any problems or complications. Her blood pressure is holding with current Levoped. She is tolerating ultrafiltration. She will be monitored continuously from this point on. Past Medical History Past Medical History: All parts of the history are taken from hospital records as the patient is currently intubated. Cardiac Medical History: Reports: Hypertension-primary, Pulmonary Embolism Pulmonary Medical History: Reports: Pneumonia Neurological Medical History: Denies: Seizures Endocrine Medical History: Reports: Diabetes Mellitus Type 2 GI Medical History: Reports: Gastroesophageal Reflux Disease, Hepatitis Musculoskeltal Medical History: Reports: Arthritis - gout, Gout Past Surgical History Past Surgical History: Reports: Section - x 3, Gastric Bypass Surgery, Hysterectomy Social History Information Source: [facility] Records Lives with: Family Smoking Status: Unknown if Ever Smoked Cigarettes Packs Per Day: 1 Number of Years Smokin Frequency of Alcohol Use: Heavy - Last drink was 2 weeks ago Hx Recreational Drug Use: No Drugs: None Hx Prescription Drug Abuse: No - Advance Directive Resuscitation Status: Full Code Family History Family History: DM Parental Family History Reviewed: Yes Children Family History Reviewed: Yes Sibling(s) Family History Reviewed.: Yes Medication/Allergy Home Medications: Gabapentin [Neurontin] 600 mg PO Q8 04/16/18 Acetaminophen [Tylenol 325 mg Tablet] 650 mg PO Q6HP PRN 06/27/18 Furosemide [Lasix 40 mg Tablet] 40 mg PO QAM 06/27/18 Ibuprofen [Ibu-200] 200 mg PO PRN PRN 06/27/18 Lisinopril [Prinivil 10 mg Tablet] 10 mg PO DAILY 06/27/18 Potassium Chloride [K-Tab] 10 meq PO DAILY 06/27/18 Allergies/Adverse Reactions: No Known Drug Allergies Allergy (Verified 06/27/18 07:21) Bee Allergy (Uncoded 06/27/18 07:21) bees Allergy (Uncoded 06/27/18 07:21) Review of Systems ROS unobtainable: Due to endotracheal tube, Due to mental status Physical Exam Vital Signs: Temp Pulse Resp BP Pulse Ox 97.5 F 48 L 20 106/89 H 94 06/30/18 08:00 06/30/18 10:00 06/30/18 10:02 06/30/18 10:02 06/30/18 10:02 Intake & Output 06/29/18 06/30/18 07/01/18 06:59 06:59 06:59 Intake Total 3804 107 Output Total 1485 155 Balance 2319 -48 Weight 96.3 kg Vitals during dialysis currently: Blood pressure 122/92, heart rate of 57, blood flow rate of 250 mg minute, and dialysate flow rate of 500 mL/min. Exam: General appearance: Patient is intubated and sedated Head exam: PRESENT: atraumatic, normocephalic Eye exam: PRESENT: Eyes are closed Mouth exam: PRESENT: moist, neck supple, tongue midline Neck exam: PRESENT: full ROM. ABSENT: carotid bruit, JVD, lymphadenopathy, thyromegaly Respiratory exam: PRESENT: Coarse breath sounds to auscultation bilaterally. ABSENT: rales, rhonchi, stridor, wheezes Cardiovascular exam: PRESENT: RRR, +S1, +S2. ABSENT: systolic murmur Pulses: PRESENT: normal radial pulses, normal dorsalis pedis pulses GI/Abdominal exam: PRESENT: normal bowel sounds, soft. Positive subcutaneous edema ABSENT: guarding, mass, tenderness Rectal exam: Deferred Extremities exam: PRESENT: Bilateral upper extremities edema which is been worsening, grade 1 bilateral pitting edema. Musculoskeletal: ABSENT: deformity Neurological exam: PRESENT: Sedated Psychiatric exam: PRESENT: Cannot be assessed at this time Skin exam: PRESENT: intact, dry, warm. Positive generalized pallor ABSENT: rash Results Laboratory Results: 06/30/18 04:25 06/30/18 04:25 06/27/18 06/29/18 06/29/18 15:30 12:34 16:13 WBC RBC Hgb Hct MCV MCH MCHC RDW Plt Count Seg Neutrophils % Lymphocytes % Monocytes % Eosinophils % Basophils % Absolute Neutrophils Absolute Lymphocytes Absolute Monocytes Absolute Eosinophils Absolute Basophils Carbonic Acid 1.09 HCO3/H2CO3 Ratio 21:1 ABG pH 7.43 ABG pCO2 36.2 ABG pO2 320.0 H ABG HCO3 23.4 ABG O2 Saturation 99.7 H ABG Base Excess -0.6 FiO2 100% Sodium 139.8 Potassium 2.8 L* Chloride 104 Carbon Dioxide 24 Anion Gap 12 BUN 5 L Creatinine 1.14 Est GFR ( Amer) > 60 Est GFR (Non-Af Amer) 52 L Glucose 191 H Calcium 8.1 L Phosphorus Magnesium 1.8 Total Bilirubin 4.2 H AST 50 H ALT 25 Alkaline Phosphatase 253 H Total Protein 6.2 L Albumin 2.8 L Blood Type A POSITIVE Antibody Screen NEGATIVE 06/29/18 06/29/18 06/29/18 16:13 22:06 22:06 WBC 16.9 H RBC 2.74 L Hgb 9.4 L Hct 27.2 L MCV 99 H D MCH 34.5 H MCHC 34.7 RDW 18.1 H Plt Count 78 L Seg Neutrophils % Not Reportable Lymphocytes % Not Reportable Monocytes % Not Reportable Eosinophils % Not Reportable Basophils % Not Reportable Absolute Neutrophils Not Reportable Absolute Lymphocytes Not Reportable Absolute Monocytes Not Reportable Absolute Eosinophils Not Reportable Absolute Basophils Not Reportable Carbonic Acid HCO3/H2CO3 Ratio ABG pH ABG pCO2 ABG pO2 ABG HCO3 ABG O2 Saturation ABG Base Excess FiO2 Sodium 139.1 Potassium Cancelled 3.3 L Chloride 105 Carbon Dioxide 22 Anion Gap 12 BUN 5 L Creatinine 1.32 H Est GFR ( Amer) 53 L Est GFR (Non-Af Amer) 44 L Glucose 230 H Calcium 8.7 Phosphorus Magnesium 1.8 Total Bilirubin AST ALT Alkaline Phosphatase Total Protein Albumin Blood Type Antibody Screen 06/30/18 06/30/18 06/30/18 04:25 04:25 04:25 WBC 18.5 H RBC 2.89 L Hgb 9.9 L Hct 28.5 L MCV 99 H MCH 34.4 H MCHC 34.9 RDW 18.4 H Plt Count 82 L Seg Neutrophils % 80.4 H Lymphocytes % 13.7 Monocytes % 5.6 Eosinophils % 0.1 Basophils % 0.2 Absolute Neutrophils 14.9 H Absolute Lymphocytes 2.5 Absolute Monocytes 1.0 Absolute Eosinophils 0.0 Absolute Basophils 0.0 Carbonic Acid 0.92 L HCO3/H2CO3 Ratio 22:1 ABG pH 7.46 H ABG pCO2 30.5 L ABG pO2 150.8 H ABG HCO3 21.0 ABG O2 Saturation 99.1 H ABG Base Excess -2.2 FiO2 50% Sodium 140.9 Potassium 3.9 Chloride 105 Carbon Dioxide 22 Anion Gap 14 BUN 5 L Creatinine 1.51 H Est GFR ( Amer) 45 L Est GFR (Non-Af Amer) 37 L Glucose 193 H Calcium 9.1 Phosphorus Magnesium 1.9 Total Bilirubin 4.9 H AST 58 H ALT 26 Alkaline Phosphatase 242 H Total Protein 6.9 Albumin 3.3 L Blood Type Antibody Screen 06/30/18 04:45 WBC RBC Hgb Hct MCV MCH MCHC RDW Plt Count Seg Neutrophils % Lymphocytes % Monocytes % Eosinophils % Basophils % Absolute Neutrophils Absolute Lymphocytes Absolute Monocytes Absolute Eosinophils Absolute Basophils Carbonic Acid HCO3/H2CO3 Ratio ABG pH ABG pCO2 ABG pO2 ABG HCO3 ABG O2 Saturation ABG Base Excess FiO2 Sodium Potassium Chloride Carbon Dioxide Anion Gap BUN Creatinine Est GFR ( Amer) Est GFR (Non-Af Amer) Glucose Calcium Phosphorus 3.6 Magnesium Total Bilirubin AST ALT Alkaline Phosphatase Total Protein Albumin Blood Type Antibody Screen 06/27/18 06/28/18 06/29/18 08:00 11:45 04:24 Creatine Kinase CK-MB (CK-2) Troponin I < 0.012 NT-Pro-B Natriuret Pep 2310 H 4300 H 06/30/18 06/30/18 04:25 04:45 Creatine Kinase 23 L CK-MB (CK-2) < 0.22 Troponin I < 0.012 NT-Pro-B Natriuret Pep Impressions: Abdomen/Pelvis CT 06/27/18 08:05 IMPRESSION: Diffuse bilateral airspace disease edema versus pneumonia Third-spacing of fluid with edema in the abdominal wall and trace right pleural effusion and minimal ascites Post gastric bypass. Trace fluid along the pancreatic tail at the splenic hilum, correlate clinically for pancreatitis Chest CT 06/27/18 08:06 IMPRESSION: Diffuse bilateral airspace disease edema versus pneumonia Third-spacing of fluid with edema in the abdominal wall and trace right pleural effusion and minimal ascites Post gastric bypass. Trace fluid along the pancreatic tail at the splenic hilum, correlate clinically for pancreatitis Chest/Abdomen CTA 06/28/18 00:00 IMPRESSION: 1. No pulmonary emboli. 2. Small bilateral pleural effusions with interval increase in the bilateral airspace opacities, may represent worsening pulmonary edema and/or pneumonia, acute respiratory distress syndrome is not excludable. 3. Mild mediastinal adenopathy. 4. Trace pericardial effusion. 5. Hepatomegaly. Fatty infiltration of the liver. 6. Small ascites and anasarca at the visualized upper abdomen. Chest X-Ray 06/30/18 06:00 IMPRESSION: Endotracheal tube, enteric tube and central venous catheter in place. Interstitial and airspace opacities bilaterally. copyright 2010 [employer]- All Rights Reserved Assessment & Plan - Diagnosis (1) Acute kidney injury Is this a current diagnosis for this admission?: Yes Plan: Due to multifactorial ATN with episodes of hypotension, sepsis and administration of contrast. Currently with continuously decreasing urine output despite IV Lasix infusion and albumin for the last 24 hours at least. Patient is clinically fluid overloaded with anasarca and possibly pulmonary edema. Due to this patient would need acute renal replacement therapy for volume and solute clearance. At bedside I have spoken to the patient's eldest son Esa and her fianc about the patient requiring renal replacement therapy. Ideally the patient would benefit from continuous renal replacement therapy but we do not have this treatment in the hospital. So I explained to them that we are going to do our best to try to do conventional hemodialysis today. Discussed the procedure and complications to include but not limited to bleeding, infection, hemodynamic instability including hypotension and arrhythmia until cardiac arrest. Also discussed with them if the patient cannot tolerate conventional dialysis procedure to the patient likely would need to be transferred for CRRT. Son and patient's fianc agreed to proceed with conventional hemodialysis. The patient's son also requested to arrange transfer while trying to conventional hemodialysis. So I called and spoke to Dr. Diallo and told him the patien t's son's request to arrange for transfer while we are doing conventional hemodialysis. Meanwhile we are going to arrange for acute hemodialysis treatment today. We will consult surgery for trialysis catheter placement for dialysis. We will do dialysis once catheter is in place. We will do dialysis today for 2.5 hours, using the patient's trialysis catheter, with 3 potassium bath, blood flow rate of 250 mL per minute, dialysate flow rate of 500 mL per minute, ultrafiltration 2-3 L as tolerated, no heparin and and no Procrit. Continue vasopressors while on dialysis and adjust as necessary. Patient will be monitored continuously. Depending on the patient's response to treatment will adjust accordingly especially ultrafiltration. (2) Acute tubular necrosis Is this a current diagnosis for this admission?: Yes (3) Sepsis Qualifiers: Sepsis type: sepsis due to unspecified organism Qualified Code(s): A41.9 - Sepsis, unspecified organism Is this a current diagnosis for this admission?: Yes Plan: Exact etiology uncertain yet at this time. Currently on IV Zosyn and vancomycin. (4) Opacities of both lungs present on chest x-ray Is this a current diagnosis for this admission?: Yes Plan: Pulmonary edema versus ARDS. If this resolves with ultrafiltration to hemodialysis treatment then is likely to be pulmonary edema. Patient's LVEF is only 38%. Possibly with underlying heart disease. (5) Anasarca Is this a current diagnosis for this admission?: Yes (6) Anemia Qualifiers: Anemia type: unspecified type Qualified Code(s): D64.9 - Anemia, unspecified Is this a current diagnosis for this admission?: Yes Plan: Due to acute illness. (7) Multifocal pneumonia Is this a current diagnosis for this admission?: Yes (8) Thrombocytopenia Is this a current diagnosis for this admission?: Yes (9) Diabetes mellitus type 2 in obese Is this a current diagnosis for this admission?: Yes (10) History of alcoholism Is this a current diagnosis for this admission?: Yes - Notes Notes: Thank you very much for this consultation. Discussed assessment and plan with the patient's son and don today. Also discussed the case with Dr. Parham, her treating nurse and her dialysis nurse. - Time Time Spent: Greater than 70 Minutes
--- NOTE | 2018-06-30 16:46 | Operative Report ---
Nonrecallable Operative Report DATE OF SURGERY: 06/30/18 PREOPERATIVE DIAGNOSIS: Acute renal failure POSTOPERATIVE DIAGNOSIS: Same OPERATION: Ultrasound directed insertion of trial cysts right groin femoral vein trialysis catheter SURGEON: GEMMA EDWARDS ANESTHESIA: Local TISSUE REMOVED OR ALTERED: None COMPLICATIONS: None ESTIMATED BLOOD LOSS: Scant INTRAOPERATIVE FINDINGS: See below PROCEDURE: Patient's right groin was exposed, cleaned with hair clipper, chlorhexidine brushes. The area was then prepped and draped sterile fashion. Surgical plan surgical timeout were conducted. Real-time ultrasonography was performed in the right groin. Right femoral artery and femoral vein were identified. Skin was anesthetized 1% plain lidocaine. Using ultrasound as a guide, a macro needle and wire were threaded into the right common femoral vein. The tract was dilated up sequentially with 2 dilators, then a trial assist catheter threaded over the wire. Wire removed and catheter loaded with a saline. There was excellent aspiration and flush to all 3 lm. Catheter was secured to the skin with 3-0 Prolene suture and Biopatch. Sterile dressing was applied. Patient tolerated procedure well.
--- NOTE | 2018-06-30 17:26 | PDOC PROGRESS REPORT ---
Subjective Progress Note for:: 06/30/18 Subjective:: This is a 47 years old female patient with multiple comorbidities including obesity status post gastric bypass, chronic alcoholism hypertension, pulmonary embolism, type 2 diabetes mellitus and chronic pain presented to ER with chief complaint of abdominal pain. Her CT scan of the chest reported as diffuse bilateral airspace disease edema versus pneumonia. Patient is being treated for multi focal pneumonia empirically with vancomycin and Zosyn. Patient intubated yesterday to protect airway since she is becoming tachypneic and confused. Her kidney function is also deteriorating evidenced by elevated creatinine level. Despite being on Lasix drip and IV albumin her urine output is insignificant. I consulted Dr. Mccabe who evaluated the patient and decided to dialyze her. This morning patient seen intubated and on mechanical ventilation. Reason For Visit: SEPSIS Physical Exam Vital Signs: Temp Pulse Resp BP Pulse Ox 98.1 F 77 20 123/92 H 100 06/30/18 12:00 06/30/18 14:00 06/30/18 14:32 06/30/18 14:32 06/30/18 16:39 Intake & Output 06/29/18 06/30/18 07/01/18 06:59 06:59 06:59 Intake Total 3804 407 Output Total 1485 180 Balance 2319 227 Weight 96.3 kg General appearance: PRESENT: no acute distress Head exam: PRESENT: atraumatic Respiratory exam: PRESENT: crackles, decreased breath sounds Cardiovascular exam: PRESENT: RRR. ABSENT: diastolic murmur, rubs, systolic murmur Extremities exam: PRESENT: +2 edema Results Laboratory Results: 06/30/18 04:25 06/30/18 04:25 06/27/18 06/29/18 06/29/18 15:30 22:06 22:06 WBC 16.9 H RBC 2.74 L Hgb 9.4 L Hct 27.2 L MCV 99 H D MCH 34.5 H MCHC 34.7 RDW 18.1 H Plt Count 78 L Seg Neutrophils % Not Reportable Lymphocytes % Not Reportable Monocytes % Not Reportable Eosinophils % Not Reportable Basophils % Not Reportable Absolute Neutrophils Not Reportable Absolute Lymphocytes Not Reportable Absolute Monocytes Not Reportable Absolute Eosinophils Not Reportable Absolute Basophils Not Reportable Carbonic Acid HCO3/H2CO3 Ratio ABG pH ABG pCO2 ABG pO2 ABG HCO3 ABG O2 Saturation ABG Base Excess FiO2 Sodium 139.1 Potassium 3.3 L Chloride 105 Carbon Dioxide 22 Anion Gap 12 BUN 5 L Creatinine 1.32 H Est GFR ( Amer) 53 L Est GFR (Non-Af Amer) 44 L Glucose 230 H Calcium 8.7 Phosphorus Magnesium 1.8 Total Bilirubin AST ALT Alkaline Phosphatase Total Protein Albumin Blood Type A POSITIVE Antibody Screen NEGATIVE 06/30/18 06/30/18 06/30/18 04:25 04:25 04:25 WBC 18.5 H RBC 2.89 L Hgb 9.9 L Hct 28.5 L MCV 99 H MCH 34.4 H MCHC 34.9 RDW 18.4 H Plt Count 82 L Seg Neutrophils % 80.4 H Lymphocytes % 13.7 Monocytes % 5.6 Eosinophils % 0.1 Basophils % 0.2 Absolute Neutrophils 14.9 H Absolute Lymphocytes 2.5 Absolute Monocytes 1.0 Absolute Eosinophils 0.0 Absolute Basophils 0.0 Carbonic Acid 0.92 L HCO3/H2CO3 Ratio 22:1 ABG pH 7.46 H ABG pCO2 30.5 L ABG pO2 150.8 H ABG HCO3 21.0 ABG O2 Saturation 99.1 H ABG Base Excess -2.2 FiO2 50% Sodium 140.9 Potassium 3.9 Chloride 105 Carbon Dioxide 22 Anion Gap 14 BUN 5 L Creatinine 1.51 H Est GFR ( Amer) 45 L Est GFR (Non-Af Amer) 37 L Glucose 193 H Calcium 9.1 Phosphorus Magnesium 1.9 Total Bilirubin 4.9 H AST 58 H ALT 26 Alkaline Phosphatase 242 H Total Protein 6.9 Albumin 3.3 L Blood Type Antibody Screen 06/30/18 04:45 WBC RBC Hgb Hct MCV MCH MCHC RDW Plt Count Seg Neutrophils % Lymphocytes % Monocytes % Eosinophils % Basophils % Absolute Neutrophils Absolute Lymphocytes Absolute Monocytes Absolute Eosinophils Absolute Basophils Carbonic Acid HCO3/H2CO3 Ratio ABG pH ABG pCO2 ABG pO2 ABG HCO3 ABG O2 Saturation ABG Base Excess FiO2 Sodium Potassium Chloride Carbon Dioxide Anion Gap BUN Creatinine Est GFR ( Amer) Est GFR (Non-Af Amer) Glucose Calcium Phosphorus 3.6 Magnesium Total Bilirubin AST ALT Alkaline Phosphatase Total Protein Albumin Blood Type Antibody Screen 06/27/18 06/28/18 06/29/18 08:00 11:45 04:24 Creatine Kinase CK-MB (CK-2) Troponin I < 0.012 NT-Pro-B Natriuret Pep 2310 H 4300 H 06/30/18 06/30/18 04:25 04:45 Creatine Kinase 23 L CK-MB (CK-2) < 0.22 Troponin I < 0.012 NT-Pro-B Natriuret Pep Impressions: Abdomen/Pelvis CT 06/27/18 08:05 IMPRESSION: Diffuse bilateral airspace disease edema versus pneumonia Third-spacing of fluid with edema in the abdominal wall and trace right pleural effusion and minimal ascites Post gastric bypass. Trace fluid along the pancreatic tail at the splenic hilum, correlate clinically for pancreatitis Chest CT 06/27/18 08:06 IMPRESSION: Diffuse bilateral airspace disease edema versus pneumonia Third-spacing of fluid with edema in the abdominal wall and trace right pleural effusion and minimal ascites Post gastric bypass. Trace fluid along the pancreatic tail at the splenic hilum, correlate clinically for pancreatitis Chest/Abdomen CTA 06/28/18 00:00 IMPRESSION: 1. No pulmonary emboli. 2. Small bilateral pleural effusions with interval increase in the bilateral airspace opacities, may represent worsening pulmonary edema and/or pneumonia, acute respiratory distress syndrome is not excludable. 3. Mild mediastinal adenopathy. 4. Trace pericardial effusion. 5. Hepatomegaly. Fatty infiltration of the liver. 6. Small ascites and anasarca at the visualized upper abdomen. Chest X-Ray 06/30/18 06:00 IMPRESSION: Endotracheal tube, enteric tube and central venous catheter in place. Interstitial and airspace opacities bilaterally. copyright 2010 [employer]- All Rights Reserved Assessment & Plan - Diagnosis (1) Possible sepsis Is this a current diagnosis for this admission?: Yes Plan: Evidence of by hyponatremia, tachypnea and bilateral airspace disease seen on the CT scan. Continue current antibiotics (2) Suspected multifocal pneumonia. Is this a current diagnosis for this admission?: Yes Plan: Patient has been on vancomycin and Zosyn. (3) Acute kidney injury Is this a current diagnosis for this admission?: Yes Plan: Patient failed to produce urine despite being on Lasix drips and IV albumin. Dr. Mccabe consulted and started her on dialysis. (4) Hx of alcohol abuse and tobacco abuse Is this a current diagnosis for this admission?: Yes Plan: We will encourage patient to quit alcohol and smoking as soon as she is extubated and become awake alert oriented (5) Systolic congestive heart failure Qualifiers: Heart failure chronicity: unspecified Qualified Code(s): I50.20 - Unspecified systolic (congestive) heart failure Is this a current diagnosis for this admission?: Yes Plan: Her echo showed ejection fraction of 68%. We will continue the current regimen. (6) Anasarca due to cirrhosis of the liver Is this a current diagnosis for this admission?: Yes Plan: Her anasarca may respond to the dialysis. (7) Hypertension Qualifiers: Hypertension type: essential hypertension Qualified Code(s): I10 - Essential (primary) hypertension Is this a current diagnosis for this admission?: Yes Plan: Currently patient is hypotensive. She is on Levophed.
[2018-06-30] MEDS: NORMAL SALINE 250 ML with FUROSEMIDE 250 MG IV PRN ×4 (17:49→22:06)
--- NOTE | 2018-06-30 20:40 | XCELERA REPORT ---
[address] [address] Transthoracic Echocardiogram Report Name: BILL FERRER Age: 47 yrs Gender: Female : 1970 Patient Status: Inpatient Patient Location: ICU^606^A Study Date: 06/30/2018 09:55 AM Height: 61 in Weight: 208 lb BSA: 1.9 m2 Procedure: A two-dimensional transthoracic echocardiogram with color flow and Doppler was performed. Study Quality: Fair. Reason For Study: Pulmonary edema History: Pulmonary edema. Ordering Physician: RACIEL PIERCE Performed By: Caryn Manzano Interpretation Summary The left ventricle is normal in size. There is normal left ventricular wall thickness. LV EF is > than 60% Doppler measurements suggest normal left ventricular diastolic function Basal anterosepal hypokinesis. There is no thrombus. The right ventricle is normal in size and function. The right atrium is normal. The left atrial size is normal. The interatrial septum is intact with no evidence for an atrial septal defect. There is no Doppler evidence for an interatrial shunt There is no evidence of mitral valve prolapse. There is no vegetation seen on the mitral valve. There is no mitral valve stenosis. Mderate (? moderate to severe ) MR. There is no aortic valvular vegetation. There is no aortic valve stenosis There is no LVOT obstruction. No aortic regurgitation is present. There is no tricuspid stenosis. Probably mild TR. RVSP ia 50 to 55 mm of Hg with RA mean of 10 to 15. There is moderate pulmonary hypertension by echo There is no pulmonic valvular stenosis. There is no pulmonic valvular regurgitation. There is no pericardial effusion. MMode/2D Measurements & Calculations RVDd: 2.2 cm LVIDd: 5.3 cm FS: 17.6 % Ao root diam: 2.2 cm IVSd: 0.74 cm LVIDs: 4.3 cm EDV(Teich): 133.5 ml Ao root area: 3.8 cm2 LVPWd: 0.77 cm ESV(Teich): 84.9 ml LA dimension: 3.2 cm EF(Teich): 36.4 % Doppler Measurements & Calculations MV E max abdiel: MV P1/2t max abdiel: Ao V2 max: LV V1 max P.1 cm/sec 110.1 cm/sec 149.6 cm/sec 6.5 mmHg MV A max abdiel: MV P1/2t: 56.2 msec Ao max P.0 mmHgLV V1 max: 96.7 cm/sec MVA(P1/2t): 3.9 cm2 127.3 cm/sec MV E/A: 1.1 MV dec slope: 573.7 cm/sec2 MV dec time: 0.19 sec PA V2 max: TR max abdiel: MV P1/2t-pr_phl: 82.9 cm/sec 314.9 cm/sec 56.2 msec PA max P.8 mmHgTR max P.7 mmHg Left Ventricle The left ventricle is normal in size. There is normal left ventricular wall thickness. LV EF is > than 60%. Doppler measurements suggest normal left ventricular diastolic function. Basal anterosepal hypokinesis. There is no thrombus. There is no ventricular septal defect visualized. Right Ventricle The right ventricle is normal in size and function. Atria The right atrium is normal. The left atrial size is normal. The interatrial septum is intact with no evidence for an atrial septal defect. There is no Doppler evidence for an interatrial shunt. Mitral Valve There is no evidence of mitral valve prolapse. There is no vegetation seen on the mitral valve. There is no mitral valve stenosis. Mderate (? moderate to severe ) MR. Aortic Valve There is no aortic valvular vegetation. There is no aortic valve stenosis. There is no LVOT obstruction. No aortic regurgitation is present. Tricuspid Valve There is no tricuspid stenosis. Probably mild TR. RVSP ia 50 to 55 mm of Hg with RA mean of 10 to 15. There is moderate pulmonary hypertension by echo. Pulmonic Valve There is no pulmonic valvular stenosis. There is no pulmonic valvular regurgitation. Great Vessels The aortic root is not well visualized but is probably normal size. Effusions There is no pericardial effusion. : RACIEL PIERCE > Gosia Mims
[2018-06-30] MEDS: VANCOMYCIN HCL 1,500 MG in DEXTROSE 5%-WATER 250 ML IV SCH (21:54)
[2018-07-01] MEDS: HYDROCORTISONE SOD SUCCINATE INJ/PF 100 MG/2 ML SDV IV SCH ×2 (00:06→06:02)
[2018-07-01] MEDS: MIDAZOLAM HCL 50 MG/100 ML RTUINJ IV PRN (00:07)
[2018-07-01] MEDS: MORPHINE SULFATE 10 MG/ML INJ IV PRN (00:08)
[2018-07-01] MEDS: PIPERACILLIN SODIUM/TAZOBACTAM 4.5 GM in NORMAL SALINE 100 ML IV SCH ×2 (00:10→06:02)
[2018-07-01] MEDS: INSULIN REG, HUMAN 100 UNIT/ML 3 ML VIAL (PYX) SUBCUT SCH ×2 (00:20→06:08)
[2018-07-01 05:02] LABS: ARTERIAL BLOOD BASE EXCESS 0.9 mmol/L; ARTERIAL BLOOD H2CO3 0.97 mmol/L (1.05-1.35); ARTERIAL BLOOD PCO2 32.3 mmHg (35-45); ARTERIAL BLOOD PH 7.49 (7.35-7.45); ARTERIAL BLOOD PO2 138.4 mmHg (80-100); ARTERIAL BLOOD TOTAL CO2 24.9 mmol/L (21-25)
[2018-07-01 05:04] LABS: ARTERIAL BLOOD FIO2 50%
[2018-07-01 05:07] LABS: HEMATOCRIT 24.9 % (36.0-47.0); HEMOGLOBIN 8.6 g/dL (12.0-15.5); MEAN CORPUSCULAR HEMOGLOBIN 34.5 pg (27.0-33.4); MEAN CORPUSCULAR HGB CONC 34.5 g/dL (32.0-36.0); MEAN CORPUSCULAR VOLUME 100 fl (80-97); RED BLOOD COUNT 2.49 10^6/uL (3.72-5.28); RED CELL DISTRIBUTION WIDTH 18.3 % (11.5-14.0); WHITE BLOOD COUNT 12.3 10^3/uL (4.0-10.5)
[2018-07-01 05:22] LABS: PLATELET COUNT 64 10^3/uL (150-450)
[2018-07-01 05:28] LABS: ABSOLUTE LYMPHOCYTES# (MANUAL) 3.3 10^3/uL (0.5-4.7); ABSOLUTE MONOCYTES # (MANUAL) 0.4 10^3/uL (0.1-1.4); ABSOLUTE NEUTROPHILS# (MANUAL) 8.6 10^3/uL (1.7-8.2); BASOPHILS % (MANUAL) 0 % (0-2); EOSINOPHILS % (MANUAL) 0 % (0-6); LYMPHOCYTES % (MANUAL) 27 % (13-45); MONOCYTES % (MANUAL) 3 % (3-13); NUCLEATED RED BLOOD CELLS 4 /100 WBC (0); SEGMENTED NEUTROPHILS % (MAN) 70 % (42-78); TOTAL CELLS COUNTED 100
[2018-07-01 05:53] LABS: ALANINE AMINOTRANSFERASE 37 U/L (9-52); ALBUMIN 3.1 g/dL (3.5-5.0); ALKALINE PHOSPHATASE 179 U/L (38-126); ANION GAP 11 (5-19); ANISOCYTOSIS 1+; ASPARTATE AMINO TRANSFERASE 72 U/L (14-36); BILIRUBIN,DIRECT 3.6 mg/dL (0.0-0.4); BILIRUBIN,TOTAL 4.6 mg/dL (0.2-1.3); BLOOD UREA NITROGEN 8 mg/dL (7-20); BURR CELLS SLIGHT; CALCIUM 9.1 mg/dL (8.4-10.2); CARBON DIOXIDE 25 mmol/L (22-30); CHLORIDE 103 mmol/L (98-107); GLUCOSE 195 mg/dL (75-110); POIKILOCYTOSIS 1+; POLYCHROMASIA SLIGHT; POTASSIUM 3.1 mmol/L (3.6-5.0); SCHISTOCYTES SLIGHT; SODIUM 139.2 mmol/L (137-145); TOTAL PROTEIN 6.2 g/dL (6.3-8.2); TOXIC VACUOLATION PRESENT
[2018-07-01 05:54] LABS: PLATELET COMMENT DECREASED; TARGET CELLS 1+
[2018-07-01] MEDS: HEPARIN SOD (PORCINE) 5,000 UNIT/ML 1 ML SYRINGE SUBCUT SCH (06:08)
--- NOTE | 2018-07-01 08:38 | RADIOLOGY REPORT (SQ) ---
EXAM DESCRIPTION: CHEST SINGLE VIEW COMPLETED DATE/TIME: 07/01/2018 6:46 am REASON FOR STUDY: resp failure COMPARISON: Chest films 06/27/2018, 06/28/2018, 06/29/2018, 06/30/2018 CT chest 06/27/2018, 06/28/2018 EXAM PARAMETERS: NUMBER OF VIEWS: One view. TECHNIQUE: Single frontal radiographic view of the chest acquired. RADIATION DOSE: NA LIMITATIONS: None. FINDINGS: LUNGS AND PLEURA: Diffuse bilateral airspace disease is present edema versus pneumonia kareem elenita ARDS. This is similar compared to 06/30/2018 and more prominent than on previous exams. Trace pleural fluid seen on CT chest 06/28/2018 is not apparent by plain film. No pneumothorax. MEDIASTINUM AND HILAR STRUCTURES: No masses. Contour normal. HEART AND VASCULAR STRUCTURES: No cardiomegaly BONES: No acute findings. HARDWARE: Endotracheal tube tip 4 cm above the dima. Nasogastric tube tip and side port in the mid esophagus. Right jugular central line tip in the right atrium. OTHER: No other significant finding. IMPRESSION: Persistent diffuse bilateral airspace disease, edema versus pneumonia versus ARDS Nasogastric tube tip and side port in the mid 3rd of the esophagus TECHNICAL DOCUMENTATION: JOB ID: [id number] [employer]- All Rights Reserved Reading location - IP/workstation name: [email or web address]
[2018-07-01 09:03] LABS: HEPATITS B SURFACE ANTIGEN Negative (Negative)
[2018-07-01] MEDS: FLUTICASONE NASAL SPRAY 50 MCG/SPRY 120 SPRAY/16 GM NASL SCH (10:09)
[2018-07-01 10:23] VITALS: BP 97/66
[2018-07-01] MEDS ORDERED: CALCIUM GLUCONATE 1000 MG/10 ML INJ IV ONE (10:43)
--- NOTE | 2018-07-01 10:48 | PDOC TRANSFER SUMMARY ---
General Admission Date/PCP: 06/27/18 11:29 Admission Date: 06/27/18 Transfer Date: 07/01/18 Resuscitation Status: Full Code - Transfer Diagnosis (1) Possible sepsis Is this a current diagnosis for this admission?: Yes (2) Suspected multifocal pneumonia. Is this a current diagnosis for this admission?: Yes (3) Acute kidney injury Is this a current diagnosis for this admission?: Yes (4) Hx of alcohol abuse and tobacco abuse Is this a current diagnosis for this admission?: Yes (5) Anasarca due to cirrhosis of the liver Is this a current diagnosis for this admission?: Yes (6) Hypertension Is this a current diagnosis for this admission?: Yes (7) Obesity (BMI 30-39.9) Is this a current diagnosis for this admission?: Yes (8) Chronic anemia Is this a current diagnosis for this admission?: Yes (9) Diastolic CHF Is this a current diagnosis for this admission?: Yes - Transfer Medications Home Medications: Gabapentin [Neurontin] 600 mg PO Q8 04/16/18 Acetaminophen [Tylenol 325 mg Tablet] 650 mg PO Q6HP PRN 06/27/18 Furosemide [Lasix 40 mg Tablet] 40 mg PO QAM 06/27/18 Ibuprofen [Ibu-200] 200 mg PO PRN PRN 06/27/18 Lisinopril [Prinivil 10 mg Tablet] 10 mg PO DAILY 06/27/18 Potassium Chloride [K-Tab] 10 meq PO DAILY 06/27/18 Transfer Medications: Current Medications Dextrose (Dextrose Inj 50% Syringe (25 Gm/50 Ml)) 12.5 gm IV PRN PRN; Protocol PRN Reason: FOR BG 50-69 IN ALERT PATIENT Stop: 07/28/18 08:59 Dextrose (Dextrose Inj 50% Syringe (25 Gm/50 Ml)) 25 gm IV PRN PRN; Protocol PRN Reason: PER PROTOCOL Stop: 07/28/18 08:59 Fluticasone Propionate (Flonase Nasal [place] 50 Mcg/[place] 16 Gm) 2 spray NASL Q12 HENRIQUE Stop: 07/28/18 10:59 Last Admin: 07/01/18 10:09 Dose: Not Given Documented by: Glucagon (Glucagen Inj 1 Mg Vial) 1 mg IM PRN PRN; Protocol PRN Reason: EVALUATE FOR BG < 70 Stop: 07/28/18 08:59 Glucose (Glutose 40% Gel 15 Gm Tube) 15 gm PO PRN PRN; Protocol PRN Reason: FOR BG 50-69 IN ALERT PATIENT Stop: 07/28/18 08:59 Glucose (Glutose 40% Gel 15 Gm Tube) 30 gm PO PRN PRN; Protocol PRN Reason: FOR BG < 50 IN ALERT PATIENT Stop: 07/28/18 08:59 Heparin Sodium (Porcine) (Heparin Inj 5,000 Units/Ml 1 Ml Syringe) 5,000 unit SUBCUT Q8 [facility] Stop: 07/27/18 13:59 Last Admin: 07/01/18 06:08 Dose: Not Given Documented by: Hydrocortisone Sodium Succinate (Solu-Cortef Inj/Pf 100 Mg/ 2 Ml Sdv) 125 mg IV Q6 [facility] Stop: 07/28/18 11:59 Last Admin: 07/01/18 06:02 Dose: 125 mg Documented by: Piperacillin Sod/Tazobactam (Sod 4.5 gm/ Sodium Chloride) 100 mls @ 200 mls/hr IV Q6 [facility] Stop: 07/04/18 17:59 Last Admin: 07/01/18 06:02 Dose: 200 mls/hr, 200 mls/hr Documented by: Norepinephrine Bitartrate 4 mg (/ Dextrose) 250 mls @ 0 mls/hr IV CONTINUOUS PRN; Protocol PRN Reason: THIS MED IS NOT "PRN" Stop: 07/27/18 18:04 Last Titration: 07/01/18 03:40 Dose: 1 mcg/min, 3.75 mls/hr Documented by: Furosemide 250 mg/ Sodium (Chloride) 250 mls @ 10 mls/hr IV CONTINUOUS PRN PRN Reason: THIS MED IS NOT "PRN" Stop: 07/28/18 17:16 Last Admin: 06/30/18 22:06 Dose: 10 mg/hr, 10 mls/hr Documented by: Propofol (Diprivan Rtu 1000 Mg/100 Ml Inf.Bottle) 1,000 mg in 100 mls @ 0 mls/hr IV CONTINUOUS PRN; Protocol PRN Reason: THIS MED IS NOT "PRN" Stop: 07/29/18 08:37 Last Titration: 06/30/18 18:08 Dose: Infused Documented by: Vancomycin HCl 1,500 mg/ (Dextrose) 250 mls @ 166.667 mls/hr IV QHS [facility] Stop: 07/06/18 21:59 Last Admin: 06/30/18 21:54 Dose: 166.67 mls/hr Documented by: Midazolam HCl (Versed Rtu 50 Mg/100 Ml Premix Bag) 50 mg in 100 mls @ 0 mls/hr IV CONTINUOUS PRN; Protocol PRN Reason: THIS MED IS NOT "PRN" Stop: 07/06/18 10:20 Last Admin: 07/01/18 00:07 Dose: 4 mg/hr, 8 mls/hr Documented by: Dopamine HCl/Dextrose (Dopamine Rtu 800 Mg-D5w 250 Ml (Adult) Premix) 800 mg in 250 mls @ 0 mls/hr IV CONTINUOUS PRN; Protocol PRN Reason: THIS MED IS NOT "PRN" Stop: 07/30/18 04:40 Last Titration: 06/30/18 18:09 Dose: Infused Documented by: Insulin Human Regular (Humulin R (Pyxis) Insulin 100 Unit/Ml 3ml) 0 - 12 unit SUBCUT Q6 [facility]; Protocol Stop: 07/28/18 08:44 Last Admin: 07/01/18 06:08 Dose: 2 unit Documented by: Levalbuterol HCl (Xopenex Neb 1.25 Mg/3 Ml Ampul) 1.25 mg NEB RTQ2HP PRN PRN Reason: DYSPNEA/WHEEZING Stop: 07/27/18 22:48 Last Admin: 06/28/18 00:38 Dose: 1.25 mg Documented by: Lorazepam (Ativan Inj 2 Mg/1 Ml Vial) 2 mg IV Q4HP PRN PRN Reason: ANXIETY Stop: 07/04/18 22:48 Last Admin: 06/28/18 19:53 Dose: 2 mg Documented by: Morphine Sulfate (Morphine 10 Mg/Ml Inj) 2 mg IV Q4HP PRN PRN Reason: FOR PAIN Stop: 07/04/18 18:54 Last Admin: 07/01/18 00:08 Dose: 2 mg Documented by: Pharmacy Profile Note (Medication Communication Order) 1 each [facility] .NOTICE NR Stop: 07/29/18 08:44 Sodium Chloride (Saline Flush 2.5 Ml Monoject Prefil Syrin) 2.5 ml IV Q8 [facility] Stop: 07/27/18 13:59 Last Admin: 07/01/18 06:06 Dose: Not Given Documented by: - Allergies Allergies/Adverse Reactions: No Known Drug Allergies Allergy (Verified 06/27/18 07:21) Bee Allergy (Uncoded 06/27/18 07:21) bees Allergy (Uncoded 06/27/18 07:21) Hospital Course Hospital Course: This is a 47 years old female patient with multiple comorbidities including obesity status post gastric bypass, chronic alcoholism hypertension, pulmonary embolism, type 2 diabetes mellitus and chronic pain presented to ER with chief complaint of abdominal pain. Her CT scan of the chest reported as diffuse bilateral airspace disease worrisome for pulmonary edema versus pneumonia. Karen ent is being treated for multi focal pneumonia empirically with vancomycin and Zosyn. Patient intubated the day before yesterday to protect airway since she is becoming progressively tachypneic and confused. Her kidney function is also deteriorating evidenced by elevated creatinine level and decreased urine output. Despite being on Lasix drip and IV albumin her urine output has diminished progressively. I consulted Dr. Mccabe who evaluated the patient and decided to dialyze her and she recommended to transfer her out to tertiary center for CRRT . This morning patient seen intubated and on mechanical ventilation.She is joselo cardic with HR of 40. Physical Exam Vital Signs: Temp Pulse Resp BP Pulse Ox 97.0 F 44 L 20 112/77 96 07/01/18 08:00 07/01/18 10:05 07/01/18 10:05 07/01/18 10:05 07/01/18 10:05 Intake & Output 06/30/18 07/01/18 07/02/18 06:59 06:59 06:59 Intake Total 3804 1342 Output Total 1485 3575 340 Balance 2319 -2233 -340 Weight 96.3 kg 95.8 kg Results Laboratory Results: 07/01/18 04:40 07/01/18 04:40 07/01/18 07/01/18 07/01/18 04:40 04:40 04:40 WBC 12.3 H RBC 2.49 L Hgb 8.6 L Hct 24.9 L MCV 100 H MCH 34.5 H MCHC 34.5 RDW 18.3 H Plt Count 64 L Seg Neutrophils % Not Reportable Lymphocytes % Not Reportable Monocytes % Not Reportable Eosinophils % Not Reportable Basophils % Not Reportable Absolute Neutrophils Not Reportable Absolute Lymphocytes Not Reportable Absolute Monocytes Not Reportable Absolute Eosinophils Not Reportable Absolute Basophils Not Reportable Carbonic Acid 0.97 L HCO3/H2CO3 Ratio 24:1 ABG pH 7.49 H ABG pCO2 32.3 L ABG pO2 138.4 H ABG HCO3 24.0 ABG O2 Saturation 99.0 H ABG Base Excess 0.9 FiO2 50% Sodium 139.2 Potassium 3.1 L Chloride 103 Carbon Dioxide 25 Anion Gap 11 BUN 8 Creatinine 1.61 H Est GFR ( Amer) 42 L Est GFR (Non-Af Amer) 35 L Glucose 195 H Calcium 9.1 Magnesium 1.8 Total Bilirubin 4.6 H AST 72 H ALT 37 Alkaline Phosphatase 179 H Total Protein 6.2 L Albumin 3.1 L 06/29/18 12:11 Sputum Gram Stain - Final 06/27/18 06/28/18 06/29/18 08:00 11:45 04:24 Creatine Kinase CK-MB (CK-2) Troponin I < 0.012 NT-Pro-B Natriuret Pep 2310 H 4300 H 06/30/18 06/30/18 04:25 04:45 Creatine Kinase 23 L CK-MB (CK-2) < 0.22 Troponin I < 0.012 NT-Pro-B Natriuret Pep Impressions: Abdomen/Pelvis CT 06/27/18 08:05 IMPRESSION: Diffuse bilateral airspace disease edema versus pneumonia Third-spacing of fluid with edema in the abdominal wall and trace right pleural effusion and minimal ascites Post gastric bypass. Trace fluid along the pancreatic tail at the splenic hilum, correlate clinically for pancreatitis Chest CT 06/27/18 08:06 IMPRESSION: Diffuse bilateral airspace disease edema versus pneumonia Third-spacing of fluid with edema in the abdominal wall and trace right pleural effusion and minimal ascites Post gastric bypass. Trace fluid along the pancreatic tail at the splenic hilum, correlate clinically for pancreatitis Chest/Abdomen CTA 06/28/18 00:00 IMPRESSION: 1. No pulmonary emboli. 2. Small bilateral pleural effusions with interval increase in the bilateral airspace opacities, may represent worsening pulmonary edema and/or pneumonia, acute respiratory distress syndrome is not excludable. 3. Mild mediastinal adenopathy. 4. Trace pericardial effusion. 5. Hepatomegaly. Fatty infiltration of the liver. 6. Small ascites and anasarca at the visualized upper abdomen. Chest X-Ray 07/01/18 06:00 IMPRESSION: Persistent diffuse bilateral airspace disease, edema versus pneumonia versus ARDS Nasogastric tube tip and side port in the mid 3rd of the esophagus
[2018-07-01 14:38] LABS: HEPATITIS C QUANTITATION HCV Not Detected IU/mL (.)
== END 2018-07-01 11:30 | disposition short-term general hospital (02) | DRG 871 ==
LOC: ER 07:16 → EH 11:29 → EDBD 11:29 → ICU 16:50
PROVIDERS: ADMIT Internal Medicine; ATTEND Internal Medicine
PROC: 02H633Z Insertion of Infusion Device into Right Atrium, Percutaneous Approach (ICD-10-PCS; 2018-06-27)
PROC: B244ZZZ Ultrasonography of Right Heart (ICD-10-PCS; 2018-06-27)
PROC: 04HY32Z Insertion of Monitoring Device into Lower Artery, Percutaneous Approach (ICD-10-PCS; 2018-06-27)
PROC: 5A09457 Assistance with Respiratory Ventilation, 24-96 Consecutive Hours, Continuous Positive Airway Pressure (ICD-10-PCS; 2018-06-28)
PROC: 3E0F73Z Introduction of Anti-inflammatory into Respiratory Tract, Via Natural or Artificial Opening (ICD-10-PCS; 2018-06-28)
PROC: 5A1945Z Respiratory Ventilation, 24-96 Consecutive Hours (ICD-10-PCS; principal; 2018-06-29)
PROC: 0BH17EZ Insertion of Endotracheal Airway into Trachea, Via Natural or Artificial Opening (ICD-10-PCS; 2018-06-29)
PROC: 30233N1 Transfusion of Nonautologous Red Blood Cells into Peripheral Vein, Percutaneous Approach (ICD-10-PCS; 2018-06-29)
PROC: 0JHL3XZ Insertion of Tunneled Vascular Access Device into Right Upper Leg Subcutaneous Tissue and Fascia, Percutaneous Approach (ICD-10-PCS; 2018-06-30)
PROC: 06HM33Z Insertion of Infusion Device into Right Femoral Vein, Percutaneous Approach (ICD-10-PCS; 2018-06-30)
PROC: B54BZZA Ultrasonography of Right Lower Extremity Veins, Guidance (ICD-10-PCS; 2018-06-30)
PROC: 5A1D70Z Performance of Urinary Filtration, Intermittent, Less than 6 Hours Per Day (ICD-10-PCS; 2018-06-30)
DX: A41.9 Sepsis, unspecified organism (principal); J18.9 Pneumonia, unspecified organism; N17.0 Acute kidney failure with tubular necrosis; I13.0 Hypertensive heart and chronic kidney disease with heart failure and stage 1 through stage 4 chronic kidney disease, or unspecified chronic kidney disease; E66.2 Morbid (severe) obesity with alveolar hypoventilation; I50.40 Unspecified combined systolic (congestive) and diastolic (congestive) heart failure; F10.20 Alcohol dependence, uncomplicated; Y90.0 Blood alcohol level of less than 20 mg/100 ml; G89.29 Other chronic pain; K21.9 Gastro-esophageal reflux disease without esophagitis; M10.9 Gout, unspecified; D69.6 Thrombocytopenia, unspecified; D63.1 Anemia in chronic kidney disease; E11.22 Type 2 diabetes mellitus with diabetic chronic kidney disease; K70.31 Alcoholic cirrhosis of liver with ascites; E88.09 Other disorders of plasma-protein metabolism, not elsewhere classified; I27.20 Pulmonary hypertension, unspecified; Z68.39 Body mass index [BMI] 39.0-39.9, adult; F17.210 Nicotine dependence, cigarettes, uncomplicated; Z78.1 Physical restraint status; Z79.899 Other long term (current) drug therapy; Z91.030 Bee allergy status; Z98.84 Bariatric surgery status; Z86.711 Personal history of pulmonary embolism; Z90.710 Acquired absence of both cervix and uterus; Z79.1 Long term (current) use of non-steroidal anti-inflammatories (NSAID); Z91.19 Patient's noncompliance with other medical treatment and regimen; Z83.3 Family history of diabetes mellitus
CPT/HCPCS: 36415; 36430; 51702; 71045; 71260; 71275; 74176; 74177; 80048; 80053; 80307; 81001; 81025; 82140; 82550; 82553; 82607; 82728; 82746; 82803; 82962; 83540; 83550; 83605; 83615; 83690; 83735; 83880; 84100; 84132; 84484; 85025; 85027; 85045; 85610; 86317; 86704; 86850; 86900; 86901; 86920; 87040; 87070; 87205; 87340; 87522; 93005; 93010; 93306; 94002; 94003; 94640; 94660; 96361; 96374; 96375; 96376; 99291; C1751; J0132; J0330; J0610; J1644; J1720; J1815; J1940; J2060; J2250; J2270; J2405; J2543; J2704; J3010; J3370; J3480; J3490; J7030; J7050; J7060; P9016; P9047; S0164

== ENCOUNTER 2018-07-16 21:29 | Inpatient (IN) | payer SELFPAY ==
[2018-07-16 22:47] LABS: ABSOLUTE BASOPHILS # (AUTO) 0.2 10^3/uL (0.0-0.2); ABSOLUTE MONOCYTES (AUTO) 0.6 10^3/uL (0.1-1.4); ABSOLUTE NEUT (AUTO) 15.2 10^3/uL (1.7-8.2); BASOPHILS % (AUTO) 0.9 % (0-2); HEMATOCRIT 26.1 % (36.0-47.0); HEMOGLOBIN 8.6 g/dL (12.0-15.5); LYMPHOCYTES % (AUTO) 11.1 % (13-45); MEAN CORPUSCULAR HEMOGLOBIN 35.2 pg (27.0-33.4); MEAN CORPUSCULAR HGB CONC 32.8 g/dL (32.0-36.0); MONOCYTES % (AUTO) 3.4 % (3-13); PLATELET COUNT 171 10^3/uL (150-450); RED BLOOD COUNT 2.43 10^6/uL (3.72-5.28); RED CELL DISTRIBUTION WIDTH 18.6 % (11.5-14.0); SEGMENTED NEUTROPHILS % (AUTO) 84.6 % (42-78); TOTAL CELLS COUNTED % (AUTO) 100 %; WHITE BLOOD COUNT 17.9 10^3/uL (4.0-10.5)
[2018-07-16 22:48] LABS: MEAN CORPUSCULAR VOLUME 107 fl (80-97)
[2018-07-16 22:52] LABS: ALANINE AMINOTRANSFERASE 26 U/L (9-52); ALBUMIN 3.1 g/dL (3.5-5.0); ALKALINE PHOSPHATASE 162 U/L (38-126); ANION GAP 19 (5-19); ASPARTATE AMINO TRANSFERASE 51 U/L (14-36); BILIRUBIN,DIRECT 2.8 mg/dL (0.0-0.4); BILIRUBIN,TOTAL 4.6 mg/dL (0.2-1.3); BLOOD UREA NITROGEN 15 mg/dL (7-20); CALCIUM 9.5 mg/dL (8.4-10.2); CARBON DIOXIDE 12 mmol/L (22-30); CHLORIDE 106 mmol/L (98-107); CREATINE KINASE 57 U/L (30-135); GLUCOSE 321 mg/dL (75-110); POTASSIUM 5.8 mmol/L (3.6-5.0); SODIUM 136.6 mmol/L (137-145); TOTAL PROTEIN 7.3 g/dL (6.3-8.2)
[2018-07-16 23:10] LABS: CREATINE KINASE MB 1.21 ng/mL (<4.55)
[2018-07-16 23:14] LABS: TROPONIN I < 0.012 ng/mL
--- NOTE | 2018-07-16 23:14 | RADIOLOGY REPORT (SQ) ---
EXAM DESCRIPTION: XR CHEST 1 VIEW COMPLETED DATE/TME: 07/16/2018 22:17 CLINICAL HISTORY: 47 years, Female, sob COMPARISON: X-ray chest 07/01/2018 NUMBER OF VIEWS: TECHNIQUE: LIMITATIONS: None. FINDINGS: There are bilateral pulmonary infiltrates, most apparent in the lower lobes bilaterally. The pulmonary infiltrates are probably somewhat worse, as compared with the prior chest x-ray. There is a small right pleural effusion. The heart and mediastinum are unremarkable. No evidence of heart failure. IMPRESSION: Bilateral pulmonary infiltrates, probably somewhat worse, as compared with the prior chest x-ray. Diagnostic possibilities include pneumonia and pulmonary edema. copyright 2010 [employer]- All Rights Reserved
[2018-07-17 00:07] LABS: ARTERIAL BLOOD H2CO3 0.64 mmol/L (1.05-1.35); ARTERIAL BLOOD HCO3 13.2 mmol/L (20-24); ARTERIAL BLOOD O2 SATURATION 94.5 % (94-98); ARTERIAL BLOOD PCO2 21.4 mmHg (35-45); ARTERIAL BLOOD PH 7.41 (7.35-7.45); ARTERIAL BLOOD PO2 69.2 mmHg (80-100); ARTERIAL BLOOD TOTAL CO2 13.8 mmol/L (21-25)
[2018-07-17 00:08] LABS: ARTERIAL BLOOD FIO2 30%
[2018-07-17] MEDS ORDERED: PIPERACILLIN/TAZOBACTAM 3.375 GM VIAL IV ONE (00:41)
[2018-07-17] MEDS ORDERED: VANCOMYCIN HCL INJ 1000 MG VIAL IV ONE (00:41)
--- NOTE | 2018-07-17 01:01 | ER Document Report ---
ED General - General Chief Complaint: Breathing Difficulty Stated Complaint: DIFFICULTY BREATHING Time Seen by Provider: 07/16/18 21:54 Mode of Arrival: Wheelchair Information source: Patient, Relative Notes: This is a 47-year-old female with a history of recent pneumonia and sepsis who presents to the emergency room with shortness of breath. Patient was brought in by the don who states that when he came home this evening, she was short of breath and had decreased mental status. TRAVEL OUTSIDE OF THE [place] IN LAST 30 DAYS: No - HPI Onset: Just prior to arrival Onset/Duration: Gradual Quality of pain: No pain Severity: None Pain Level: Denies Associated symptoms: Shortness of breath. denies: Chest pain, Fever Exacerbated by: Movement Relieved by: Denies Similar symptoms previously: Yes Recently seen / treated by doctor: No - Related Data Allergies/Adverse Reactions: No Known Drug Allergies Allergy (Verified 06/27/18 07:21) Bee Allergy (Uncoded 06/27/18 07:21) bees Allergy (Uncoded 06/27/18 07:21) Past Medical History - General Information source: Patient, Relative - Social History Smoking Status: Current Every Day Smoker Cigarette use (# per day): Yes - 1 pack/day Chew tobacco use (# tins/day): No Frequency of alcohol use: None Drug Abuse: None Lives with: Family Family History: None, DM Patient has suicidal ideation: No Patient has homicidal ideation: No - Past Medical History Cardiac Medical History: Reports: Hx Hypertension, Hx Pulmonary Embolism Pulmonary Medical History: Reports: Hx Pneumonia Neurological Medical History: Denies: Hx Seizures Endocrine Medical History: Reports: Hx Diabetes Mellitus Type 2 Renal/ Medical History: Denies: Hx Peritoneal Dialysis GI Medical History: Reports: Hx Gastroesophageal Reflux Disease, Hx Hepatitis Musculoskeletal Medical History: Reports Hx Arthritis - gout, Reports Hx Gout Psychiatric Medical History: Denies: Hx Depression Infectious Medical History: Reports: Hx Hepatitis Past Surgical History: Reports: Hx Abdominal Surgery - Laproscopic Gastric Bypass, Hx Section - x 3, Hx Gastric Bypass Surgery, Hx Hysterectomy - Immunizations Hx Diphtheria, Pertussis, Tetanus Vaccination: No Review of Systems - Review of Systems Constitutional: denies: Chills, Fever EENT: No symptoms reported Cardiovascular: denies: Chest pain, Palpitations, Heart racing Respiratory: Cough, Short of breath Gastrointestinal: No symptoms reported Genitourinary: No symptoms reported Female Genitourinary: No symptoms reported Musculoskeletal: No symptoms reported Skin: No symptoms reported Hematologic/Lymphatic: No symptoms reported Neurological/Psychological: No symptoms reported Physical Exam - Vital signs Vitals: Pulse Ox 85 L 07/16/18 21:40 Notes: Physical exam: GENERAL: Lethargic 47-year-old female that does arouse to verbal stimuli. Blood pressure 110/70, pulse of 105. Oxygen saturation 88% on room air. HEAD: Atraumatic, normocephalic. EYES: Pupils equal round and reactive to light, extraocular movements intact, sclera anicteric, conjunctiva are normal. ENT: TMs normal, nares patent, oropharynx clear without exudates. Moist mucous membranes. NECK: Normal range of motion, supple without obvious mass or JVD. LUNGS: Decreased breath sounds bilaterally HEART: Regular rate and rhythm without murmurs, rubs or gallops. ABDOMEN: Soft, normoactive bowel sounds. No tenderness to palpation. No guarding, no rebound. No masses appreciated. EXTREMITIES: Normal range of motion, no pitting or edema. No clubbing or cyanosis. NEUROLOGICAL: Cranial nerves II through XII grossly intact. Normal speech, moving all extremities. PSYCH: Normal mood, normal affect. SKIN: Warm, Dry, normal turgor, no rashes or lesions noted. Course - Re-evaluation Re-evalutation: 07/17/18 01:00 Note: I had a long conversation with the patient. She recently was discharged from [facility] (he had been transferred from here). I have discussed transferring her back to [place] but she absolutely refuses at this point in time. I have attempted to call the fianc (Fredrick Palomino) who had left the ER. I have called 2 numbers and left a message on 1. Her chest x-ray does show infiltrates which looks like worsening pneumonia. Her white count is 18,000. She has improved on BiPAP (both her oxygen saturation and mental status). Given all the above, we will admit the patient here for hospital acquired pneumonia. Patient's current vital signs are 108/65 with a pulse of 110, respiratory rate 28 with an oxygen saturation of 93 % (BIPAP: 30%) 07/17/18 01:02 07/17/18 01:03 07/17/18 03:06 Attempted right femoral line under ultrasound guidance. Femoral vein was compressible. Unfortunately, I was unable to thread the vein successfully. Patient does have left AC line at this point. Discussed with Dr. Solares. Will request consult with Dr. Nicole for line placement. 07/17/18 03:52 - Vital Signs Vital signs: Temp Pulse Resp BP Pulse Ox 97.7 F 38 H 100 07/16/18 22:14 07/16/18 22:17 07/16/18 22:17 - Laboratory Result Diagrams: 07/16/18 22:28 07/16/18 22:28 Laboratory results interpreted by me: 07/16/18 07/16/18 07/16/18 21:53 22:28 22:28 WBC 17.9 H RBC 2.43 L Hgb 8.6 L Hct 26.1 L MCV 107 H D MCH 35.2 H RDW 18.6 H Seg Neutrophils % 84.6 H Lymphocytes % 11.1 L Absolute Neutrophils 15.2 H Carbonic Acid ABG pCO2 ABG pO2 ABG HCO3 ABG Total CO2 Sodium 136.6 L Potassium 5.8 H Carbon Dioxide 12 L Creatinine 1.61 H Est GFR ( Amer) 42 L Est GFR (Non-Af Amer) 35 L Glucose 321 H POC Glucose 321 H Total Bilirubin 4.6 H Direct Bilirubin 2.8 H AST 51 H Alkaline Phosphatase 162 H Albumin 3.1 L 07/16/18 23:45 WBC RBC Hgb Hct MCV MCH RDW Seg Neutrophils % Lymphocytes % Absolute Neutrophils Carbonic Acid 0.64 L ABG pCO2 21.4 L ABG pO2 69.2 L ABG HCO3 13.2 L ABG Total CO2 13.8 L Sodium Potassium Carbon Dioxide Creatinine Est GFR ( Amer) Est GFR (Non-Af Amer) Glucose POC Glucose Total Bilirubin Direct Bilirubin AST Alkaline Phosphatase Albumin - Diagnostic Test Radiology reviewed: Image reviewed, Reports reviewed - Bilateral infiltrates suggestive of pneumonia worse than previous. - EKG Interpretation by Me Rate: Tachycardia - EKG shows sinus tachycardia with a ventricular rate of 127, Critical Care Note - Critical Care Note Total time excluding time spent on procedures (mins): 60 Discharge - Discharge Clinical Impression: Hospital-acquired pneumonia, Respiratory failure Condition: Serious Disposition: ADMITTED INPATIENT Admitting Provider: Hospitalist - Dr. Solares Unit Admitted: [facility]
[2018-07-17] MEDS ORDERED: DEXTROSE 50%-WATER 25 GM/50 ML DISP.SYRIN IV PRN ×2 (01:04)
[2018-07-17] MEDS ORDERED: GLUCAGON,HUMAN RECOMB 1 MG INJ IM PRN (01:04)
[2018-07-17] MEDS ORDERED: DEXTROSE 40% GEL 15 GM TUBE PO PRN ×2 (01:04)
[2018-07-17] MEDS ORDERED: IPRATROPIUM/ALBUTEROL 0.5-2.5 MG/3 ML AMPUL NEB PRN (01:05)
[2018-07-17] MEDS ORDERED: GUAIFENESIN SYRP 200 MG/10 ML UDC PO PRN (01:05)
[2018-07-17] MEDS ORDERED: ACETAMINOPHEN 325 MG TABLET PO PRN (01:05)
[2018-07-17] MEDS ORDERED: NORMAL SALINE 1000 ML 1,000 ML IV PRN (01:15)
[2018-07-17] MEDS ORDERED: IPRATROPIUM/ALBUTEROL 0.5-2.5 MG/3 ML AMPUL NEB ONE ×2 (01:30→04:30)
[2018-07-17] MEDS ORDERED: FOLIC ACID INJ 5 MG/1 ML 10 ML VIAL IV ONE ×2 (01:30→04:30)
[2018-07-17] MEDS ORDERED: PHYTONADIONE INJ 10 MG/1 ML AMPULE SUBCUT ONE ×2 (01:30→04:30)
[2018-07-17] MEDS ORDERED: INSULIN REG, HUMAN 100 UNIT/ML 3 ML VIAL (PYX) SUBCUT ONE ×2 (01:30→04:30)
[2018-07-17] MEDS ORDERED: THIAMINE HCL INJ 200 MG/2 ML VIAL IM ONE ×2 (01:30→04:30)
[2018-07-17] MEDS ORDERED: CEFEPIME 2 GM/D5W RTU 2 GM/50 ML RTUPB IV ONE ×2 (01:30→05:00)
[2018-07-17] MEDS ORDERED: LACTULOSE SYRUP 20 GM/30 ML UDCUP PO ONE ×2 (01:30→04:30)
[2018-07-17] MEDS ORDERED: FOLIC ACID 1 MG TABLET PO ONE ×2 (01:30→04:30)
[2018-07-17] MEDS ORDERED: CYANOCOBALAMIN (VITAMIN B-12) 1,000 MCG TABLET PO ONE ×2 (01:30→04:30)
[2018-07-17] MEDS ORDERED: LIDOCAINE 1% INJ-PF (10 MG/ML) 30 ML SDV ONE (02:25)
[2018-07-17] MEDS ORDERED: CYANOCOBALAMIN (VITAMIN B-12) 1,000 MCG TABLET ONE (05:35)
--- NOTE | 2018-07-17 05:56 | Operative Report ---
Nonrecallable Operative Report DATE OF SURGERY: 07/17/18 PREOPERATIVE DIAGNOSIS: 1. Phlebosclerosis. 2. Respiratory distress POSTOPERATIVE DIAGNOSIS: Same as above OPERATION: 1. Ultrasound-guided central venous puncture. 2. Right internal jugular vein central line placement. SURGEON: YUSEF JACINTO ANESTHESIA: Local TISSUE REMOVED OR ALTERED: None COMPLICATIONS: None apparent ESTIMATED BLOOD LOSS: Minimal PROCEDURE: Drains/implants: Right internal jugular vein central line at 13 cm. Procedure in detail: After informed consent was obtained from the patient she was laid in the Trendelenburg position in the emergency department. The right neck and chest were prepped and draped in a normal sterile fashion. An ultrasound was used to identify the right internal jugular vein. The vein was compressible with normal flow. Under direct ultrasonic guidance the vein was accessed with the supplied needle. Dark, venous, nonpulsatile blood was returned in the syringe. The wire was then inserted into the vein easily. The wire was confirmed to be within the lumen of the vein using the ultrasound. The catheter was then slid over the wire using a modified Seldinger technique. The catheter was aspirated and flushed x3. Aspiration revealed dark, venous, nonpulsatile blood. The catheter was then aspirated easily x3. The catheter was then sutured to the skin. A dressing was placed, and the procedure was concluded. All sponge, instrument, and needle counts were correct x2. Condition: Fair.
[2018-07-17] MEDS ORDERED: HYDROCORTISONE SOD SUCCINATE INJ/PF 100 MG/2 ML SDV IV SCH (06:00)
[2018-07-17] MEDS ORDERED: GABAPENTIN 300 MG CAPSULE PO SCH (06:00)
[2018-07-17] MEDS ORDERED: INSULIN LISPRO 100 UNIT/ML 3 ML VIAL SUBCUT SCH (06:00)
[2018-07-17] MEDS ORDERED: HEPARIN SOD (PORCINE) 5,000 UNIT/ML 1 ML SYRINGE SUBCUT SCH (06:00)
[2018-07-17] MEDS ORDERED: NOREPINEPHRINE BITARTRATE INJ/PF 4 MG/4 ML SDV IV ONE (06:07)
[2018-07-17] MEDS ORDERED: DEXTROSE 5%-WATER 250 ML with NOREPINEPHRINE BITARTRATE 4 MG IV PRN ×2 (06:08)
--- NOTE | 2018-07-17 06:20 | PDOC H&P ---
History of Present Illness Admission Date/PCP: 07/17/18 01:33 Patient complains of: Shortness of breath History of Present Illness: BILL FERRER is a 47 year old female with a past medical history of moderate mitral regurgitation, morbid obesity, hepatic cirrhosis, diabetes, pulmonary embolism, status post gastric bypass, macrocytic anemia, substance abuse, alcohol dependence, tobacco dependence, and discharge from acute care hospitalization for pneumonia 16 days ago. Patient presents acutely short of breath with severe sepsis and hypotension requiring central line placement for pressors and BiPAP. IV access is delayed secondary patient's persistent refusal for care. Patient has severe dyspnea and unable to provide meaningful history. Labs reveal compensated metabolic acidosis with respiratory alkalosis, hemoglobin of 8 MCV of 107, white blood cell count of 18 and acute renal failure. She is referred to the hospitalist for admission. Past Medical History Cardiac Medical History: Reports: Hypertension, Pulmonary Embolism Pulmonary Medical History: Reports: Pneumonia Neurological Medical History: Denies: Seizures Endocrine Medical History: Reports: Diabetes Mellitus Type 2 GI Medical History: Reports: Gastroesophageal Reflux Disease, Hepatitis Musculoskeltal Medical History: Reports: Arthritis - gout, Gout Psychiatric Medical History: Denies: Depression Hematology: Denies: Sickle Cell Disease Past Surgical History Past Surgical History: Reports: Section - x 3, Gastric Bypass Surgery, Hysterectomy Social History Information Source: Emergency [facility] Personnel, [facility] / [facility] Records Lives with: Family Smoking Status: Current Every Day Smoker Frequency of Alcohol Use: Heavy - Last drink was 2 weeks ago Hx Recreational Drug Use: No Drugs: None Hx Prescription Drug Abuse: No - Advance Directive Resuscitation Status: Full Code Family History Family History: DM Parental Family History Reviewed: Yes Children Family History Reviewed: Yes Sibling(s) Family History Reviewed.: Yes Medication/Allergy Home Medications: Gabapentin [Neurontin] 600 mg PO Q8 04/16/18 Acetaminophen [Tylenol 325 mg Tablet] 650 mg PO Q6HP PRN 06/27/18 Furosemide [Lasix 40 mg Tablet] 40 mg PO QAM 06/27/18 Ibuprofen [Ibu-200] 200 mg PO PRN PRN 06/27/18 Lisinopril [Prinivil 10 mg Tablet] 10 mg PO DAILY 06/27/18 Potassium Chloride [K-Tab ER] 10 meq PO DAILY 06/27/18 Allergies/Adverse Reactions: No Known Drug Allergies Allergy (Verified 06/27/18 07:21) Bee Allergy (Uncoded 06/27/18 07:21) bees Allergy (Uncoded 06/27/18 07:21) Review of Systems ROS unobtainable: Due to mental status Physical Exam Vital Signs: Temp Pulse Resp BP Pulse Ox 97.7 F 21 H 91/67 L 95 07/16/18 22:14 07/17/18 04:30 07/17/18 04:30 07/17/18 04:30 Intake & Output 07/15/18 07/16/18 07/17/18 11:59 11:59 11:59 Intake Total 50 Balance 50 General appearance: PRESENT: disheveled, morbidly obese, severe distress, other - Combative resisting treatment. ABSENT: cooperative Head exam: PRESENT: atraumatic, normocephalic Eye exam: PRESENT: conjunctiva pink, EOMI, PERRLA. ABSENT: scleral icterus Ear exam: PRESENT: normal external ear exam Mouth exam: PRESENT: dry mucosa, tongue midline Neck exam: ABSENT: carotid bruit, JVD, lymphadenopathy, thyromegaly Respiratory exam: PRESENT: accessory muscle use, crackles, prolonged expiratory phas, rales, retraction, rhonchi, symmetrical, tachypnea, wheezes. ABSENT: chest wall tenderness Cardiovascular exam: PRESENT: gallop, +S1, +S2, systolic murmur, tachycardia Pulses: PRESENT: normal dorsalis pedis pul Vascular exam: PRESENT: normal capillary refill GI/Abdominal exam: PRESENT: normal bowel sounds, soft. ABSENT: distended, guarding, mass, organolmegaly, rebound, tenderness Rectal exam: PRESENT: deferred Extremities exam: PRESENT: full ROM, +1 edema. ABSENT: calf tenderness, clubbing, pedal edema Neurological exam: PRESENT: altered, awake, oriented to person, CN II-XII grossly intact Psychiatric exam: PRESENT: agitated, anxious, unusual affect Skin exam: PRESENT: dry, intact, warm. ABSENT: cyanosis, rash Results Laboratory Results: 07/16/18 22:28 07/16/18 22:28 07/16/18 07/16/18 07/16/18 22:28 22:28 23:45 WBC 17.9 H RBC 2.43 L Hgb 8.6 L Hct 26.1 L MCV 107 H D MCH 35.2 H MCHC 32.8 RDW 18.6 H Plt Count 171 Seg Neutrophils % 84.6 H Lymphocytes % 11.1 L Monocytes % 3.4 Eosinophils % 0.0 Basophils % 0.9 Absolute Neutrophils 15.2 H Absolute Lymphocytes 2.0 Absolute Monocytes 0.6 Absolute Eosinophils 0.0 Absolute Basophils 0.2 Carbonic Acid 0.64 L HCO3/H2CO3 Ratio 20:1 ABG pH 7.41 ABG pCO2 21.4 L ABG pO2 69.2 L ABG HCO3 13.2 L ABG O2 Saturation 94.5 ABG Base Excess -10.0 FiO2 30% Sodium 136.6 L Potassium 5.8 H Chloride 106 Carbon Dioxide 12 L Anion Gap 19 BUN 15 Creatinine 1.61 H Est GFR ( Amer) 42 L Est GFR (Non-Af Amer) 35 L Glucose 321 H Calcium 9.5 Total Bilirubin 4.6 H AST 51 H ALT 26 Alkaline Phosphatase 162 H Total Protein 7.3 Albumin 3.1 L 07/16/18 07/16/18 22:28 22:28 Creatine Kinase 57 CK-MB (CK-2) 1.21 Troponin I < 0.012 Impressions: Chest X-Ray 07/16/18 22:17 IMPRESSION: Bilateral pulmonary infiltrates, probably somewhat worse, as compared with the prior chest x-ray. Diagnostic possibilities include pneumonia and pulmonary edema. copyright 2010 [employer]- All Rights Reserved Assessment and Plan - Diagnosis (1) Pneumonia Is this a current diagnosis for this admission?: Yes Plan: Coverage for healthcare associated pneumonia with vancomycin and cefepime. Albuterol, Atrovent, follow-up ABG (2) Severe sepsis Is this a current diagnosis for this admission?: Yes Plan: Secondary to #1, Solu-Cortef, Levophed, IV fluid challenge, follow-up chemistry, blood and urine culture (3) Hypotension Is this a current diagnosis for this admission?: Yes Plan: Solu-Cortef, Levophed, IV fluid challenge (4) Macrocytic anemia Is this a current diagnosis for this admission?: Yes Plan: Complicated by gastric bypass and moderate mitral regurgitation with shearing forces. Empiric folic acid and B12 ordered. Follow-up CBC and anemia workup. (5) Coagulopathy Is this a current diagnosis for this admission?: Yes Plan: Secondary to hepatic cirrhosis, vitamin K ordered (6) Encephalopathy acute Is this a current diagnosis for this admission?: Yes Plan: Multifactorial secondary to acute illness and comp gated by alcohol and substance dependence. Ativan as needed (7) Alcohol dependence Is this a current diagnosis for this admission?: Yes Plan: Thiamine, folate, Ativan as needed, anticipate withdrawal. - Time Time Spent with patient: 35 or more minutes - Inpatient Certification Medical Necessity: Need Close Monitoring Due to Risk of Patient Decompensation
[2018-07-17 06:38] LABS: ABSOLUTE RETICS # 0.073 10^6/uL (0.028-0.122); RETICULOCYTE COUNT (AUTO) 3.19 % (0.66-2.85)
[2018-07-17 06:40] LABS: INTERNATIONAL RATION (INR) 1.72
--- NOTE | 2018-07-17 06:51 | RADIOLOGY REPORT (SQ) ---
EXAM DESCRIPTION: XR CHEST 1 VIEW COMPLETED DATE/TME: 07/17/2018 00:00 CLINICAL HISTORY: 47 years Female, c-line COMPARISON: One day prior. NUMBER OF VIEWS/TECHNIQUE: 1/AP FINDINGS: Moderate mixed airspace and interstitial opacities. Small right basilar opacity-effusion.Adequate appearing right jugular central line. Normal cardiac silhouette size. No pneumothorax. Stable bony thorax. IMPRESSION: No significant change.
[2018-07-17 06:53] LABS: ANION GAP 11 (5-19); BLOOD UREA NITROGEN 19 mg/dL (7-20); CALCIUM 9.4 mg/dL (8.4-10.2); CARBON DIOXIDE 20 mmol/L (22-30); CHLORIDE 105 mmol/L (98-107); GLUCOSE 357 mg/dL (75-110); IRON(TIBC) 31.8 ug/dL (37-170); LIPASE 209.2 U/L (23-300); POTASSIUM 5.4 mmol/L (3.6-5.0); SODIUM 135.9 mmol/L (137-145)
[2018-07-17] MEDS ORDERED: IPRATROPIUM/ALBUTEROL 0.5-2.5 MG/3 ML AMPUL NEB SCH (08:00)
[2018-07-17 08:06] LABS: FOLATE > 20.00 ng/mL (>2.76); PREALBUMIN < 3.0 mg/dL (17.6-36.0)
[2018-07-17 08:40] VITALS: BP 117/76
[2018-07-17] MEDS ORDERED: LISINOPRIL 10 MG TABLET PO SCH (10:00)
[2018-07-17] MEDS ORDERED: THIAMINE HCL 100 MG TABLET PO SCH (10:00)
[2018-07-17] MEDS ORDERED: CYANOCOBALAMIN (VITAMIN B-12) INJ 1000 MCG/1 ML VIAL IM SCH (10:00)
--- NOTE | 2018-07-17 14:45 | EKG REPORT ---
SEVERITY:- ABNORMAL ECG - SINUS TACHYCARDIA PROBABLE LEFT ATRIAL ABNORMALITY BORDERLINE RIGHT AXIS DEVIATION BORDERLINE R WAVE PROGRESSION, ANTERIOR LEADS BORDERLINE PROLONGED QT INTERVAL : Confirmed by: Gosia Mims MD 17-Jul-2018 14:44:49
--- NOTE | 2018-07-17 16:47 | Left Against Medical Advice ---
Against Medical Advice Admission Date/Time: 07/17/18 01:33 Primary Care Provider: Date of Patient [place]: 07/17/18 - Diagnosis: (1) Pneumonia Is this a current diagnosis for this admission?: Yes (2) Severe sepsis Is this a current diagnosis for this admission?: Yes (3) Hypotension Is this a current diagnosis for this admission?: Yes (4) Microcytic anemia Is this a current diagnosis for this admission?: Yes (5) Coagulopathy Is this a current diagnosis for this admission?: Yes (6) HTN (hypertension) Is this a current diagnosis for this admission?: Yes (7) Diabetes mellitus Is this a current diagnosis for this admission?: Yes - Summary: Summary: BILL FERRER is a 47 year old female with a past medical history of moderate mitral regurgitation, morbid obesity, hepatic cirrhosis, diabetes, pulmonary embolism, status post gastric bypass, macrocytic anemia, substance abuse, alcohol dependence, tobacco dependence, and discharge from acute care hospitalization for pneumonia 16 days ago. Patient presents acutely short of breath with severe sepsis and hypotension requiring central line placement for pressors and BiPAP. IV access is delayed secondary patient's persistent refusal for care. Patient has severe dyspnea and unable to provide meaningful history. Labs reveal compensated metabolic acidosis with respiratory alkalosis, hemoglobin of 8 MCV of 107, white blood cell count of 18 and acute renal failure. She is referred to the hospitalist for admission. This morning accepted this patient from the night call hospitalist. Patient has been managed with bronchodilator, BiPAP and supplemental oxygen. During my morning round patient told me she do not want to stay in this hospital rather she [facility] and want to check out. I myself and Crystal the nurse in charge of her discussed at length the consequence of signing out which includes respiratory failure and even . Despite our advice and discussion patient is adamant to leave and she signed out AGAINST MEDICAL ADVICE.
[2018-07-17] MEDS ORDERED: CEFEPIME 2 GM/D5W RTU 2 GM/50 ML RTUPB IV SCH (18:00)
== END 2018-07-17 09:23 | disposition left against medical advice (07) | DRG 871 ==
LOC: ER 21:29 → EH 07-17 01:33 → ICU 07-17 07:11
PROVIDERS: ADMIT Internal Medicine; ATTEND Internal Medicine
PROC: 05HY33Z Insertion of Infusion Device into Upper Vein, Percutaneous Approach (ICD-10-PCS; principal; 2018-07-17)
DX: A41.9 Sepsis, unspecified organism (principal); J18.9 Pneumonia, unspecified organism; G93.41 Metabolic encephalopathy; N17.9 Acute kidney failure, unspecified; R65.20 Severe sepsis without septic shock; I10 Essential (primary) hypertension; E11.8 Type 2 diabetes mellitus with unspecified complications; K21.9 Gastro-esophageal reflux disease without esophagitis; D53.9 Nutritional anemia, unspecified; F10.20 Alcohol dependence, uncomplicated; I34.0 Nonrheumatic mitral (valve) insufficiency; K74.60 Unspecified cirrhosis of liver; M10.9 Gout, unspecified; F17.210 Nicotine dependence, cigarettes, uncomplicated; E66.01 Morbid (severe) obesity due to excess calories; Y90.9 Presence of alcohol in blood, level not specified; Z53.29 Procedure and treatment not carried out because of patient's decision for other reasons; Z86.711 Personal history of pulmonary embolism; Z98.84 Bariatric surgery status
CPT/HCPCS: 36415; 71045; 80048; 80053; 82550; 82553; 82607; 82728; 82746; 82803; 82962; 83540; 83550; 83605; 83690; 84134; 84484; 85025; 85045; 85610; 87040; 87077; 87186; 93005; 93010; 94660; 96365; 96368; 99291; C1751; C1769; J0692; J1644; J1720; J1815; J2543; J3370; J3411; J3430; J3490; J7030; J7060; J7620

== ENCOUNTER → 2018-09-17 | Outpatient (CLI) | payer OTHER ==
[2018-09-17 09:27] LABS: ABSOLUTE BASOPHILS # (AUTO) 0.1 10^3/uL (0.0-0.2); ABSOLUTE EOSINOPHILS # (AUTO) 0.2 10^3/uL (0.0-0.6); ABSOLUTE MONOCYTES (AUTO) 0.5 10^3/uL (0.1-1.4); ABSOLUTE NEUT (AUTO) 5.8 10^3/uL (1.7-8.2); BASOPHILS % (AUTO) 1.1 % (0-2); EOSINOPHILS % (AUTO) 2.1 % (0-6); HEMATOCRIT 34.6 % (36.0-47.0); HEMOGLOBIN 11.4 g/dL (12.0-15.5); LYMPHOCYTES % (AUTO) 23.7 % (13-45); MEAN CORPUSCULAR HEMOGLOBIN 29.9 pg (27.0-33.4); MEAN CORPUSCULAR HGB CONC 32.8 g/dL (32.0-36.0); MEAN CORPUSCULAR VOLUME 91 fl (80-97); MONOCYTES % (AUTO) 5.8 % (3-13); PLATELET COUNT 186 10^3/uL (150-450); RED CELL DISTRIBUTION WIDTH 17.2 % (11.5-14.0); SEGMENTED NEUTROPHILS % (AUTO) 67.3 % (42-78); TOTAL CELLS COUNTED % (AUTO) 100 %; WHITE BLOOD COUNT 8.6 10^3/uL (4.0-10.5)
[2018-09-17 09:43] LABS: ALANINE AMINOTRANSFERASE 19 U/L (9-52); ALBUMIN 3.1 g/dL (3.5-5.0); ALKALINE PHOSPHATASE 366 U/L (38-126); ANION GAP 12 (5-19); ASPARTATE AMINO TRANSFERASE 41 U/L (14-36); BILIRUBIN,DIRECT 0.6 mg/dL (0.0-0.4); BILIRUBIN,TOTAL 0.9 mg/dL (0.2-1.3); CALCIUM 9.3 mg/dL (8.4-10.2); CARBON DIOXIDE 21 mmol/L (22-30); CHLORIDE 108 mmol/L (98-107); CHOLESTEROL 99.35 mg/dL (0-200); GLUCOSE 131 mg/dL (75-110); POTASSIUM 4.3 mmol/L (3.6-5.0); SODIUM 140.9 mmol/L (137-145); TRIGLYCERIDES 150 mg/dL (<150)
[2018-09-17 09:54] LABS: BLOOD UREA NITROGEN < 2 mg/dL (7-20); DIRECT LDL 60 mg/dL (<100)
== END ==
LOC: CCC 08:25
DX: Z00.00 Encounter for general adult medical examination without abnormal findings (principal)
CPT/HCPCS: 36415; 80053; 80061; 83036; 84443; 85025